=== PATIENT | female | born 1960 | race Caucasian/White ===

== ENCOUNTER → 2016-09-17 | Outpatient (CLI) | payer MEDICARE ==
[2016-09-17 20:29] LABS: ALT 46 U/L (9-52); AST 35 U/L (14-36); Alkaline Phosphatase 136 U/L (38-126); Anion Gap 8 mmol/L; Blood Urea Nitrogen 13 mg/dL (7-17); Calcium 9.6 mg/dL (8.4-10.2); Carbon Dioxide 34 mmol/L (22-30); Chloride 98 mmol/L (98-107); Glucose 123 mg/dL (74-99); Non-African American GFR(MDRD) >60 (>60 ml/min/1.73 sqM); Sodium 140 mmol/L (137-145); Total Bilirubin 0.4 mg/dL (0.2-1.3)
== END | disposition home or self-care (01) ==
LOC: MMGSC 15:12
PROVIDERS: ATTEND Family Medicine
DX: R79.89 Other specified abnormal findings of blood chemistry (principal)
CPT/HCPCS: 36415; 80053

== ENCOUNTER → 2018-01-14 | Outpatient (CLI) | payer MEDICARE ==
[2018-01-14 13:11] LABS: HCT 35.2 % (34.0-46.0); HGB 11.6 gm/dL (11.4-16.0); MCH 30.3 pg (25.0-35.0); MCV 91.6 fL (80.0-100.0); Mean Platelet Volume 6.8; Platelet Count 229 k/uL (150-450); RBC 3.84 m/uL (3.80-5.40); RDW 14.7 % (11.5-15.5); WBC 8.1 k/uL (3.8-10.6)
[2018-01-14 13:41] LABS: T4, Free (Free Thyroxine) 1.12 ng/dL (0.78-2.19)
[2018-01-14 22:04] LABS: ACTH 5.09 pg/mL (0.00-45.99)
== END | disposition home or self-care (01) ==
LOC: LABWHC1 12:36
PROVIDERS: ATTEND Internal Medicine Endocrinology, Diabetes & Metabolism
DX: R53.83 Other fatigue (principal)
CPT/HCPCS: 36415; 82024; 82533; 82607; 84146; 84439; 84443; 85027

== ENCOUNTER → 2021-04-06 | Outpatient (CLI) | payer MEDICARE ==
[2021-04-06 12:51] LABS: Appearance,Urine Clear (Clear); Bilirubin,Urine Negative (Negative); Blood,Urine Negative (Negative); Color,Urine Light Yellow; Glucose,Urine (UA) Negative (Negative); Ketones,Urine Negative (Negative); Leukocyte Esterase,Urine Negative (Negative); Nitrite,Urine Negative (Negative); PH, Urine 6.5 (5.0-8.0); Protein,Urine Negative (Negative); Urobilinogen,Urine <2.0 mg/dL (<2.0)
[2021-04-06 13:12] LABS: Anisocytosis Slight; HCT 41.5 % (34.0-46.0); HGB 12.5 gm/dL (11.4-16.0); Hypochromasia Marked; MCH 29.6 pg (25.0-35.0); MCHC 30.1 g/dL (31.0-37.0); MCV 98.5 fL (80.0-100.0); Macrocytosis Moderate; Mean Platelet Volume 8.5; Platelet Count 184 k/uL (150-450); RBC 4.22 m/uL (3.80-5.40); WBC 7.2 k/uL (3.8-10.6)
[2021-04-06 13:28] LABS: INR 1.2 (<1.2); Partial Thromboplastin Time 26.1 sec (22.0-30.0); Prothrombin Time 12.2 sec (9.0-12.0)
[2021-04-06 13:36] LABS: ALT 22 U/L (4-34); AST 32 U/L (14-36); African American GFR (CKD) >90 (>60 ml/min/1.73 sqM); Albumin 3.2 g/dL (3.5-5.0); Alkaline Phosphatase 126 U/L (38-126); Anion Gap 6 mmol/L; Blood Urea Nitrogen 16 mg/dL (7-17); Calcium 9.1 mg/dL (8.4-10.2); Carbon Dioxide 33 mmol/L (22-30); Chloride 100 mmol/L (98-107); Glucose 96 mg/dL (74-99); Magnesium 1.7 mg/dL (1.6-2.3); Non-African American GFR(CKD) >90 (>60 ml/min/1.73 sqM); Potassium 3.9 mmol/L (3.5-5.1); Sodium 139 mmol/L (137-145); Total Bilirubin 0.5 mg/dL (0.2-1.3)
[2021-04-06 20:55] LABS: Hepatitis A Antibody IgM Nonreactive (Nonreactive); Hepatitis B Core IgM Nonreactive (Nonreactive); Hepatitis B Surface Antigen Nonreactive (Nonreactive); Hepatitis C IgG Antibody Nonreactive (Nonreactive)
[2021-04-07 00:34] LABS: LDL Cholesterol,Calculated 63.5 mg/dL (0.0-131.0)
== END | disposition home or self-care (01) ==
LOC: LABPAT 08:00
PROVIDERS: ATTEND Thoracic Surgery (Cardiothoracic Vascular Surgery)
DX: Z20.822 Contact with and (suspected) exposure to COVID-19 (principal); I44.7 Left bundle-branch block, unspecified; I44.0 Atrioventricular block, first degree; I34.0 Nonrheumatic mitral (valve) insufficiency; R94.31 Abnormal electrocardiogram [ECG] [EKG]; J44.9 Chronic obstructive pulmonary disease, unspecified; Z79.899 Other long term (current) drug therapy; Z79.01 Long term (current) use of anticoagulants
CPT/HCPCS: 94150; 80061; 80053; 80074; 84443; 83735; 85027; 85610; 85730; 81003; 87070; 87086; 83036; 93005; 36415; U0003; C9803; U0005

== ENCOUNTER 2021-04-11 09:04 | Inpatient (IN) | payer MEDICARE ==
[2021-04-06 12:11] VITALS: BMI 33.9
[~2021-04-11 09:04] MED LIST: ALBUMIN HUMAN 25% 50 ML IV ONE; ALBUMIN HUMAN 5% 500 ML IVPB ONE; ASPIRIN 325 MG TAB PO ONE; ATORVASTATIN 10 MG TAB PO ONE; CALCIUM CHLORIDE 100 MG/ML 10 ML SYRINGE IV ONE; CHLORHEXIDINE GLUCONATE 15 ML CUP MUCOUS MEM ONE; CLEVIDIPINE BUTYRATE 25 MG in EMPTY BAG 1 BAG IV ONE; ELECTROLYTE-A SOLUTION 1,000 ML with POTASSIUM CHLORIDE 100 MEQ, MAGNESIUM SULFATE 16 M... IV ONE; ELECTROLYTE-A SOLUTION 1,000 ML with POTASSIUM CHLORIDE 40 MEQ, MAGNESIUM SULFATE 16 ME... IV ONE; HEPARIN SODIUM 1,000 UN/ML (10ML VL) IV ONE; HEPARIN SODIUM,PORCINE 5,000 UNIT in SODIUM CHLORIDE 0.9% 500 ML 500 ML IV ONE; INSULIN REGULAR 100 UNIT in SODIUM CHLORIDE 0.9% 100 ML IV ONE; LACTATED RINGERS 1,000 ML IV ONE; MAGNESIUM SULFATE 16.24 MEQ in EMPTY SYRINGE 1 SYR IV ONE; MANNITOL 25% 12.5 GM/50 ML VIAL IV ONE; METOPROLOL TARTRATE 12.5 MG TAB PO ONE; NITROGLYCERIN SL TABS 0.4 MG TAB SUBLINGUAL ONE; NITROGLYCERIN-D5W PMX 25 MG/250 ML BTL IV ONE; NITROGLYCERIN-D5W PMX 50 MG in DEXTROSE/WATER 1 250ML.BAG IV ONE; NOREPINEPHRINE 4 MG in SODIUM CHLORIDE 0.9% 250 ML IV ONE; PHENYLEPHRINE 10 MG/ML VIAL IV ONE; PHENYLEPHRINE 40 MG in SODIUM CHLORIDE 0.9% 250 ML IV ONE; PROTAMINE SULFATE 10 MG/ML 25 ML VIAL IV ONE; PROTAMINE SULFATE 250 MG in EMPTY BAG 1 BAG IV ONE; SODIUM BICARB 8.4% 50 ML SYR (1 MEQ/ML) IV ONE; SODIUM CHLORIDE 0.9% 1,000 ML IV ONE; TRANEXAMIC ACID 2,000 MG in SODIUM CHLORIDE 0.9% 80 ML IV ONE; propofoL 1,000 MG/100 ML VIAL IV ONE
[2021-04-11 10:13] LABS: Glucose,Whole Blood 122 mg/dL (75-99)
[2021-04-11] MEDS ORDERED: ceFAZolin 1,000 MG VIAL ONE (10:44)
[2021-04-11] MEDS ORDERED: ATROPINE SULFATE 0.1 MG/ML 10ML SYRINGE ONE (10:44)
[2021-04-11] MEDS ORDERED: MAGNESIUM SULFATE 4 MEQ/ML 10ML VIAL ONE (10:44)
[2021-04-11] MEDS ORDERED: CALCIUM CHLORIDE 100 MG/ML 10 ML SYRINGE ONE (10:44)
[2021-04-11] MEDS ORDERED: SODIUM CHLORIDE 0.9% IRRIG 1,000 ML BTL IRRIGATION ONE (10:44)
[2021-04-11] MEDS ORDERED: PROTAMINE SULFATE 10 MG/ML 25 ML VIAL IV ONE (10:44)
[2021-04-11] MEDS ORDERED: PROPOFOL 10 MG/ML 20 ML VIAL IV ONE (10:44)
[2021-04-11] MEDS ORDERED: MIDAZOLAM 2 MG/2 ML VIAL ONE (10:44)
[2021-04-11] MEDS ORDERED: INSULIN REGULAR 100 UNIT/ML VIAL (IV) ONE (10:44)
[2021-04-11] MEDS ORDERED: SODIUM CHLORIDE 0.9% 100 ML BAG ONE (10:44)
[2021-04-11] MEDS ORDERED: LIDOCAINE 2% SYG (PF) 100 MG/5 ML ONE (10:44)
[2021-04-11] MEDS ORDERED: VECURONIUM 10 MG VIAL IV ONE (10:44)
[2021-04-11] MEDS ORDERED: SODIUM CHLORIDE 0.9% 250 ML BAG ONE (10:44)
[2021-04-11] MEDS ORDERED: ELECTROLYTE-R (PH 7.4) 1,000 ML IV.SOLN IV ONE (10:44)
[2021-04-11] MEDS ORDERED: fentaNYL (PF) 50 MCG/ML 50 ML VIAL ONE (10:44)
[2021-04-11] MEDS ORDERED: TRANEXAMIC ACID 1,000 MG/10 ML VIAL ONE (10:44)
[2021-04-11] MEDS ORDERED: HEPARIN SODIUM,PORCINE 10,000 UNIT/ML 1 ML VIAL ONE (10:44)
[2021-04-11] MEDS ORDERED: ePHEDrine 50 MG/ML 1 ML AMP ONE (10:44)
--- NOTE | 2021-04-11 12:40 | P.ANPRN ---
Procedure Note - Anesthesia - Invasive Line Right Arterial Line Time Out Performed: Yes Date of Procedure: 04/11/21 Time of Procedure: 10:15 Location of Patient: PreOp Preparation: Sterile Prep, Sterile Dressing Arterial Line Location: Radial Ultrasound Used: No Needle Guage: 20 Narrative: R radial placed by CRATE BUILDER Right Central Line Time Out Performed: Yes Date of Procedure: 04/11/21 Time of Procedure: 10:20 Location of Patient: PreOp Preparation: Sterile Prep, Sterile Dressing Ultrasound Used: Yes Purpose - Visualization and Identification of Vasculature: Yes Needle Guage: 18 Image Stored and Saved: Yes Narrative: Central line placement per sterile protocol utilized. Right [place] Mariann Time Out Performed: Yes Date of Procedure: 04/11/21 Time of Procedure: 10:30 Location of Patient: PreOp Preparation: Sterile Prep, Sterile Dressing Narrative: RIJ swan floated to pulmonary waveform. Secured @ 47 cm.
[2021-04-11] MEDS ORDERED: ALBUMIN HUMAN 25% 50 ML IV ONE ×2 (13:15)
--- NOTE | 2021-04-11 14:23 | P.ANPRN ---
Procedure Note - Anesthesia - JANAE Intraop Pre Bypass JANAE Intraop - Anesthesia Indication: Mitral regurgitation Date of Procedure: 04/11/21 Pre-operative Diagnosis: Mitral regurgitation Post-operative Diagnosis: same Surgeon: Bharath Orellana Left Ventricle: EF 40% with hypokinesis inferoseptal wall Ejection Fraction: Other Regional Wall Motion Abnormalities: Other Left Ventricle Hypertrophy: Yes R. Ventricle Function: Hypokinesis Moderate Anatomy: Trileaflet Aortic Stenosis: None Aortic Regurgitation: Trace Mitral Valve: Restricted posterior leaflet Mitral Stenosis: None Mitral Regurgitation: Severe Tricuspid Stenosis: None Tricuspid Regurgitation: Mild Pulmonic Stenosis: None Pulmonic Regurgitation: None R. Atrial Dilation: Yes R. Atrial PFO: No L. Atrial Dilation: Yes Aortic Dissection: No Aortic Calcification: Moderate Plural Effusion: None - JANAE Intraop Post Bypass JANAE Intraop Post Bypass Procedure Performed: MV annuloplasty Left Ventricle: EF 40. Unchanged Ejection Fraction: Other Regional Wall Motion Abnormalities: Other R. Ventricle Function: Hypokinesis Mild Aortic Valve: Unchanged Mitral Valve: s/p MVr with annuloplasty. Trace MR. Gradient 10 mm peak, 6 mm mean Tricuspid: Unchanged Pulmonic: Unchanged Aortic Dissection: No
[2021-04-11] MEDS ORDERED: IPRATROPIUM-ALBUTEROL 3 ML NEB INHALATION PRN (15:08)
[2021-04-11] MEDS ORDERED: HYDROMORPHONE HCL 12 MG PO PRN (15:08)
[2021-04-11] MEDS ORDERED: Phosphorus Replacement Protoco 1 EACH MISC MISCELLANE PRN (15:08)
[2021-04-11] MEDS ORDERED: METOCLOPRAMIDE 5 MG/ML 2 ML VIAL IVP PRN (15:08)
[2021-04-11] MEDS ORDERED: Magnesium Replacement Protocol 1 EACH MISC MISCELLANE PRN (15:08)
[2021-04-11] MEDS ORDERED: AMIODARONE 450 MG in DEXTROSE 5% IN WATER 250 ML IV PRN ×2 (15:08)
[2021-04-11] MEDS ORDERED: CALCIUM GLUCONATE 2 GM in SODIUM CHLORIDE 0.9% 100 ML IVPB PRN (15:08)
[2021-04-11] MEDS ORDERED: AMIODARONE 360 MG in DEXTROSE 5% IN WATER 200 ML IV PRN ×2 (15:08)
[2021-04-11] MEDS ORDERED: CLEVIDIPINE BUTYRATE 25 MG in EMPTY BAG 1 BAG IV SCH (15:08)
[2021-04-11] MEDS ORDERED: BENZOCAINE/MENTHOL LOZENG 1 EACH LOZENGE MUCOUS MEM PRN (15:08)
[2021-04-11] MEDS ORDERED: INSULIN REGULAR 100 UNIT in SODIUM CHLORIDE 0.9% 100 ML IV SCH (15:08)
[2021-04-11] MEDS ORDERED: Potassium Replacement Protocol 1 EACH MISC MISCELLANE PRN (15:08)
[2021-04-11] MEDS ORDERED: SYMBICORT 160-4.5 MCG INHALER INHALATION PRN (15:08)
[2021-04-11] MEDS ORDERED: ALPRAZolam 0.25 MG TAB PO PRN (15:08)
[2021-04-11] MEDS ORDERED: hydrALAZINE HCL 20 MG/ML 1 ML VIAL IVP PRN (15:08)
[2021-04-11] MEDS ORDERED: NYSTATIN 100,000 UNIT/ML SUSP 500,000 UNIT/5 ML CUP PO PRN (15:08)
[2021-04-11 15:20] LABS: Glucose,Whole Blood 146 mg/dL (75-99)
[2021-04-11 15:28] LABS: INR 1.2 (<1.2); Partial Thromboplastin Time 36.3 sec (22.0-30.0); Prothrombin Time 12.7 sec (9.0-12.0)
[2021-04-11 15:33] LABS: ABG Base Excess 9.1 mmol/L; ABG HCO3 33 mmol/L (21-25); ABG PCO2 49 mmHg (35-45); ABG PH 7.44 (7.35-7.45); ABG PO2 209 mmHg (83-108); ABG TCO2 35 mmol/L (19-24); Allen Test Performed? Yes
[2021-04-11 15:33] LABS: Ionized Calcium 4.6 mg/dL (4.5-5.3)
[2021-04-11] MEDS: LACTATED RINGERS 1,000 ML IV SCH (15:37)
[2021-04-11 15:43] LABS: ALT 14 U/L (4-34); AST 62 U/L (14-36); African American GFR (CKD) >90 (>60 ml/min/1.73 sqM); Albumin 2.5 g/dL (3.5-5.0); Alkaline Phosphatase 66 U/L (38-126); Anion Gap 4 mmol/L; Blood Urea Nitrogen 14 mg/dL (7-17); Carbon Dioxide 31 mmol/L (22-30); Chloride 103 mmol/L (98-107); Glucose 140 mg/dL (74-99); Magnesium 2.1 mg/dL (1.6-2.3); Non-African American GFR(CKD) >90 (>60 ml/min/1.73 sqM); Potassium 2.9 mmol/L (3.5-5.1); Sodium 138 mmol/L (137-145); Total Bilirubin 0.5 mg/dL (0.2-1.3); Total Protein 4.6 g/dL (6.3-8.2)
--- NOTE | 2021-04-11 15:43 | XR ---
EXAMINATION TYPE: XR chest 1V portable DATE OF EXAM: 04/11/2021 COMPARISON: Chest x-ray 10/05/2014 HISTORY: Postop cardiac surgery TECHNIQUE: Single frontal view of the chest is obtained. FINDINGS: Patient is post median sternotomy, left atrial appendage clip placement. Endotracheal tube , NG tube, median sternotomy drain, left chest tube, right jugular central venous catheter overlying appropriate positions. There is a thoracic stimulator lead. There are overlying artifacts. No evident pneumothorax or pleural effusion. Bilateral patchy density within the lungs, prominent interstitium noted. Cardiac mediastinal silhouette is prominent, patient is rotated. IMPRESSION: There may be a component of volume overload, interstitial edema.
[2021-04-11 15:48] LABS: Anisocytosis Moderate; Basophils % (A) 0 %; Eosinophils # (A) 0.1 k/uL (0-0.7); Eosinophils % (A) 1 %; HCT 35.1 % (34.0-46.0); HGB 11.3 gm/dL (11.4-16.0); Lymphocytes # (A) 0.5 k/uL (1.0-4.8); Lymphocytes % (A) 5 %; MCH 30.5 pg (25.0-35.0); MCHC 32.2 g/dL (31.0-37.0); MCV 94.7 fL (80.0-100.0); Macrocytosis Slight; Mean Platelet Volume 8.9; Monocytes # (A) 0.4 k/uL (0-1.0); Monocytes % (A) 4 %; Neutrophils % (A) 90 %; Platelet Count 106 k/uL (150-450); WBC 10.1 k/uL (3.8-10.6)
--- NOTE | 2021-04-11 15:58 | P.CNPUL ---
History of Present Illness Consult date: 04/11/21 Requesting physician: Bharath Orellana Reason for consult: dyspnea Chief complaint: Mitral valve Repair History of present illness: 61-year-old female patient with past medical history of coronary artery disease with previous PCI and stenting, hypertension, hypertensive cardiovascular disease, hyperlipidemia, history of CVA, Chavarria's palsy, COPD, stage II with FEV1 of 1.7 L or 63% of predicted, former history of smoking chronic low back pain, degenerative disc disease, spinal stimulator with revision, former smoker, and history of mitral valve regurgitation, who had an elective mitral valve repair today on 04/11/[address] Orellana. Patient's preoperative workup was done at an outside hospital, possibly [facility]. Patient is seen in the postoperative period in the intensive care unit, sedated and intubated on mechanical ventilator. Currently on assist control mode of ventilation with a rate 16, tacrolimus 500, FiO2 100% and PEEP of 10. Postoperative blood gases are pending, she is currently on lactated Ringer's at 50 ML per hour, Diprivan is a 40 mics per kilo per minute, Levophed at 0.01 mics per kilo per minute, milrinone is a 0.3 mics per kilo per minute. Patient is AV paced on the monitor at a rate of 80. Mediastinal and right pleural chest tubes are connected together, with 80 mL of sanguinous output. Hemodynamically patient is stable, currently blood pressure is 122/60, PA pressures 49/29, CVP is 11, cardiac output is 5.9, and cardiac index is 2.9. Postoperative blood work shows INR of 1.2, sodium is 138, potassium is 2.9 and this is being replaced per protocol, chloride is 103, CO2 31, BUN is 14, creatinine 0.57, CBC is pending. Chest x- ray shows a component of volume overload, interstitial edema. Endotracheal tube NG tube and chest tubes are in appropriate positions. Review of Systems All systems: negative Constitutional: Denies chills, Denies fever Eyes: denies blurred vision, denies pain Ears, nose, mouth and throat: Denies headache, Denies sore throat Cardiovascular: Denies chest pain, Denies shortness of breath Respiratory: Reports dyspnea, Denies cough Gastrointestinal: Denies abdominal pain, Denies diarrhea, Denies nausea, Denies vomiting Genitourinary: Denies dysuria, Denies hematuria Musculoskeletal: Denies myalgias Integumentary: Denies pruritus, Denies rash Neurological: Denies numbness, Denies weakness Psychiatric: Denies anxiety, Denies depression Endocrine: Denies fatigue, Denies weight change Past Medical History Past Medical History: Coronary Artery Disease (CAD), COPD, GERD/Reflux, GI Bleed, Hyperlipidemia, Hypertension, Myocardial Infarction (ID), Osteoarthritis (OA), Skin Disorder Additional Past Medical History / Comment(s): ?CVA, right sided weakness, Chavarria's palsy, back in 2009, chronic low back pain, spinal stimulator, with revision, meningitis after one of spinal stim. surgeries, reinsertion of the spinal stimulator April 2012-not really working correctly @this time, constipation, peptic ulcer disease, frequent nausea, hx. H. pylori, rash under breast, in groin, fluid retention in legs Last Myocardial Infarction Date:: unknown History of Any Multi-Drug Resistant Organisms: MRSA Date of last positivie culture/infection: 09/25/17 MDRO Source:: ABDOMEN Past Surgical History: Back Surgery, Section, Cholecystectomy, Heart Catheterization, Heart Catheterization With Stent, Hysterectomy, Joint Replacement Additional Past Surgical History / Comment(s): C-sections 1978 and 1984, lumbar laminectomy August 2002, total abdominal hysterectomy with bilateral oophorectomy secondary to endometriosis in July 2005, cholecystectomy June 2006, epidural steroid injection as well as facet arthropathy with facet joint injections along with radiofrequency ablation between 2007 and 2009, trial of spinal cord stimulator in August 2010, placement of stable spinal cord stimulator in September 2010, revision in April 2011, bacterial meningitis status post multiple debridement, left heart catheterization with a stent insertion in August 2011, debridement of tissue in the back secondary to prior meningitis October 2011, implantation of new spinal cord stimulator in April 2012, kd knee replacements Past Anesthesia/Blood Transfusion Reactions: No Reported Reaction Additional Past Anesthesia/Blood Transfusion Reaction / Comment(s): States bad reaction to ketamine Date of Last Stent Placement:: September 08, 2011 Smoking Status: Current some day smoker - Past Family History Mother Family Medical History: Coronary Artery Disease (CAD), Deep Vein Thrombosis (DVT), Pulmonary Embolus Additional Family Medical History / Comment(s): Mother and two sisters and two n ieces have had DVTs, mother Father Family Medical History: COPD, Myocardial Infarction (ID) Sister(s) Family Medical History: No Reported History Brother(s) Family Medical History: Coronary Artery Disease (CAD) Daughter(s) Family Medical History: No Reported History Son(s) Family Medical History: No Reported History Medications and Allergies Home Medications Medication Instructions Recorded Confirmed Type ALPRAZolam [Xanax] 0.5 mg PO TID PRN 09/30/14 04/11/21 History Furosemide [Lasix] 40 mg PO BID 09/30/14 04/11/21 History Lisinopril-Hctz 20-25 mg 1 tab PO DAILY 09/30/14 04/11/21 History [Zestoretic 20-25] Omeprazole [PriLOSEC] 40 mg PO DAILY 09/30/14 04/11/21 History Ondansetron [Zofran] 8 mg PO Q6H PRN 09/30/14 04/11/21 History Potassium Chloride [K-Tab ER] 20 meq PO DAILY 09/30/14 04/11/21 History SUMAtriptan SUCCINATE [Imitrex] 100 mg PO BID PRN 09/30/14 04/11/21 History Albuterol Nebulized [Ventolin 3 ml INHALATION Q6H PRN 04/06/21 04/11/21 History Nebulized] Albuterol Sulfate [Ventolin HFA] 1 - 2 puff INHALATION Q6H PRN 04/06/21 04/11/21 History Aspirin 325 mg PO DAILY 04/06/21 04/11/21 History Budesonide-Formot 160-4.5 Mcg 2 puff INHALATION BID PRN 04/06/21 04/11/21 History [Symbicort 160-4.5 Mcg Inhaler] Dicyclomine [Bentyl] 20 mg PO QID 04/06/21 04/11/21 History Diphenoxylate HCl/Atropine 1 - 2 tab PO QID PRN 04/06/21 04/11/21 History [Lomotil 2.5-0.025 mg Tablet] Ferrous Sulfate [Feosol] 325 mg PO DAILY 04/06/21 04/11/21 History HYDROmorphone HCL [HYDROmorphone 12 mg PO Q12H PRN 04/06/21 04/11/21 History HCL ER] Ipratropium Nebulized [Atrovent 0.5 mg INHALATION Q8HR PRN 04/06/21 04/11/21 History Nebulized 0.2 MG/ML] Metoprolol Succinate (ER) [Toprol 25 mg PO DAILY 04/06/21 04/11/21 History Xl] Nystatin 100,000 Unit/ml Susp 4 ml PO QID PRN 04/06/21 04/11/21 History [Mycostatin Oral Susp] Pregabalin [Lyrica] 50 mg PO TID 04/06/21 04/11/21 History SUMAtriptan SUCCINATE [Imitrex] 6 mg SQ DIRECTED PRN 04/06/21 04/11/21 History Sucralfate [Carafate] 1 gm PO AC-TID 04/06/21 04/11/21 History oxyCODONE HCL [oxyCODONE HCL (IR)] 20 mg PO Q6H PRN 04/06/21 04/11/21 History Mupirocin [Mupirocin 2%] 1 applic NASAL BID #1 tub 04/08/21 04/11/21 Rx Allergies Allergy/AdvReac Type Severity Reaction Status Date / Time Iodinated Contrast Media Allergy Unknown Verified 04/11/21 09:40 [Iodinated Contrast Media - IV Dye] adhesive AdvReac SKIN TEARS Verified 04/11/21 09:40 ketamine AdvReac Hallucinati Verified 04/11/21 09:40 ons Physical Exam Vitals: Vital Signs Temp Pulse Resp BP BP Pulse Ox 04/11/21 10:08 97.9 F 62 16 85/52 128/59 95 Intake and Output 04/10/21 04/11/21 04/11/21 22:59 06:59 14:59 Intake Total 151 Balance 151 Intake: IV 151 Other: Weight 94.5 kg GENERAL EXAM: Sedated, intubated this 11-year-old female, on assist-control mode of ventilation, comfortable in no apparent distress. HEAD: Normocephalic/atraumatic. EYES: Normal reaction of pupils, equal size. Conjunctiva pink, sclera white. NOSE: Clear with pink turbinates. THROAT: No erythema or exudates. NECK: No masses, no JVD, no thyroid enlargement, no adenopathy. CHEST: No chest wall deformity. Symmetrical expansion. Midsternal incision is clean dry and intact, mediastinal and right pleural chest tubes connected together, with 80 mL of sanguinous output in the Pleur-evac, no evidence of air leak sites are clean dry and intact. Epicardial wires are connected to external temporary pacemaker and patient being DDD paced at a rate of 80 LUNGS: Equal air entry with no crackles, wheeze, rhonchi or dullness. CVS: Regular rate and rhythm, normal S1 and S2, no gallops, no murmurs, no rubs ABDOMEN: Soft, nontender. No hepatosplenomegaly, normal bowel sounds, no guarding or rigidity. EXTREMITIES: No clubbing, no edema, no cyanosis, 2+ pulses and upper and lower extremities. MUSCULOSKELETAL: Muscle strength and tone normal. SPINE: No scoliosis or deformity SKIN: No rashes CENTRAL NERVOUS SYSTEM: Sedated, intubated No focal deficits, tone is normal in all 4 extremities. Results - Laboratory Findings Abnormal lab findings: Abnormal Labs 04/06/21 04/11/21 11:30 10:11 POC Glucose (mg/dL) 122 H Crossmatch See Detail - Diagnostic Findings Chest x-ray: report reviewed, image reviewed Assessment and Plan Plan: Assessment: #1. Severe mitral valve regurgitation, status post mitral valve repair and exclusion of the left atrial appendage with 35 mm AtriClip on 04/11/2021 #2. Chronic congestive heart failure, most recent echocardiogram is not available to us at this time, patient previously had EF of 40-45% #3. Routine postoperative ventilator management #4. History of stage II COPD, with baseline FEV1 of 63% of predicted #5. History of smoking, patient carries [id number] smoking history, currently in remission #6. Hypertension #7. Hyperlipidemia #8. Coronary artery disease with previous PCI and stenting #9. History of CVA #10. History of Chavarria's palsy #11. History of chronic low back pain related to degenerative disc disease with history of spinal cord stimulator placement subsequent revision Plan: Postoperative blood gas have been reviewed, FiO2 is down to 50% Continue weaning FiO2 per protocol We'll proceed with spontaneous awakening trial of spontaneous breathing trials per protocol Postoperative chest x-ray reviewed Postoperative blood work has been reviewed, CBC still pending Hemodynamically patient is stable, on small amount of milrinone No significant bleeding out of the chest tubes Doing well Continue breathing treatments every 4 hours while on the vent, and QID after extubation Incentive spirometer to the bedside, instructed patient on use Follow-up blood work later on tonight, and in the morning per protocol Follow-up chest x-ray in the morning We'll continue to follow I performed a history & physical examination of the patient and discussed their management with my nurse practitioner, Geno Cardenas. I reviewed the nurse practitioner's note and agree with the documented findings and plan of care. Lung sounds are positive for dim breath sounds throughout the lung [place]. The findings and the impression was discussed with the patient. I attest to the documentation by the nurse practitioner. Time with Patient: Greater than 30
[2021-04-11] MEDS ORDERED: IPRATROPIUM-ALBUTEROL 3 ML NEB INHALATION SCH (16:00)
[2021-04-11 16:13] LABS: Glucose,Whole Blood 143 mg/dL (75-99)
[2021-04-11] MEDS ORDERED: MILRINONE-D5W PMX 20 MG in DEXTROSE/WATER 1 100ML.BAG IV SCH ×2 (16:15→22:00)
[2021-04-11] MEDS: POTASSIUM CHLORIDE 20 MEQ in WATER FOR INJECTION 1 100ML.BAG IVPB SCH ×3 (16:18→21:21)
[2021-04-11] MEDS: HEPARIN SODIUM,PORCINE/PF 5,000 UNIT/0.5 ML SYRINGE SQ SCH ×2 (16:18→23:19)
[2021-04-11] MEDS: PREGABALIN 50 MG CAP PO SCH ×2 (16:56→23:52)
[2021-04-11 17:09] LABS: Glucose,Whole Blood 150 mg/dL (75-99)
[2021-04-11 17:36] LABS: Anisocytosis Slight; Basophils % (A) 0 %; Eosinophils % (A) 0 %; HCT 36.8 % (34.0-46.0); HGB 11.7 gm/dL (11.4-16.0); Lymphocytes # (A) 0.4 k/uL (1.0-4.8); Lymphocytes % (A) 4 %; MCH 30.1 pg (25.0-35.0); MCHC 31.7 g/dL (31.0-37.0); MCV 94.8 fL (80.0-100.0); Macrocytosis Slight; Monocytes # (A) 0.4 k/uL (0-1.0); Monocytes % (A) 4 %; Neutrophils # (A) 8.6 k/uL (1.3-7.7); Neutrophils % (A) 91 %; Platelet Count 107 k/uL (150-450); RBC 3.88 m/uL (3.80-5.40); RDW 19.8 % (11.5-15.5); WBC 9.5 k/uL (3.8-10.6)
[2021-04-11 18:02] LABS: Glucose,Whole Blood 140 mg/dL (75-99)
[2021-04-11] MEDS: ACETAMINOPHEN IV (For NPO) 1,000 MG in EMPTY BAG 1 BAG IVPB SCH ×2 (18:23→23:48)
[2021-04-11] MEDS: KETOROLAC 30 MG/ML 1 ML VIAL IVP SCH ×2 (18:24→23:30)
--- NOTE | 2021-04-11 19:01 | OP ---
OPERATIVE REPORT DATE OF OPERATION: 04/11/2021 PREOPERATIVE DIAGNOSIS: Severe mitral regurgitation. POSTOPERATIVE DIAGNOSIS: Severe mitral regurgitation. PROCEDURE: Complex mitral valve repair with ring annuloplasty with a #28 mm [employer] AnnuloFlex band, clip ligation of the left atrial appendage with a 28 mm AnnuloFlex band, clip ligation of left atrial appendage with a 35 mm AtriClip and intraoperative transesophageal echocardiogram. ANESTHESIA: General. BLOOD LOSS: 500 mL. SUMMARY: Patient was brought to the operating room and placed in supine position. Following administration of general endotracheal anesthetic, placed in a [place]-Mariann catheter and arterial line, adequate IV access and a Gonzalez catheter. The patient was carefully prepped and draped in normal sterile fashion using chlorhexidine paint and sterile towels. Midline incision in the chest was made and sternum divided. Pericardium was opened. Heart size was enlarged. The aorta was relatively soft. There were some calcific plaques towards the distal ascending proximal arch. Patient was heparinized with an AST of greater than 40. The aorta and two single-stage venous cannulas were placed, antegrade and retrograde cardioplegic catheters positioned in the ascending aorta and the coronary sinus. Patient was placed on bypass, cross-clamp placed, heart arrested with 1 L of antegrade followed by 500 mL retrograde cardioplegia. Retrograde cardioplegia was delivered 300 to 500 mL at the end of each 20-minute interval. First the base of the left atrial appendage was measured. A 35 mm AtriClip was secured at the base, officially obliterating the left atrial appendage. Next, the left atrium was entered at the junction of the right superior pulmonary vein. A handheld retractor was placed. The mitral valve was identified. The subvalvular apparatus appeared to be within normal limits and there was a dilated anulus. It sized to a 28 mm [employer] AnnuloFlex band. Tycron 2-0 non-pledgeted sutures were placed from trigone to trigone along the posterior anulus. These were then passed through the sewing cuff of the ring. The ring was then seated. All sutures were secured, tied and cut using the Cor Knot ligature system device. It was then tested with a handheld tray. There was no evidence of any further regurgitation. At this point the atrium was closed. The left atrium was closed in a double-layered pledgeted 4-0 Prolene vertical mattress followed by an [id number] stitch from both sides. Complete de- airing maneuvers were then performed 3 times. One liter of warm blood retrograde cardioplegia was run. Cross-clamp was then removed, and once beating in normal sinus rhythm, the patient with sinus bradycardia was paced DDD at 80 and brought off bypass. She came off bypass uneventfully with excellent hemodynamics. Protamine was delivered. Patient was decannulated. Atrial ventricular pacing wires were placed. Mediastinal left pleural chest tubes were placed. At this point, the sternum was closed with four #6 sternal wires and two [id number] [place] sternal cable closure devices. Skin and subcutaneous tissue and fascia was closed in 3 layers. No complications. The patient tolerated the procedure well and was taken to the cardiovascular intensive care unit in critical but stable condition on low-dose Levophed and low-dose milrinone. Postoperative JANAE showed left ventricular function to be the same as preoperatively, about 40% to 45%, and no evidence of any mitral regurgitation. MMODL / IJN: [id number] /
[2021-04-11 19:02] LABS: Glucose,Whole Blood 133 mg/dL (75-99)
[2021-04-11] MEDS ORDERED: MUPIROCIN 2% OINT 22 GM TUBE NASAL ONE (19:30)
[2021-04-11] MEDS: IPRATROPIUM-ALBUTEROL 3 ML NEB INHALATION SCH (19:40)
[2021-04-11 20:13] LABS: Glucose,Whole Blood 142 mg/dL (75-99)
[2021-04-11 20:21] LABS: Anisocytosis Slight; Basophils % (A) 0 %; Eosinophils % (A) 0 %; HCT 36.6 % (34.0-46.0); HGB 11.6 gm/dL (11.4-16.0); Hypochromasia Slight; Lymphocytes # (A) 0.3 k/uL (1.0-4.8); Lymphocytes % (A) 3 %; MCH 30.1 pg (25.0-35.0); MCHC 31.6 g/dL (31.0-37.0); MCV 95.1 fL (80.0-100.0); Macrocytosis Slight; Mean Platelet Volume 10.4; Monocytes # (A) 0.4 k/uL (0-1.0); Monocytes % (A) 3 %; Neutrophils # (A) 10.3 k/uL (1.3-7.7); Neutrophils % (A) 93 %; Platelet Count 115 k/uL (150-450); RBC 3.85 m/uL (3.80-5.40); RDW 19.4 % (11.5-15.5); WBC 11.1 k/uL (3.8-10.6)
[2021-04-11] MEDS: DEXMEDETOMIDINE/0.9% NACL(PMX) 400 MCG in EMPTY BAG 1 BAG IV SCH (20:38)
[2021-04-11 21:06] LABS: Glucose,Whole Blood 143 mg/dL (75-99)
[2021-04-11] MEDS: HYDROmorphone 2 MG TAB PO PRN (21:48)
[2021-04-11] MEDS ORDERED: ALBUMIN HUMAN 5% 500 ML in EMPTY BAG 1 BAG IVPB ONE (22:00)
[2021-04-11] MEDS: MUPIROCIN 2% OINT 22 GM TUBE NASAL SCH (22:10)
[2021-04-11 22:20] LABS: Glucose,Whole Blood 137 mg/dL (75-99)
[2021-04-11] MEDS: ALBUMIN HUMAN 5% 250 ML in EMPTY BAG 1 BAG IVPB PRN ×2 (22:24→23:10)
[2021-04-11 22:54] LABS: Glucose,Whole Blood 134 mg/dL (75-99)
[2021-04-11 23:21] LABS: ABG Base Excess 8.9 mmol/L; ABG HCO3 33 mmol/L (21-25); ABG Oxygen Saturation 97.9 % (94-97); ABG PCO2 47 mmHg (35-45); ABG PH 7.45 (7.35-7.45); ABG PO2 87 mmHg (83-108); ABG TCO2 34 mmol/L (19-24); Allen Test Performed? Yes
[2021-04-12 00:07] LABS: Glucose,Whole Blood 123 mg/dL (75-99)
[2021-04-12 01:06] LABS: Glucose,Whole Blood 115 mg/dL (75-99)
[2021-04-12 02:02] LABS: Glucose,Whole Blood 105 mg/dL (75-99)
[2021-04-12 03:02] LABS: Glucose,Whole Blood 110 mg/dL (75-99)
[2021-04-12 04:02] LABS: Glucose,Whole Blood 116 mg/dL (75-99)
[2021-04-12] MEDS: DEXMEDETOMIDINE/0.9% NACL(PMX) 400 MCG in EMPTY BAG 1 BAG IV SCH (04:02)
[2021-04-12 04:12] LABS: Anisocytosis Slight; Basophils % (A) 0 %; Eosinophils % (A) 0 %; HCT 32.8 % (34.0-46.0); HGB 10.2 gm/dL (11.4-16.0); Hypochromasia Slight; Lymphocytes # (A) 0.6 k/uL (1.0-4.8); Lymphocytes % (A) 7 %; MCH 29.8 pg (25.0-35.0); Macrocytosis Slight; Mean Platelet Volume 10.1; Monocytes # (A) 0.4 k/uL (0-1.0); Monocytes % (A) 4 %; Neutrophils # (A) 7.3 k/uL (1.3-7.7); Neutrophils % (A) 87 %; Platelet Count 103 k/uL (150-450); RBC 3.41 m/uL (3.80-5.40); RDW 19.3 % (11.5-15.5); WBC 8.3 k/uL (3.8-10.6)
[2021-04-12] MEDS: HYDROmorphone 2 MG TAB PO PRN ×5 (04:14→23:01)
[2021-04-12 04:18] LABS: Ionized Calcium 4.7 mg/dL (4.5-5.3)
[2021-04-12 04:30] LABS: ALT 11 U/L (4-34); AST 63 U/L (14-36); African American GFR (CKD) >90 (>60 ml/min/1.73 sqM); Albumin 2.5 g/dL (3.5-5.0); Alkaline Phosphatase 63 U/L (38-126); Anion Gap 4 mmol/L; Blood Urea Nitrogen 15 mg/dL (7-17); Calcium 8.1 mg/dL (8.4-10.2); Carbon Dioxide 29 mmol/L (22-30); Chloride 104 mmol/L (98-107); Glucose 112 mg/dL (74-99); Non-African American GFR(CKD) >90 (>60 ml/min/1.73 sqM); Sodium 137 mmol/L (137-145); Total Bilirubin 0.4 mg/dL (0.2-1.3); Total Protein 4.5 g/dL (6.3-8.2)
[2021-04-12 05:05] LABS: Glucose,Whole Blood 113 mg/dL (75-99)
[2021-04-12] MEDS: KETOROLAC 30 MG/ML 1 ML VIAL IVP SCH ×3 (05:12→18:02)
[2021-04-12] MEDS: ALBUMIN HUMAN 5% 250 ML in EMPTY BAG 1 BAG IVPB PRN ×2 (06:06→06:48)
[2021-04-12 06:27] LABS: Glucose,Whole Blood 107 mg/dL (75-99)
[2021-04-12 06:54] LABS: Glucose,Whole Blood 105 mg/dL (75-99)
[2021-04-12] MEDS: NOREPINEPHRINE 4 MG in SODIUM CHLORIDE 0.9% 250 ML IV SCH (07:22)
[2021-04-12] MEDS ORDERED: POTASSIUM CHLORIDE ER 20 MEQ TAB.ER PO STA (07:51)
[2021-04-12] MEDS: CLOPIDOGREL 75 MG TAB PO SCH (08:30)
[2021-04-12] MEDS: ASPIRIN 325 MG TAB PO SCH (08:30)
[2021-04-12] MEDS: ATORVASTATIN 40 MG TAB PO SCH (08:30)
[2021-04-12] MEDS: PREGABALIN 50 MG CAP PO SCH ×3 (08:30→20:26)
[2021-04-12] MEDS: HEPARIN SODIUM,PORCINE/PF 5,000 UNIT/0.5 ML SYRINGE SQ SCH ×3 (08:31→20:27)
[2021-04-12] MEDS: MUPIROCIN 2% OINT 22 GM TUBE NASAL SCH ×2 (08:32→23:03)
[2021-04-12] MEDS ORDERED: KETOROLAC 30 MG/ML 1 ML VIAL IVP STA (08:35)
[2021-04-12] MEDS: IPRATROPIUM-ALBUTEROL 3 ML NEB INHALATION SCH ×4 (08:52→20:29)
--- NOTE | 2021-04-12 08:54 | XR ---
EXAMINATION TYPE: XR chest 1V portable DATE OF EXAM: 04/12/2021 COMPARISON: 04/11/2021 INDICATION: Postop cardiac surgery TECHNIQUE: Single frontal view of the chest is obtained. FINDINGS: The heart size is moderately prominent. The pulmonary vasculature is normal. Mild diffuse increased lung markings are present. This is greater at the lung bases. Minimal pleural effusions may be present Mediastinal tube is present. Stimulator leads are evident. Right [place]-Mariann catheter is present with t he tip in the left main pulmonary artery. A left-sided chest tube is present. No pneumothorax is evid ent. IMPRESSION: 1. Multiple lines and catheters discussed above. 2. Mild diffuse increased lung markings. Correlate for pulmonary edema
[2021-04-12] MEDS ORDERED: PANTOPRAZOLE 40 MG/10 ML VIAL IVP SCH (09:00)
[2021-04-12] MEDS ORDERED: METOPROLOL TARTRATE 12.5 MG TAB PO SCH (09:00)
[2021-04-12] MEDS ORDERED: bisacodyL 10 MG SUPP RECTAL PRN (09:00)
[2021-04-12] MEDS ORDERED: FUROSEMIDE 10 MG/ML 2 ML VIAL IV STA (09:30)
--- NOTE | 2021-04-12 09:40 | P.PN ---
Subjective Progress Note Date: 04/12/21 Principal diagnosis: Severe mitral regurgitation. Previous medical history of coronary artery disease with previous myocardial infarction and PCI in August 2011, hypertension, CVA in 2009 with left-sided carotid stenosis 56%, previous syncope, current occasional cigarette use, mild restrictive lung disease, remote history of pneumonia, chronic pain issues with previous pain stimulator placement and chronic opioid dependence, follows with Dr. Doherty at pain clinic. Preoperat gabriella nasal swab positive for MSSA. Intraoperative bradycardia and third-degree heart block POD #1 complex mitral valve repair with ring annuloplasty with a #28 mm [employer] AnnuloFlex band, clip ligation of the left atrial appendage with a 35 mm AtriClip, intraoperative transesophageal echocardiogram Postoperative acute blood loss anemia and thrombocytopenia, expected given hemodilution and cardiopulmonary bypass pump Postoperative hypotension requiring low-dose pressor use, expected and likely vasoplegia given preoperative LEROY inhibitor use Postoperative controlled atrial fibrillation, known common occurrence after open heart surgery The patient is currently sitting up in a recliner in the intensive care unit in no acute distress other than acute on chronic pain. She was successfully extubated last night at 23:56. She does complain of chronic back pain as well as postsurgical pain which she states is not controlled enough on current medication regimen and she is asking for more pain medication, denies shortness of breath. She was bradycardic and being paced yesterday, this morning she is in controlled atrial fibrillation. Was on IV Primacor this morning which has been discontinued, IV Levophed reinitiated for hypotension. Right internal jugular [place]/Cordis, left radial arterial line, mediastinal/left pleural chest tubes all remain. Objective - Vital Signs Vital signs: Vital Signs Temp 98.1 F 04/11/21 16:00 Pulse 93 04/12/21 09:06 Resp 17 04/12/21 07:00 BP 128/59 04/11/21 10:08 Pulse Ox 97 04/12/21 07:00 Intake & Output 04/11/21 04/12/21 04/12/21 18:59 06:59 18:59 Intake Total 787.277 7768.805 96.12 Output Total 2670 880 45 Balance -2303.730 1129.805 51.12 Weight 94.5 kg 95.4 kg Intake: IV 228 2230.58 96.12 Albumin 1000 IV Acetaminophen 100 Kefzol 50 Lactated Ringers 550 50 Primacor 92.58 7.12 cardiac output 50 330 30 pressure bag 27 108 9 Intake, IV Titration 459.993 333.225 Amount ACETAMINOPHEN IV (For NPO 100 ) 1,000 mg In Empty Bag 1 bag @ 400 mls/hr IVPB Q6HR [facility] Rx#:[id number] Dexmedetomidine/0.9% NaCl 66.467 (Pmx) 400 mcg In Empty Bag 1 bag @ Titrate IV . Q0M [facility] Rx#:[id number] Insulin Regular 100 unit 1.591 16.758 In Sodium Chloride 0.9% 100 ml @ Per Protocol IV .Q0M [facility] Rx#:[id number] Lactated Ringers 1,000 ml 150 50 @ 50 mls/hr IV .Q20H [facility] Rx#:[id number] Potassium Chloride 20 meq 100 200 In Water For Injection 1 100ml.bag @ 50 mls/hr IVPB Q2H [facility] Rx#: [id number] ceFAZolin 2 gm In Sodium 50 Chloride 0.9% 50 ml @ 100 mls/hr IVPB Q8HR [facility] Rx# :[id number] propofoL 1,000 mg In 58.402 Empty Bag 1 bag @ Titrate IV .Q0M [facility]AT Rx#: [id number] Oral 480 Output: Chest Tube Drainage 140 400 10 mediastinal and left 140 400 10 pleural Urine 730 480 35 Estimated Blood Loss 1800 Other: Voiding Method Indwelling Catheter Indwelling Catheter ABP, PAP, CO, CI - Last Documented Arterial Blood Pressure 89/43 Pulmonary Artery Pressure 33/20 Cardiac Output 5 Cardiac Index 2.5 - Exam CONSTITUTIONAL: Appears in mild distress due to pain but otherwise cooperative RESPIRATORY: Lungs sounds diminished bilaterally. Respirations even, nonl abored. Currently on 6 L nasal cannula with oxygen saturation 98%. Able to achieve 1000 mL on incentive spirometry. Strong cough. CARDIOVASCULAR: S1, S2 present. Irregular rate and rhythm, controlled atrial fibrillation on telemetry. Sternum stable. Palpable peripheral pulses bilaterally. Bilateral lower extremity edema present. No calf pain or tenderness noted. Heart hugger in place with patient demonstrating appropriate use. Antiembolism stockings, SCDs present. GASTROINTESTINAL: Abdomen soft, nontender, nondistended. Hypoactive bowel sounds present 4 quadrants. Tolerating clear liquids. Positive flatus GENITOURINARY: Gonzalez present draining clear, yellow urine. Output overnight 20-45 mL per hour INTEGUMENTARY: Skin is warm and dry with evidence of good perfusion. Anterior chest incision well approximated and covered with dry intact dressing. NEUROLOGIC: Cranial nerves II through XII intact MUSKULOSKELETAL: Able to move all extremities, mild chronic right sided weakness present, patient chronically leans to the right side PSYCHIATRIC: Alert and oriented to person place and time, appropriate affect INVASIVE LINES AND TUBES: Mediastinal/left pleural chest tubes present and connected to wall suction, no air leaks present 300 mL serosanguineous drainage overnight, 580 mL since surgery. A/V epicardial pacemaker wires present, connected to generator, backup rate 60 bpm. Right internal jugular [place]/Cordis, left radial arterial line present. Last CO/CI 5.0/2.5, PA 33/19, CVP 7. - Allied health notes Allied health notes reviewed: nursing - Labs CBC & Chem 7: 04/12/21 04:00 04/12/21 04:00 Labs: Abnormal Lab Results - Last 24 Hours (Table) 04/06/21 04/11/21 04/11/21 Range/Units 11:30 10:11 15:00 WBC (3.8-10.6) k/uL RBC 3.70 L (3.80-5.40) m/uL Hgb 11.3 L (11.4-16.0) gm/dL Hct (34.0-46.0) % RDW 20.0 H (11.5-15.5) % Plt Count 106 L (150-450) k/uL Neutrophils # 9.0 H (1.3-7.7) k/uL Lymphocytes # 0.5 L (1.0-4.8) k/uL PT (9.0-12.0) sec INR (<1.2) APTT (22.0-30.0) sec ABG pCO2 (35-45) mmHg ABG pO2 (83-108) mmHg ABG HCO3 (21-25) mmol/L ABG Total CO2 (19-24) mmol/L ABG O2 Saturation (94-97) % Potassium (3.5-5.1) mmol/L Carbon Dioxide (22-30) mmol/L Glucose (74-99) mg/dL POC Glucose (mg/dL) 122 H (75-99) mg/dL Calcium (8.4-10.2) mg/dL AST (14-36) U/L Total Protein (6.3-8.2) g/dL Albumin (3.5-5.0) g/dL Crossmatch See Detail 04/11/21 04/11/21 04/11/21 Range/Units 15:00 15:00 15:11 WBC (3.8-10.6) k/uL RBC (3.80-5.40) m/uL Hgb (11.4-16.0) gm/dL Hct (34.0-46.0) % RDW (11.5-15.5) % Plt Count (150-450) k/uL Neutrophils # (1.3-7.7) k/uL Lymphocytes # (1.0-4.8) k/uL PT 12.7 H (9.0-12.0) sec INR 1.2 H (<1.2) APTT 36.3 H (22.0-30.0) sec ABG pCO2 (35-45) mmHg ABG pO2 (83-108) mmHg ABG HCO3 (21-25) mmol/L ABG Total CO2 (19-24) mmol/L ABG O2 Saturation (94-97) % Potassium 2.9 L (3.5-5.1) mmol/L Carbon Dioxide 31 H (22-30) mmol/L Glucose 140 H (74-99) mg/dL POC Glucose (mg/dL) 146 H (75-99) mg/dL Calcium 8.0 L (8.4-10.2) mg/dL AST 62 H (14-36) U/L Total Protein 4.6 L (6.3-8.2) g/dL Albumin 2.5 L (3.5-5.0) g/dL Crossmatch 04/11/21 04/11/21 04/11/21 Range/Units 15:31 16:12 17:08 WBC (3.8-10.6) k/uL RBC (3.80-5.40) m/uL Hgb (11.4-16.0) gm/dL Hct (34.0-46.0) % RDW (11.5-15.5) % Plt Count (150-450) k/uL Neutrophils # (1.3-7.7) k/uL Lymphocytes # (1.0-4.8) k/uL PT (9.0-12.0) sec INR (<1.2) APTT (22.0-30.0) sec ABG pCO2 49 H (35-45) mmHg ABG pO2 209 H (83-108) mmHg ABG HCO3 33 H (21-25) mmol/L ABG Total CO2 35 H (19-24) mmol/L ABG O2 Saturation 100.0 H (94-97) % Potassium (3.5-5.1) mmol/L Carbon Dioxide (22-30) mmol/L Glucose (74-99) mg/dL POC Glucose (mg/dL) 143 H 150 H (75-99) mg/dL Calcium (8.4-10.2) mg/dL AST (14-36) U/L Total Protein (6.3-8.2) g/dL Albumin (3.5-5.0) g/dL Crossmatch 04/11/21 04/11/21 04/11/21 Range/Units 17:13 18:01 19:00 WBC (3.8-10.6) k/uL RBC (3.80-5.40) m/uL Hgb (11.4-16.0) gm/dL Hct (34.0-46.0) % RDW 19.8 H (11.5-15.5) % Plt Count 107 L (150-450) k/uL Neutrophils # 8.6 H (1.3-7.7) k/uL Lymphocytes # 0.4 L (1.0-4.8) k/uL PT (9.0-12.0) sec INR (<1.2) APTT (22.0-30.0) sec ABG pCO2 (35-45) mmHg ABG pO2 (83-108) mmHg ABG HCO3 (21-25) mmol/L ABG Total CO2 (19-24) mmol/L ABG O2 Saturation (94-97) % Potassium (3.5-5.1) mmol/L Carbon Dioxide (22-30) mmol/L Glucose (74-99) mg/dL POC Glucose (mg/dL) 140 H 133 H (75-99) mg/dL Calcium (8.4-10.2) mg/dL AST (14-36) U/L Total Protein (6.3-8.2) g/dL Albumin (3.5-5.0) g/dL Crossmatch 04/11/21 04/11/21 04/11/21 Range/Units 20:10 20:11 20:56 WBC 11.1 H (3.8-10.6) k/uL RBC (3.80-5.40) m/uL Hgb (11.4-16.0) gm/dL Hct (34.0-46.0) % RDW 19.4 H (11.5-15.5) % Plt Count 115 L (150-450) k/uL Neutrophils # 10.3 H (1.3-7.7) k/uL Lymphocytes # 0.3 L (1.0-4.8) k/uL PT (9.0-12.0) sec INR (<1.2) APTT (22.0-30.0) sec ABG pCO2 (35-45) mmHg ABG pO2 (83-108) mmHg ABG HCO3 (21-25) mmol/L ABG Total CO2 (19-24) mmol/L ABG O2 Saturation (94-97) % Potassium (3.5-5.1) mmol/L Carbon Dioxide (22-30) mmol/L Glucose (74-99) mg/dL POC Glucose (mg/dL) 142 H 143 H (75-99) mg/dL Calcium (8.4-10.2) mg/dL AST (14-36) U/L Total Protein (6.3-8.2) g/dL Albumin (3.5-5.0) g/dL Crossmatch 04/11/21 04/11/21 04/11/21 Range/Units 22:06 22:52 23:17 WBC (3.8-10.6) k/uL RBC (3.80-5.40) m/uL Hgb (11.4-16.0) gm/dL Hct (34.0-46.0) % RDW (11.5-15.5) % Plt Count (150-450) k/uL Neutrophils # (1.3-7.7) k/uL Lymphocytes # (1.0-4.8) k/uL PT (9.0-12.0) sec INR (<1.2) APTT (22.0-30.0) sec ABG pCO2 47 H (35-45) mmHg ABG pO2 (83-108) mmHg ABG HCO3 33 H (21-25) mmol/L ABG Total CO2 34 H (19-24) mmol/L ABG O2 Saturation 97.9 H (94-97) % Potassium (3.5-5.1) mmol/L Carbon Dioxide (22-30) mmol/L Glucose (74-99) mg/dL POC Glucose (mg/dL) 137 H 134 H (75-99) mg/dL Calcium (8.4-10.2) mg/dL AST (14-36) U/L Total Protein (6.3-8.2) g/dL Albumin (3.5-5.0) g/dL Crossmatch 04/12/21 04/12/21 04/12/21 Range/Units 00:06 01:04 02:01 WBC (3.8-10.6) k/uL RBC (3.80-5.40) m/uL Hgb (11.4-16.0) gm/dL Hct (34.0-46.0) % RDW (11.5-15.5) % Plt Count (150-450) k/uL Neutrophils # (1.3-7.7) k/uL Lymphocytes # (1.0-4.8) k/uL PT (9.0-12.0) sec INR (<1.2) APTT (22.0-30.0) sec ABG pCO2 (35-45) mmHg ABG pO2 (83-108) mmHg ABG HCO3 (21-25) mmol/L ABG Total CO2 (19-24) mmol/L ABG O2 Saturation (94-97) % Potassium (3.5-5.1) mmol/L Carbon Dioxide (22-30) mmol/L Glucose (74-99) mg/dL POC Glucose (mg/dL) 123 H 115 H 105 H (75-99) mg/dL Calcium (8.4-10.2) mg/dL AST (14-36) U/L Total Protein (6.3-8.2) g/dL Albumin (3.5-5.0) g/dL Crossmatch 04/12/21 04/12/21 04/12/21 Range/Units 03:01 03:57 04:00 WBC (3.8-10.6) k/uL RBC 3.41 L (3.80-5.40) m/uL Hgb 10.2 L (11.4-16.0) gm/dL Hct 32.8 L (34.0-46.0) % RDW 19.3 H (11.5-15.5) % Plt Count 103 L (150-450) k/uL Neutrophils # (1.3-7.7) k/uL Lymphocytes # 0.6 L (1.0-4.8) k/uL PT (9.0-12.0) sec INR (<1.2) APTT (22.0-30.0) sec ABG pCO2 (35-45) mmHg ABG pO2 (83-108) mmHg ABG HCO3 (21-25) mmol/L ABG Total CO2 (19-24) mmol/L ABG O2 Saturation (94-97) % Potassium (3.5-5.1) mmol/L Carbon Dioxide (22-30) mmol/L Glucose (74-99) mg/dL POC Glucose (mg/dL) 110 H 116 H (75-99) mg/dL Calcium (8.4-10.2) mg/dL AST (14-36) U/L Total Protein (6.3-8.2) g/dL Albumin (3.5-5.0) g/dL Crossmatch 04/12/21 04/12/21 04/12/21 Range/Units 04:00 05:04 06:25 WBC (3.8-10.6) k/uL RBC (3.80-5.40) m/uL Hgb (11.4-16.0) gm/dL Hct (34.0-46.0) % RDW (11.5-15.5) % Plt Count (150-450) k/uL Neutrophils # (1.3-7.7) k/uL Lymphocytes # (1.0-4.8) k/uL PT (9.0-12.0) sec INR (<1.2) APTT (22.0-30.0) sec ABG pCO2 (35-45) mmHg ABG pO2 (83-108) mmHg ABG HCO3 (21-25) mmol/L ABG Total CO2 (19-24) mmol/L ABG O2 Saturation (94-97) % Potassium (3.5-5.1) mmol/L Carbon Dioxide (22-30) mmol/L Glucose 112 H (74-99) mg/dL POC Glucose (mg/dL) 113 H 107 H (75-99) mg/dL Calcium 8.1 L (8.4-10.2) mg/dL AST 63 H (14-36) U/L Total Protein 4.5 L (6.3-8.2) g/dL Albumin 2.5 L (3.5-5.0) g/dL Crossmatch 04/12/21 Range/Units 06:53 WBC (3.8-10.6) k/uL RBC (3.80-5.40) m/uL Hgb (11.4-16.0) gm/dL Hct (34.0-46.0) % RDW (11.5-15.5) % Plt Count (150-450) k/uL Neutrophils # (1.3-7.7) k/uL Lymphocytes # (1.0-4.8) k/uL PT (9.0-12.0) sec INR (<1.2) APTT (22.0-30.0) sec ABG pCO2 (35-45) mmHg ABG pO2 (83-108) mmHg ABG HCO3 (21-25) mmol/L ABG Total CO2 (19-24) mmol/L ABG O2 Saturation (94-97) % Potassium (3.5-5.1) mmol/L Carbon Dioxide (22-30) mmol/L Glucose (74-99) mg/dL POC Glucose (mg/dL) 105 H (75-99) mg/dL Calcium (8.4-10.2) mg/dL AST (14-36) U/L Total Protein (6.3-8.2) g/dL Albumin (3.5-5.0) g/dL Crossmatch - Imaging and Cardiology Chest x-ray: report reviewed, image reviewed Assessment and Plan Assessment: 1. Severe mitral regurgitation, status post complex mitral valve repair 2. History of coronary artery disease with previous myocardial infarction and PCI in August 2011 3. Hypertension 4. CVA in 2009 with left-sided carotid stenosis 56% 5. Previous syncope 6. Current occasional cigarette use 7. Mild restrictive lung disease, preoperative FEV1 is 62% of predicted 8. Remote history of pneumonia 9. Chronic pain issues with previous pain stimulator placement and chronic opioid dependence, follows with Dr. Doherty at pain clinic 10. Preoperative nasal swab positive for MSSA, treated with mupirocin 11. Intraoperative bradycardia and third-degree heart block 12. Postoperative acute blood loss anemia and thrombocytopenia, expected 13. Postoperative hypotension requiring low-dose pressor use, expected 14. Postoperative controlled atrial fibrillation, known common occurrence after open heart surgery, status post left atrial appendage ligation Plan: 1. Continue aspirin, statin, Plavix. Will hold beta carli therapy for now and will initiate when able. Wean levo as tolerated, Primacor discontinued 2. Continue amiodarone per protocol. No anticoagulation at this point 3. Wean O2 as tolerated. Encourage incentive spirometry use 10 times every hour while awake. Bronchodilators per pulmonology 4. Will monitor daily labs and x-rays. Electrolyte replacement per protocol. Keep potassium greater than 4.2, mag greater than 2 5. GI/DVT prophylaxis 6. Insulin management per primary care service. Patient is not diabetic, preoperative hemoglobin A1c 6.4%. Needs tight blood sugar control to promote healing and prevent infection 7. Pain control per current medication regimen. Medications increased today for better pain control. Upon discharge patient will be discharged on home meds per her pain contract 8. Increase activity, ambulate as tolerated. PT/OT/cardiac rehab consulted. Patient will likely need rehab at discharge although she is adamant that she will not go to subacute rehab 9. Will continue [place]/Cordis, arterial line, mediastinal/left pleural chest tubes for another 24 hours 10. Continue Gonzalez catheter for another 24 hours for strict accurate intake and output. Daily weights 11. More recommendations to follow based on patient's progress Time with Patient: Greater than 30
[2021-04-12 10:07] LABS: Glucose,Whole Blood 103 mg/dL (75-99)
[2021-04-12] MEDS ORDERED: AMIODARONE IN DEXTROSE,ISO-OSM 150 MG/100 ML PLAST..BAG IV ONE (10:11)
[2021-04-12] MEDS: DEXTROSE 5% IN WATER 100 ML with AMIODARONE 150 MG IV PRN (10:11)
--- NOTE | 2021-04-12 10:53 | CONS ---
CONSULTATION This is a 61-year-old lady with a history apparently of severe mitral regurgitation and ejection fraction of 45% range, who was seen by another design director in the [facility] area. She was brought in for surgery by Dr. Orellana. She underwent a complex mitral valve repair and I am seeing her post surgery. According to available information, she has no evidence of any significant obstructive CAD and ejection fraction in the 45% range. She also has chronic issues with pain as well. She is a former smoker. She takes multiple pain medications and also seems to have hypertension and migraine type picture. At the time of my evaluation, she is on a very small dose of Primacor and Levophed. She is in a dual-chamber paced rhythm. Blood pressure is about 108. Urine output is somewhat limited. She is complaining of incisional pain. Physical exam revealed blood pressure 108/70, pulse rate of about 80 per minute, dual- chamber paced. JVD 1 cm. No carotid bruit. S1-S2 heard normally, short systolic murmur is audible. Lungs reveal diminished air entry. Abdomen is soft. Central nervous system grossly no focal deficits. IMPRESSION: 1. Status post mitral valve repair in a patient with apparently no obstructive coronary artery disease. 2. History of hypertension. 3. The etiology of mitral regurgitation is unclear. Probably it is a mitral valve prolapse. However, this information is unavailable. RECOMMENDATIONS: Patient clinically appears to be somewhat congested. I would recommend a small dose of Lasix and continue current medications. She will need aggressive incentive spirometry and pulmonary toilet. Underlying rhythm appears to be atrial fibrillation in the 70s. We will continue to watch her closely. MMODL / IJN: [id number] /
[2021-04-12 12:07] LABS: Glucose,Whole Blood 168 mg/dL (75-99)
--- NOTE | 2021-04-12 12:45 | P.PN ---
Subjective Progress Note Date: 04/12/21 Principal diagnosis: Severe mitral valve regurgitation, status post mitral valve repair. 61-year-old female patient with past medical history of coronary artery disease with previous PCI and stenting, hypertension, hypertensive cardiovascular disease, hyperlipidemia, history of CVA, Chavarria's palsy, COPD, stage II with FEV1 of 1.7 L or 63% of predicted, former history of smoking chronic low back pain, degenerative disc disease, spinal stimulator with revision, former smoker, and history of mitral valve regurgitation, who had an elective mitral valve repair today on 04/11/[address] Orellana. Patient's preoperative workup was done at an outside hospital, possibly [facility]. Patient is seen in the postoperative period in the intensive care unit, sedated and intubated on mechanical ventilator. Currently on assist control mode of ventilation with a rate 16, tacrolimus 500, FiO2 100% and PEEP of 10. Postoperative blood gases are pending, she is currently on lactated Ringer's at 50 ML per hour, Diprivan is a 40 mics per kilo per minute, Levophed at 0.01 mics per kilo per minute, milrinone is a 0.3 mics per kilo per minute. Patient is AV paced on the monitor at a rate of 80. Mediastinal and right pleural chest tubes are connected together, with 80 mL of sanguinous output. Hemodynamically patient is stable, currently blood pressure is 122/60, PA pressures 49/29, CVP is 11, cardiac output is 5.9, and cardiac index is 2.9. Postoperative blood work shows INR of 1.2, sodium is 138, potassium is 2.9 and this is being replaced per protocol, chloride is 103, CO2 31, BUN is 14, creatinine 0.57, CBC is pending. Chest x- ray shows a component of volume overload, interstitial edema. Endotracheal tube NG tube and chest tubes are in appropriate positions. Reevaluated today on 04/12/2021, patient remains in the ICU, she is postoperative day #1, patient was extubated yesterday and 23:56, elevated the extubation well, she is presently on 6 L nasal cannula, is also on Primacor, norepinephrine at 0.02 mcg/m, patient is going to be started on amiodarone since she has underlying rhythm of atrial fibrillation. Chest x-ray showed evidence of interstitial edema, and I recommended 20 mg of Lasix to be given today. And he clearly however the patient does not seem to be in any distress, she seems to be generally weak. CBC is relatively normal. Metabolic profile is normal. Blood sugar is 112. Her enzymes are normal. Objective - Vital Signs Vital signs: Vital Signs Temp 99.1 F 04/12/21 08:00 Pulse 88 04/12/21 11:00 Resp 17 04/12/21 11:00 BP 128/59 04/11/21 10:08 Pulse Ox 96 04/12/21 11:00 Intake & Output 04/11/21 04/12/21 04/12/21 18:59 06:59 18:59 Intake Total 099.737 4409.805 383.955 Output Total 2670 880 180 Balance -4124.517 7532.805 203.955 Weight 94.5 kg 95.4 kg Intake: IV 228 2230.58 133.12 Albumin 1000 IV Acetaminophen 100 Kefzol 50 Lactated Ringers 550 50 Primacor 92.58 7.12 cardiac output 50 330 40 pressure bag 27 108 36 Intake, IV Titration 459.993 333.225 250.835 Amount ACETAMINOPHEN IV (For NPO 100 ) 1,000 mg In Empty Bag 1 bag @ 400 mls/hr IVPB Q6HR [facility] Rx#:[id number] Dexmedetomidine/0.9% NaCl 66.467 (Pmx) 400 mcg In Empty Bag 1 bag @ Titrate IV . Q0M [facility] Rx#:[id number] Insulin Regular 100 unit 1.591 16.758 In Sodium Chloride 0.9% 100 ml @ Per Protocol IV .Q0M [facility] Rx#:[id number] Lactated Ringers 1,000 ml 150 50 @ 50 mls/hr IV .Q20H [facility] Rx#:[id number] Milrinone-D5w Pmx 20 mg 79.149 In Dextrose/Water 1 100ml .bag @ 0.1 MCG/KG/MIN 2. 835 mls/hr IV .Q24H [facility] Rx#:[id number] Milrinone-D5w Pmx 20 mg 100 In Dextrose/Water 1 100ml .bag @ 0.5 MCG/KG/MIN 14. 175 mls/hr IV .Q7H4M [facility] Rx#:[id number] Norepinephrine 4 mg In 21.686 Sodium Chloride 0.9% 250 ml @ 0.02 MCG/KG/MIN 7. 269 mls/hr IV .Q24H [facility] Rx#:[id number] Potassium Chloride 20 meq 100 200 In Water For Injection 1 100ml.bag @ 50 mls/hr IVPB Q2H [facility] Rx#: [id number] ceFAZolin 2 gm In Sodium 50 50 Chloride 0.9% 50 ml @ 100 mls/hr IVPB Q8HR [facility] Rx# :[id number] propofoL 1,000 mg In 58.402 Empty Bag 1 bag @ Titrate IV .Q0M [facility] Rx#: [id number] Oral 480 Output: Chest Tube Drainage 140 400 70 mediastinal and left 140 400 70 pleural Urine 730 480 110 Estimated Blood Loss 1800 Other: Voiding Method Indwelling Catheter Indwelling Catheter Indwelling Catheter ABP, PAP, CO, CI - Last Documented Arterial Blood Pressure 99/47 Pulmonary Artery Pressure 31/21 Cardiac Output 5.9 Cardiac Index 2.9 - Exam CONSTITUTIONAL: Revealed 61-year-old female on 6 L nasal cannula, generally weak, not in distress. RESPIRATORY: Symmetrical chest expansion, crackles and diminished breath sounds at the bases. CARDIOVASCULAR: Normal S1 and S2, no S3 gallop, 2/6 systolic murmur thought the precordium. GASTROINTESTINAL: Soft nontender no megaly no rebound. INTEGUMENTARY: No rashes. NEUROLOGIC: Alert and oriented 3 no gross focal deficits. MUSKULOSKELETAL: No deformities and no limitation in range of motion. PSYCHIATRIC: Normal mood affect and normal mental status examination. - Labs CBC & Chem 7: 04/12/21 04:00 04/12/21 04:00 Labs: Abnormal Lab Results - Last 24 Hours (Table) 04/06/21 04/11/21 04/11/21 Range/Units 11:30 15:00 15:00 WBC (3.8-10.6) k/uL RBC 3.70 L (3.80-5.40) m/uL Hgb 11.3 L (11.4-16.0) gm/dL Hct (34.0-46.0) % RDW 20.0 H (11.5-15.5) % Plt Count 106 L (150-450) k/uL Neutrophils # 9.0 H (1.3-7.7) k/uL Lymphocytes # 0.5 L (1.0-4.8) k/uL PT 12.7 H (9.0-12.0) sec INR 1.2 H (<1.2) APTT 36.3 H (22.0-30.0) sec ABG pCO2 (35-45) mmHg ABG pO2 (83-108) mmHg ABG HCO3 (21-25) mmol/L ABG Total CO2 (19-24) mmol/L ABG O2 Saturation (94-97) % Potassium (3.5-5.1) mmol/L Carbon Dioxide (22-30) mmol/L Glucose (74-99) mg/dL POC Glucose (mg/dL) (75-99) mg/dL Calcium (8.4-10.2) mg/dL AST (14-36) U/L Total Protein (6.3-8.2) g/dL Albumin (3.5-5.0) g/dL Crossmatch See Detail 04/11/21 04/11/21 04/11/21 Range/Units 15:00 15:11 15:31 WBC (3.8-10.6) k/uL RBC (3.80-5.40) m/uL Hgb (11.4-16.0) gm/dL Hct (34.0-46.0) % RDW (11.5-15.5) % Plt Count (150-450) k/uL Neutrophils # (1.3-7.7) k/uL Lymphocytes # (1.0-4.8) k/uL PT (9.0-12.0) sec INR (<1.2) APTT (22.0-30.0) sec ABG pCO2 49 H (35-45) mmHg ABG pO2 209 H (83-108) mmHg ABG HCO3 33 H (21-25) mmol/L ABG Total CO2 35 H (19-24) mmol/L ABG O2 Saturation 100.0 H (94-97) % Potassium 2.9 L (3.5-5.1) mmol/L Carbon Dioxide 31 H (22-30) mmol/L Glucose 140 H (74-99) mg/dL POC Glucose (mg/dL) 146 H (75-99) mg/dL Calcium 8.0 L (8.4-10.2) mg/dL AST 62 H (14-36) U/L Total Protein 4.6 L (6.3-8.2) g/dL Albumin 2.5 L (3.5-5.0) g/dL Crossmatch 04/11/21 04/11/21 04/11/21 Range/Units 16:12 17:08 17:13 WBC (3.8-10.6) k/uL RBC (3.80-5.40) m/uL Hgb (11.4-16.0) gm/dL Hct (34.0-46.0) % RDW 19.8 H (11.5-15.5) % Plt Count 107 L (150-450) k/uL Neutrophils # 8.6 H (1.3-7.7) k/uL Lymphocytes # 0.4 L (1.0-4.8) k/uL PT (9.0-12.0) sec INR (<1.2) APTT (22.0-30.0) sec ABG pCO2 (35-45) mmHg ABG pO2 (83-108) mmHg ABG HCO3 (21-25) mmol/L ABG Total CO2 (19-24) mmol/L ABG O2 Saturation (94-97) % Potassium (3.5-5.1) mmol/L Carbon Dioxide (22-30) mmol/L Glucose (74-99) mg/dL POC Glucose (mg/dL) 143 H 150 H (75-99) mg/dL Calcium (8.4-10.2) mg/dL AST (14-36) U/L Total Protein (6.3-8.2) g/dL Albumin (3.5-5.0) g/dL Crossmatch 04/11/21 04/11/21 04/11/21 Range/Units 18:01 19:00 20:10 WBC 11.1 H (3.8-10.6) k/uL RBC (3.80-5.40) m/uL Hgb (11.4-16.0) gm/dL Hct (34.0-46.0) % RDW 19.4 H (11.5-15.5) % Plt Count 115 L (150-450) k/uL Neutrophils # 10.3 H (1.3-7.7) k/uL Lymphocytes # 0.3 L (1.0-4.8) k/uL PT (9.0-12.0) sec INR (<1.2) APTT (22.0-30.0) sec ABG pCO2 (35-45) mmHg ABG pO2 (83-108) mmHg ABG HCO3 (21-25) mmol/L ABG Total CO2 (19-24) mmol/L ABG O2 Saturation (94-97) % Potassium (3.5-5.1) mmol/L Carbon Dioxide (22-30) mmol/L Glucose (74-99) mg/dL POC Glucose (mg/dL) 140 H 133 H (75-99) mg/dL Calcium (8.4-10.2) mg/dL AST (14-36) U/L Total Protein (6.3-8.2) g/dL Albumin (3.5-5.0) g/dL Crossmatch 04/11/21 04/11/21 04/11/21 Range/Units 20:11 20:56 22:06 WBC (3.8-10.6) k/uL RBC (3.80-5.40) m/uL Hgb (11.4-16.0) gm/dL Hct (34.0-46.0) % RDW (11.5-15.5) % Plt Count (150-450) k/uL Neutrophils # (1.3-7.7) k/uL Lymphocytes # (1.0-4.8) k/uL PT (9.0-12.0) sec INR (<1.2) APTT (22.0-30.0) sec ABG pCO2 (35-45) mmHg ABG pO2 (83-108) mmHg ABG HCO3 (21-25) mmol/L ABG Total CO2 (19-24) mmol/L ABG O2 Saturation (94-97) % Potassium (3.5-5.1) mmol/L Carbon Dioxide (22-30) mmol/L Glucose (74-99) mg/dL POC Glucose (mg/dL) 142 H 143 H 137 H (75-99) mg/dL Calcium (8.4-10.2) mg/dL AST (14-36) U/L Total Protein (6.3-8.2) g/dL Albumin (3.5-5.0) g/dL Crossmatch 04/11/21 04/11/21 04/12/21 Range/Units 22:52 23:17 00:06 WBC (3.8-10.6) k/uL RBC (3.80-5.40) m/uL Hgb (11.4-16.0) gm/dL Hct (34.0-46.0) % RDW (11.5-15.5) % Plt Count (150-450) k/uL Neutrophils # (1.3-7.7) k/uL Lymphocytes # (1.0-4.8) k/uL PT (9.0-12.0) sec INR (<1.2) APTT (22.0-30.0) sec ABG pCO2 47 H (35-45) mmHg ABG pO2 (83-108) mmHg ABG HCO3 33 H (21-25) mmol/L ABG Total CO2 34 H (19-24) mmol/L ABG O2 Saturation 97.9 H (94-97) % Potassium (3.5-5.1) mmol/L Carbon Dioxide (22-30) mmol/L Glucose (74-99) mg/dL POC Glucose (mg/dL) 134 H 123 H (75-99) mg/dL Calcium (8.4-10.2) mg/dL AST (14-36) U/L Total Protein (6.3-8.2) g/dL Albumin (3.5-5.0) g/dL Crossmatch 04/12/21 04/12/21 04/12/21 Range/Units 01:04 02:01 03:01 WBC (3.8-10.6) k/uL RBC (3.80-5.40) m/uL Hgb (11.4-16.0) gm/dL Hct (34.0-46.0) % RDW (11.5-15.5) % Plt Count (150-450) k/uL Neutrophils # (1.3-7.7) k/uL Lymphocytes # (1.0-4.8) k/uL PT (9.0-12.0) sec INR (<1.2) APTT (22.0-30.0) sec ABG pCO2 (35-45) mmHg ABG pO2 (83-108) mmHg ABG HCO3 (21-25) mmol/L ABG Total CO2 (19-24) mmol/L ABG O2 Saturation (94-97) % Potassium (3.5-5.1) mmol/L Carbon Dioxide (22-30) mmol/L Glucose (74-99) mg/dL POC Glucose (mg/dL) 115 H 105 H 110 H (75-99) mg/dL Calcium (8.4-10.2) mg/dL AST (14-36) U/L Total Protein (6.3-8.2) g/dL Albumin (3.5-5.0) g/dL Crossmatch 04/12/21 04/12/21 04/12/21 Range/Units 03:57 04:00 04:00 WBC (3.8-10.6) k/uL RBC 3.41 L (3.80-5.40) m/uL Hgb 10.2 L (11.4-16.0) gm/dL Hct 32.8 L (34.0-46.0) % RDW 19.3 H (11.5-15.5) % Plt Count 103 L (150-450) k/uL Neutrophils # (1.3-7.7) k/uL Lymphocytes # 0.6 L (1.0-4.8) k/uL PT (9.0-12.0) sec INR (<1.2) APTT (22.0-30.0) sec ABG pCO2 (35-45) mmHg ABG pO2 (83-108) mmHg ABG HCO3 (21-25) mmol/L ABG Total CO2 (19-24) mmol/L ABG O2 Saturation (94-97) % Potassium (3.5-5.1) mmol/L Carbon Dioxide (22-30) mmol/L Glucose 112 H (74-99) mg/dL POC Glucose (mg/dL) 116 H (75-99) mg/dL Calcium 8.1 L (8.4-10.2) mg/dL AST 63 H (14-36) U/L Total Protein 4.5 L (6.3-8.2) g/dL Albumin 2.5 L (3.5-5.0) g/dL Crossmatch 04/12/21 04/12/21 04/12/21 Range/Units 05:04 06:25 06:53 WBC (3.8-10.6) k/uL RBC (3.80-5.40) m/uL Hgb (11.4-16.0) gm/dL Hct (34.0-46.0) % RDW (11.5-15.5) % Plt Count (150-450) k/uL Neutrophils # (1.3-7.7) k/uL Lymphocytes # (1.0-4.8) k/uL PT (9.0-12.0) sec INR (<1.2) APTT (22.0-30.0) sec ABG pCO2 (35-45) mmHg ABG pO2 (83-108) mmHg ABG HCO3 (21-25) mmol/L ABG Total CO2 (19-24) mmol/L ABG O2 Saturation (94-97) % Potassium (3.5-5.1) mmol/L Carbon Dioxide (22-30) mmol/L Glucose (74-99) mg/dL POC Glucose (mg/dL) 113 H 107 H 105 H (75-99) mg/dL Calcium (8.4-10.2) mg/dL AST (14-36) U/L Total Protein (6.3-8.2) g/dL Albumin (3.5-5.0) g/dL Crossmatch 04/12/21 04/12/21 Range/Units 10:05 12:06 WBC (3.8-10.6) k/uL RBC (3.80-5.40) m/uL Hgb (11.4-16.0) gm/dL Hct (34.0-46.0) % RDW (11.5-15.5) % Plt Count (150-450) k/uL Neutrophils # (1.3-7.7) k/uL Lymphocytes # (1.0-4.8) k/uL PT (9.0-12.0) sec INR (<1.2) APTT (22.0-30.0) sec ABG pCO2 (35-45) mmHg ABG pO2 (83-108) mmHg ABG HCO3 (21-25) mmol/L ABG Total CO2 (19-24) mmol/L ABG O2 Saturation (94-97) % Potassium (3.5-5.1) mmol/L Carbon Dioxide (22-30) mmol/L Glucose (74-99) mg/dL POC Glucose (mg/dL) 103 H 168 H (75-99) mg/dL Calcium (8.4-10.2) mg/dL AST (14-36) U/L Total Protein (6.3-8.2) g/dL Albumin (3.5-5.0) g/dL Crossmatch Assessment and Plan Assessment: Impression: Mitral valve regurgitation requiring complex mitral valve repair. Postoperative day #1. Benign essential hypertension. History of coronary artery disease and previous PCI in August 25 012. Chronic pain syndrome. Postoperative blood loss anemia, expected. Postoperative atrial fibrillation, expected. Suspect mild acute component of diastolic congestive heart failure. Recommendation: Continue oxygen and titrate accordingly Continue aspirin statins and Plavix. Titrate and discontinue Primacor and norepinephrine. Encourage incentive spirometer. Agree with amiodarone. Gentle diuresis, Lasix was ordered 20 mg IV push 1. Continue to monitor in the ICU. Continue GI and DVT prophylaxis. Continue pain management. Early ambulation. Discontinue unnecessary catheters. We will continue to follow. Time with Patient: Less than 30
[2021-04-12] MEDS: INSULIN ASPART (NovoLOG) 100 UNIT/ML VIAL SQ SCH ×3 (13:05→19:06)
[2021-04-12] MEDS: LACTATED RINGERS 1,000 ML IV SCH (13:07)
--- NOTE | 2021-04-12 14:08 | P.CONS ---
History of Present Illness - Reason for Consult Consult date: 04/12/21 Medical management - History of Present Illness HISTORY OF PRESENT ILLNESS This is a 61-year-old female patient of Dr. Rosado past medical history of coronary artery disease status post PCI and stent placement in 2011 at [facility], hypertension and hypertensive cardiovascular disease, hyperlipidemia, Chavarria's palsy, chronic low back pain secondary to degenerative disc disease as well as facet arthropathy status post spinal cord stimulator placement that was complicated by meningitis and she underwent revision of her stimulator and treatment for meningitis with reinsertion of her stimulator which was done in April 2012, chronic neck pain due to degenerative disc disease, chronic pain syndrome with pain contract with physician in [place] that she sees every other month, remote history of tobacco use and quit in 2018, COPD, irritable bowel syndrome seen by Dr. Laws. Patient has history of mitral valve regurgitation and underwent elective mitral valve repair on 04/11/2021. Patient has been successfully extubated and found sitting up in a chair with her at the bedside. She has mediastinal and right pleural chest tubes. Patient has been in and out of atrial fibrillation this morning is started on amiodarone drip. She is currently on levo fed as well. She did receive Lasix 20 mg this morning and has been noted to have decreased urine output. Patient has been off insulin drip due to blood sugars less than 110. We will plan to transition her to sliding insulin scale. Patient is reaching 750 on incentive spirometry. REVIEW OF SYSTEMS Constitutional: No fever, no chills, no night sweats. No weight change. No weakness, fatigue or lethargy. No daytime sleepiness. EENT: No headache. No blurred vision or double vision, no loss of vision. No loss of Hearing, no ringing in the ears, no dizziness. No nasal drainage or congestion. No epistaxis. No sore throat. Lungs: Reports shortness of breath, cough, no sputum production. No wheezing. Shortness of breath with exertion. Cardiovascular: Reports generalized chest discomfort, reports bilateral hand edema. Denies lower extremity edema. No palpitations. No paroxysmal nocturnal dyspnea. No orthopnea. No lightheadedness or dizziness. No syncopal episodes. Abdominal: No abdominal pain. No nausea, vomiting. No diarrhea. No constipation. No bloody or tarry stools. No loss of appetite. Genitourinary: No dysuria, increased frequency, urgency. No urinary retention. Musculoskeletal: No myalgias. No muscle weakness, no gait dysfunction, no frequent falls. Chronic neck and back pain. Integumentary: No wounds, no lesions. No rash or pruritus. No unusual bru ising. No change in hair or nails. Neurologic: No aphasia. No facial droop. No change in mentation. No head injury. No headache. No paralysis. No paresthesia. Psychiatric: No depression. No anxiety. No mood swings. Endocrine: No abnormal blood sugars. No weight change. SOCIAL HISTORY Patient was a smoker of one pack per day for 40 years and quit in 2019. She denies any alcohol, marijuana or illicit drug use. She lives at home with her of 42 years. She does not have CPAP, oxygen therapy. 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 FAMILY HISTORY Mother at age 62 from blood clots with history of end-stage renal disease. Father at age 72 from myocardial infarction. Patient has 1 brother that in his 60s from myocardial infarction. She has 4 siblings living all have coronary artery disease. One brother living with CVA status post pacemaker. Patient has 2 children with no major medical problems. PHYSICAL EXAMINATION Gen: This is a 61-year-old female patient. She is sitting up and recliner and appears to be somewhat uncomfortable secondary to pain. She is currently on 6 L nasal cannula HEENT: Head is atraumatic, normocephalic. Pupils equal, round. Sclerae is anicteric. NECK: Supple. No JVD. No lymphadenopathy. No thyromegaly. LUNGS: Diminished breath sounds to the bilateral bases. No wheezing. No intercostal retractions. Chest tubes in place. HEART: Irregular rate and rhythm. 2/6 systolic murmur. ABDOMEN: Soft. Bowel sounds are present. No masses. No tenderness. Gonzalez catheter in place. EXTREMITIES: No pedal edema. No calf tenderness. NEUROLOGICAL: Patient is awake, alert and oriented x3. Cranial nerves 2 through 12 are grossly intact. Speech is slow and deliberate. Generalized weakness. ASSESSMENT AND PLAN 1. Mitral valve regurgitation status post repair, 03/11/2021. Continue current management per cardiothoracic team, incentive spirometry to reduce incidence of atelectasis and hospital-acquired pneumonia, pain has been addressed. 2. Hypertension hypertensive cardio vascular disease. 3. History of coronary artery disease status post PCI in 2012. Continue aspirin 325 mg daily, Lipitor 40 mg daily, Plavix 75 mg daily. 4. Hyperlipidemia. Continue Lipitor 5. Paroxysmal atrial fibrillation new onset, expected with surgery. Patient is on amiodarone drip. 6. Chronic back pain, chronic neck pain status post spinal cord stimulator. Continue pain management medications. 7. History of meningitis complicating stimulator with subsequent replacement. 8. Remote history of tobacco use and quit in 2019. 9. COPD without exacerbation. Continue DuoNeb treatments 4 times daily and as needed, Symbicort 2 puffs twice daily. 10. Irritable bowel syndrome. Continue Bentyl 20 mg 4 times daily if needed 10. DVT prophylaxis. Heparin 5000 units subcu every 8 hours. 11. Gastroesophageal reflux disease and GI prophylaxis. Protonix. 12. Generalized anxiety disorder. Continue Xanax 0.5 mg 3 times daily as needed. 13. Migraine headaches. Stable. DISCHARGE PLAN TBD. Impression and plan of care have been directed as dictated by the signing physician. Rebecca Melendez nurse practitioner acting as scribe for signing physician. Past Medical History Past Medical History: Coronary Artery Disease (CAD), COPD, GERD/Reflux, GI Bleed, Hyperlipidemia, Hypertension, Myocardial Infarction (MT), Osteoarthritis (OA), Skin Disorder Additional Past Medical History / Comment(s): ?CVA, right sided weakness, Chavarria's palsy, back in 2009, chronic low back pain, spinal stimulator, with revision, meningitis after one of spinal stim. surgeries, reinsertion of the spinal stimulator April 2012-not really working correctly @this time, constipation, peptic ulcer disease, frequent nausea, hx. H. pylori, rash under breast, in groin, fluid retention in legs Last Myocardial Infarction Date:: unknown History of Any Multi-Drug Resistant Organisms: MRSA Year Discovered:: 09/25/17 MDRO Source:: ABDOMEN Past Surgical History: Back Surgery, Section, Cholecystectomy, Heart Catheterization, Heart Catheterization With Stent, Hysterectomy, Joint Replacement Additional Past Surgical History / Comment(s): C-sections 1978 and 1984, lumbar laminectomy August 2002, total abdominal hysterectomy with bilateral oophorectomy secondary to endometriosis in July 2005, cholecystectomy June 2006, epidural steroid injection as well as facet arthropathy with facet joint injections along with radiofrequency ablation between 2007 and 2009, trial of spinal cord stimulator in August 2010, placement of stable spinal cord stimulator in September 2010, revision in April 2011, bacterial meningitis status post multiple debridement, left heart catheterization with a stent insertion in August 2011, debridement of tissue in the back secondary to prior meningitis October 2011, implantation of new spinal cord stimulator in April 2012, kd knee replac ements Past Anesthesia/Blood Transfusion Reactions: No Reported Reaction Additional Past Anesthesia/Blood Transfusion Reaction / Comm: States bad reac tion to ketamine Date of Last Stent Placement:: September 08, 2011 Smoking Status: Current some day smoker - Past Family History Mother Family Medical History: Coronary Artery Disease (CAD), Deep Vein Thrombosis (DVT), Pulmonary Embolus Additional Family Medical History / Comment(s): Mother and two sisters and two nieces have had DVTs, mother Father Family Medical History: COPD, Myocardial Infarction (MT) Sister(s) Family Medical History: No Reported History Brother(s) Family Medical History: Coronary Artery Disease (CAD) Daughter(s) Family Medical History: No Reported History Son(s) Family Medical History: No Reported History Medications and Allergies Home Medications Medication Instructions Recorded Confirmed Type ALPRAZolam [Xanax] 0.5 mg PO TID PRN 09/30/14 04/11/21 History Furosemide [Lasix] 40 mg PO BID 09/30/14 04/11/21 History Lisinopril-Hctz 20-25 mg 1 tab PO DAILY 09/30/14 04/11/21 History [Zestoretic 20-25] Omeprazole [PriLOSEC] 40 mg PO DAILY 09/30/14 04/11/21 History Ondansetron [Zofran] 8 mg PO Q6H PRN 09/30/14 04/11/21 History Potassium Chloride [K-Tab ER] 20 meq PO DAILY 09/30/14 04/11/21 History SUMAtriptan SUCCINATE [Imitrex] 100 mg PO BID PRN 09/30/14 04/11/21 History Albuterol Nebulized [Ventolin 3 ml INHALATION Q6H PRN 04/06/21 04/11/21 History Nebulized] Albuterol Sulfate [Ventolin HFA] 1 - 2 puff INHALATION Q6H PRN 04/06/21 04/11/21 History Aspirin 325 mg PO DAILY 04/06/21 04/11/21 History Budesonide-Formot 160-4.5 Mcg 2 puff INHALATION BID PRN 04/06/21 04/11/21 History [Symbicort 160-4.5 Mcg Inhaler] Dicyclomine [Bentyl] 20 mg PO QID 04/06/21 04/11/21 History Diphenoxylate HCl/Atropine 1 - 2 tab PO QID PRN 04/06/21 04/11/21 History [Lomotil 2.5-0.025 mg Tablet] Ferrous Sulfate [Feosol] 325 mg PO DAILY 04/06/21 04/11/21 History HYDROmorphone HCL [HYDROmorphone 12 mg PO Q12H PRN 04/06/21 04/11/21 History HCL ER] Ipratropium Nebulized [Atrovent 0.5 mg INHALATION Q8HR PRN 04/06/21 04/11/21 History Nebulized 0.2 MG/ML] Metoprolol Succinate (ER) [Toprol 25 mg PO DAILY 04/06/21 04/11/21 History Xl] Nystatin 100,000 Unit/ml Susp 4 ml PO QID PRN 04/06/21 04/11/21 History [Mycostatin Oral Susp] Pregabalin [Lyrica] 50 mg PO TID 04/06/21 04/11/21 History SUMAtriptan SUCCINATE [Imitrex] 6 mg SQ DIRECTED PRN 04/06/21 04/11/21 Histo ry Sucralfate [Carafate] 1 gm PO AC-TID 04/06/21 04/11/21 History oxyCODONE HCL [oxyCODONE HCL (IR)] 20 mg PO Q6H PRN 04/06/21 04/11/21 History Mupirocin [Mupirocin 2%] 1 applic NASAL BID #1 tub 04/08/21 04/11/21 Rx Allergies Allergy/AdvReac Type Severity Reaction Status Date / Time Iodinated Contrast Media Allergy Unknown Verified 04/11/21 09:40 [Iodinated Contrast Media - IV Dye] adhesive AdvReac SKIN TEARS Verified 04/11/21 09:40 ketamine AdvReac Hallucinati Verified 04/11/21 09:40 ons Physical Exam Vitals: Vital Signs Temp Pulse Resp Pulse Ox 04/12/21 10:00 104 H 25 H 98 04/12/21 09:06 93 04/12/21 09:00 87 11 L 100 04/12/21 08:53 92 04/12/21 08:00 99.1 F 91 25 H 100 04/12/21 07:00 80 17 97 04/12/21 06:00 80 25 H 94 L 04/12/21 05:00 80 19 95 04/12/21 04:00 80 20 93 L 04/12/21 03:00 80 23 92 L 04/12/21 02:00 80 22 94 L 04/12/21 01:00 80 21 94 L 04/12/21 00:28 80 16 94 L 04/12/21 00:00 80 17 92 L 04/11/21 23:00 80 25 H 96 04/11/21 22:00 80 16 93 L 04/11/21 21:00 80 16 96 04/11/21 20:00 80 16 98 04/11/21 19:56 80 04/11/21 19:40 80 04/11/21 19:00 80 16 96 04/11/21 18:45 80 12 98 04/11/21 18:30 80 16 98 04/11/21 18:15 80 16 98 04/11/21 18:00 80 16 100 04/11/21 17:45 80 16 99 04/11/21 17:30 80 16 99 04/11/21 17:15 81 16 100 04/11/21 17:00 80 16 100 04/11/21 16:45 80 16 04/11/21 16:30 80 16 04/11/21 16:15 80 16 04/11/21 16:00 98.1 F 80 16 100 04/11/21 15:45 80 16 04/11/21 15:30 80 16 04/11/21 15:15 80 16 04/11/21 15:02 80 8 L Intake and Output 04/11/21 04/12/21 04/12/21 22:59 06:59 14:59 Intake Total 1816.102 7667.438 383.955 Output Total 725 565 180 Balance 440.812 8684.438 203.955 Intake: IV 398.62 1908.96 133.12 Albumin 1000 IV Acetaminophen 100 Kefzol 50 Lactated Ringers 150 400 50 Primacor 35.62 56.96 7.12 cardiac output 150 230 40 pressure bag 63 72 36 Intake, IV Titration 719.740 73.478 250.835 Amount ACETAMINOPHEN IV (For NPO 100 ) 1,000 mg In Empty Bag 1 bag @ 400 mls/hr IVPB Q6HR [facility] Rx#:[id number] Dexmedetomidine/0.9% NaCl 66.467 (Pmx) 400 mcg In Empty Bag 1 bag @ Titrate IV . Q0M [facility] Rx#:[id number] Insulin Regular 100 unit 11.338 7.011 In Sodium Chloride 0.9% 100 ml @ Per Protocol IV .Q0M [facility] Rx#:[id number] Lactated Ringers 1,000 ml 200 @ 50 mls/hr IV .Q20H [facility] Rx#:[id number] Milrinone-D5w Pmx 20 mg 79.149 In Dextrose/Water 1 100ml .bag @ 0.1 MCG/KG/MIN 2. 835 mls/hr IV .Q24H [facility] Rx#:[id number] Milrinone-D5w Pmx 20 mg 100 In Dextrose/Water 1 100ml .bag @ 0.5 MCG/KG/MIN 14. 175 mls/hr IV .Q7H4M [facility] Rx#:[id number] Norepinephrine 4 mg In 21.686 Sodium Chloride 0.9% 250 ml @ 0.02 MCG/KG/MIN 7. 269 mls/hr IV .Q24H [facility] Rx#:[id number] Potassium Chloride 20 meq 300 In Water For Injection 1 100ml.bag @ 50 mls/hr IVPB Q2H [facility] Rx#: [id number] ceFAZolin 2 gm In Sodium 50 50 Chloride 0.9% 50 ml @ 100 mls/hr IVPB Q8HR [facility] Rx# :[id number] propofoL 1,000 mg In 58.402 Empty Bag 1 bag @ Titrate IV .Q0M [facility]AT Rx#: [id number] Oral 480 Output: Chest Tube Drainage 240 300 70 mediastinal and left 240 300 70 pleural Urine 485 265 110 Other: Voiding Method Indwelling Catheter Indwelling Catheter Indwelling Catheter Weight 95.4 kg ABP, PAP, CO, CI - Last 8 Hours Arterial Blood Pressure 115/53 Arterial Blood Pressure 112/57 Arterial Blood Pressure 107/51 Arterial Blood Pressure 89/43 Arterial Blood Pressure 84/47 Arterial Blood Pressure 107/56 Arterial Blood Pressure 102/50 Pulmonary Artery Pressure 38/17 Pulmonary Artery Pressure 34/25 Pulmonary Artery Pressure 36/15 Pulmonary Artery Pressure 33/20 Pulmonary Artery Pressure 28/13 Pulmonary Artery Pressure 55/28 Pulmonary Artery Pressure 51/27 Cardiac Output 5 Cardiac Output 5 Cardiac Output 5 Cardiac Output 5 Cardiac Output 4.6 Cardiac Output 6.1 Cardiac Output 6.7 Cardiac Index 2.5 Cardiac Index 2.5 Cardiac Index 2.5 Cardiac Index 2.5 Cardiac Index 2.3 Cardiac Index 3 Cardiac Index 3.3 Results CBC & Chem 7: 04/12/21 04:00 04/12/21 04:00 Labs: Abnormal Lab Results - Last 24 Hours (Table) 04/06/21 04/11/21 04/11/21 Range/Units 11:30 15:00 15:00 WBC (3.8-10.6) k/uL RBC 3.70 L (3.80-5.40) m/uL Hgb 11.3 L (11.4-16.0) gm/dL Hct (34.0-46.0) % RDW 20.0 H (11.5-15.5) % Plt Count 106 L (150-450) k/uL Neutrophils # 9.0 H (1.3-7.7) k/uL Lymphocytes # 0.5 L (1.0-4.8) k/uL PT 12.7 H (9.0-12.0) sec INR 1.2 H (<1.2) APTT 36.3 H (22.0-30.0) sec ABG pCO2 (35-45) mmHg ABG pO2 (83-108) mmHg ABG HCO3 (21-25) mmol/L ABG Total CO2 (19-24) mmol/L ABG O2 Saturation (94-97) % Potassium (3.5-5.1) mmol/L Carbon Dioxide (22-30) mmol/L Glucose (74-99) mg/dL POC Glucose (mg/dL) (75-99) mg/dL Calcium (8.4-10.2) mg/dL AST (14-36) U/L Total Protein (6.3-8.2) g/dL Albumin (3.5-5.0) g/dL Crossmatch See Detail 11/17/21 11/17/21 11/17/21 Range/Units 15:00 15:11 15:31 WBC (3.8-10.6) k/uL RBC (3.80-5.40) m/uL Hgb (11.4-16.0) gm/dL Hct (34.0-46.0) % RDW (11.5-15.5) % Plt Count (150-450) k/uL Neutrophils # (1.3-7.7) k/uL Lymphocytes # (1.0-4.8) k/uL PT (9.0-12.0) sec INR (<1.2) APTT (22.0-30.0) sec ABG pCO2 49 H (35-45) mmHg ABG pO2 209 H (83-108) mmHg ABG HCO3 33 H (21-25) mmol/L ABG Total CO2 35 H (19-24) mmol/L ABG O2 Saturation 100.0 H (94-97) % Potassium 2.9 L (3.5-5.1) mmol/L Carbon Dioxide 31 H (22-30) mmol/L Glucose 140 H (74-99) mg/dL POC Glucose (mg/dL) 146 H (75-99) mg/dL Calcium 8.0 L (8.4-10.2) mg/dL AST 62 H (14-36) U/L Total Protein 4.6 L (6.3-8.2) g/dL Albumin 2.5 L (3.5-5.0) g/dL Crossmatch 04/11/21 04/11/21 04/11/21 Range/Units 16:12 17:08 17:13 WBC (3.8-10.6) k/uL RBC (3.80-5.40) m/uL Hgb (11.4-16.0) gm/dL Hct (34.0-46.0) % RDW 19.8 H (11.5-15.5) % Plt Count 107 L (150-450) k/uL Neutrophils # 8.6 H (1.3-7.7) k/uL Lymphocytes # 0.4 L (1.0-4.8) k/uL PT (9.0-12.0) sec INR (<1.2) APTT (22.0-30.0) sec ABG pCO2 (35-45) mmHg ABG pO2 (83-108) mmHg ABG HCO3 (21-25) mmol/L ABG Total CO2 (19-24) mmol/L ABG O2 Saturation (94-97) % Potassium (3.5-5.1) mmol/L Carbon Dioxide (22-30) mmol/L Glucose (74-99) mg/dL POC Glucose (mg/dL) 143 H 150 H (75-99) mg/dL Calcium (8.4-10.2) mg/dL AST (14-36) U/L Total Protein (6.3-8.2) g/dL Albumin (3.5-5.0) g/dL Crossmatch 04/11/21 04/11/21 04/11/21 Range/Units 18:01 19:00 20:10 WBC 11.1 H (3.8-10.6) k/uL RBC (3.80-5.40) m/uL Hgb (11.4-16.0) gm/dL Hct (34.0-46.0) % RDW 19.4 H (11.5-15.5) % Plt Count 115 L (150-450) k/uL Neutrophils # 10.3 H (1.3-7.7) k/uL Lymphocytes # 0.3 L (1.0-4.8) k/uL PT (9.0-12.0) sec INR (<1.2) APTT (22.0-30.0) sec ABG pCO2 (35-45) mmHg ABG pO2 (83-108) mmHg ABG HCO3 (21-25) mmol/L ABG Total CO2 (19-24) mmol/L ABG O2 Saturation (94-97) % Potassium (3.5-5.1) mmol/L Carbon Dioxide (22-30) mmol/L Glucose (74-99) mg/dL POC Glucose (mg/dL) 140 H 133 H (75-99) mg/dL Calcium (8.4-10.2) mg/dL AST (14-36) U/L Total Protein (6.3-8.2) g/dL Albumin (3.5-5.0) g/dL Crossmatch 11/17/21 11/17/21 11/17/21 Range/Units 20:11 20:56 22:06 WBC (3.8-10.6) k/uL RBC (3.80-5.40) m/uL Hgb (11.4-16.0) gm/dL Hct (34.0-46.0) % RDW (11.5-15.5) % Plt Count (150-450) k/uL Neutrophils # (1.3-7.7) k/uL Lymphocytes # (1.0-4.8) k/uL PT (9.0-12.0) sec INR (<1.2) APTT (22.0-30.0) sec ABG pCO2 (35-45) mmHg ABG pO2 (83-108) mmHg ABG HCO3 (21-25) mmol/L ABG Total CO2 (19-24) mmol/L ABG O2 Saturation (94-97) % Potassium (3.5-5.1) mmol/L Carbon Dioxide (22-30) mmol/L Glucose (74-99) mg/dL POC Glucose (mg/dL) 142 H 143 H 137 H (75-99) mg/dL Calcium (8.4-10.2) mg/dL AST (14-36) U/L Total Protein (6.3-8.2) g/dL Albumin (3.5-5.0) g/dL Crossmatch 04/11/21 04/11/21 04/12/21 Range/Units 22:52 23:17 00:06 WBC (3.8-10.6) k/uL RBC (3.80-5.40) m/uL Hgb (11.4-16.0) gm/dL Hct (34.0-46.0) % RDW (11.5-15.5) % Plt Count (150-450) k/uL Neutrophils # (1.3-7.7) k/uL Lymphocytes # (1.0-4.8) k/uL PT (9.0-12.0) sec INR (<1.2) APTT (22.0-30.0) sec ABG pCO2 47 H (35-45) mmHg ABG pO2 (83-108) mmHg ABG HCO3 33 H (21-25) mmol/L ABG Total CO2 34 H (19-24) mmol/L ABG O2 Saturation 97.9 H (94-97) % Potassium (3.5-5.1) mmol/L Carbon Dioxide (22-30) mmol/L Glucose (74-99) mg/dL POC Glucose (mg/dL) 134 H 123 H (75-99) mg/dL Calcium (8.4-10.2) mg/dL AST (14-36) U/L Total Protein (6.3-8.2) g/dL Albumin (3.5-5.0) g/dL Crossmatch 04/12/21 04/12/21 04/12/21 Range/Units 01:04 02:01 03:01 WBC (3.8-10.6) k/uL RBC (3.80-5.40) m/uL Hgb (11.4-16.0) gm/dL Hct (34.0-46.0) % RDW (11.5-15.5) % Plt Count (150-450) k/uL Neutrophils # (1.3-7.7) k/uL Lymphocytes # (1.0-4.8) k/uL PT (9.0-12.0) sec INR (<1.2) APTT (22.0-30.0) sec ABG pCO2 (35-45) mmHg ABG pO2 (83-108) mmHg ABG HCO3 (21-25) mmol/L ABG Total CO2 (19-24) mmol/L ABG O2 Saturation (94-97) % Potassium (3.5-5.1) mmol/L Carbon Dioxide (22-30) mmol/L Glucose (74-99) mg/dL POC Glucose (mg/dL) 115 H 105 H 110 H (75-99) mg/dL Calcium (8.4-10.2) mg/dL AST (14-36) U/L Total Protein (6.3-8.2) g/dL Albumin (3.5-5.0) g/dL Crossmatch 04/12/21 04/12/21 04/12/21 Range/Units 03:57 04:00 04:00 WBC (3.8-10.6) k/uL RBC 3.41 L (3.80-5.40) m/uL Hgb 10.2 L (11.4-16.0) gm/dL Hct 32.8 L (34.0-46.0) % RDW 19.3 H (11.5-15.5) % Plt Count 103 L (150-450) k/uL Neutrophils # (1.3-7.7) k/uL Lymphocytes # 0.6 L (1.0-4.8) k/uL PT (9.0-12.0) sec INR (<1.2) APTT (22.0-30.0) sec ABG pCO2 (35-45) mmHg ABG pO2 (83-108) mmHg ABG HCO3 (21-25) mmol/L ABG Total CO2 (19-24) mmol/L ABG O2 Saturation (94-97) % Potassium (3.5-5.1) mmol/L Carbon Dioxide (22-30) mmol/L Glucose 112 H (74-99) mg/dL POC Glucose (mg/dL) 116 H (75-99) mg/dL Calcium 8.1 L (8.4-10.2) mg/dL AST 63 H (14-36) U/L Total Protein 4.5 L (6.3-8.2) g/dL Albumin 2.5 L (3.5-5.0) g/dL Crossmatch 04/12/21 04/12/21 04/12/21 Range/Units 05:04 06:25 06:53 WBC (3.8-10.6) k/uL RBC (3.80-5.40) m/uL Hgb (11.4-16.0) gm/dL Hct (34.0-46.0) % RDW (11.5-15.5) % Plt Count (150-450) k/uL Neutrophils # (1.3-7.7) k/uL Lymphocytes # (1.0-4.8) k/uL PT (9.0-12.0) sec INR (<1.2) APTT (22.0-30.0) sec ABG pCO2 (35-45) mmHg ABG pO2 (83-108) mmHg ABG HCO3 (21-25) mmol/L ABG Total CO2 (19-24) mmol/L ABG O2 Saturation (94-97) % Potassium (3.5-5.1) mmol/L Carbon Dioxide (22-30) mmol/L Glucose (74-99) mg/dL POC Glucose (mg/dL) 113 H 107 H 105 H (75-99) mg/dL Calcium (8.4-10.2) mg/dL AST (14-36) U/L Total Protein (6.3-8.2) g/dL Albumin (3.5-5.0) g/dL Crossmatch 04/12/21 Range/Units 10:05 WBC (3.8-10.6) k/uL RBC (3.80-5.40) m/uL Hgb (11.4-16.0) gm/dL Hct (34.0-46.0) % RDW (11.5-15.5) % Plt Count (150-450) k/uL Neutrophils # (1.3-7.7) k/uL Lymphocytes # (1.0-4.8) k/uL PT (9.0-12.0) sec INR (<1.2) APTT (22.0-30.0) sec ABG pCO2 (35-45) mmHg ABG pO2 (83-108) mmHg ABG HCO3 (21-25) mmol/L ABG Total CO2 (19-24) mmol/L ABG O2 Saturation (94-97) % Potassium (3.5-5.1) mmol/L Carbon Dioxide (22-30) mmol/L Glucose (74-99) mg/dL POC Glucose (mg/dL) 103 H (75-99) mg/dL Calcium (8.4-10.2) mg/dL AST (14-36) U/L Total Protein (6.3-8.2) g/dL Albumin (3.5-5.0) g/dL Crossmatch
[2021-04-12 16:24] LABS: Glucose,Whole Blood 222 mg/dL (75-99)
[2021-04-12] MEDS: ALPRAZolam 0.5 MG TAB PO PRN ×2 (16:27→20:45)
[2021-04-12 18:53] LABS: Glucose,Whole Blood 189 mg/dL (75-99)
[2021-04-12] MEDS: SENNOSIDES-DOCUSATE SODIUM 1 EACH TAB PO SCH (20:26)
[2021-04-13] MEDS: KETOROLAC 30 MG/ML 1 ML VIAL IVP SCH ×4 (00:08→18:05)
[2021-04-13] MEDS: INSULIN ASPART (NovoLOG) 100 UNIT/ML VIAL SQ SCH ×6 (00:40→20:55)
[2021-04-13 00:59] LABS: Glucose,Whole Blood 119 mg/dL (75-99)
[2021-04-13] MEDS: ALPRAZolam 0.5 MG TAB PO PRN ×2 (02:02→20:54)
[2021-04-13] MEDS: HYDROmorphone 2 MG TAB PO PRN ×4 (04:38→20:57)
[2021-04-13 04:39] LABS: Glucose,Whole Blood 128 mg/dL (75-99)
[2021-04-13 04:59] LABS: Anisocytosis Slight; Basophils % (A) 0 %; Eosinophils # (A) 0.2 k/uL (0-0.7); Eosinophils % (A) 2 %; HCT 35.1 % (34.0-46.0); HGB 10.8 gm/dL (11.4-16.0); Hypochromasia Moderate; Lymphocytes # (A) 0.7 k/uL (1.0-4.8); Lymphocytes % (A) 7 %; MCH 30.1 pg (25.0-35.0); MCHC 30.9 g/dL (31.0-37.0); MCV 97.3 fL (80.0-100.0); Macrocytosis Slight; Monocytes # (A) 0.6 k/uL (0-1.0); Monocytes % (A) 6 %; Neutrophils # (A) 8.3 k/uL (1.3-7.7); Neutrophils % (A) 83 %; Platelet Count 119 k/uL (150-450); RBC 3.61 m/uL (3.80-5.40)
[2021-04-13 05:06] LABS: Ionized Calcium 4.7 mg/dL (4.5-5.3)
[2021-04-13 05:14] LABS: ALT 10 U/L (4-34); AST 72 U/L (14-36); African American GFR (CKD) >90 (>60 ml/min/1.73 sqM); Alkaline Phosphatase 84 U/L (38-126); Anion Gap 5 mmol/L; Blood Urea Nitrogen 18 mg/dL (7-17); Calcium 8.7 mg/dL (8.4-10.2); Carbon Dioxide 27 mmol/L (22-30); Chloride 100 mmol/L (98-107); Glucose 126 mg/dL (74-99); Non-African American GFR(CKD) >90 (>60 ml/min/1.73 sqM); Potassium 4.8 mmol/L (3.5-5.1); Sodium 132 mmol/L (137-145); Total Bilirubin 0.5 mg/dL (0.2-1.3); Total Protein 5.2 g/dL (6.3-8.2)
[2021-04-13] MEDS: PANTOPRAZOLE 40 MG TABLET PO SCH (05:16)
[2021-04-13] MEDS: LACTATED RINGERS 1,000 ML IV SCH (05:16)
--- NOTE | 2021-04-13 06:50 | XR ---
EXAMINATION TYPE: XR chest 1V portable DATE OF EXAM: 04/13/2021 CLINICAL HISTORY: Difficulty breathing progress study. Postopen cardiac surgery. TECHNIQUE: Single AP portable upright view of the chest is obtained. COMPARISON: Chest x-ray from one day earlier and older studies. FINDINGS: Interval follow-up right internal jugular Eleroy-Mariann catheter, a Cordis sheath remains pres ent. Persistent left apical chest tube. Persistent mediastinal drainage catheter. Overlying sternal w ires and mediastinal clips. Left atrial appendage clip redemonstrated. Persistent cardiomegaly with improving central vascular congestion and interstitial edema. Patchy bib asilar opacities remain present. No pneumothorax identified. Underlying scoliotic curvature with spin al stimulator leads in the lower thoracic spinal canal redemonstrated. IMPRESSION: Cardiomegaly with small to tiny bilateral pleural effusions and associated bibasilar atel ectasis and/or infiltrate redemonstrated. Improving central vascular congestion and interstitial ciro a. No left-sided pneumothorax with chest tube in place.
[2021-04-13] MEDS: IPRATROPIUM-ALBUTEROL 3 ML NEB INHALATION SCH ×4 (08:17→19:43)
[2021-04-13] MEDS ORDERED: FUROSEMIDE 10 MG/ML 2 ML VIAL IV STA (08:36)
[2021-04-13] MEDS: CLOPIDOGREL 75 MG TAB PO SCH (08:37)
[2021-04-13] MEDS: ASPIRIN 325 MG TAB PO SCH (08:37)
[2021-04-13] MEDS: HEPARIN SODIUM,PORCINE/PF 5,000 UNIT/0.5 ML SYRINGE SQ SCH ×2 (08:37→16:21)
[2021-04-13] MEDS: PREGABALIN 50 MG CAP PO SCH ×3 (08:37→20:55)
[2021-04-13] MEDS: ATORVASTATIN 40 MG TAB PO SCH (08:37)
[2021-04-13] MEDS: NOREPINEPHRINE 4 MG in SODIUM CHLORIDE 0.9% 250 ML IV SCH (08:38)
[2021-04-13] MEDS ORDERED: FUROSEMIDE 10 MG/ML 4 ML VIAL IV STA (08:40)
[2021-04-13] MEDS: MUPIROCIN 2% OINT 22 GM TUBE NASAL SCH ×2 (09:24→20:54)
--- NOTE | 2021-04-13 10:40 | PN ---
PROGRESS NOTE This is a 61-year-old lady who underwent mitral valve repair yesterday by Dr. Orellana. She is doing better, but she is not motivated, not doing much physical activity. She is in a sinus rhythm underlying at a rate of about 56 beats per minute with a wide QRS. This is much better than pacing her VVI and therefore I am recommending that we put the pacemaker as a backup rate of 45 and leave her on her own rhythm. I have advised her regarding the importance of doing more physical activity and deep breathing. Hemodynamically stable. She is not on any pressors. JVD is 1 cm. S1-S2 heard normally. Short systolic murmur noted. Lungs reveal diminished air entry. Lower extremities reveal diminished pulses. Central nervous system: No focal deficits. Plan is to continue current medical regimen. I will discontinue the amiodarone drip mainly because we would like to see her sinus rates come up. Discontinue the pacemaker and keep her on her own rhythm, which is at 56 beats per minute with the same blood pressure in the 120 to 130 systolic range. MMODL / IJN: [id number] /
--- NOTE | 2021-04-13 10:45 | P.PN ---
Subjective Progress Note Date: 04/13/21 Principal diagnosis: Severe mitral valve regurgitation. Past medical history significant for coronary artery disease with previous myocardial infarction and PCI in August 2011, hypertension, CVA in 2009 with left-sided carotid stenosis 56%, history of syncope, current occasional cigarette use, mild restrictive lung disease, remote history of pneumonia, chronic pain issues with previous pain stimulator placement and chronic opioid dependence, follows with Dr. Doherty at [facility]. Preoperative nasal swab positive for MSSA. Intraoperative bradycardia and third-degree heart block POD #2 complex mitral valve repair with ring annuloplasty with a #28 mm [employer] AnnuloFlex band, clip ligation of the left atrial appendage with a 35 mm AtriClip, intraoperative transesophageal echocardiogram Postoperative acute blood loss anemia and thrombocytopenia, expected given he modilution and cardiopulmonary bypass pump. Postoperative hypotension requiring low-dose pressor use, expected and likely vasoplegia given preoperative LEROY inhibitor use. Postoperative controlled atrial fibrillation, known common occurrence after open heart surgery. The patient was seen in follow-up today 04/13/2021 at a bedside in the intensive care unit. Currently she is sitting up to the bedside chair, is awake, alert and oriented 3 and is in no acute apparent distress. She denies any complaints of shortness of breath at this time although is complaining of some surgical type pain rating her pain 7 out of 10 on the pain scale. She continues to report that her pain is not controlled on her current pain medication regimen. Bedside telemetry showing sinus bradycardia with a bundle branch block heart rate 54 BPM. Amiodarone drip was discontinued by cardiology this morning. Atrial and ventricular epicardial pacemaker wires remain in place with a backup VVI mode of 45 BPM. Right IJ cordis remains in place with continuous CVP monitoring, current CVP pressure is 15 mmHg. She remains hemodynamically stable and is currently on no inotropic or pressor support. Norepinephrine drip has been discontinued at midnight. Oxygen saturations are 94% on 4 L nasal cannula and she is achieving 1000 mL on her incentive spirometry. Mediastinal and left pleural chest tubes remain in place to low continuous wall suction -20 cm H2O. Draining thin serosanguineous drainage with 210 mL output in the last 8 hours and 650 mL output since surgery. Objective - Vital Signs Vital signs: Vital Signs Temp 98 F 04/13/21 08:00 Pulse 56 L 11/19/21 10:03 Resp 20 04/13/21 10:03 BP 80/38 04/13/21 09:00 Pulse Ox 94 L 04/13/21 10:03 Intake & Output 04/12/21 04/13/21 04/13/21 18:59 06:59 18:59 Intake Total 1161.415 498 505.220 Output Total 806 780 450 Balance 355.415 -282 55.220 Weight 95.4 kg 99.6 kg Intake: IV 612.12 478 35 Lactated Ringers 440 400 20 Primacor 7.12 cardiac output 60 pressure bag 105 78 15 Intake, IV Titration 299.295 370.220 Amount Amiodarone 450 mg In 250 Dextrose 5% in Water 250 ml @ 0.5 MG/MIN 16.667 mls/hr IV .Q15H PRN Rx#: [id number] Lactated Ringers 1,000 ml 60 @ 20 mls/hr IV .Q24H LIAT Rx#:[id number] Milrinone-D5w Pmx 20 mg 79.149 In Dextrose/Water 1 100ml .bag @ 0.1 MCG/KG/MIN 2. 835 mls/hr IV .Q24H LIAT Rx#:[id number] Milrinone-D5w Pmx 20 mg 100 In Dextrose/Water 1 100ml .bag @ 0.5 MCG/KG/MIN 14. 175 mls/hr IV .Q7H4M LIAT Rx#:[id number] Norepinephrine 4 mg In 70.146 60.220 Sodium Chloride 0.9% 250 ml @ 0.02 MCG/KG/MIN 7. 269 mls/hr IV .Q24H LIAT Rx#:[id number] ceFAZolin 2 gm In Sodium 50 Chloride 0.9% 50 ml @ 100 mls/hr IVPB Q8HR LIAT Rx# :[id number] Oral 250 20 100 Output: Chest Tube Drainage 186 310 120 mediastinal and left 186 310 120 pleural Urine 620 470 330 Other: Voiding Method Indwelling Catheter Indwelling Catheter Indwelling Catheter ABP, PAP, CO, CI - Last Documented Arterial Blood Pressure 138/62 Pulmonary Artery Pressure 29/22 Cardiac Output 3.8 Cardiac Index 1.9 - Exam CONSTITUTIONAL: Sitting up to the bedside chair in the intensive care unit, appears mildly uncomfortable due to her complaints of pain, cooperative, no apparent acute distress. HEENT: Neck is supple, no JVD, no lymphadenopathy. Right IJ Cordis in place and functioning. RESPIRATORY: Lungs sounds essentially clear throughout, diminished to his bilateral bases. Respirations are symmetrical and nonlabored. Currently on 4 L nasal cannula with oxygen saturations 94%. Able to achieve 1000 mL on her incentive spirometry. Strong cough. CARDIOVASCULAR: Regular rhythm and bradycardic rate. S1 and S2 present, negative for S3, gallop or murmur. Sternum is stable. Palpable peripheral pul ses bilaterally, +1 edema to her bilateral lower extremities. No calf pain or tenderness noted. Heart hugger in place with patient demonstrating appropriate use. Knee-high HARSHA hose and sequential compression devices in place to her bilateral lower extremities. GASTROINTESTINAL: Abdomen soft, nontender, nondistended. Active bowel sounds present 4 quadrants. Tolerating diet. Passing flatus. No guarding or rigidity. GENITOURINARY: Gonzalez present draining clear, yellow urine. Output 320 mL in the last 8 hours. INTEGUMENTARY: Skin is warm and dry with no evidence of clubbing or cyanosis. Midline sternal incision clean dry and well approximated, covered with dry intact dressing. NEUROLOGIC: Cranial nerves II through XII intact. No focal deficits. MUSKULOSKELETAL: Able to move all extremities, strength equal bilaterally, generalized weakness. PSYCHIATRIC: Alert and oriented to person place and time, appropriate affect, intact judgment and insight. INVASIVE LINES AND TUBES: Mediastinal/left pleural chest tubes present and connected to low continuous wall suction, no air leaks present. Mediastinal/left pleural tubes with 210 mL of thin serosanguineous drainage overnight, 650 mL output in the last 24 hours. Atrial and ventricular epicardial pacemaker wires present, connected to generator, VVI backup rate 45 bpm. Right internal jugular Cordis, right radial arterial line present. Last CVP 15 mmHg. - Allied health notes Allied health notes reviewed: nursing - Labs CBC & Chem 7: 04/13/21 04:40 04/13/21 04:40 Labs: Abnormal Lab Results - Last 24 Hours (Table) 04/12/21 04/12/21 04/12/21 Range/Units 12:06 16:23 18:51 RBC (3.80-5.40) m/uL Hgb (11.4-16.0) gm/dL MCHC (31.0-37.0) g/dL RDW (11.5-15.5) % Plt Count (150-450) k/uL Neutrophils # (1.3-7.7) k/uL Lymphocytes # (1.0-4.8) k/uL Sodium (137-145) mmol/L BUN (7-17) mg/dL Glucose (74-99) mg/dL POC Glucose (mg/dL) 168 H 222 H 189 H (75-99) mg/dL AST (14-36) U/L Total Protein (6.3-8.2) g/dL Albumin (3.5-5.0) g/dL 04/13/21 04/13/21 04/13/21 Range/Units 00:58 04:36 04:40 RBC 3.61 L (3.80-5.40) m/uL Hgb 10.8 L (11.4-16.0) gm/dL MCHC 30.9 L (31.0-37.0) g/dL RDW 19.0 H (11.5-15.5) % Plt Count 119 L (150-450) k/uL Neutrophils # 8.3 H (1.3-7.7) k/uL Lymphocytes # 0.7 L (1.0-4.8) k/uL Sodium (137-145) mmol/L BUN (7-17) mg/dL Glucose (74-99) mg/dL POC Glucose (mg/dL) 119 H 128 H (75-99) mg/dL AST (14-36) U/L Total Protein (6.3-8.2) g/dL Albumin (3.5-5.0) g/dL 04/13/21 Range/Units 04:40 RBC (3.80-5.40) m/uL Hgb (11.4-16.0) gm/dL MCHC (31.0-37.0) g/dL RDW (11.5-15.5) % Plt Count (150-450) k/uL Neutrophils # (1.3-7.7) k/uL Lymphocytes # (1.0-4.8) k/uL Sodium 132 L (137-145) mmol/L BUN 18 H (7-17) mg/dL Glucose 126 H (74-99) mg/dL POC Glucose (mg/dL) (75-99) mg/dL AST 72 H (14-36) U/L Total Protein 5.2 L (6.3-8.2) g/dL Albumin 3.0 L (3.5-5.0) g/dL - Imaging and Cardiology Chest x-ray: report reviewed, image reviewed Assessment and Plan Assessment: 1. Severe mitral valve regurgitation, status post complex mitral valve repair 2. History of coronary artery disease with previous myocardial infarction and PCI in August 2011 3. Hypertension 4. CVA in 2009 with left-sided carotid stenosis 56% 5. History of syncope 6. Current occasional cigarette use 7. Mild restrictive lung disease, preoperative FEV1 is 62% of predicted 8. Remote history of pneumonia 9. Chronic pain issues with previous pain stimulator placement and chronic opioid dependence, follows with Dr. Do[facility] 10. Preoperative nasal swab positive for MSSA, treated with mupirocin 11. Intraoperative bradycardia and third-degree heart block 12. Postoperative acute blood loss anemia and thrombocytopenia, expected 13. Postoperative hypotension requiring low-dose pressor use, expected 14. Postoperative controlled atrial fibrillation, a known common occurrence after open heart surgery, status post left atrial appendage ligation Plan: 1. Continue aspirin, statin, and Plavix. Will continue to hold beta carli for now due to her bradycardia and will initiate when able to tolerate. 2. Amiodarone has been discontinued per cardiology. No anticoagulation at this point 3. Encourage incentive spirometry use 10 times every hour while awake. Bronchodilators per pulmonology/critical care medicine management. 4. Will monitor daily labs and chest x-rays. Electrolyte replacement per pro tocol. Keep potassium greater than 4.2, mag greater than 2. 5. GI/DVT prophylaxis. 6. Insulin management per primary care service. The patient is not diabetic, preoperative hemoglobin A1c 6.4%. Needs tight blood sugar control to promote healing, sternal union and prevent infection. 7. Pain control per current medication regimen.Upon discharge patient will be discharged on home meds per her pain contract. 8. Increase activity, ambulate as tolerated. PT/OT/cardiac rehab following. Patient will likely need rehab at discharge although she is adamant that she will not go to subacute rehab. 9. Will discontinue right IJ Cordis, arterial line, Gonzalez catheter and mediastinal chest tube. We will keep left pleural chest tube in place to low continuous wall suction -20 cm H2O. Continue to record strict inaccurate I's and O's. Daily weights 11. Lasix 40 mg IV 1 now. 12. More recommendations to follow based on patient's clinical course. Time with Patient: Greater than 30
[2021-04-13 11:41] LABS: Glucose,Whole Blood 144 mg/dL (75-99)
--- NOTE | 2021-04-13 11:41 | P.PN ---
Subjective Progress Note Date: 04/13/21 Principal diagnosis: Severe mitral regurgitation, status post mitral valve repair 61-year-old female patient with past medical history of coronary artery disease with previous PCI and stenting, hypertension, hypertensive cardiovascular disease, hyperlipidemia, history of CVA, Chavarria's palsy, COPD, stage II with FEV1 of 1.7 L or 63% of predicted, former history of smoking chronic low back pain, degenerative disc disease, spinal stimulator with revision, former smoker, and history of mitral valve regurgitation, who had an elective mitral valve repair today on 04/11/[address] Orellana. Patient's preoperative workup was done at an outside hospital, possibly [facility]. Patient is seen in the postoperative period in the intensive care unit, sedated and intubated on [facility] anical ventilator. Currently on assist control mode of ventilation with a rate 16, tacrolimus 500, FiO2 100% and PEEP of 10. Postoperative blood gases are pending, she is currently on lactated Ringer's at 50 ML per hour, Diprivan is a 40 mics per kilo per minute, Levophed at 0.01 mics per kilo per minute, milrinone is a 0.3 mics per kilo per minute. Patient is AV paced on the monitor at a rate of 80. Mediastinal and right pleural chest tubes are connected together, with 80 mL of sanguinous output. Hemodynamically patient is stable, currently blood pressure is 122/60, PA pressures 49/29, CVP is 11, cardiac output is 5.9, and cardiac index is 2.9. Postoperative blood work shows INR of 1.2, sodium is 138, potassium is 2.9 and this is being replaced per protocol, chloride is 103, CO2 31, BUN is 14, creatinine 0.57, CBC is pending. Chest x- ray shows a component of volume overload, interstitial edema. Endotracheal tube NG tube and chest tubes are in appropriate positions. Reevaluated today on 04/12/2021, patient remains in the ICU, she is postoperative day #1, patient was extubated yesterday and 23:56, elevated the extubation well, she is presently on 6 L nasal cannula, is also on Primacor, norepinephrine at 0.02 mcg/m, patient is going to be started on amiodarone since she has underlying rhythm of atrial fibrillation. Chest x-ray showed evidence of interstitial edema, and I recommended 20 mg of Lasix to be given today. And he clearly however the patient does not seem to be in any distress, she seems to be generally weak. CBC is relatively normal. Metabolic profile is normal. Blood sugar is 112. Her enzymes are normal. The patient is seen today 04/13/2021 in follow-up in the intensive care unit. Postoperative day #2. She is currently sitting up in a chair at the bedside. Awake and alert in no acute distress. She is currently maintaining O2 saturations in the 90s on 4 L/m per nasal cannula. She is only pulling approximately 750 MLS on the incentive spirometer. She needs increased encouragement regarding cough and deep breathing exercises. She remains in sinus bradycardia in the 50s. Backup pacemaker wires in place. Cardiac output 3.8. Cardiac index 1.9. She has been transitioned off the amiodarone. Off norepinephrine. Lactated Ringer's at 20 ML's per hour. Chest x-ray continues to show cardiomegaly with small tiny bilateral pleural effusions and associated basilar atelectasis. Some improvement in the central vascular congestion and interstitial edema. No pneumothorax. Cordis remains in place. Left apical chest tube in place. Mediastinal chest tube in place. White count 10.0. Hemoglobin 10.8. Platelets 119,000. Sodium 132. Potassium 4.8. Creatinine 0.63. AST 72. ALT 10. She is continued on DuoNeb inhalations, Symbicort, heparin for DVT prophylaxis. Objective - Vital Signs Vital signs: Vital Signs Temp 98 F 04/13/21 08:00 Pulse 55 L 04/13/21 11:00 Resp 25 H 04/13/21 11:00 BP 144/51 04/13/21 11:00 Pulse Ox 98 04/13/21 11:00 Intake & Output 04/12/21 04/13/21 04/13/21 18:59 06:59 18:59 Intake Total 1161.415 498 505.220 Output Total 806 780 450 Balance 355.415 -282 55.220 Weight 95.4 kg 99.6 kg Intake: IV 612.12 478 35 Lactated Ringers 440 400 20 Primacor 7.12 cardiac output 60 pressure bag 105 78 15 Intake, IV Titration 299.295 370.220 Amount Amiodarone 450 mg In 250 Dextrose 5% in Water 250 ml @ 0.5 MG/MIN 16.667 mls/hr IV .Q15H PRN Rx#: [id number] Lactated Ringers 1,000 ml 60 @ 20 mls/hr IV .Q24H LIAT Rx#:[id number] Milrinone-D5w Pmx 20 mg 79.149 In Dextrose/Water 1 100ml .bag @ 0.1 MCG/KG/MIN 2. 835 mls/hr IV .Q24H LIAT Rx#:[id number] Milrinone-D5w Pmx 20 mg 100 In Dextrose/Water 1 100ml .bag @ 0.5 MCG/KG/MIN 14. 175 mls/hr IV .Q7H4M LIAT Rx#:[id number] Norepinephrine 4 mg In 70.146 60.220 Sodium Chloride 0.9% 250 ml @ 0.02 MCG/KG/MIN 7. 269 mls/hr IV .Q24H LIAT Rx#:[id number] ceFAZolin 2 gm In Sodium 50 Chloride 0.9% 50 ml @ 100 mls/hr IVPB Q8HR LIAT Rx# :[id number] Oral 250 20 100 Output: Chest Tube Drainage 186 310 120 mediastinal and left 186 310 120 pleural Urine 620 470 330 Other: Voiding Method Indwelling Catheter Indwelling Catheter Indwelling Catheter ABP, PAP, CO, CI - Last Documented Arterial Blood Pressure 133/50 Pulmonary Artery Pressure 29/22 Cardiac Output 3.8 Cardiac Index 1.9 - Exam GENERAL EXAM: Alert, pleasant 61-year-old female patient, up in a chair at the bedside, on 4 L nasal cannula, fairly comfortable in no apparent distress. HEAD: Normocephalic. EYES: Normal reaction of pupils, equal size. NOSE: Clear with pink turbinates. THROAT: No erythema or exudates. NECK: Right cordis in place. No masses, no JVD. CHEST: Sternal dressing dry and intact. Hugger in place. Mediastinal and left chest tubes in place. Pacer wires in place. LUNGS: Equal air entry with crackles in the bilateral bases. CVS: S1 and S2 normal with no audible murmur, regular rhythm. ABDOMEN: No hepatosplenomegaly, normal bowel sounds, no guarding or rigidity. SPINE: No scoliosis or deformity SKIN: No rashes CENTRAL NERVOUS SYSTEM: No focal deficits, tone is normal in all 4 extremities. EXTREMITIES: There is no peripheral edema. No clubbing, no cyanosis. Peripheral pulses are intact. - Labs CBC & Chem 7: 04/13/21 04:40 04/13/21 04:40 Labs: Abnormal Lab Results - Last 24 Hours (Table) 04/12/21 04/12/21 04/12/21 Range/Units 12:06 16:23 18:51 RBC (3.80-5.40) m/uL Hgb (11.4-16.0) gm/dL MCHC (31.0-37.0) g/dL RDW (11.5-15.5) % Plt Count (150-450) k/uL Neutrophils # (1.3-7.7) k/uL Lymphocytes # (1.0-4.8) k/uL Sodium (137-145) mmol/L BUN (7-17) mg/dL Glucose (74-99) mg/dL POC Glucose (mg/dL) 168 H 222 H 189 H (75-99) mg/dL AST (14-36) U/L Total Protein (6.3-8.2) g/dL Albumin (3.5-5.0) g/dL 04/13/21 04/13/21 04/13/21 Range/Units 00:58 04:36 04:40 RBC 3.61 L (3.80-5.40) m/uL Hgb 10.8 L (11.4-16.0) gm/dL MCHC 30.9 L (31.0-37.0) g/dL RDW 19.0 H (11.5-15.5) % Plt Count 119 L (150-450) k/uL Neutrophils # 8.3 H (1.3-7.7) k/uL Lymphocytes # 0.7 L (1.0-4.8) k/uL Sodium (137-145) mmol/L BUN (7-17) mg/dL Glucose (74-99) mg/dL POC Glucose (mg/dL) 119 H 128 H (75-99) mg/dL AST (14-36) U/L Total Protein (6.3-8.2) g/dL Albumin (3.5-5.0) g/dL 04/13/21 Range/Units 04:40 RBC (3.80-5.40) m/uL Hgb (11.4-16.0) gm/dL MCHC (31.0-37.0) g/dL RDW (11.5-15.5) % Plt Count (150-450) k/uL Neutrophils # (1.3-7.7) k/uL Lymphocytes # (1.0-4.8) k/uL Sodium 132 L (137-145) mmol/L BUN 18 H (7-17) mg/dL Glucose 126 H (74-99) mg/dL POC Glucose (mg/dL) (75-99) mg/dL AST 72 H (14-36) U/L Total Protein 5.2 L (6.3-8.2) g/dL Albumin 3.0 L (3.5-5.0) g/dL Assessment and Plan Assessment: 1 Mitral valve regurgitation requiring complex mitral valve repair. Postoperative day #2. 2 Benign essential hypertension. 3 History of coronary artery disease and previous PCI in August 25. 4 Chronic pain syndrome. 5 Postoperative blood loss anemia, expected. 6 Postoperative atrial fibrillation, expected. 7 Suspect mild acute component of diastolic congestive heart failure. Plan: The patient was seen and evaluated by Dr. See Chest x-ray and labs reviewed Give additional Lasix 20 mg IVP 1 Encouraged regarding the increased use of the incentive spirometer and cough and deep breathing exercises Increase her activity as tolerated Continue bronchodilators Heparin prophylaxis We will continue to follow I, the cosigning physician, performed a history & physical examination of the patient. Lungs sounds with crackles in bilateral bases. Maintaining good O2 saturations in the 90s on 4 L/m per nasal cannula. I discussed the assessment and plan of care with my nurse practitioner, Celine Jefferson. I attest to the above note as dictated by her.
[2021-04-13] MEDS: SIMETHICONE 80 MG CHEWABLE PO PRN ×2 (14:44→20:59)
--- NOTE | 2021-04-13 15:36 | P.PN ---
Subjective Progress Note Date: 04/13/21 HISTORY OF PRESENT ILLNESS This is a 61-year-old female patient of Dr. Rosado past medical history of coronary artery disease status post PCI and stent placement in 2011 at [facility], hypertension and hypertensive cardiovascular disease, hyperlipidemia, Chavarria's palsy, chronic low back pain secondary to degenerative disc disease as well as facet arthropathy status post spinal cord stimulator placement that was complicated by meningitis and she underwent revision of her stimulator and treatment for meningitis with reinsertion of her stimulator which was done in April 2012, chronic neck pain due to degenerative disc disease, chronic pain syndrome with pain contract with physician in [place] that she sees every other month, remote history of tobacco use and quit in 2018, COPD, irritable bowel syndrome seen by Dr. Laws. Patient has history of mitral valve regurg itation and underwent elective mitral valve repair on 04/11/2021. Patient has been successfully extubated and found sitting up in a chair with her at the bedside. She has mediastinal and right pleural chest tubes. Patient has been in and out of atrial fibrillation this morning is started on amiodarone drip. She is currently on levo fed as well. She did receive Lasix 20 mg this morning and has been noted to have decreased urine output. Patient has been off insulin drip due to blood sugars less than 110. We will plan to transition her to sliding insulin scale. Patient is reaching 750 on incentive spirometry. 04/13: Patient is seen today in the intensive care unit. She is sitting up and recliner and patient's and daughter are at bedside. Patient is not requiring vasopressors. Repeat chest x-ray reveals cardiomegaly with small tiny bilateral pleural effusions with associated bibasilar atelectasis and/or infiltrate redemonstrated. Improving central vascular congestion and interstitial edema. No left sided pneumothorax with chest tube in place. She is currently on O2 at 4 L nasal cannula with pulse ox 94-98%. Blood pressure 110/40, heart rate in the 50s. Afebrile. Blood work reveals WBC 10.0, Hemoccult and 10.8, platelet count 119. Sodium 132, potassium 4.8, creatinine 0.63. AST 72 and ALT 10. Capillary blood glucose running between 119 and 189. REVIEW OF SYSTEMS Constitutional: No fever, no chills, no night sweats. No weight change. No weakness, fatigue or lethargy. No daytime sleepiness. EENT: No headache. No blurred vision or double vision, no loss of vision. No loss of Hearing, no ringing in the ears, no dizziness. No nasal drainage or congestion. No epistaxis. No sore throat. Lungs: Reports shortness of breath, cough, no sputum production. No wheezing. Shortness of breath with exertion. Cardiovascular: Reports generalized chest discomfort, Denies lower extremity edema. No palpitations. No paroxysmal nocturnal dyspnea. No orthopnea. No lightheadedness or dizziness. No syncopal episodes. Abdominal: No abdominal pain. No nausea, vomiting. No diarrhea. No constipation. No bloody or tarry stools. No loss of appetite. Genitourinary: No dysuria, increased frequency, urgency. No urinary retention. Musculoskeletal: No myalgias. No muscle weakness, no gait dysfunction, no frequent falls. Chronic neck and back pain. Integumentary: No wounds, no lesions. No rash or pruritus. No unusual bruising. No change in hair or nails. Neurologic: No aphasia. No facial droop. No change in mentation. No head injury. No headache. No paralysis. No paresthesia. Psychiatric: No depression. No anxiety. No mood swings. Endocrine: No abnormal blood sugars. No weight change. PHYSICAL EXAMINATION Gen: This is a 61-year-old female patient. She is sitting up and recliner and appears to be somewhat uncomfortable secondary to pain. She is currently on 4 L nasal cannula HEENT: Head is atraumatic, normocephalic. Pupils equal, round. Sclerae is anicteric. NECK: Supple. No lymphadenopathy. No thyromegaly. Right Cordis in place. LUNGS: Diminished breath sounds to the bilateral bases. No wheezing. No intercostal retractions. Chest tubes in place. HEART: Irregular rate and rhythm. 2/6 systolic murmur. ABDOMEN: Soft. Bowel sounds are present. No masses. No tenderness. Gonzalez catheter in place. EXTREMITIES: No pedal edema. No calf tenderness. NEUROLOGICAL: Patient is awake, alert and oriented x3. Cranial nerves 2 through 12 are grossly intact. Speech is slow and deliberate. Generalized weakness. ASSESSMENT AND PLAN 1. Mitral valve regurgitation status post repair, 03/11/2021. Continue current management per cardiothoracic team, incentive spirometry to reduce incidence of atelectasis and hospital-acquired pneumonia, pain has been addressed. 2. Hypertension hypertensive cardio vascular disease. 3. History of coronary artery disease status post PCI in 2011. Continue aspirin 325 mg daily, Lipitor 40 mg daily, Plavix 75 mg daily. 4. Hyperlipidemia. Continue Lipitor 5. Paroxysmal atrial fibrillation new onset, expected with surgery. Patient is on amiodarone drip. 6. Chronic back pain, chronic neck pain status post spinal cord stimulator. Continue pain management medications. 7. History of meningitis complicating stimulator with subsequent replacement. 8. Remote history of tobacco use and quit in 2019. 9. COPD without exacerbation. Continue DuoNeb treatments 4 times daily and as needed, Symbicort 2 puffs twice daily. 10. Irritable bowel syndrome. Continue Bentyl 20 mg 4 times daily if needed 10. DVT prophylaxis. Heparin 5000 units subcu every 8 hours. 11. Gastroesophageal reflux disease and GI prophylaxis. Protonix. 12. Generalized anxiety disorder. Continue Xanax 0.5 mg 3 times daily as needed. 13. Migraine headaches. Stable. DISCHARGE PLAN TBD. Possible IP rehab. Impression and plan of care have been directed as dictated by the signing physician. Rebecca Melendez nurse practitioner acting as scribe for signing physician. Objective - Vital Signs Vital signs: Vital Signs Temp 98 F 04/13/21 08:00 Pulse 55 L 04/13/21 11:00 Resp 25 H 04/13/21 11:00 BP 144/51 04/13/21 11:00 Pulse Ox 98 04/13/21 11:00 Intake & Output 04/12/21 04/13/21 04/13/21 18:59 06:59 18:59 Intake Total 1161.415 498 528.220 Output Total 806 780 800 Balance 355.415 282 -271.780 Weight 95.4 kg 99.6 kg Intake: IV 612.12 478 38 Lactated Ringers 440 400 20 Primacor 7.12 cardiac output 60 pressure bag 105 78 18 Intake, IV Titration 299.295 390.220 Amount Amiodarone 450 mg In 250 Dextrose 5% in Water 250 ml @ 0.5 MG/MIN 16.667 mls/hr IV .Q15H PRN Rx#: [id number] Lactated Ringers 1,000 ml 80 @ 20 mls/hr IV .Q24H LIAT Rx#:[id number] Milrinone-D5w Pmx 20 mg 79.149 In Dextrose/Water 1 100ml .bag @ 0.1 MCG/KG/MIN 2. 835 mls/hr IV .Q24H LIAT Rx#:[id number] Milrinone-D5w Pmx 20 mg 100 In Dextrose/Water 1 100ml .bag @ 0.5 MCG/KG/MIN 14. 175 mls/hr IV .Q7H4M LIAT Rx#:[id number] Norepinephrine 4 mg In 70.146 60.220 Sodium Chloride 0.9% 250 ml @ 0.02 MCG/KG/MIN 7. 269 mls/hr IV .Q24H LIAT Rx#:[id number] ceFAZolin 2 gm In Sodium 50 Chloride 0.9% 50 ml @ 100 mls/hr IVPB Q8HR LIAT Rx# :[id number] Oral 250 20 100 Output: Chest Tube Drainage 186 310 120 mediastinal and left 186 310 120 pleural Urine 620 470 680 Other: Voiding Method Indwelling Catheter Indwelling Catheter Indwelling Catheter ABP, PAP, CO, CI - Last Documented Arterial Blood Pressure 133/50 Pulmonary Artery Pressure 29/22 Cardiac Output 3.8 Cardiac Index 1.9 - Labs CBC & Chem 7: 04/13/21 04:40 04/13/21 04:40 Labs: Abnormal Lab Results - Last 24 Hours (Table) 04/12/21 04/12/21 04/12/21 Range/Units 12:06 16:23 18:51 RBC (3.80-5.40) m/uL Hgb (11.4-16.0) gm/dL MCHC (31.0-37.0) g/dL RDW (11.5-15.5) % Plt Count (150-450) k/uL Neutrophils # (1.3-7.7) k/uL Lymphocytes # (1.0-4.8) k/uL Sodium (137-145) mmol/L BUN (7-17) mg/dL Glucose (74-99) mg/dL POC Glucose (mg/dL) 168 H 222 H 189 H (75-99) mg/dL AST (14-36) U/L Total Protein (6.3-8.2) g/dL Albumin (3.5-5.0) g/dL 04/13/21 04/13/21 04/13/21 Range/Units 00:58 04:36 04:40 RBC 3.61 L (3.80-5.40) m/uL Hgb 10.8 L (11.4-16.0) gm/dL MCHC 30.9 L (31.0-37.0) g/dL RDW 19.0 H (11.5-15.5) % Plt Count 119 L (150-450) k/uL Neutrophils # 8.3 H (1.3-7.7) k/uL Lymphocytes # 0.7 L (1.0-4.8) k/uL Sodium (137-145) mmol/L BUN (7-17) mg/dL Glucose (74-99) mg/dL POC Glucose (mg/dL) 119 H 128 H (75-99) mg/dL AST (14-36) U/L Total Protein (6.3-8.2) g/dL Albumin (3.5-5.0) g/dL 04/13/21 04/13/21 Range/Units 04:40 11:39 RBC (3.80-5.40) m/uL Hgb (11.4-16.0) gm/dL MCHC (31.0-37.0) g/dL RDW (11.5-15.5) % Plt Count (150-450) k/uL Neutrophils # (1.3-7.7) k/uL Lymphocytes # (1.0-4.8) k/uL Sodium 132 L (137-145) mmol/L BUN 18 H (7-17) mg/dL Glucose 126 H (74-99) mg/dL POC Glucose (mg/dL) 144 H (75-99) mg/dL AST 72 H (14-36) U/L Total Protein 5.2 L (6.3-8.2) g/dL Albumin 3.0 L (3.5-5.0) g/dL
[2021-04-13 16:29] LABS: Glucose,Whole Blood 130 mg/dL (75-99)
[2021-04-13] MEDS: ONDANSETRON 4 MG/2 ML VIAL IVP PRN (16:33)
[2021-04-13 20:26] LABS: Glucose,Whole Blood 133 mg/dL (75-99)
[2021-04-13] MEDS: SENNOSIDES-DOCUSATE SODIUM 1 EACH TAB PO SCH (20:55)
[2021-04-14] MEDS: HEPARIN SODIUM,PORCINE/PF 5,000 UNIT/0.5 ML SYRINGE SQ SCH ×3 (00:31→16:39)
[2021-04-14] MEDS: KETOROLAC 30 MG/ML 1 ML VIAL IVP SCH ×4 (00:32→17:23)
[2021-04-14] MEDS: HYDROmorphone 2 MG TAB PO PRN (00:58)
[2021-04-14] MEDS: ALBUMIN HUMAN 25% 50 ML in EMPTY BAG 1 BAG IVPB SCH ×2 (01:54→02:01)
[2021-04-14 04:54] LABS: Anisocytosis Slight; Basophils % (A) 0 %; Eosinophils # (A) 0.1 k/uL (0-0.7); Eosinophils % (A) 2 %; HCT 33.1 % (34.0-46.0); HGB 10.4 gm/dL (11.4-16.0); Hypochromasia Slight; Lymphocytes # (A) 0.7 k/uL (1.0-4.8); Lymphocytes % (A) 9 %; MCH 30.1 pg (25.0-35.0); MCHC 31.3 g/dL (31.0-37.0); MCV 96.3 fL (80.0-100.0); Macrocytosis Slight; Mean Platelet Volume 8.8; Monocytes # (A) 0.4 k/uL (0-1.0); Monocytes % (A) 6 %; Neutrophils # (A) 5.9 k/uL (1.3-7.7); Neutrophils % (A) 81 %; Platelet Count 103 k/uL (150-450); RBC 3.44 m/uL (3.80-5.40); RDW 18.7 % (11.5-15.5); WBC 7.3 k/uL (3.8-10.6)
[2021-04-14 05:07] LABS: ALT 9 U/L (4-34); AST 43 U/L (14-36); African American GFR (CKD) >90 (>60 ml/min/1.73 sqM); Albumin 3.1 g/dL (3.5-5.0); Alkaline Phosphatase 78 U/L (38-126); Anion Gap 6 mmol/L; Blood Urea Nitrogen 21 mg/dL (7-17); Calcium 8.9 mg/dL (8.4-10.2); Carbon Dioxide 27 mmol/L (22-30); Chloride 99 mmol/L (98-107); Glucose 123 mg/dL (74-99); Magnesium 1.9 mg/dL (1.6-2.3); Non-African American GFR(CKD) >90 (>60 ml/min/1.73 sqM); Potassium 4.4 mmol/L (3.5-5.1); Sodium 132 mmol/L (137-145); Total Bilirubin 0.5 mg/dL (0.2-1.3); Total Protein 5.3 g/dL (6.3-8.2)
[2021-04-14] MEDS: INSULIN ASPART (NovoLOG) 100 UNIT/ML VIAL SQ SCH ×4 (06:10→20:03)
[2021-04-14] MEDS: MAGNESIUM SULFATE-D5W PMX 1 GM in DEXTROSE/WATER 1 100ML.BAG IVPB SCH ×2 (06:11→08:13)
[2021-04-14] MEDS: PANTOPRAZOLE 40 MG TABLET PO SCH (06:11)
[2021-04-14] MEDS: DEXTROSE 5% IN WATER 100 ML with AMIODARONE 150 MG IV PRN (07:22)
[2021-04-14] MEDS ORDERED: AMIODARONE IN DEXTROSE,ISO-OSM 150 MG/100 ML PLAST..BAG IV ONE (07:22)
[2021-04-14] MEDS: IPRATROPIUM-ALBUTEROL 3 ML NEB INHALATION SCH ×4 (07:30→20:18)
--- NOTE | 2021-04-14 08:07 | XR ---
EXAMINATION TYPE: XR chest 1V portable DATE OF EXAM: 04/14/2021 Comparison: 04/13/2021 Clinical History: 61-year-old female Postoperative mitral valve repair Findings: Median sternotomy wires are present. Spinal stimulator array centered along the mid to lower thoracic spinal canal. Interval removal of mediastinal drains. Left-sided chest tube remains in place. No brain reciable pneumothorax. Heart remains mild to moderately enlarged. Interstitial densities persist. Sma ll bilateral pleural effusions with basilar opacities persist. Impression: Similar mild pulmonary vascular congestion. Continued small pleural effusions with adjacent atelectas is and/or consolidation.
[2021-04-14] MEDS ORDERED: FUROSEMIDE 10 MG/ML 4 ML VIAL IV STA (08:11)
[2021-04-14] MEDS: ATORVASTATIN 40 MG TAB PO SCH (08:13)
[2021-04-14] MEDS: ASPIRIN 325 MG TAB PO SCH (08:13)
[2021-04-14] MEDS: CLOPIDOGREL 75 MG TAB PO SCH (08:14)
[2021-04-14] MEDS: PREGABALIN 50 MG CAP PO SCH ×3 (08:14→20:03)
--- NOTE | 2021-04-14 09:06 | P.PN ---
Subjective Progress Note Date: 04/14/21 Principal diagnosis: Severe mitral valve regurgitation. Past medical history significant for coronary artery disease with previous myocardial infarction and PCI in August 2011, hypertension, CVA in 2009 with left-sided carotid stenosis 56%, history of syncope, current occasional cigarette use, mild restrictive lung disease, remote history of pneumonia, chronic pain issues with previous pain stimulator placement and chronic opioid dependence, follows with Dr. Doherty at [facility]. Preoperative nasal swab positive for MSSA. Intraoperative bradycardia and third-degree heart block POD #3 complex mitral valve repair with ring annuloplasty with a #28 mm [employer] AnnuloFlex band, clip ligation of the left atrial appendage with a 35 mm AtriClip, intraoperative transesophageal echocardiogram Postoperative acute blood loss anemia and thrombocytopenia, expected given he modilution and cardiopulmonary bypass pump. Postoperative hypotension requiring low-dose pressor use, expected and likely vasoplegia given preoperative LEROY inhibitor use. Postoperative controlled atrial fibrillation, known common occurrence after open heart surgery. The patient was seen in follow-up today 04/14/2021 at a bedside in the intensive care unit. Currently she is sitting up to the bedside chair, is awake, alert and oriented 3 and is in no acute apparent distress. She denies any complaints of shortness of breath, although is complaining of some chronic back pain which she rates 6-7 out of 10 on the pain scale at this time. Oxygen saturation are 97% on 2 L nasal cannula and she is achieving 1250 mL on her incentive spirometry with encouragement. Bedside telemetry showing atrial fibrillation heart rate 83 BPM. She reports she has been up and plating in the intensive care unit hallway with assistance from nursing and physical therapy staff. The patient does report that overall she feels much improved today from yesterday. Atrial and ventricular epicardial pacemaker wires remained in place with backup pacemaker generator in place with a VVI mode of 50 BPM. Left pleural chest tube remains in place to low continuous wall suction -20 cm H2O. No air leak is present. Draining thin serosanguineous drainage with 135 mL output in the last 8 hours and 250 mL output in the last 24 hours. Laboratory results this morning show a WBC count of 7.3, hemoglobin 10.4, hematocrit 33.1, platelets 103, sodium 132, potassium 4.4, BUN 21, creatinine 0.57, magnesium 1.9 and calcium 8.9. Chest x-ray this morning shows mild pulmonary vascular congestion. Objective - Vital Signs Vital signs: Vital Signs Temp 97.4 F L 04/14/21 04:15 Pulse 79 04/14/21 07:45 Resp 19 04/14/21 07:45 BP 96/60 04/14/21 07:30 Pulse Ox 95 04/14/21 07:45 Intake & Output 04/13/21 04/14/21 04/14/21 18:59 06:59 18:59 Intake Total 751.220 640 Output Total 1215 673 Balance -463.780 -33 Weight 99 kg Intake: IV 41 100 Lactated Ringers 20 Magnesium Sulfate-D5w Pmx 100 1 gm In Dextrose/Water 1 100ml.bag @ 100 mls/hr IVPB Q1H LIAT Rx#: [id number] pressure bag 21 Intake, IV Titration 390.220 Amount Amiodarone 450 mg In 250 Dextrose 5% in Water 250 ml @ 0.5 MG/MIN 16.667 mls/hr IV .Q15H PRN Rx#: [id number] Lactated Ringers 1,000 ml 80 @ 20 mls/hr IV .Q24H LIAT Rx#:[id number] Norepinephrine 4 mg In 60.220 Sodium Chloride 0.9% 250 ml @ 0.02 MCG/KG/MIN 7. 269 mls/hr IV .Q24H LIAT Rx#:[id number] Oral 320 540 Output: Chest Tube Drainage [address] 30 165 mediastinal and left 130 pleural Urine 1055 200 Post Void Residual 308 Other: Voiding Method Indwelling Catheter Indwelling Catheter # Voids 0 0 ABP, PAP, CO, CI - Last Documented Arterial Blood Pressure 133/50 Pulmonary Artery Pressure 29/22 Cardiac Output 3.8 Cardiac Index 1.9 - Exam CONSTITUTIONAL: Sitting up to the bedside chair in the intensive care unit, appears comfortable, cooperative, no apparent acute distress. HEENT: Neck is supple, no JVD, no lymphadenopathy. RESPIRATORY: Lungs sounds essentially clear throughout, diminished to his bilateral bases. Respirations are symmetrical and nonlabored. Currently on 2 L nasal cannula with oxygen saturations 97%. Able to achieve 1250 mL on her incentive spirometry. Strong cough. CARDIOVASCULAR: Regular rhythm and bradycardic rate. S1 and S2 present, negative for S3, gallop or murmur. Sternum is stable. Palpable peripheral pulses bilaterally, +1 edema to her bilateral lower extremities. No calf pain or tenderness noted. Heart hugger in place with patient demonstrating appropriate use. Knee-high HARSHA hose and sequential compression devices in place to her bilateral lower extremities. GASTROINTESTINAL: Abdomen soft, nontender, nondistended. Active bowel sounds present 4 quadrants. Tolerating diet. Passing flatus. No guarding or rigidity. GENITOURINARY: Continues to void. Output 200 mL in the last 8 hours. INTEGUMENTARY: Skin is warm and dry with no evidence of clubbing or cyanosis. Midline sternal incision clean dry and well approximated, covered with dry intact dressing. NEUROLOGIC: Cranial nerves II through XII intact. No focal deficits. MUSKULOSKELETAL: Able to move all extremities, strength equal bilaterally, generalized weakness. PSYCHIATRIC: Alert and oriented to person place and time, appropriate affect, intact judgment and insight. INVASIVE LINES AND TUBES: Left pleural chest tube present and connected to low continuous wall suction, no air leaks present. Left pleural tubes with 135 mL of thin serosanguineous drainage overnight, 250 mL output in the last 24 hours. Atrial and ventricular epicardial pacemaker wires present, connected to generator, VVI backup rate 50 bpm. - Allied health notes Allied health notes reviewed: nursing - Labs CBC & Chem 7: 04/14/21 04:45 04/14/21 04:45 Labs: Abnormal Lab Results - Last 24 Hours (Table) 04/13/21 04/13/21 04/13/21 Range/Units 11:39 16:26 20:25 RBC (3.80-5.40) m/uL Hgb (11.4-16.0) gm/dL Hct (34.0-46.0) % RDW (11.5-15.5) % Plt Count (150-450) k/uL Lymphocytes # (1.0-4.8) k/uL Sodium (137-145) mmol/L BUN (7-17) mg/dL Glucose (74-99) mg/dL POC Glucose (mg/dL) 144 H 130 H 133 H (75-99) mg/dL AST (14-36) U/L Total Protein (6.3-8.2) g/dL Albumin (3.5-5.0) g/dL 04/14/21 04/14/21 Range/Units 04:45 04:45 RBC 3.44 L (3.80-5.40) m/uL Hgb 10.4 L (11.4-16.0) gm/dL Hct 33.1 L (34.0-46.0) % RDW 18.7 H (11.5-15.5) % Plt Count 103 L (150-450) k/uL Lymphocytes # 0.7 L (1.0-4.8) k/uL Sodium 132 L (137-145) mmol/L BUN 21 H (7-17) mg/dL Glucose 123 H (74-99) mg/dL POC Glucose (mg/dL) (75-99) mg/dL AST 43 H (14-36) U/L Total Protein 5.3 L (6.3-8.2) g/dL Albumin 3.1 L (3.5-5.0) g/dL - Imaging and Cardiology Chest x-ray: report reviewed, image reviewed Assessment and Plan Assessment: 1. Severe mitral valve regurgitation, status post complex mitral valve repair 2. History of coronary artery disease with previous myocardial infarction and PCI in August 2011 3. Hypertension 4. CVA in 2009 with left-sided carotid stenosis 56% 5. History of syncope 6. Current occasional cigarette use 7. Mild restrictive lung disease, preoperative FEV1 is 62% of predicted 8. Remote history of pneumonia 9. Chronic pain issues with previous pain stimulator placement and chronic opioid dependence, follows with Dr. Doherty at pain clinic 10. Preoperative nasal swab positive for MSSA, treated with mupirocin 11. Intraoperative bradycardia and third-degree heart block 12. Postoperative acute blood loss anemia and thrombocytopenia, expected 13. Postoperative hypotension requiring low-dose pressor use, expected 14. Postoperative controlled atrial fibrillation, a known common occurrence after open heart surgery, status post left atrial appendage ligation Plan: 1. Continue aspirin, statin, and Plavix. Initiate low-dose beta carli when okay with cardiology. 2. Amiodarone 150 mg IV bolus 1 now for atrial fibrillation. No anti coagulation at this point. 3. Wean O2 as tolerated. Encourage incentive spirometry use 10 times every hour while awake. Bronchodilators per pulmonology/critical care medicine management. 4. Will monitor daily labs and chest x-rays. Electrolyte replacement per protocol. Keep potassium greater than 4.2, mag greater than 2. Magnesium is being replaced at this time. 5. GI/DVT prophylaxis. 6. Insulin management per primary care service. The patient is not diabetic, preoperative hemoglobin A1c 6.4%. Needs tight blood sugar control to promote healing, sternal union and prevent infection. 7. Pain control per current medication regimen. Upon discharge patient will be discharged on home meds per her pain contract. 8. Increase activity, ambulate as tolerated. PT/OT/cardiac rehab following. Patient will likely need rehab at discharge although she is adamant that she will not go to subacute rehab. 9. We will remove her left pleural chest tube today. 11. Lasix 40 mg IV 1 now per pulmonary critical care management recommendations. . 12. More recommendations to follow based on patient's clinical course. Time with Patient: Greater than 30
[2021-04-14] MEDS: NOREPINEPHRINE 4 MG in SODIUM CHLORIDE 0.9% 250 ML IV SCH (09:52)
--- NOTE | 2021-04-14 10:31 | P.PN ---
Subjective Progress Note Date: 04/14/21 Principal diagnosis: Severe mitral regurgitation, status post mitral valve repair 61-year-old female patient with past medical history of coronary artery disease with previous PCI and stenting, hypertension, hypertensive cardiovascular disease, hyperlipidemia, history of CVA, Chavarria's palsy, COPD, stage II with FEV1 of 1.7 L or 63% of predicted, former history of smoking chronic low back pain, degenerative disc disease, spinal stimulator with revision, former smoker, and history of mitral valve regurgitation, who had an elective mitral valve repair today on 04/11/[address] Orellana. Patient's preoperative workup was done at an outside hospital, possibly [facility]. Patient is seen in the postoperative period in the intensive care unit, sedated and intubated on [facility] anical ventilator. Currently on assist control mode of ventilation with a rate 16, tacrolimus 500, FiO2 100% and PEEP of 10. Postoperative blood gases are pending, she is currently on lactated Ringer's at 50 ML per hour, Diprivan is a 40 mics per kilo per minute, Levophed at 0.01 mics per kilo per minute, milrinone is a 0.3 mics per kilo per minute. Patient is AV paced on the monitor at a rate of 80. Mediastinal and right pleural chest tubes are connected together, with 80 mL of sanguinous output. Hemodynamically patient is stable, currently blood pressure is 122/60, PA pressures 49/29, CVP is 11, cardiac output is 5.9, and cardiac index is 2.9. Postoperative blood work shows INR of 1.2, sodium is 138, potassium is 2.9 and this is being replaced per protocol, chloride is 103, CO2 31, BUN is 14, creatinine 0.57, CBC is pending. Chest x- ray shows a component of volume overload, interstitial edema. Endotracheal tube NG tube and chest tubes are in appropriate positions. Reevaluated today on 04/12/2021, patient remains in the ICU, she is postoperative day #1, patient was extubated yesterday and 23:56, elevated the extubation well, she is presently on 6 L nasal cannula, is also on Primacor, norepinephrine at 0.02 mcg/m, patient is going to be started on amiodarone since she has underlying rhythm of atrial fibrillation. Chest x-ray showed evidence of interstitial edema, and I recommended 20 mg of Lasix to be given today. And he clearly however the patient does not seem to be in any distress, she seems to be generally weak. CBC is relatively normal. Metabolic profile is normal. Blood sugar is 112. Her enzymes are normal. The patient is seen today 04/13/2021 in follow-up in the intensive care unit. Postoperative day #2. She is currently sitting up in a chair at the bedside. Awake and alert in no acute distress. She is currently maintaining O2 saturations in the 90s on 4 L/m per nasal cannula. She is only pulling approximately 750 MLS on the incentive spirometer. She needs increased encouragement regarding cough and deep breathing exercises. She remains in sinus bradycardia in the 50s. Backup pacemaker wires in place. Cardiac output 3.8. Cardiac index 1.9. She has been transitioned off the amiodarone. Off norepinephrine. Lactated Ringer's at 20 ML's per hour. Chest x-ray continues to show cardiomegaly with small tiny bilateral pleural effusions and associated basilar atelectasis. Some improvement in the central vascular congestion and interstitial edema. No pneumothorax. Cordis remains in place. Left apical chest tube in place. Mediastinal chest tube in place. White count 10.0. Hemoglobin 10.8. Platelets 119,000. Sodium 132. Potassium 4.8. Creatinine 0.63. AST 72. ALT 10. She is continued on DuoNeb inhalations, Symbicort, heparin for DVT prophylaxis. The patient is seen today 04/14/2021 in follow-up in the intensive care unit. Postoperative day #3. She is currently sitting up in a chair at the bedside. Awake and alert in no acute distress. She has been in a controlled atrial fibrillation. She was given amiodarone bolus. She received albumin. X-ray continues to show mild pulmonary vascular congestion with small pleural effusions and adjacent atelectasis She remains on bronchodilators. Heparin for DVT prophylaxis. She needs increased encouragement regarding the use of the incentive spirometer. Currently pulling approximately 500 - 1000 ML's. White count 7.3. Hemoglobin 10.4. Platelets 103. Sodium 132. Potassium 4.4. Creatinine 0.57. AST 43. ALT 9. Albumin 3.1. Objective - Vital Signs Vital signs: Vital Signs Temp 97.7 F 04/14/21 08:00 Pulse 89 04/14/21 09:30 Resp 17 04/14/21 09:30 BP 113/65 04/14/21 09:30 Pulse Ox 96 04/14/21 09:30 Intake & Output 04/13/21 04/14/21 04/14/21 18:59 06:59 18:59 Intake Total 751.220 640 100 Output Total 1215 673 700 Balance -463.780 -33 -600 Weight 99 kg Intake: IV 41 100 100 Lactated Ringers 20 Magnesium Sulfate-D5w Pmx 100 100 1 gm In Dextrose/Water 1 100ml.bag @ 100 mls/hr IVPB Q1H LIAT Rx#: [id number] pressure bag 21 Intake, IV Titration 390.220 Amount Amiodarone 450 mg In 250 Dextrose 5% in Water 250 ml @ 0.5 MG/MIN 16.667 mls/hr IV .Q15H PRN Rx#: [id number] Lactated Ringers 1,000 ml 80 @ 20 mls/hr IV .Q24H LIAT Rx#:[id number] Norepinephrine 4 mg In 60.220 Sodium Chloride 0.9% 250 ml @ 0.02 MCG/KG/MIN 7. 269 mls/hr IV .Q24H LIAT Rx#:[id number] Oral 320 540 Output: Chest Tube Drainage [address] 30 165 0 mediastinal and left 130 pleural Urine 1055 200 700 Post Void Residual 308 Other: Voiding Method Indwelling Catheter Indwelling Catheter # Voids 0 0 ABP, PAP, CO, CI - Last Documented Arterial Blood Pressure 133/50 Pulmonary Artery Pressure 29/22 Cardiac Output 3.8 Cardiac Index 1.9 - Exam GENERAL EXAM: Alert, pleasant 61-year-old female patient, up in a chair at the bedside, on 2 L nasal cannula, fairly comfortable in no apparent distress. HEAD: Normocephalic. EYES: Normal reaction of pupils, equal size. NOSE: Clear with pink turbinates. THROAT: No erythema or exudates. NECK: Right cordis in place. No masses, no JVD. CHEST: Sternal dressing dry and intact. Hugger in place. Pacer wires in place. LUNGS: Equal air entry with crackles in the bilateral bases. CVS: S1 and S2 normal with no audible murmur, irregular rhythm. ABDOMEN: No hepatosplenomegaly, normal bowel sounds, no guarding or rigidity. SPINE: No scoliosis or deformity SKIN: No rashes CENTRAL NERVOUS SYSTEM: No focal deficits, tone is normal in all 4 extremities. EXTREMITIES: There is no peripheral edema. No clubbing, no cyanosis. Peripheral pulses are intact. - Labs CBC & Chem 7: 04/14/21 04:45 04/14/21 04:45 Labs: Abnormal Lab Results - Last 24 Hours (Table) 04/13/21 04/13/21 04/13/21 Range/Units 11:39 16:26 20:25 RBC (3.80-5.40) m/uL Hgb (11.4-16.0) gm/dL Hct (34.0-46.0) % RDW (11.5-15.5) % Plt Count (150-450) k/uL Lymphocytes # (1.0-4.8) k/uL Sodium (137-145) mmol/L BUN (7-17) mg/dL Glucose (74-99) mg/dL POC Glucose (mg/dL) 144 H 130 H 133 H (75-99) mg/dL AST (14-36) U/L Total Protein (6.3-8.2) g/dL Albumin (3.5-5.0) g/dL 04/14/21 04/14/21 Range/Units 04:45 04:45 RBC 3.44 L (3.80-5.40) m/uL Hgb 10.4 L (11.4-16.0) gm/dL Hct 33.1 L (34.0-46.0) % RDW 18.7 H (11.5-15.5) % Plt Count 103 L (150-450) k/uL Lymphocytes # 0.7 L (1.0-4.8) k/uL Sodium 132 L (137-145) mmol/L BUN 21 H (7-17) mg/dL Glucose 123 H (74-99) mg/dL POC Glucose (mg/dL) (75-99) mg/dL AST 43 H (14-36) U/L Total Protein 5.3 L (6.3-8.2) g/dL Albumin 3.1 L (3.5-5.0) g/dL Assessment and Plan Assessment: 1 Mitral valve regurgitation requiring complex mitral valve repair. Postoperative day #3. 2 Benign essential hypertension. 3 History of coronary artery disease and previous PCI in August 25. 4 Chronic pain syndrome. 5 Postoperative blood loss anemia, expected. 6 Postoperative atrial fibrillation, expected. 7 Suspect mild acute component of diastolic congestive heart failure. Plan: The patient was seen and evaluated by Dr. See Chest x-ray and labs reviewed Give additional Lasix 40 mg IVP 1 Encouraged regarding the increased use of the incentive spirometer Titrate down the FiO2 as tolerated Increase her activity as tolerated Continue bronchodilators Heparin for DVT prophylaxis We will continue to follow I, the cosigning physician, performed a history & physical examination of the patient. Lungs sounds with crackles in bilateral bases. Maintaining good O2 saturations in the 90s on 2 L/m per nasal cannula. I discussed the assessment and plan of care with my nurse practitioner, Celine Jefferson. I attest to the above note as dictated by her.
[2021-04-14] MEDS: MUPIROCIN 2% OINT 22 GM TUBE NASAL SCH ×2 (11:47→20:04)
[2021-04-14 12:03] LABS: Glucose,Whole Blood 128 mg/dL (75-99)
[2021-04-14] MEDS: METOPROLOL TARTRATE 12.5 MG TAB PO SCH ×2 (12:48→20:02)
--- NOTE | 2021-04-14 14:23 | PN ---
PROGRESS NOTE Mrs. Garcia is status post mitral valve repair. She has developed atrial fib. The rate is fairly well controlled. She is on IV amiodarone. She is not doing well with incentive spirometry. I have advised her to work harder at this and stay motivated. Hemodynamically stable. She was hypotensive, received some IV fluids and albumin. With this, she has improved. She is doing well this morning. No chest pain. Her incisional pain has also improved. I am recommending that we continue current medical regimen, switch her from IV to oral amiodarone. Rate is controlled. Vital signs are stable. JVD 1 cm. No carotid bruit. S1-S2 heard normally. Short systolic murmur noted. Lungs reveal diminished air entry. Abdomen is soft. Lower extremities reveal diminished pulses. Central system is grossly within normal limits. MMODL / IJN: [id number] /
[2021-04-14 16:32] LABS: Glucose,Whole Blood 135 mg/dL (75-99)
[2021-04-14] MEDS: SIMETHICONE 80 MG CHEWABLE PO PRN (16:56)
[2021-04-14] MEDS ORDERED: polyethylene glycoL 3350 17 GM POWD.PACK PO STA (17:04)
--- NOTE | 2021-04-14 19:01 | P.PN ---
Subjective Progress Note Date: 04/14/21 HISTORY OF PRESENT ILLNESS This is a 61-year-old female patient of Dr. Rosado past medical history of coronary artery disease status post PCI and stent placement in 2011 at [facility], hypertension and hypertensive cardiovascular disease, hyperlipidemia, Chavarria's palsy, chronic low back pain secondary to degenerative disc disease as well as facet arthropathy status post spinal cord stimulator placement that was complicated by meningitis and she underwent revision of her stimulator and treatment for meningitis with reinsertion of her stimulator which was done in April 2012, chronic neck pain due to degenerative disc disease, chronic pain syndrome with pain contract with physician in [place] that she sees every other month, remote history of tobacco use and quit in 2018, COPD, irritable bowel syndrome seen by Dr. Laws. Patient has history of mitral valve regur gitation and underwent elective mitral valve repair on 04/11/2021. Patient has been successfully extubated and found sitting up in a chair with her at the bedside. She has mediastinal and right pleural chest tubes. Patient has been in and out of atrial fibrillation this morning is started on amiodarone drip. She is currently on levo fed as well. She did receive Lasix 20 mg this morning and has been noted to have decreased urine output. Patient has been off insulin drip due to blood sugars less than 110. We will plan to transition her to sliding insulin scale. Patient is reaching 750 on incentive spirometry. 04/13: Patient is seen today in the intensive care unit. She is sitting up and recliner and patient's and daughter are at bedside. Patient is not requiring vasopressors. Repeat chest x-ray reveals cardiomegaly with small tiny bilateral pleural effusions with associated bibasilar atelectasis and/or infiltrate redemonstrated. Improving central vascular congestion and interstitial edema. No left sided pneumothorax with chest tube in place. She is currently on O2 at 4 L nasal cannula with pulse ox 94-98%. Blood pressure 110/40, heart rate in the 50s. Afebrile. Blood work reveals WBC 10.0, Hemoccult and 10.8, platelet count 119. Sodium 132, potassium 4.8, creatinine 0.63. AST 72 and ALT 10. Capillary blood glucose running between 119 and 189. 04/14 patient remains in ICU, status post valve repair, postoperative day #3, she is on O2 nasal cannula, has atrial fibrillation on IV amiodarone, complains of diminished appetite, shortness of breath, no chest pain, no lightheadedness no aspiration. There is some low blood pressures today, and is on IV fluids and IV albumin. We are starting her also on nutritional supplement with Bene protein or premium protein, is worried about her being prediabetic, and also has some insomnia at this time. Vitals blood pressure 108/68, heart rate 74, irregular, cardiac output, 3.8 L cardiac index, 1.9 L, O2 sats 91% patient to be started on incentive spirometry, and is on Symbicort,. Labs hemoglobin 10.4, wbc count 7.3, blood sugars 128-135, creatinine of 0.57 REVIEW OF SYSTEMS Constitutional: No fever, no chills, no night sweats. No weight change. No weakness, fatigue or lethargy. No daytime sleepiness. EENT: No headache. No blurred vision or double vision, no loss of vision. No loss of Hearing, no ringing in the ears, no dizziness. No nasal drainage or congestion. No epistaxis. No sore throat. Lungs: Reports shortness of breath, cough, no sputum production. No wheezing. Shortness of breath with exertion. Cardiovascular: Reports generalized chest discomfort, Denies lower extremity edema. No palpitations. No paroxysmal nocturnal dyspnea. No orthopnea. No lightheadedness or dizziness. No syncopal episodes. Abdominal: No abdominal pain. No nausea, vomiting. No diarrhea. No constipation. No bloody or tarry stools. No loss of appetite. Genitourinary: No dysuria, increased frequency, urgency. No urinary retention. Musculoskeletal: No myalgias. No muscle weakness, no gait dysfunction, no frequent falls. Chronic neck and back pain. Integumentary: No wounds, no lesions. No rash or pruritus. No unusual bruising. No change in hair or nails. Neurologic: No aphasia. No facial droop. No change in mentation. No head injury. No headache. No paralysis. No paresthesia. Psychiatric: No depression. No anxiety. No mood swings. Endocrine: No abnormal blood sugars. No weight change. PHYSICAL EXAMINATION Gen: This is a 61-year-old female patient. She is sitting up and recliner and appears to be somewhat uncomfortable secondary to pain. She is currently on 4 L nasal cannula HEENT: Head is atraumatic, normocephalic. Pupils equal, round. Sclerae is anicteric. NECK: Supple. No lymphadenopathy. No thyromegaly. Right Cordis in place. LUNGS: Diminished breath sounds to the bilateral bases. No wheezing. No intercostal retractions. Chest tubes in place. HEART: Irregular rate and rhythm. 2/6 systolic murmur. ABDOMEN: Soft. Bowel sounds are present. No masses. No tenderness. Gonzalez catheter in place. EXTREMITIES: No pedal edema. No calf tenderness. NEUROLOGICAL: Patient is awake, alert and oriented x3. Cranial nerves 2 through 12 are grossly intact. Speech is slow and deliberate. Generalized weakness. ASSESSMENT AND PLAN 1. Mitral valve regurgitation status post repair, 04/11/2021. Continue current management per cardiothoracic team, incentive spirometry to reduce incidence of atelectasis and hospital-acquired pneumonia, pain has been addressed. 2. Hypertension hypertensive cardio vascular disease. On metoprolol, 12.5 mg twice a day 3. History of coronary artery disease status post PCI in 2011. Continue aspirin 325 mg daily, Lipitor 40 mg daily, Plavix 75 mg daily. 4. Hyperlipidemia. Continue Lipitor 5. Secondary Paroxysmal atrial fibrillation new onset, expected with surgery. Patient is on amiodarone drip. Patient is on heparin subcu, not on any oral anticoagulation at this time 6. Chronic back pain, chronic neck pain status post spinal cord stimulator. Continue pain management medications. Continue Lyrica 7. History of meningitis complicating stimulator with subsequent replacement. 8. Remote history of tobacco use and quit in 2019. 9. COPD without exacerbation. Continue DuoNeb treatments 4 times daily and as needed, Symbicort 2 puffs twice daily. 10. Irritable bowel syndrome. Continue Bentyl 20 mg 4 times daily if needed 10. DVT prophylaxis. Heparin 5000 units subcu every 8 hours. 11. Gastroesophageal reflux disease and GI prophylaxis. Protonix. 12. Generalized anxiety disorder. Continue Xanax 0.5 mg 3 times daily as needed. 13. Migraine headaches. Stable. 14. Protein calorie malnutrition, start on premium protein, receive albumin infusion for low blood pressure DISCHARGE PLAN TBD. Possible IP rehab. Objective - Vital Signs Vital signs: Vital Signs Temp 97.6 F 04/14/21 12:00 Pulse 82 04/14/21 14:00 Resp 11 L 04/14/21 14:00 BP 95/62 04/14/21 14:00 Pulse Ox 93 L 04/14/21 14:00 Intake & Output 04/13/21 04/14/21 04/14/21 18:59 06:59 18:59 Intake Total 751.220 640 100 Output Total 6273 721 3411 Balance -463. Weight 99 kg Intake: IV 41 100 100 Lactated Ringers 20 Magnesium Sulfate-D5w Pmx 100 100 1 gm In Dextrose/Water 1 100ml.bag @ 100 mls/hr IVPB Q1H LIAT Rx#: [id number] pressure bag 21 Intake, IV Titration 390.220 Amount Amiodarone 450 mg In 250 Dextrose 5% in Water 250 ml @ 0.5 MG/MIN 16.667 mls/hr IV .Q15H PRN Rx#: [id number] Lactated Ringers 1,000 ml 80 @ 20 mls/hr IV .Q24H LIAT Rx#:[id number] Norepinephrine 4 mg In 60.220 Sodium Chloride 0.9% 250 ml @ 0.02 MCG/KG/MIN 7. 269 mls/hr IV .Q24H LIAT Rx#:[id number] Oral 320 540 Output: Chest Tube Drainage [address] 30 165 70 mediastinal and left 130 pleural Urine 2544 051 7298 Post Void Residual 308 Other: Voiding Method Indwelling Catheter Indwelling Catheter Indwelling Catheter # Voids 0 0 ABP, PAP, CO, CI - Last Documented Arterial Blood Pressure 133/50 Pulmonary Artery Pressure 29/22 Cardiac Output 3.8 Cardiac Index 1.9 - Labs CBC & Chem 7: 04/14/21 04:45 04/14/21 04:45 Labs: Abnormal Lab Results - Last 24 Hours (Table) 04/13/21 04/13/21 04/14/21 Range/Units 16:26 20:25 04:45 RBC 3.44 L (3.80-5.40) m/uL Hgb 10.4 L (11.4-16.0) gm/dL Hct 33.1 L (34.0-46.0) % RDW 18.7 H (11.5-15.5) % Plt Count 103 L (150-450) k/uL Lymphocytes # 0.7 L (1.0-4.8) k/uL Sodium (137-145) mmol/L BUN (7-17) mg/dL Glucose (74-99) mg/dL POC Glucose (mg/dL) 130 H 133 H (75-99) mg/dL AST (14-36) U/L Total Protein (6.3-8.2) g/dL Albumin (3.5-5.0) g/dL 04/14/21 04/14/21 Range/Units 04:45 12:02 RBC (3.80-5.40) m/uL Hgb (11.4-16.0) gm/dL Hct (34.0-46.0) % RDW (11.5-15.5) % Plt Count (150-450) k/uL Lymphocytes # (1.0-4.8) k/uL Sodium 132 L (137-145) mmol/L BUN 21 H (7-17) mg/dL Glucose 123 H (74-99) mg/dL POC Glucose (mg/dL) 128 H (75-99) mg/dL AST 43 H (14-36) U/L Total Protein 5.3 L (6.3-8.2) g/dL Albumin 3.1 L (3.5-5.0) g/dL
[2021-04-14 19:59] LABS: Glucose,Whole Blood 137 mg/dL (75-99)
[2021-04-14] MEDS: MELATONIN 3 MG TABLET PO SCH (20:02)
[2021-04-14] MEDS: SENNOSIDES-DOCUSATE SODIUM 1 EACH TAB PO SCH (20:03)
[2021-04-14] MEDS: ALPRAZolam 0.5 MG TAB PO PRN (21:23)
[2021-04-15] MEDS: KETOROLAC 30 MG/ML 1 ML VIAL IVP SCH ×2 (01:12→05:38)
[2021-04-15] MEDS: HEPARIN SODIUM,PORCINE/PF 5,000 UNIT/0.5 ML SYRINGE SQ SCH ×3 (01:12→15:57)
[2021-04-15 05:26] LABS: Anisocytosis Slight; Basophils % (A) 0 %; Eosinophils # (A) 0.3 k/uL (0-0.7); Eosinophils % (A) 4 %; HCT 32.5 % (34.0-46.0); HGB 9.9 gm/dL (11.4-16.0); Hypochromasia Slight; Lymphocytes # (A) 0.7 k/uL (1.0-4.8); Lymphocytes % (A) 11 %; MCH 29.3 pg (25.0-35.0); MCHC 30.5 g/dL (31.0-37.0); Macrocytosis Slight; Monocytes # (A) 0.5 k/uL (0-1.0); Monocytes % (A) 7 %; Neutrophils # (A) 4.9 k/uL (1.3-7.7); Neutrophils % (A) 74 %; Platelet Count 143 k/uL (150-450); RBC 3.39 m/uL (3.80-5.40); RDW 18.4 % (11.5-15.5); WBC 6.7 k/uL (3.8-10.6)
[2021-04-15 05:28] LABS: ALT 7 U/L (4-34); AST 27 U/L (14-36); African American GFR (CKD) >90 (>60 ml/min/1.73 sqM); Albumin 2.7 g/dL (3.5-5.0); Alkaline Phosphatase 89 U/L (38-126); Anion Gap 5 mmol/L; Blood Urea Nitrogen 23 mg/dL (7-17); Calcium 8.6 mg/dL (8.4-10.2); Carbon Dioxide 31 mmol/L (22-30); Chloride 98 mmol/L (98-107); Glucose 94 mg/dL (74-99); Magnesium 2.1 mg/dL (1.6-2.3); Non-African American GFR(CKD) >90 (>60 ml/min/1.73 sqM); Sodium 134 mmol/L (137-145); Total Bilirubin 0.4 mg/dL (0.2-1.3)
--- NOTE | 2021-04-15 07:26 | XR ---
EXAMINATION TYPE: XR chest 1V portable DATE OF EXAM: 04/15/2021 COMPARISON: 04/14/2021 HISTORY: 61 years Female. STUDY INDICATION GIVEN: Postoperative mitral valve repair . TECHNIQUE: AP chest radiograph IMPRESSION: Postsurgical changes with stable mild cardiomegaly relatively unchanged prevascular congestion and in terstitial edema. Small bilateral pleural effusion. Left apical chest tube, no large pneumothorax. Bibasilar left greater than right opacities likely improvement. Tubular structure projecting over the right hemithorax is noted.
[2021-04-15 07:31] LABS: Glucose,Whole Blood 88 mg/dL (75-99)
[2021-04-15] MEDS: INSULIN ASPART (NovoLOG) 100 UNIT/ML VIAL SQ SCH ×4 (07:37→21:20)
[2021-04-15] MEDS: IPRATROPIUM-ALBUTEROL 3 ML NEB INHALATION SCH ×4 (07:41→20:13)
[2021-04-15] MEDS: CLOPIDOGREL 75 MG TAB PO SCH (07:46)
[2021-04-15] MEDS: ATORVASTATIN 40 MG TAB PO SCH (07:46)
[2021-04-15] MEDS: PANTOPRAZOLE 40 MG TABLET PO SCH (07:47)
[2021-04-15] MEDS: ASPIRIN 325 MG TAB PO SCH (07:47)
[2021-04-15] MEDS: PREGABALIN 50 MG CAP PO SCH ×3 (07:48→21:20)
[2021-04-15] MEDS: MUPIROCIN 2% OINT 22 GM TUBE NASAL SCH ×2 (07:49→21:21)
[2021-04-15] MEDS: NOREPINEPHRINE 4 MG in SODIUM CHLORIDE 0.9% 250 ML IV SCH (07:50)
[2021-04-15] MEDS: METOPROLOL TARTRATE 12.5 MG TAB PO SCH (08:00)
[2021-04-15] MEDS ORDERED: POTASSIUM CHLORIDE ER 20 MEQ TAB.ER PO STA (08:56)
[2021-04-15] MEDS ORDERED: FUROSEMIDE 10 MG/ML 4 ML VIAL IV STA (08:58)
[2021-04-15] MEDS ORDERED: METOPROLOL TARTRATE 12.5 MG TAB PO ONE (09:15)
--- NOTE | 2021-04-15 09:42 | P.PN ---
Subjective Progress Note Date: 04/15/21 Principal diagnosis: Severe mitral valve regurgitation. Past medical history significant for coronary artery disease with previous myocardial infarction and PCI in August 2011, hypertension, CVA in 2009 with left-sided carotid stenosis 56%, history of syncope, current occasional cigarette use, mild restrictive lung disease, remote history of pneumonia, chronic pain issues with previous pain stimulator placement and chronic opioid dependence, follows with Dr. Doherty at [facility]. Preoperative nasal swab positive for MSSA. Intraoperative bradycardia and third-degree heart block POD #4 complex mitral valve repair with ring annuloplasty with a #28 mm [employer] AnnuloFlex band, clip ligation of the left atrial appendage with a 35 mm AtriClip, intraoperative transesophageal echocardiogram Postoperative acute blood loss anemia and thrombocytopenia, expected given he modilution and cardiopulmonary bypass pump. Postoperative hypotension requiring low-dose pressor use, expected and likely vasoplegia given preoperative LEROY inhibitor use. Postoperative controlled atrial fibrillation, known common occurrence after open heart surgery. The patient was seen in follow-up today 04/15/2021 at a bedside in the intensive care unit. Currently she is sitting up to the bedside chair, is awake, alert and oriented 3 and is in no acute apparent distress. She denies any complaints of shortness of breath at this time and reports her pain is much better controlled today on her current pain medication regimen. Oxygen saturations are 95% on 2 L nasal cannula and she is achieving 1250 mL on her incentive spirometry with encouragement. Bedside telemetry showing atrial f ibrillation/atrial flutter heart rate 74 bpm. Atrial and ventricular epicardial pacemaker wires remain in place and connected to backup bedside pacemaker generator on a VVI of 50 BPM. According to the patient's bedside nurse the patient has not needed the pacemaker backup throughout the night. The patient reports she has been up ambulating in the intensive care unit hallway with minimal assistance from nursing and physical therapy staff around 3-4 walks yesterday. She remains hemodynamically stable and is currently on no inotropic or pressor support. She continues to void without difficulty with 400 mL of urine output in the last 8 hours. Laboratory results this morning show a WBC count 6.7, hemoglobin 9.9, hematocrit 32.5, platelets 143, sodium 134, potassium 4.0, BUN 23, creatinine 0.62, and magnesium 2.1. She remains afebrile the last 24 hours. Left pleural chest tube remains in place to low continuous wall suction -20 cm H2O. No air leak is present. Draining thin serosanguineous drainage with 140 mL output overnight and 300 mL output in the last 24 hours. Objective - Vital Signs Vital signs: Vital Signs Temp 97.9 F 04/15/21 07:00 Pulse 68 04/15/21 07:50 Resp 21 04/15/21 07:00 BP 99/65 04/15/21 07:00 Pulse Ox 94 L 04/15/21 07:00 Intake & Output 04/14/21 04/15/21 04/15/21 18:59 06:59 18:59 Intake Total 100 Output Total 2089 540 0 Balance -1989 0 Weight 97.1 kg Intake: IV 100 Magnesium Sulfate-D5w Pmx 100 1 gm In Dextrose/Water 1 100ml.bag @ 100 mls/hr IVPB Q1H [facility] Rx#: [id number] Output: Chest Tube Drainage [address] 90 140 0 Urine 2000 400 Other: # Voids 0 2 ABP, PAP, CO, CI - Last Documented Arterial Blood Pressure 133/50 Pulmonary Artery Pressure 29/22 Cardiac Output 3.8 Cardiac Index 1.9 - Exam CONSTITUTIONAL: Sitting up to the bedside chair in the intensive care unit, brain ears comfortable, cooperative, no apparent acute distress. HEENT: Neck is supple, no JVD, no lymphadenopathy. RESPIRATORY: Lungs sounds essentially clear throughout, diminished to his bilateral bases. Respirations are symmetrical and nonlabored. Currently on 2 L nasal cannula with oxygen saturations 95%. Able to achieve 1250 mL on her incentive spirometry. Strong cough. CARDIOVASCULAR: Irregular rhythm and controlled rate. S1 and S2 present, negative for S3, gallop or murmur. Sternum is stable. Palpable peripheral pulses bilaterally, +1 edema to her bilateral lower extremities. No calf pain or tenderness noted. Heart hugger in place with patient demonstrating appropriate use. Knee-high HARSHA hose and sequential compression devices in place to her bilateral lower extremities. Bedside telemetry showing atrial fibrillation/atrial flutter heart rate 74 BPM. GASTROINTESTINAL: Abdomen soft, nontender, nondistended. Active bowel sounds present 4 quadrants. Tolerating diet. Passing flatus. No guarding or rigidity. GENITOURINARY: Continues to void. Output 400 mL in the last 8 hours. INTEGUMENTARY: Skin is warm and dry with no evidence of clubbing or cyanosis. Midline sternal incision clean dry and well approximated, covered with dry intact dressing. NEUROLOGIC: Cranial nerves II through XII intact. No focal deficits. MUSKULOSKELETAL: Able to move all extremities, strength equal bilaterally, generalized weakness. PSYCHIATRIC: Alert and oriented to person place and time, appropriate affect, intact judgment and insight. INVASIVE LINES AND TUBES: Left pleural chest tube present and connected to low continuous wall suction, no air leaks present. Left pleural tubes with 140 mL of thin serosanguineous drainage overnight, 300 mL output in the last 24 hours. Atrial and ventricular epicardial pacemaker wires present, connected to generator, VVI backup rate 50 bpm. - Allied health notes Allied health notes reviewed: nursing - Labs CBC & Chem 7: 04/15/21 04:40 04/15/21 04:40 Labs: Abnormal Lab Results - Last 24 Hours (Table) 04/14/21 04/14/21 04/14/21 Range/Units 12:02 16:30 19:58 RBC (3.80-5.40) m/uL Hgb (11.4-16.0) gm/dL Hct (34.0-46.0) % MCHC (31.0-37.0) g/dL RDW (11.5-15.5) % Plt Count (150-450) k/uL Lymphocytes # (1.0-4.8) k/uL Sodium (137-145) mmol/L Carbon Dioxide (22-30) mmol/L BUN (7-17) mg/dL POC Glucose (mg/dL) 128 H 135 H 137 H (75-99) mg/dL Total Protein (6.3-8.2) g/dL Albumin (3.5-5.0) g/dL 04/15/21 04/15/21 Range/Units 04:40 04:40 RBC 3.39 L (3.80-5.40) m/uL Hgb 9.9 L (11.4-16.0) gm/dL Hct 32.5 L (34.0-46.0) % MCHC 30.5 L (31.0-37.0) g/dL RDW 18.4 H (11.5-15.5) % Plt Count 143 L (150-450) k/uL Lymphocytes # 0.7 L (1.0-4.8) k/uL Sodium 134 L (137-145) mmol/L Carbon Dioxide 31 H (22-30) mmol/L BUN 23 H (7-17) mg/dL POC Glucose (mg/dL) (75-99) mg/dL Total Protein 5.0 L (6.3-8.2) g/dL Albumin 2.7 L (3.5-5.0) g/dL - Imaging and Cardiology Chest x-ray: report reviewed, image reviewed Assessment and Plan Assessment: 1. Severe mitral valve regurgitation, status post complex mitral valve repair 2. History of coronary artery disease with previous myocardial infarction and PCI in August 2011 3. Hypertension 4. CVA in 2009 with left-sided carotid stenosis 56% 5. History of syncope 6. Current occasional cigarette use 7. Mild restrictive lung disease, preoperative FEV1 is 62% of predicted 8. Remote history of pneumonia 9. Chronic pain issues with previous pain stimulator placement and chronic opioid dependence, [facility] 10. Preoperative nasal swab positive for MSSA, treated with mupirocin 11. Intraoperative bradycardia and third-degree heart block 12. Postoperative acute blood loss anemia and thrombocytopenia, expected 13. Postoperative hypotension requiring low-dose pressor use, expected 14. Postoperative controlled atrial fibrillation, a known common occurrence after open heart surgery, status post left atrial appendage ligation Plan: 1. Continue aspirin, statin, and Plavix. Metoprolol tartrate increased to 25 mg by mouth twice a day. 2. No anticoagulation at this point. The patient is post left atrial appendage exclusion. 3. Wean O2 as tolerated. Encourage incentive spirometry use 10 times every hour while awake. Bronchodilators per pulmonology/critical care medicine management. 4. Will monitor daily labs and chest x-rays. Electrolyte replacement per protocol. Keep potassium greater than 4.2, mag greater than 2. Magnesium is being replaced at this time. 5. GI/DVT prophylaxis. 6. Insulin management per primary care service. The patient is not diabetic, preoperative hemoglobin A1c 6.4%. Needs tight blood sugar control to promote healing, sternal union and prevent infection. 7. Pain control per current medication regimen. Starting tomorrow 04/16/2021 we will put the patient back on her pain medication regimen from home. 8. Icrease activity, ambulate as tolerated. PT/OT/cardiac rehab following. Dr. Xiao has been consulted for possible inpatient rehab. 9. We will remove her left pleural chest tube today. Left pleural chest tube removed without incident. Vaseline gauze to cover, 4 x 4 gauze to cover and secured with tape. 11. Lasix 40 mg IV 1 now. Potassium chloride ER 20 mEq by mouth 1 now and at 11 AM today. 12. Keep atrial and ventricular epicardial pacemaker wires in place and connected to backup bedside pacemaker generator on a VVI 50 BPM. 13. More recommendations to follow based on patient's clinical course. Time with Patient: Greater than 30
[2021-04-15] MEDS ORDERED: AMIODARONE 200 MG TAB PO SCH (10:45)
[2021-04-15] MEDS ORDERED: POTASSIUM CHLORIDE ER 20 MEQ TAB.ER PO ONE (11:00)
[2021-04-15 11:55] LABS: Glucose,Whole Blood 107 mg/dL (75-99)
[2021-04-15] MEDS ORDERED: ONDANSETRON 4 MG TAB PO PRN (12:03)
[2021-04-15] MEDS ORDERED: SUMAtriptan succinate 50 MG TAB PO PRN (12:03)
--- NOTE | 2021-04-15 12:12 | P.PN ---
Subjective Progress Note Date: 04/15/21 HISTORY OF PRESENT ILLNESS This is a 61-year-old female patient of Dr. Rosado past medical history of coronary artery disease status post PCI and stent placement in 2011 at [facility], hypertension and hypertensive cardiovascular disease, hyperlipidemia, Chavarria's palsy, chronic low back pain secondary to degenerative disc disease as well as facet arthropathy status post spinal cord stimulator placement that was complicated by meningitis and she underwent revision of her stimulator and treatment for meningitis with reinsertion of her stimulator which was done in April 2012, chronic neck pain due to degenerative disc disease, chronic pain syndrome with pain contract with physician in [place] that she sees every other month, remote history of tobacco use and quit in 2018, COPD, irritable bowel syndrome seen by Dr. Laws. Patient has history of mitral valve regur gitation and underwent elective mitral valve repair on 04/11/2021. Patient has been successfully extubated and found sitting up in a chair with her at the bedside. She has mediastinal and right pleural chest tubes. Patient has been in and out of atrial fibrillation this morning is started on amiodarone drip. She is currently on levo fed as well. She did receive Lasix 20 mg this morning and has been noted to have decreased urine output. Patient has been off insulin drip due to blood sugars less than 110. We will plan to transition her to sliding insulin scale. Patient is reaching 750 on incentive spirometry. 04/13: Patient is seen today in the intensive care unit. She is sitting up and recliner and patient's and daughter are at bedside. Patient is not requiring vasopressors. Repeat chest x-ray reveals cardiomegaly with small tiny bilateral pleural effusions with associated bibasilar atelectasis and/or infiltrate redemonstrated. Improving central vascular congestion and interstitial edema. No left sided pneumothorax with chest tube in place. She is currently on O2 at 4 L nasal cannula with pulse ox 94-98%. Blood pressure 110/40, heart rate in the 50s. Afebrile. Blood work reveals WBC 10.0, Hemoccult and 10.8, platelet count 119. Sodium 132, potassium 4.8, creatinine 0.63. AST 72 and ALT 10. Capillary blood glucose running between 119 and 189. 04/14 patient remains in ICU, status post valve repair, postoperative day #3, she is on O2 nasal cannula, has atrial fibrillation on IV amiodarone, complains of diminished appetite, shortness of breath, no chest pain, no lightheadedness no aspiration. There is some low blood pressures today, and is on IV fluids and IV albumin. We are starting her also on nutritional supplement with Bene protein or premium protein, is worried about her being prediabetic, and also has some insomnia at this time. Vitals blood pressure 108/68, heart rate 74, irregular, cardiac output, 3.8 L cardiac index, 1.9 L, O2 sats 91% patient to be started on incentive spirometry, and is on Symbicort,. Labs hemoglobin 10.4, wbc count 7.3, blood sugars 128-135, creatinine of 0.57 /21: Patient has better sleep, however still is fatigued, has edema noted today, however she slept in the recliner for the past 2 days, blood pressure is marginal the lower side, lisinopril HCTZ from home has not been started yet. She has some nausea, Zofran R is available for her to use, we'll going to restart her Carafate, 1 g 4 times a day, history of H. pylori in the past, no recent workup for this. Patient can undergo future workup for EGD outpatient, secondary to chronic gastritis, with persistent dyspepsia , patient will need Lasix prn, for edema. REVIEW OF SYSTEMS Constitutional: No fever, no chills, no night sweats. No weight change. No weakness, fatigue or lethargy. No daytime sleepiness. EENT: No headache. No blurred vision or double vision, no loss of vision. No loss of Hearing, no ringing in the ears, no dizziness. No nasal drainage or congestion. No epistaxis. No sore throat. Lungs: Reports shortness of breath, cough, no sputum production. No wheezing. Shortness of breath with exertion. Cardiovascular: Reports generalized chest discomfort, Denies lower extremity edema. No palpitations. No paroxysmal nocturnal dyspnea. No orthopnea. No lightheadedness or dizziness. No syncopal episodes. Abdominal: No abdominal pain. No nausea, vomiting. No diarrhea. No c onstipation. No bloody or tarry stools. No loss of appetite. Genitourinary: No dysuria, increased frequency, urgency. No urinary retention. Musculoskeletal: No myalgias. No muscle weakness, no gait dysfunction, no frequent falls. Chronic neck and back pain. Integumentary: No wounds, no lesions. No rash or pruritus. No unusual bruising. No change in hair or nails. Neurologic: No aphasia. No facial droop. No change in mentation. No head injury. No headache. No paralysis. No paresthesia. Psychiatric: No depression. No anxiety. No mood swings. Endocrine: No abnormal blood sugars. No weight change. PHYSICAL EXAMINATION Gen: This is a 61-year-old female patient. She is sitting up and recliner and appears to be somewhat uncomfortable secondary to pain. She is currently on 4 L nasal cannula HEENT: Head is atraumatic, normocephalic. Pupils equal, round. Sclerae is anicteric. NECK: Supple. No lymphadenopathy. No thyromegaly. Right Cordis in place. LUNGS: Diminished breath sounds to the bilateral bases. No wheezing. No intercostal retractions. Chest tubes in place. HEART: Irregular rate and rhythm. 2/6 systolic murmur. ABDOMEN: Soft. Bowel sounds are present. No masses. No tenderness. Gonzalez catheter in place. EXTREMITIES: No pedal edema. No calf tenderness. NEUROLOGICAL: Patient is awake, alert and oriented x3. Cranial nerves 2 through 12 are grossly intact. Speech is slow and deliberate. Generalized weakness. ASSESSMENT AND PLAN 1. Mitral valve regurgitation status post repair, 04/11/2021. Continue current management per cardiothoracic team, incentive spirometry to reduce incidence of atelectasis and hospital-acquired pneumonia, pain has been addressed. 2. Hypertension hypertensive cardio vascular disease. On metoprolol, 12.5 mg twice a day 3. History of coronary artery disease status post PCI in 2011. Continue aspirin 325 mg daily, Lipitor 40 mg daily, Plavix 75 mg daily. 4. Hyperlipidemia. Continue Lipitor 5. Secondary Paroxysmal atrial fibrillation new onset, expected with surgery. Patient is on amiodarone drip. Patient is on heparin subcu, not on any oral anticoagulation at this time 6. Chronic back pain, chronic neck pain status post spinal cord stimulator. Continue pain management medications. Continue Lyrica 7. History of meningitis complicating stimulator with subsequent replacement. 8. Remote history of tobacco use and quit in 2019. 9. COPD without exacerbation. Continue DuoNeb treatments 4 times daily and as needed, Symbicort 2 puffs twice daily. 10. Irritable bowel syndrome. Continue Bentyl 20 mg 4 times daily if needed 10. DVT prophylaxis. Heparin 5000 units subcu every 8 hours. 11. Gastroesophageal reflux disease and GI prophylaxis. Protonix. 12. Generalized anxiety disorder. Continue Xanax 0.5 mg 3 times daily as needed. 13. Migraine headaches. Stable. 14. Protein calorie malnutrition, start on premium protein, receive albumin infusion for low blood pressure DISCHARGE PLAN TBD. Possible IP rehab. Vital Signs Temp 97.9 F 04/15/21 08:00 Pulse 79 04/15/21 11:00 Resp 17 04/15/21 11:00 BP 100/88 04/15/21 11:00 Pulse Ox 94 L 04/15/21 11:00 Intake & Output 04/14/21 04/15/21 04/15/21 18:59 06:59 18:59 Intake Total 100 Output Total 2089 540 0 Balance -1989 0 Weight 97.1 kg Intake: IV 100 Magnesium Sulfate-D5w Pmx 100 1 gm In Dextrose/Water 1 100ml.bag @ 100 mls/hr IVPB Q1H [facility] Rx#: [id number] Output: Chest Tube Drainage [address] 90 140 0 Urine 2000 400 0 Other: Voiding Method Bedside Commode # Voids 0 2 ABP, PAP, CO, CI - Last Documented Arterial Blood Pressure 133/50 Pulmonary Artery Pressure Cardiac Output 3.8 Cardiac Index 1.9 Laboratory Results WBC 6.7 k/uL (3.8-10.6) 04/15/21 04:40 RBC 3.39 m/uL (3.80-5.40) L 04/15/21 04:40 Hgb 9.9 gm/dL (11.4-16.0) L 04/15/21 04:40 Hct 32.5 % (34.0-46.0) L 04/15/21 04:40 MCV 96.0 fL (80.0-100.0) 04/15/21 04:40 MCH 29.3 pg (25.0-35.0) 04/15/21 04:40 MCHC 30.5 g/dL (31.0-37.0) L 04/15/21 04:40 RDW 18.4 % (11.5-15.5) H 04/15/21 04:40 Plt Count 143 k/uL (150-450) L 04/15/21 04:40 MPV 9.0 04/15/21 04:40 Neutrophils % 74 % 04/15/21 04:40 Lymphocytes % 11 % 04/15/21 04:40 Monocytes % 7 % 04/15/21 04:40 Eosinophils % 4 % 04/15/21 04:40 Basophils % 0 % 04/15/21 04:40 Neutrophils # 4.9 k/uL (1.3-7.7) 04/15/21 04:40 Lymphocytes # 0.7 k/uL (1.0-4.8) L 04/15/21 04:40 Monocytes # 0.5 k/uL (0-1.0) 04/15/21 04:40 Eosinophils # 0.3 k/uL (0-0.7) 04/15/21 04:40 Basophils # 0.0 k/uL (0-0.2) 04/15/21 04:40 Hypochromasia Slight 04/15/21 04:40 Anisocytosis Slight 04/15/21 04:40 Macrocytosis Slight 04/15/21 04:40 PT 12.7 sec (9.0-12.0) H 04/11/21 15:00 INR 1.2 (<1.2) H 04/11/21 15:00 APTT 36.3 sec (22.0-30.0) H 04/11/21 15:00 Sample Site BODEGA 04/11/21 23:17 ABG pH 7.45 (7.35-7.45) 04/11/21 23:17 ABG pCO2 47 mmHg (35-45) H 04/11/21 23:17 ABG pO2 87 mmHg (83-108) 04/11/21 23:17 ABG HCO3 33 mmol/L (21-25) H 04/11/21 23:17 ABG Total CO2 34 mmol/L (19-24) H 04/11/21 23:17 ABG O2 Saturation 97.9 % (94-97) H 04/11/21 23:17 ABG Base Excess 8.9 mmol/L 04/11/21 23:17 Julio Test Yes 04/11/21 23:17 FiO2 50 % 04/11/21 23:17 Sodium 134 mmol/L (137-145) L 04/15/21 04:40 Potassium 4.0 mmol/L (3.5-5.1) 04/15/21 04:40 Chloride 98 mmol/L (98-107) 04/15/21 04:40 Carbon Dioxide 31 mmol/L (22-30) H 04/15/21 04:40 Anion Gap 5 mmol/L 04/15/21 04:40 BUN 23 mg/dL (7-17) H 04/15/21 04:40 Creatinine 0.62 mg/dL (0.52-1.04) 04/15/21 04:40 Est GFR (CKD-EPI)AfAm >90 (>60 ml/min/1.73 sqM) 04/15/21 04:40 Est GFR (CKD-EPI)NonAf >90 (>60 ml/min/1.73 sqM) 04/15/21 04:40 Glucose 94 mg/dL (74-99) 04/15/21 04:40 POC Glucose (mg/dL) 107 mg/dL (75-99) H 04/15/21 11:53 POC Glu Farm Management Agent ID , Korin 04/15/21 11:53 Calcium 8.6 mg/dL (8.4-10.2) 04/15/21 04:40 Ionized Calcium Nikki 4.7 mg/dL (4.5-5.3) 04/13/21 04:40 Magnesium 2.1 mg/dL (1.6-2.3) 04/15/21 04:40 Total Bilirubin 0.4 mg/dL (0.2-1.3) 04/15/21 04:40 AST 27 U/L (14-36) 04/15/21 04:40 ALT 7 U/L (4-34) 04/15/21 04:40 Alkaline Phosphatase 89 U/L (38-126) 04/15/21 04:40 Total Protein 5.0 g/dL (6.3-8.2) L 04/15/21 04:40 Albumin 2.7 g/dL (3.5-5.0) L 04/15/21 04:40 Blood Type O Positive 04/06/21 11:30 Blood Type Confirm O Positive 04/11/21 10:02 Blood Type Recheck No Previous Record 04/06/21 11:30 Bld Type Recheck Status CABO Indicated 04/06/21 11:30 Antibody Screen NEGATIVE 04/06/21 11:30 Crossmatch See Detail 04/06/21 11:30 Spec Expiration Date 04/13/2021 - 232904/06/21 11:30 Objective - Vital Signs Vital signs: Vital Signs Temp 97.9 F 04/15/21 08:00 Pulse 79 04/15/21 11:00 Resp 17 04/15/21 11:00 BP 100/88 04/15/21 11:00 Pulse Ox 94 L 04/15/21 11:00 Intake & Output 04/14/21 04/15/21 04/15/21 18:59 06:59 18:59 Intake Total 100 Output Total 2089 540 0 Balance -1989 0 Weight 97.1 kg Intake: IV 100 Magnesium Sulfate-D5w Pmx 100 1 gm In Dextrose/Water 1 100ml.bag @ 100 mls/hr IVPB Q1H [facility] Rx#: [id number] Output: Chest Tube Drainage [address] 90 140 0 Urine 2000 400 0 Other: Voiding Method Bedside Commode # Voids 0 2 ABP, PAP, CO, CI - Last Documented Arterial Blood Pressure 133/50 Pulmonary Artery Pressure Cardiac Output 3.8 Cardiac Index 1.9 - Labs CBC & Chem 7: 04/15/21 04:40 04/15/21 04:40 Labs: Abnormal Lab Results - Last 24 Hours (Table) 04/14/21 04/14/21 04/14/21 Range/Units 12:02 16:30 19:58 RBC (3.80-5.40) m/uL Hgb (11.4-16.0) gm/dL Hct (34.0-46.0) % MCHC (31.0-37.0) g/dL RDW (11.5-15.5) % Plt Count (150-450) k/uL Lymphocytes # (1.0-4.8) k/uL Sodium (137-145) mmol/L Carbon Dioxide (22-30) mmol/L BUN (7-17) mg/dL POC Glucose (mg/dL) 128 H 135 H 137 H (75-99) mg/dL Total Protein (6.3-8.2) g/dL Albumin (3.5-5.0) g/dL 04/15/21 04/15/21 04/15/21 Range/Units 04:40 04:40 11:53 RBC 3.39 L (3.80-5.40) m/uL Hgb 9.9 L (11.4-16.0) gm/dL Hct 32.5 L (34.0-46.0) % MCHC 30.5 L (31.0-37.0) g/dL RDW 18.4 H (11.5-15.5) % Plt Count 143 L (150-450) k/uL Lymphocytes # 0.7 L (1.0-4.8) k/uL Sodium 134 L (137-145) mmol/L Carbon Dioxide 31 H (22-30) mmol/L BUN 23 H (7-17) mg/dL POC Glucose (mg/dL) 107 H (75-99) mg/dL Total Protein 5.0 L (6.3-8.2) g/dL Albumin 2.7 L (3.5-5.0) g/dL
--- NOTE | 2021-04-15 12:42 | PN ---
PROGRESS NOTE This is a 61-year-old lady who underwent a mitral valve repair by Dr. Orellana. She is recovering slowly. She is in atrial fib. Rate is controlled. Hemodynamically stable. Decent urine output. Working on incentive spirometry, but not doing so well. JVD 1 cm. No carotid bruit. S1-S2 heard normally with a pericardial rub. Lungs reveal improved air entry. Abdomen is soft. Lower extremities reveal diminished pulses. Plan is to continue incentive spirometry, pulmonary toilet and current medical regimen. MMODL / IJN: [id number] /
[2021-04-15] MEDS: SUCRALFATE 1 GM TAB PO SCH ×2 (12:57→17:23)
--- NOTE | 2021-04-15 14:30 | P.PN ---
Subjective Progress Note Date: 04/15/21 Principal diagnosis: Severe mitral regurgitation, status post mitral valve repair 61-year-old female patient with past medical history of coronary artery disease with previous PCI and stenting, hypertension, hypertensive cardiovascular disease, hyperlipidemia, history of CVA, Chavarria's palsy, COPD, stage II with FEV1 of 1.7 L or 63% of predicted, former history of smoking chronic low back pain, degenerative disc disease, spinal stimulator with revision, former smoker, and history of mitral valve regurgitation, who had an elective mitral valve repair today on 04/11/[address] Orellana. Patient's preoperative workup was done at an outside hospital, possibly [facility]. Patient is seen in the postoperative period in the intensive care unit, sedated and intubated on [facility] anical ventilator. Currently on assist control mode of ventilation with a rate 16, tacrolimus 500, FiO2 100% and PEEP of 10. Postoperative blood gases are pending, she is currently on lactated Ringer's at 50 ML per hour, Diprivan is a 40 mics per kilo per minute, Levophed at 0.01 mics per kilo per minute, milrinone is a 0.3 mics per kilo per minute. Patient is AV paced on the monitor at a rate of 80. Mediastinal and right pleural chest tubes are connected together, with 80 mL of sanguinous output. Hemodynamically patient is stable, currently blood pressure is 122/60, PA pressures 49/29, CVP is 11, cardiac output is 5.9, and cardiac index is 2.9. Postoperative blood work shows INR of 1.2, sodium is 138, potassium is 2.9 and this is being replaced per protocol, chloride is 103, CO2 31, BUN is 14, creatinine 0.57, CBC is pending. Chest x- ray shows a component of volume overload, interstitial edema. Endotracheal tube NG tube and chest tubes are in appropriate positions. Reevaluated today on 04/12/2021, patient remains in the ICU, she is postoperative day #1, patient was extubated yesterday and 23:56, elevated the extubation well, she is presently on 6 L nasal cannula, is also on Primacor, norepinephrine at 0.02 mcg/m, patient is going to be started on amiodarone since she has underlying rhythm of atrial fibrillation. Chest x-ray showed evidence of interstitial edema, and I recommended 20 mg of Lasix to be given today. And he clearly however the patient does not seem to be in any distress, she seems to be generally weak. CBC is relatively normal. Metabolic profile is normal. Blood sugar is 112. Her enzymes are normal. The patient is seen today 04/13/2021 in follow-up in the intensive care unit. Postoperative day #2. She is currently sitting up in a chair at the bedside. Awake and alert in no acute distress. She is currently maintaining O2 saturations in the 90s on 4 L/m per nasal cannula. She is only pulling approximately 750 MLS on the incentive spirometer. She needs increased encouragement regarding cough and deep breathing exercises. She remains in sinus bradycardia in the 50s. Backup pacemaker wires in place. Cardiac output 3.8. Cardiac index 1.9. She has been transitioned off the amiodarone. Off norepinephrine. Lactated Ringer's at 20 ML's per hour. Chest x-ray continues to show cardiomegaly with small tiny bilateral pleural effusions and associated basilar atelectasis. Some improvement in the central vascular congestion and interstitial edema. No pneumothorax. Cordis remains in place. Left apical chest tube in place. Mediastinal chest tube in place. White count 10.0. Hemoglobin 10.8. Platelets 119,000. Sodium 132. Potassium 4.8. Creatinine 0.63. AST 72. ALT 10. She is continued on DuoNeb inhalations, Symbicort, heparin for DVT prophylaxis. The patient is seen today 04/14/2021 in follow-up in the intensive care unit. Postoperative day #3. She is currently sitting up in a chair at the bedside. Awake and alert in no acute distress. She has been in a controlled atrial fibrillation. She was given amiodarone bolus. She received albumin. X-ray continues to show mild pulmonary vascular congestion with small pleural effusions and adjacent atelectasis She remains on bronchodilators. Heparin for DVT prophylaxis. She needs increased encouragement regarding the use of the incentive spirometer. Currently pulling approximately 500 - 1000 ML's. White count 7.3. Hemoglobin 10.4. Platelets 103. Sodium 132. Potassium 4.4. Creatinine 0.57. AST 43. ALT 9. Albumin 3.1. The patient is seen today 04/15/2021 in follow-up in the intensive care unit. Postoperative day #4. She is awake and alert in no acute distress. Sitting up in a chair at the bedside. She was ambulating earlier this morning. She is improved. She is pulling 1250 ML's on her incentive spirometer. She is under 2 L nasal cannula. Chest x-ray showing improvement. Chest tubes have been removed. She does have backup pacing at 70 bpm. She was initially in atrial fibrillation earlier today. White count 6.7. Hemoglobin 9.9. Platelets 143. Lymphocytes 0.7. Sodium 134. Potassium 4.0. Creatinine 0.62. AST 27. ALT 7. She remains on bronchodilators. Heparin for DVT prophylaxis. Objective - Vital Signs Vital signs: Vital Signs Temp 98.0 F 04/15/21 12:00 Pulse 68 04/15/21 14:00 Resp 19 04/15/21 14:00 BP 104/65 04/15/21 14:00 Pulse Ox 94 L 04/15/21 14:00 Intake & Output 04/14/21 04/15/21 04/15/21 18:59 06:59 18:59 Intake Total 100 Output Total 2089 1250 Balance -1989 Weight 97.1 kg Intake: IV 100 Magnesium Sulfate-D5w Pmx 100 1 gm In Dextrose/Water 1 100ml.bag @ 100 mls/hr IVPB Q1H [facility] Rx#: [id number] Output: Chest Tube Drainage [address] 90 140 0 Urine 2000 400 1250 Other: Voiding Method Bedside Commode # Voids 0 2 ABP, PAP, CO, CI - Last Documented Arterial Blood Pressure 133/50 Pulmonary Artery Pressure 29/22 Cardiac Output 3.8 Cardiac Index 1.9 - Exam GENERAL EXAM: Alert, pleasant 61-year-old female patient, up in a chair at the bedside, on 2 L nasal cannula, fairly comfortable in no apparent distress. HEAD: Normocephalic. EYES: Normal reaction of pupils, equal size. NOSE: Clear with pink turbinates. THROAT: No erythema or exudates. NECK: Right cordis in place. No masses, no JVD. CHEST: Sternal dressing dry and intact. Hugger in place. Pacer wires in place. LUNGS: Equal air entry with crackles in the bilateral bases. CVS: S1 and S2 normal with no audible murmur, irregular rhythm. ABDOMEN: No hepatosplenomegaly, normal bowel sounds, no guarding or rigidity. SPINE: No scoliosis or deformity SKIN: No rashes CENTRAL NERVOUS SYSTEM: No focal deficits, tone is normal in all 4 extremities. EXTREMITIES: There is no peripheral edema. No clubbing, no cyanosis. Peripheral pulses are intact. - Labs CBC & Chem 7: 04/15/21 04:40 04/15/21 04:40 Labs: Abnormal Lab Results - Last 24 Hours (Table) 04/14/21 04/14/21 04/15/21 Range/Units 16:30 19:58 04:40 RBC (3.80-5.40) m/uL Hgb (11.4-16.0) gm/dL Hct (34.0-46.0) % MCHC (31.0-37.0) g/dL RDW (11.5-15.5) % Plt Count (150-450) k/uL Lymphocytes # (1.0-4.8) k/uL Sodium 134 L (137-145) mmol/L Carbon Dioxide 31 H (22-30) mmol/L BUN 23 H (7-17) mg/dL POC Glucose (mg/dL) 135 H 137 H (75-99) mg/dL Total Protein 5.0 L (6.3-8.2) g/dL Albumin 2.7 L (3.5-5.0) g/dL 04/15/21 04/15/21 Range/Units 04:40 11:53 RBC 3.39 L (3.80-5.40) m/uL Hgb 9.9 L (11.4-16.0) gm/dL Hct 32.5 L (34.0-46.0) % MCHC 30.5 L (31.0-37.0) g/dL RDW 18.4 H (11.5-15.5) % Plt Count 143 L (150-450) k/uL Lymphocytes # 0.7 L (1.0-4.8) k/uL Sodium (137-145) mmol/L Carbon Dioxide (22-30) mmol/L BUN (7-17) mg/dL POC Glucose (mg/dL) 107 H (75-99) mg/dL Total Protein (6.3-8.2) g/dL Albumin (3.5-5.0) g/dL Assessment and Plan Assessment: 1 Mitral valve regurgitation requiring complex mitral valve repair. Postoperative day #4. 2 Benign essential hypertension. 3 History of coronary artery disease and previous PCI in August 25. 4 Chronic pain syndrome. 5 Postoperative blood loss anemia, expected. 6 Postoperative atrial fibrillation, expected. 7 Suspect mild acute component of diastolic congestive heart failure. Plan: The patient was seen and evaluated by Dr. See Chest x-ray and labs reviewed Increase her activity as tolerated Continue bronchodilators Heparin for DVT prophylaxis We will continue to follow I, the cosigning physician, performed a history & physical examination of the patient. Lungs sounds with crackles in bilateral bases. Maintaining good O2 saturations in the 90s on 2 L/m per nasal cannula. I discussed the assessment and plan of care with my nurse practitioner, Celine Jefferson. I attest to the above note as dictated by her.
[2021-04-15] MEDS: ALPRAZolam 0.5 MG TAB PO PRN (16:13)
[2021-04-15] MEDS: HYDROmorphone 2 MG TAB PO PRN ×2 (16:15→21:19)
[2021-04-15 16:31] LABS: Glucose,Whole Blood 148 mg/dL (75-99)
[2021-04-15] MEDS: SIMETHICONE 80 MG CHEWABLE PO PRN (16:31)
[2021-04-15 21:11] LABS: Glucose,Whole Blood 114 mg/dL (75-99)
[2021-04-15] MEDS: SENNOSIDES-DOCUSATE SODIUM 1 EACH TAB PO SCH (21:19)
[2021-04-15] MEDS: METOPROLOL TARTRATE 25 MG TAB PO SCH (21:20)
[2021-04-15] MEDS: MELATONIN 3 MG TABLET PO SCH (21:20)
[2021-04-16] MEDS: HYDROmorphone 2 MG TAB PO PRN ×3 (01:25→21:23)
[2021-04-16] MEDS: ALPRAZolam 0.5 MG TAB PO PRN ×3 (01:25→21:21)
[2021-04-16] MEDS: HEPARIN SODIUM,PORCINE/PF 5,000 UNIT/0.5 ML SYRINGE SQ SCH ×3 (01:25→15:27)
[2021-04-16 04:02] LABS: ALT 10 U/L (4-34); AST 27 U/L (14-36); African American GFR (CKD) >90 (>60 ml/min/1.73 sqM); Albumin 3.1 g/dL (3.5-5.0); Anion Gap 5 mmol/L; Blood Urea Nitrogen 25 mg/dL (7-17); Calcium 9.1 mg/dL (8.4-10.2); Carbon Dioxide 30 mmol/L (22-30); Chloride 96 mmol/L (98-107); Glucose 128 mg/dL (74-99); Magnesium 1.9 mg/dL (1.6-2.3); Non-African American GFR(CKD) >90 (>60 ml/min/1.73 sqM); Potassium 5.2 mmol/L (3.5-5.1); Sodium 131 mmol/L (137-145); Total Bilirubin 0.5 mg/dL (0.2-1.3); Total Protein 5.5 g/dL (6.3-8.2)
[2021-04-16 04:03] LABS: Alkaline Phosphatase 121 U/L (38-126)
[2021-04-16] MEDS: INSULIN ASPART (NovoLOG) 100 UNIT/ML VIAL SQ SCH ×4 (04:04→22:07)
[2021-04-16 04:07] LABS: Anisocytosis Slight; HCT 34.6 % (34.0-46.0); HGB 10.8 gm/dL (11.4-16.0); Hypochromasia Slight; MCHC 31.2 g/dL (31.0-37.0); MCV 96.1 fL (80.0-100.0); Macrocytosis Slight; Mean Platelet Volume 8.8; Platelet Count 209 k/uL (150-450); RDW 18.2 % (11.5-15.5); WBC 8.8 k/uL (3.8-10.6)
[2021-04-16] MEDS: PANTOPRAZOLE 40 MG TABLET PO SCH (05:51)
[2021-04-16] MEDS: MAGNESIUM SULFATE-D5W PMX 1 GM in DEXTROSE/WATER 1 100ML.BAG IVPB SCH ×2 (05:51→08:04)
[2021-04-16] MEDS: SUCRALFATE 1 GM TAB PO SCH ×3 (05:53→16:31)
[2021-04-16] MEDS: MAGNESIUM HYDROXIDE 2,400 MG/10 ML CUP PO PRN (06:37)
[2021-04-16] MEDS: IPRATROPIUM-ALBUTEROL 3 ML NEB INHALATION SCH ×5 (07:28→18:35)
[2021-04-16] MEDS: FERROUS SULFATE 325 MG TAB PO SCH (08:08)
[2021-04-16] MEDS: ASPIRIN 325 MG TAB PO SCH (08:08)
[2021-04-16] MEDS: ATORVASTATIN 40 MG TAB PO SCH (08:08)
[2021-04-16] MEDS: CLOPIDOGREL 75 MG TAB PO SCH (08:09)
[2021-04-16] MEDS: PREGABALIN 50 MG CAP PO SCH ×3 (08:09→21:23)
[2021-04-16] MEDS: MUPIROCIN 2% OINT 22 GM TUBE NASAL SCH ×2 (08:13→21:26)
[2021-04-16] MEDS: NOREPINEPHRINE 4 MG in SODIUM CHLORIDE 0.9% 250 ML IV SCH (08:13)
--- NOTE | 2021-04-16 08:16 | XR ---
EXAMINATION TYPE: XR chest 1V portable DATE OF EXAM: 04/16/2021 CLINICAL HISTORY: Difficulty breathing progress study. Postoperative valve repair. TECHNIQUE: Single AP portable upright view of the chest is obtained. COMPARISON: Chest x-ray from one day earlier and older studies. FINDINGS: Overlying sternal wires redemonstrated. Left atrial appendage clip again seen. Thoracic sp inal stimulator redemonstrated. Underlying Scoliotic curvature. Suspected Epicardial pacer leads rede monstrated. Interval left sided chest tube. Persistent cardiomegaly with small left greater than right pleural ef fusions and associated bibasilar opacity along with mild interstitial edema. IMPRESSION: Interval removal of left-sided chest tube without pneumothorax. Other findings stable. Ca rdiomegaly with mild interstitial edema and small left greater than right bilateral pleural effusions redemonstrated.
[2021-04-16] MEDS ORDERED: SODIUM CHLORIDE 0.9% 1,000 ML IV SCH (09:30)
--- NOTE | 2021-04-16 09:43 | P.PN ---
Subjective Progress Note Date: 04/16/21 Principal diagnosis: Severe mitral valve regurgitation. Past medical history significant for coronary artery disease with previous myocardial infarction and PCI in August 2011, hypertension, CVA in 2009 with left-sided carotid stenosis 56%, history of syncope, current occasional cigarette use, mild restrictive lung disease, remote history of pneumonia, chronic pain issues with previous pain stimulator placement and chronic opioid dependence, follows with Dr. Doherty at [facility]. Preoperative nasal swab positive for MSSA. Intraoperative bradycardia and third-degree heart block POD #5 complex mitral valve repair with ring annuloplasty with a #28 mm [employer] AnnuloFlex band, clip ligation of the left atrial appendage with a 35 mm AtriClip, intraoperative transesophageal echocardiogram Postoperative acute blood loss anemia and thrombocytopenia, expected given he modilution and cardiopulmonary bypass pump. Postoperative hypotension requiring low-dose pressor use, expected and likely vasoplegia given preoperative LEROY inhibitor use. Postoperative controlled atrial fibrillation, known common occurrence after open heart surgery. The patient was seen in follow-up today 04/16/2021 at a bedside in the intensive care unit. Currently she is sitting up to the bedside chair, is awake, alert and oriented 3 and is in no acute apparent distress. She denies any complaints of shortness of breath at this time and is complaining of some chronic type pain to her left shoulder and back. She remained hemodynamically stable and is currently on no inotropic or pressor support. Oxygen saturations are 94% on 2 L nasal cannula. She is achieving 1500 mL on her incentive spirometry with encouragement. The patient reports that she ambulated in the intensive care un it hallway with standby assistance from nursing and physical therapy staff yesterday. Her left pleural chest tube was removed yesterday without incident. Bedside telemetry showing atrial fibrillation with a heart rate of 107 BPM. She remained afebrile the last 24 hours. Laboratory results this morning show a WBC count 8.8, hemoglobin 10.8, hematocrit 34.6, platelets 209, sodium 131, potassium 5.2, BUN 25, creatinine 0.60, glucose 128, and magnesium 1.9. Objective - Vital Signs Vital signs: Vital Signs Temp 97.9 F 04/16/21 08:00 Pulse 98 04/16/21 09:00 Resp 15 04/16/21 09:00 BP 124/66 04/16/21 09:00 Pulse Ox 92 L 04/16/21 09:00 Intake & Output 04/15/21 04/16/21 04/16/21 18:59 06:59 18:59 Intake Total 1080 100 Output Total 1250 650 600 Balance -1250 430 -500 Weight 99.8 kg Intake: Intake, IV Titration 100 Amount Magnesium Sulfate-D5w Pmx 100 1 gm In Dextrose/Water 1 100ml.bag @ 100 mls/hr IVPB Q1H [facility] Rx#: [id number] Oral 1080 Output: Chest Tube Drainage [address] 0 Urine 1250 650 600 Other: Voiding Method Bedside Commode # Voids 1 ABP, PAP, CO, CI - Last Documented Arterial Blood Pressure 133/50 Pulmonary Artery Pressure Cardiac Output 3.8 Cardiac Index 1.9 - Exam CONSTITUTIONAL: Sitting up to the bedside chair in the intensive care unit, appears comfortable, cooperative, no apparent acute distress. HEENT: Neck is supple, no JVD, no lymphadenopathy. RESPIRATORY: Lungs sounds essentially clear throughout, diminished to his bilateral bases. Respirations are symmetrical and nonlabored. Currently on 2 L nasal cannula with oxygen saturations 94%. Able to achieve 1500 mL on her incentive spirometry. Strong cough. CARDIOVASCULAR: Irregular rhythm and tachycardic rate. S1 and S2 present, negative for S3, gallop or murmur. Sternum is stable. Palpable peripheral pulses bilaterally, +1 edema to her bilateral lower extremities. No calf pain or tenderness noted. Heart hugger in place with patient demonstrating appropriate use. Knee-high HARSHA hose and sequential compression devices in place to her bilateral lower extremities. Bedside telemetry showing atrial fibri llation heart rate 107 BPM. GASTROINTESTINAL: Abdomen soft, nontender, nondistended. Active bowel sounds present 4 quadrants. Tolerating diet. Passing flatus. No guarding or rigidity. GENITOURINARY: Continues to void. Output 600 mL in the last 8 hours. INTEGUMENTARY: Skin is warm and dry with no evidence of clubbing or cyanosis. Midline sternal incision clean dry and well approximated, covered with dry intact dressing. NEUROLOGIC: Cranial nerves II through XII intact. No focal deficits. MUSKULOSKELETAL: Able to move all extremities, strength equal bilaterally, generalized weakness. PSYCHIATRIC: Alert and oriented to person place and time, appropriate affect, intact judgment and insight. INVASIVE LINES AND TUBES: Atrial and ventricular epicardial pacemaker wires present, connected to generator, VVI backup rate 50 bpm. - Allied health notes Allied health notes reviewed: nursing - Labs CBC & Chem 7: 04/16/21 03:19 04/16/21 03:19 Labs: Abnormal Lab Results - Last 24 Hours (Table) 04/15/21 04/15/21 04/15/21 Range/Units 11:53 16:30 21:10 RBC (3.80-5.40) m/uL Hgb (11.4-16.0) gm/dL RDW (11.5-15.5) % Sodium (137-145) mmol/L Potassium (3.5-5.1) mmol/L Chloride (98-107) mmol/L BUN (7-17) mg/dL Glucose (74-99) mg/dL POC Glucose (mg/dL) 107 H 148 H 114 H (75-99) mg/dL Total Protein (6.3-8.2) g/dL Albumin (3.5-5.0) g/dL 04/16/21 04/16/21 Range/Units 03:19 03:19 RBC 3.60 L (3.80-5.40) m/uL Hgb 10.8 L (11.4-16.0) gm/dL RDW 18.2 H (11.5-15.5) % Sodium 131 L (137-145) mmol/L Potassium 5.2 H (3.5-5.1) mmol/L Chloride 96 L (98-107) mmol/L BUN 25 H (7-17) mg/dL Glucose 128 H (74-99) mg/dL POC Glucose (mg/dL) (75-99) mg/dL Total Protein 5.5 L (6.3-8.2) g/dL Albumin 3.1 L (3.5-5.0) g/dL - Imaging and Cardiology Chest x-ray: report reviewed, image reviewed Assessment and Plan Assessment: 1. Severe mitral valve regurgitation, status post complex mitral valve repair 2. History of coronary artery disease with previous myocardial infarction and PCI in August 2011 3. Hypertension 4. CVA in 2009 with left-sided carotid stenosis 56% 5. History of syncope 6. Current occasional cigarette use 7. Mild restrictive lung disease, preoperative FEV1 is 62% of predicted 8. Remote history of pneumonia 9. Chronic pain issues with previous pain stimulator placement and chronic opioid dependence, [facility] Dr. [facility] 10. Preoperative nasal swab positive for MSSA, treated with mupirocin 11. Intraoperative bradycardia and third-degree heart block 12. Postoperative acute blood loss anemia and thrombocytopenia, expected 13. Postoperative hypotension requiring low-dose pressor use, expected 14. Postoperative controlled atrial fibrillation, a known common occurrence after open heart surgery, status post left atrial appendage ligation Plan: 1. Continue aspirin, statin, and Plavix. Metoprolol tartrate is currently on hold as the patient had a bradycardic episode yesterday requiring pacemaker backup. 2. No anticoagulation at this point. The patient is post left atrial appendage exclusion. 3. Wean O2 as tolerated. Encourage incentive spirometry use 10 times every hour while awake. Bronchodilators per pulmonology/critical care medicine management. 4. Will monitor daily labs and chest x-rays. Electrolyte replacement per protocol. Keep potassium greater than 4.2, mag greater than 2. Magnesium is being replaced at this time. 5. GI/DVT prophylaxis. 6. Insulin management per primary care service. The patient is not diabetic, preoperative hemoglobin A1c 6.4%. Needs tight blood sugar control to promote healing, sternal union and prevent infection. 7. Pain control per current medication regimen. 8. Icrease activity, ambulate as tolerated. PT/OT/cardiac rehab following. Dr. Xiao has been consulted for possible inpatient rehab, consult pending. 9. She will be scheduled for a permanent pacemaker placement today to be performed by Dr. Damian Raya. She has been placed nothing by mouth. 11. Keep atrial and ventricular epicardial pacemaker wires in place and connected to backup bedside pacemaker generator on a VVI 50 BPM. 12. More recommendations to follow based on patient's clinical course. Time with Patient: Greater than 30
--- NOTE | 2021-04-16 10:25 | P.PN ---
Subjective Progress Note Date: 04/16/21 Principal diagnosis: Mitral valve regurgitation, severe status post mitral valve repair 61-year-old female patient with past medical history of coronary artery disease with previous PCI and stenting, hypertension, hypertensive cardiovascular disease, hyperlipidemia, history of CVA, Chavarria's palsy, COPD, stage II with FEV1 of 1.7 L or 63% of predicted, former history of smoking chronic low back pain, degenerative disc disease, spinal stimulator with revision, former smoker, and history of mitral valve regurgitation, who had an elective mitral valve repair today on 04/11/[address] Orellana. Patient's preoperative workup was done at an outside hospital, possibly [facility]. Patient is seen in the postoperative period in the intensive care unit, sedated and intubated on mechanical ventilator. Currently on assist control mode of ventilation with a rate 16, tacrolimus 500, FiO2 100% and PEEP of 10. Postoperative blood gases are pending, she is currently on lactated Ringer's at 50 ML per hour, Diprivan is a 40 mics per kilo per minute, Levophed at 0.01 mics per kilo per minute, milrinone is a 0.3 mics per kilo per minute. Patient is AV paced on the monitor at a rate of 80. Mediastinal and right pleural chest tubes are connected together, with 80 mL of sanguinous output. Hemodynamically patient is stable, currently blood pressure is 122/60, PA pressures 49/29, CVP is 11, cardiac output is 5.9, and cardiac index is 2.9. Postoperative blood work shows INR of 1.2, sodium is 138, potassium is 2.9 and this is being replaced per protocol, chloride is 103, CO2 31, BUN is 14, creatinine 0.57, CBC is pending. Chest x- ray shows a component of volume overload, interstitial edema. Endotracheal tube NG tube and chest tubes are in appropriate positions. Reevaluated today on 04/12/2021, patient remains in the ICU, she is postoperative day #1, patient was extubated yesterday and 23:56, elevated the extubation well, she is presently on 6 L nasal cannula, is also on Primacor, norepinephrine at 0.02 mcg/m, patient is going to be started on amiodarone since she has underlying rhythm of atrial fibrillation. Chest x-ray showed evidence of interstitial edema, and I recommended 20 mg of Lasix to be given today. And he clearly however the patient does not seem to be in any distress, she seems to be generally weak. CBC is relatively normal. Metabolic profile is normal. Blood sugar is 112. Her enzymes are normal. The patient is seen today 04/13/2021 in follow-up in the intensive care unit. Postoperative day #2. She is currently sitting up in a chair at the bedside. Awake and alert in no acute distress. She is currently maintaining O2 saturat ions in the 90s on 4 L/m per nasal cannula. She is only pulling approximately 750 MLS on the incentive spirometer. She needs increased encouragement regarding cough and deep breathing exercises. She remains in sinus bradycardia in the 50s. Backup pacemaker wires in place. Cardiac output 3.8. Cardiac index 1.9. She has been transitioned off the amiodarone. Off norepinephrine. Lactated Ringer's at 20 ML's per hour. Chest x-ray continues to show cardiomegaly with small tiny bilateral pleural effusions and associated basilar atelectasis. Some improvement in the central vascular congestion and interstitial edema. No pneumothorax. Cordis remains in place. Left apical chest tube in place. Mediastinal chest tube in place. White count 10.0. Hemoglobin 10.8. Platelets 119,000. Sodium 132. Potassium 4.8. Creatinine 0.63. AST 72. ALT 10. She is continued on DuoNeb inhalations, Symbicort, heparin for DVT prophylaxis. The patient is seen today 04/14/2021 in follow-up in the intensive care unit. Postoperative day #3. She is currently sitting up in a chair at the bedside. Awake and alert in no acute distress. She has been in a controlled atrial fibrillation. She was given amiodarone bolus. She received albumin. X-ray continues to show mild pulmonary vascular congestion with small pleural effusions and adjacent atelectasis She remains on bronchodilators. Heparin for DVT prophylaxis. She needs increased encouragement regarding the use of the incentive spirometer. Currently pulling approximately 500 - 1000 ML's. White count 7.3. Hemoglobin 10.4. Platelets 103. Sodium 132. Potassium 4.4. Creatinine 0.57. AST 43. ALT 9. Albumin 3.1. The patient is seen today 04/15/2021 in follow-up in the intensive care unit. Postoperative day #4. She is awake and alert in no acute distress. Sitting up in a chair at the bedside. She was ambulating earlier this morning. She is improved. She is pulling 1250 ML's on her incentive spirometer. She is under 2 L nasal cannula. Chest x-ray showing improvement. Chest tubes have been removed. She does have backup pacing at 70 bpm. She was initially in atrial fibrillation earlier today. White count 6.7. Hemoglobin 9.9. Platelets 143. Lymphocytes 0.7. Sodium 134. Potassium 4.0. Creatinine 0.62. AST 27. ALT 7. She remains on bronchodilators. Heparin for DVT prophylaxis. On 04/16/2001 patient seen in follow-up in intensive care unit, today's postoperative day #5, status post mitral valve repair and exclusion of the left atrial appendage on 04/11/2021. Patient is sitting up in the recliner, appears to be in no acute distress, she is currently on 2 L of oxygen pulse ox is 92- 93%, afebrile, hemodynamically she stable, she had A. fib yesterday, and overnight she did convert to sinus bradycardia and required pacing in view of symptomatic bradycardia via epicardial wires, and this morning she is back in atrial fibrillation with a controlled rate. Is not on any IV fluids, blood pressure stable 124/66, no evidence of respiratory difficulty, she does have some left shoulder pain, but no chest pain. Chest x-ray today showed interval removal of left-sided chest tube, no evidence of pneumothorax, cardiomegaly and mild interstitial edema and small left greater than right bilateral pleural effusions. Today's labs have been reviewed, white blood cell count is 8.8, hemoglobin is 10.8, serum sodium is 131, potassium is 5.2, chloride is 96, CO2 is 30, B1 is 25, creatinine 0.70. Patient received a dose of IV Lasix per CT surgery yesterday. She is in -820 ML net fluid balance over the last 24 hours, Gonzalez catheter has been discontinued, patient has been voiding. Her chest tubes have been discontinued, epicardial wires remain in place to external pacemaker which is on standby. Objective - Vital Signs Vital signs: Vital Signs Temp 97.9 F 04/16/21 08:00 Pulse 98 04/16/21 09:00 Resp 15 04/16/21 09:00 BP 124/66 04/16/21 09:00 Pulse Ox 92 L 04/16/21 09:00 Intake & Output 04/15/21 04/16/21 04/16/21 18:59 06:59 18:59 Intake Total 1080 100 Output Total 1250 650 600 Balance -1250 430 -500 Weight 99.8 kg Intake: Intake, IV Titration 100 Amount Magnesium Sulfate-D5w Pmx 100 1 gm In Dextrose/Water 1 100ml.bag @ 100 mls/hr IVPB Q1H [facility] Rx#: [id number] Oral 1080 Output: Chest Tube Drainage [address] 0 Urine 1250 650 600 Other: Voiding Method Bedside Commode # Voids 1 ABP, PAP, CO, CI - Last Documented Arterial Blood Pressure 133/50 Pulmonary Artery Pressure 29/22 Cardiac Output 3.8 Cardiac Index 1.9 - Exam GENERAL EXAM: Alert, very pleasant, 61-year-old white female, on 2 L of oxygen, resting in the recliner, in no acute distress comfortable in no apparent distress. HEAD: Normocephalic/atraumatic. EYES: Normal reaction of pupils, equal size. Conjunctiva pink, sclera white. NOSE: Clear with pink turbinates. THROAT: No erythema or exudates. NECK: No masses, no JVD, no thyroid enlargement, no adenopathy. CHEST: No chest wall deformity. Symmetrical expansion. Midsternal incision and chest tube sites are clean dry and intact, chest tubes have been removed LUNGS: Equal air entry with no crackles, wheeze, rhonchi or dullness. CVS: Irregular rate and rhythm, normal S1 and S2, no gallops, no murmurs, no rubs ABDOMEN: Soft, nontender. No hepatosplenomegaly, normal bowel sounds, no guar ding or rigidity. EXTREMITIES: No clubbing, no edema, no cyanosis, 2+ pulses and upper and lower extremities. MUSCULOSKELETAL: Muscle strength and tone normal. SPINE: No scoliosis or deformity SKIN: No rashes CENTRAL NERVOUS SYSTEM: Alert and oriented -3. No focal deficits, tone is normal in all 4 extremities. PSYCHIATRIC: Alert and oriented -3. Appropriate affect. Intact judgment and insight. - Labs CBC & Chem 7: 04/16/21 03:19 04/16/21 03:19 Labs: Abnormal Lab Results - Last 24 Hours (Table) 04/15/21 04/15/2104/15/21 Range/Units 11:53 16:30 21:10 RBC (3.80-5.40) m/uL Hgb (11.4-16.0) gm/dL RDW (11.5-15.5) % Sodium (137-145) mmol/L Potassium (3.5-5.1) mmol/L Chloride (98-107) mmol/L BUN (7-17) mg/dL Glucose (74-99) mg/dL POC Glucose (mg/dL) 107 H 148 H 114 H (75-99) mg/dL Total Protein (6.3-8.2) g/dL Albumin (3.5-5.0) g/dL 04/16/21 04/16/21 Range/Units 03:19 03:19 RBC 3.60 L (3.80-5.40) m/uL Hgb 10.8 L (11.4-16.0) gm/dL RDW 18.2 H (11.5-15.5) % Sodium 131 L (137-145) mmol/L Potassium 5.2 H (3.5-5.1) mmol/L Chloride 96 L (98-107) mmol/L BUN 25 H (7-17) mg/dL Glucose 128 H (74-99) mg/dL POC Glucose (mg/dL) (75-99) mg/dL Total Protein 5.5 L (6.3-8.2) g/dL Albumin 3.1 L (3.5-5.0) g/dL Assessment and Plan Plan: Assessment: #1. Severe mitral valve regurgitation, status post mitral valve repair and exclusion of the left atrial appendage with 35 mm AtriClip on 04/11/2021 #2. Chronic congestive heart failure, most recent echocardiogram is not available to us at this time, patient previously had EF of 40-45% #3. Routine postoperative ventilator management #4. History of stage II COPD, with baseline FEV1 of 63% of predicted #5. History of smoking, patient carries [id number] smoking history, currently in remission #6. Hypertension #7. Hyperlipidemia #8. Coronary artery disease with previous PCI and stenting #9. History of CVA #10. History of Chavarria's palsy #11. History of chronic low back pain related to degenerative disc disease with history of spinal cord stimulator placement subsequent revision #12. Postoperative blood loss anemia, expected outcome of sternotomy and mitral valve repair surgery #13. Postoperative atrial fibrillation, expected outcome of mitral valve repair surgery Plan: Encouraged to deep breathing and coughing Maintain pain control Anticoagulation rate control medications per CT surgery Antibiotics per CT surgery Patient is doing well, breathing comfortably Encourage ambulation Today's lab work and chest x-ray reviewed Follow-up blood work later on tonight, and in the morning per protocol Follow-up chest x-ray in the morning We'll continue to follow I performed a history & physical examination of the patient and discussed their management with my nurse practitioner, Geno Cardenas. I reviewed the nurse practitioner's note and agree with the documented findings and plan of care. Lung sounds are positive for dim breath sounds throughout the lung [place]. The findings and the impression was discussed with the patient. I attest to the documentation by the nurse practitioner. Time with Patient: Less than 30
--- NOTE | 2021-04-16 11:16 | P.CONS ---
History of Present Illness - Chief Complaint Cardiac debility - History of Present Illness I had the opportunity to see patient for inpatient rehab consultation regard to cardiac debility. Patient reports a six-month decline workup eventually positive for severe mitral regurgitation. Patient admitted to [facility] April 11 for mitral valve repair. Seen postoperatively by pulmonary as well as Dr. Mccloud. Chest x-rays followed for cardiomegaly, edema, effusions. I physical therapy reports minimal assistance functional ability and gait total 125 feet, IV pull. Fatigues. OT prescribed. Previous functional history as elicited from patient: 60-year-old right-handed white female who is lives in 3 floor home with . works full-time. Prior 6 months ago patient was indeed independent with basic and advanced self-care tasks. Since that time, she's been doing his sitdown shower and gait with standard cane in the house and 4 wheeled walker outside. Since that time is generally been doing the laundry and driving. Neither really cook. Review of Systems Review of systems: ENT: Denies sneezes or discharge. Eyes: Denies discharge or photophobia. Cardiac: Denies chest pain or palpitation. Pulmonary: Mild shortness of breath. Breast: Denies discharge or lumps. Gastrointestinal: Denies nausea, emesis, constipation, diarrhea. Genitourinary: Denies discharge or frequency. Musculoskeletal: Denies muscle or bone aches. Neurologic: Generalized weakness. Endocrine: Denies shakes or sweats. Oncology: Denies cancers. Dermatologic: Denies rash, itching, pruritus. ALLERGY/immunology: Denies sneezes, rashes. Past Medical History Past Medical History: Coronary Artery Disease (CAD), COPD, GERD/Reflux, GI Bleed, Hyperlipidemia, Hypertension, Myocardial Infarction ([place]), Osteoarthritis (OA), Skin Disorder Additional Past Medical History / Comment(s): ?CVA, right sided weakness, Chavarria's palsy, back in 2009, chronic low back pain, spinal stimulator, with revision, meningitis after one of spinal stim. surgeries, reinsertion of the spinal stimulator April 2012-not really working correctly @this time, constipation, peptic ulcer disease, frequent nausea, hx. H. pylori, rash under breast, in groin, fluid retention in legs Last Myocardial Infarction Date:: unknown History of Any Multi-Drug Resistant Organisms: MRSA Year Discovered:: 09/25/17 MDRO Source:: ABDOMEN Past Surgical History: Back Surgery, Section, Cholecystectomy, Heart Catheterization, Heart Catheterization With Stent, Hysterectomy, Joint Replacement Additional Past Surgical History / Comment(s): C-sections 1978 and 1984, lumbar laminectomy August 2002, total abdominal hysterectomy with bilateral oophorectomy secondary to endometriosis in July 2005, cholecystectomy June 2006, epidural steroid injection as well as facet arthropathy with facet joint injections along with radiofrequency ablation between 2007 and 2009, trial of spinal cord stimulator in August 2010, placement of stable spinal cord stimulator in September 2010, revision in April 2011, bacterial meningitis status post multiple debridement, left heart catheterization with a stent insertion in August 2011, debridement of tissue in the back secondary to prior meningitis October 2011, implantation of new spinal cord stimulator in April 2012, kd knee replacements Past Anesthesia/Blood Transfusion Reactions: No Reported Reaction Additional Past Anesthesia/Blood Transfusion Reaction / Comm: States bad reaction to ketamine Date of Last Stent Placement:: September 08, 2011 Smoking Status: Current some day smoker - Past Family History Mother Family Medical History: Coronary Artery Disease (CAD), Deep Vein Thrombosis (DVT), Pulmonary Embolus Additional Family Medical History / Comment(s): Mother and two sisters and two nieces have had DVTs, mother Father Family Medical History: COPD, Myocardial Infarction ([place]) Sister(s) Family Medical History: No Reported History Brother(s) Family Medical History: Coronary Artery Disease (CAD) Daughter(s) Family Medical History: No Reported History Son(s) Family Medical History: No Reported History Medications and Allergies Home Medications Medication Instructions Recorded Confirmed Type ALPRAZolam [Xanax] 0.5 mg PO TID PRN 09/30/14 04/11/21 History Furosemide [Lasix] 40 mg PO BID 09/30/14 04/11/21 History Lisinopril-Hctz 20-25 mg 1 tab PO DAILY 09/30/14 04/11/21 History [Zestoretic 20-25] Omeprazole [PriLOSEC] 40 mg PO DAILY 09/30/14 04/11/21 History Ondansetron [Zofran] 8 mg PO Q6H PRN 09/30/14 04/11/21 History Potassium Chloride [K-Tab ER] 20 meq PO DAILY 09/30/14 04/11/21 History SUMAtriptan SUCCINATE [Imitrex] 100 mg PO BID PRN 09/30/14 04/11/21 History Albuterol Nebulized [Ventolin 3 ml INHALATION Q6H PRN 04/06/21 04/11/21 History Nebulized] Albuterol Sulfate [Ventolin HFA] 1 - 2 puff INHALATION Q6H PRN 04/06/21 04/11/21 History Aspirin 325 mg PO DAILY 04/06/21 04/11/21 History Budesonide-Formot 160-4.5 Mcg 2 puff INHALATION BID PRN 04/06/21 04/11/21 History [Symbicort 160-4.5 Mcg Inhaler] Dicyclomine [Bentyl] 20 mg PO QID 04/06/21 04/11/21 History Diphenoxylate HCl/Atropine 1 - 2 tab PO QID PRN 04/06/21 04/11/21 History [Lomotil 2.5-0.025 mg Tablet] Ferrous Sulfate [Feosol] 325 mg PO DAILY 04/06/21 04/11/21 History HYDROmorphone HCL [HYDROmorphone 12 mg PO Q12H PRN 04/06/21 04/11/21 History HCL ER] Ipratropium Nebulized [Atrovent 0.5 mg INHALATION Q8HR PRN 04/06/21 04/11/21 History Nebulized 0.2 MG/ML] Metoprolol Succinate (ER) [Toprol 25 mg PO DAILY 04/06/21 04/11/21 History Xl] Nystatin 100,000 Unit/ml Susp 4 ml PO QID PRN 04/06/21 04/11/21 History [Mycostatin Oral Susp] Pregabalin [Lyrica] 50 mg PO TID 04/06/21 04/11/21 History SUMAtriptan SUCCINATE [Imitrex] 6 mg SQ DIRECTED PRN 04/06/21 04/11/21 History Sucralfate [Carafate] 1 gm PO AC-TID 04/06/21 04/11/21 History oxyCODONE HCL [oxyCODONE HCL (IR)] 20 mg PO Q6H PRN 04/06/21 04/11/21 History Mupirocin [Mupirocin 2%] 1 applic NASAL BID #1 tub 04/08/21 04/11/21 Rx Allergies Allergy/AdvReac Type Severity Reaction Status Date / Time Iodinated Contrast Media Allergy Unknown Verified 04/11/21 09:40 [Iodinated Contrast Media - IV Dye] adhesive AdvReac SKIN TEARS Verified 04/11/21 09:40 ketamine AdvReac Hallucinati Verified 04/11/21 09:40 ons Physical Exam Vitals: Vital Signs Temp Pulse Pulse Resp BP Pulse Ox 04/16/21 09:00 98 15 124/66 92 L 04/16/21 08:00 97.9 F 86 17 110/87 92 L 04/16/21 07:00 68 20 131/59 93 L 04/16/21 06:00 67 18 113/50 93 L 04/16/21 05:00 68 26 H 118/55 94 L 04/16/21 04:00 98.4 F 68 70 25 H 117/61 93 L 04/16/21 03:00 69 23 105/63 95 04/16/21 02:00 68 30 H 133/102 92 L 04/16/21 01:00 69 26 H 126/76 94 L 04/16/21 00:00 98.4 F 68 22 121/51 92 L 04/15/21 23:47 72 27 H 04/15/21 23:00 68 27 H 110/57 93 L 04/15/21 22:00 67 26 H 119/54 95 04/15/21 21:00 68 23 101/85 94 L 04/15/21 20:00 98.8 F 68 70 20 125/56 95 04/15/21 19:00 69 19 107/43 94 L 04/15/21 18:00 70 16 112/53 94 L 04/15/21 17:00 69 15 113/72 97 04/15/21 16:40 72 04/15/21 16:34 68 04/15/21 16:00 97.7 F 68 19 111/61 95 04/15/21 15:00 68 16 100/58 96 04/15/21 14:00 68 19 104/65 94 L 04/15/21 13:00 69 19 104/65 96 04/15/21 12:00 98.0 F 67 19 95/58 98 04/15/21 11:45 53 L 13 104/52 94 L 04/15/21 11:30 54 L 20 114/59 95 04/15/21 11:15 52 L 17 114/59 88 L Intake and Output 04/15/21 04/16/21 04/16/21 22:59 06:59 14:59 Intake Total 1080 100 Output Total 350 300 600 Balance -350 780 -500 Intake: Intake, IV Titration 100 Amount Magnesium Sulfate-D5w Pmx 100 1 gm In Dextrose/Water 1 100ml.bag @ 100 mls/hr IVPB Q1H [facility] Rx#: [id number] Oral 1080 Output: Urine 350 300 600 Other: Voiding Method Bedside Commode # Voids 0 1 Weight 99.8 kg ABP, PAP, CO, CI - Last 8 Hours Cardiac Output 3.8 Cardiac Output 3.8 Cardiac Output 3.8 Cardiac Index 1.9 Cardiac Index 1.9 Cardiac Index 1.9 Skin: Good color, texture, turgor. General: Obese build and comfortable appearance. Head: Normocephalic, atraumatic. Eyes: Symmetric. Pupils equal round. Ears: Symmetric. Hearing within normal limits. Mouth: Clear. Neck: Supple. Carotid without bruit. Cardiac: Regular rate and rhythm. Lungs: Clear anteriorly and posteriorly. Abdomen: Soft active nontender. Overweight. Extremities: Normal tone. Overweight. Neurological: Mental status: Alert, cooperative, pleasant. Cranial nerves: Symmetric facial tone and trapezius. Motor: Active movement all 4 limbs. Sensation: Intact throughout. DTRs: Symmetric and equal throughout. Mobility: Requires physical assist for mobility in the room and transfers Results CBC & Chem 7: 04/16/21 03:19 04/16/21 03:19 Labs: Abnormal Lab Results - Last 24 Hours (Table) 04/15/21 04/15/21 04/15/21 Range/Units 11:53 16:30 21:10 RBC (3.80-5.40) m/uL Hgb (11.4-16.0) gm/dL RDW (11.5-15.5) % Sodium (137-145) mmol/L Potassium (3.5-5.1) mmol/L Chloride (98-107) mmol/L BUN (7-17) mg/dL Glucose (74-99) mg/dL POC Glucose (mg/dL) 107 H 148 H 114 H (75-99) mg/dL Total Protein (6.3-8.2) g/dL Albumin (3.5-5.0) g/dL 04/16/21 04/16/21 Range/Units 03:19 03:19 RBC 3.60 L (3.80-5.40) m/uL Hgb 10.8 L (11.4-16.0) gm/dL RDW 18.2 H (11.5-15.5) % Sodium 131 L (137-145) mmol/L Potassium 5.2 H (3.5-5.1) mmol/L Chloride 96 L (98-107) mmol/L BUN 25 H (7-17) mg/dL Glucose 128 H (74-99) mg/dL POC Glucose (mg/dL) (75-99) mg/dL Total Protein 5.5 L (6.3-8.2) g/dL Albumin 3.1 L (3.5-5.0) g/dL Assessment and Plan (1) Acute kidney failure Current Visit: No Status: Acute Code(s): N17.9 - ACUTE KIDNEY FAILURE, UNSPECIFIED SNOMED Code(s): 59167327 (2) Non-ST elevation [place] (NSTEMI) Current Visit: No Status: Acute Code(s): I21.4 - NON-ST ELEVATION (NSTEMI) MYOCARDIAL INFARCTION SNOMED Code(s): 10698322 Plan: Impression: 1. Cardiac debility due to severe mitral valve regurgitation status post repair. 2. Arrhythmia requiring pacemaker. I 3. Coronary artery disease with history of [place]. 4. COPD. 5. Hypertension. 8. Reflux. Comments and plan: At this time PT is ongoing and OT prescribed. Will require new her therapy notes. In fact, I was unable to find an actual OT note. Note patient to undergo pacemaker insertion today to do not anticipate inpatient rehab for at least couple days. We'll follow closely with yourself.
[2021-04-16 11:20] LABS: Glucose,Whole Blood 127 mg/dL (75-99)
[2021-04-16] MEDS ORDERED: LIDOCAINE 1% INJ 10MG/ML (20 ML MDV) ONE ×2 (12:29)
[2021-04-16] MEDS ORDERED: MORPHINE SULFATE 4 MG/ML SYRINGE ONE (12:52)
[2021-04-16] MEDS: MIDAZOLAM 2 MG/2 ML VIAL IV ONE ×4 (12:55→13:16)
[2021-04-16] MEDS ORDERED: LIDOCAINE 1% INJ 10MG/ML (20 ML MDV) SQ ONE ×2 (12:55)
[2021-04-16] MEDS: MORPHINE SULFATE 4 MG/ML SYRINGE IV ONE ×3 (12:57→13:16)
[2021-04-16] MEDS ORDERED: IV FLUID CONTINUATION 900 ML IV ONE (13:31)
[2021-04-16] MEDS ORDERED: ACETAMINOPHEN TAB 325 MG TAB PO PRN (13:31)
[2021-04-16] MEDS: METOPROLOL TARTRATE 25 MG TAB PO SCH ×2 (14:56→21:22)
--- NOTE | 2021-04-16 15:04 | P.OP ---
Date of Procedure: 04/16/21 Preoperative Diagnosis: A. fib, sick sinus syndrome Postoperative Diagnosis: Same Procedure(s) Performed: Dual-chamber permanent pacemaker implantation Implants: A [employer] tend[employer] STS reference #2088 TC5 to serial number [id number], ventricular lead is a [employer] tend[employer] STS reference #2088 TC58 serial number [id number] and pulse generator is [employer] surety [place] reference number PM 2272 serial number [id number] Anesthesia: MAC Surgeon: Damian Raya Estimated Blood Loss (ml): 10 IV fluids (ml): 300 Urine output (ml): 0 Pathology: none sent Condition: stable Disposition: ICU Indications for Procedure: 61-year-old female with poor ejection fraction and severe MR and TR. She is status post mitral and tricuspid repair. Postoperatively she was in sinus rhythm with a very slow bradycardic rate. She was paced temporarily. She developed atrial fibrillation and required medication. Pacemaker was requested by Dr. Orellana. Description of Procedure: Patient was brought to the cath lab radiological technologist. After lidocaine anesthesia an incision was made in the left subclavian region. Dissection was carried down to the deltopectoral groove but no adequate cephalic vein could be identified. The left subclavian vein was punctured with an 18-gauge needle. Guidewire was threaded proximally. 7-Luxembourgish sheath was placed over the guidewire. Through this second guidewire was placed. A 7-Luxembourgish sheath was removed and replaced over one guidewire maintaining a second guidewire. Through this introducer sheath the ventricular lead was passed into the right atrium and subsequently into the right ventricle. It was positioned on the high septum. R waves were measured at 9.1 mV. Pacing threshold was 0.5 mA. Impedance was 613 ohms. Introducer sheath was removed and the lead was secured to the pectoralis muscle with 2 silk suture ligatures being certain to Levaquin by mouth at the right atrium. 6-Luxembourgish sheath was then passed over the second guidewire. Through this a atrial lead was passed and it was curved up into the left atrial appendage with a curved stylette. Good P waves were noted. The lead was screwed in and P waves were 1.5 mg volts. Of course patient was in atrial fibrillation. Feedings was 370 ohms. Introducer sheath was removed and this lead was also secured to the pectoralis fashion with 2-0 silk suture ligatures. Both devices were then connected to the pacemaker and the pacemaker was placed in the subcutaneous pocket medially. It was secured to the pectoralis fashion with 2-0 silk suture ligature. Care was taken to assure good hemostasis. The pocket was irrigated with antibiotic solution. The pocket was closed with 2 layers of 3-0 Vicryl. Skin glue and dry sterile dressing were applied.
[2021-04-16] MEDS: ONDANSETRON 4 MG/2 ML VIAL IVP PRN (15:45)
--- NOTE | 2021-04-16 15:48 | P.PN ---
Subjective Progress Note Date: 04/16/21 HISTORY OF PRESENT ILLNESS This is a 61-year-old female patient of Dr. Rosado past medical history of coronary artery disease status post PCI and stent placement in 2011 at [facility], hypertension and hypertensive cardiovascular disease, hyperlipidemia, Chavarria's palsy, chronic low back pain secondary to degenerative disc disease as well as facet arthropathy status post spinal cord stimulator placement that was complicated by meningitis and she underwent revision of her stimulator and treatment for meningitis with reinsertion of her stimulator which was done in April 2012, chronic neck pain due to degenerative disc disease, chronic pain syndrome with pain contract with physician in [place] that she sees every other month, remote history of tobacco use and quit in 2018, COPD, irritable bowel syndrome seen by Dr. Laws. Patient has history of mitral valve regur gitation and underwent elective mitral valve repair on 04/11/2021. Patient has been successfully extubated and found sitting up in a chair with her at the bedside. She has mediastinal and right pleural chest tubes. Patient has been in and out of atrial fibrillation this morning is started on amiodarone drip. She is currently on levo fed as well. She did receive Lasix 20 mg this morning and has been noted to have decreased urine output. Patient has been off insulin drip due to blood sugars less than 110. We will plan to transition her to sliding insulin scale. Patient is reaching 750 on incentive spirometry. 04/13: Patient is seen today in the intensive care unit. She is sitting up and recliner and patient's and daughter are at bedside. Patient is not requiring vasopressors. Repeat chest x-ray reveals cardiomegaly with small tiny bilateral pleural effusions with associated bibasilar atelectasis and/or infiltrate redemonstrated. Improving central vascular congestion and interstitial edema. No left sided pneumothorax with chest tube in place. She is currently on O2 at 4 L nasal cannula with pulse ox 94-98%. Blood pressure 110/40, heart rate in the 50s. Afebrile. Blood work reveals WBC 10.0, Hemoccult and 10.8, platelet count 119. Sodium 132, potassium 4.8, creatinine 0.63. AST 72 and ALT 10. Capillary blood glucose running between 119 and 189. 04/14 patient remains in ICU, status post valve repair, postoperative day #3, she is on O2 nasal cannula, has atrial fibrillation on IV amiodarone, complains of diminished appetite, shortness of breath, no chest pain, no lightheadedness no aspiration. There is some low blood pressures today, and is on IV fluids and IV albumin. We are starting her also on nutritional supplement with Bene protein or premium protein, is worried about her being prediabetic, and also has some insomnia at this time. Vitals blood pressure 108/68, heart rate 74, irregular, cardiac output, 3.8 L cardiac index, 1.9 L, O2 sats 91% patient to be started on incentive spirometry, and is on Symbicort,. Labs hemoglobin 10.4, wbc count 7.3, blood sugars 128-135, creatinine of 0.57 04/15: Patient has better sleep, however still is fatigued, has edema noted today, however she slept in the recliner for the past 2 days, blood pressure is marginal the lower side, lisinopril HCTZ from home has not been started yet. Becca rhoades has some nausea, Zofran R is available for her to use, we'll going to restart her Carafate, 1 g 4 times a day, history of H. pylori in the past, no recent workup for this. Patient can undergo future workup for EGD outpatient, secondary to chronic gastritis, with persistent dyspepsia , patient will need Lasix prn, for edema. 04/16: The patient remains in intensive care unit. She is scheduled for pacemaker implantation today for third-degree block. Patient was in atrial fibrillation then subsequently went into a sinus bradycardia. Patient has been ambulatory and doing well. Incentive spirometry is reaching 1250 ML's. She is voiding well. She is currently on oxygen at 2 L nasal cannula with pulse ox of 94%. REVIEW OF SYSTEMS Constitutional: No fever, no chills, no night sweats. No weight change. No weakness, fatigue or lethargy. No daytime sleepiness. EENT: No headache. No blurred vision or double vision, no loss of vision. No loss of Hearing, no ringing in the ears, no dizziness. No nasal drainage or congestion. No epistaxis. No sore throat. Lungs: Reports shortness of breath, cough, no sputum production. No wheezing. Shortness of breath with exertion. Cardiovascular: Reports generalized chest discomfort, Denies lower extremity edema. No palpitations. No paroxysmal nocturnal dyspnea. No orthopnea. No lightheadedness or dizziness. No syncopal episodes. Abdominal: No abdominal pain. No nausea, vomiting. No diarrhea. No const ipation. No bloody or tarry stools. No loss of appetite. Genitourinary: No dysuria, increased frequency, urgency. No urinary retention. Musculoskeletal: No myalgias. No muscle weakness, no gait dysfunction, no frequent falls. Chronic neck and back pain. Integumentary: No wounds, no lesions. No rash or pruritus. No unusual bruising. No change in hair or nails. Neurologic: No aphasia. No facial droop. No change in mentation. No head injury. No headache. No paralysis. No paresthesia. Psychiatric: No depression. No anxiety. No mood swings. Endocrine: No abnormal blood sugars. PHYSICAL EXAMINATION Gen: This is a 61-year-old female patient. She is sitting up and recliner and appears to be somewhat uncomfortable secondary to pain. She is currently on 4 L nasal cannula HEENT: Head is atraumatic, normocephalic. Pupils equal, round. Sclerae is anicteric. NECK: Supple. No lymphadenopathy. No thyromegaly. Right Cordis in place. LUNGS: Diminished breath sounds to the bilateral bases. No wheezing. No intercostal retractions. Chest tubes in place. HEART: Irregular rate and rhythm. 2/6 systolic murmur. ABDOMEN: Soft. Bowel sounds are present. No masses. No tenderness. Gonzalez catheter in place. EXTREMITIES: No pedal edema. No calf tenderness. NEUROLOGICAL: Patient is awake, alert and oriented x3. Cranial nerves 2 through 12 are grossly intact. Generalized weakness. ASSESSMENT AND PLAN 1. Mitral valve regurgitation status post repair, 04/11/2021. Continue current management per cardiothoracic team, incentive spirometry to reduce incidence of atelectasis and hospital-acquired pneumonia, pain has been addressed. 2. Hypertension hypertensive cardio vascular disease. On metoprolol, increase to 25 mg twice a day 3. History of coronary artery disease status post PCI in 2011. Continue aspirin 325 mg daily, Lipitor 40 mg daily, Plavix 75 mg daily. 4. Hyperlipidemia. Continue Lipitor 5. Secondary Paroxysmal atrial fibrillation new onset, expected with surgery. Patient is on amiodarone drip. Patient is on heparin subcu, not on any oral anticoagulation at this time 6. Chronic back pain, chronic neck pain status post spinal cord stimulator. Continue pain management medications. Continue Lyrica 7. History of meningitis complicating stimulator with subsequent replacement. 8. Remote history of tobacco use and quit in 2019. 9. COPD without exacerbation. Continue DuoNeb treatments 4 times daily and as needed, Symbicort 2 puffs twice daily. 10. Irritable bowel syndrome. Continue Bentyl 20 mg 4 times daily if needed 10. DVT prophylaxis. Heparin 5000 units subcu every 8 hours. 11. Gastroesophageal reflux disease and GI prophylaxis. Protonix. 12. Generalized anxiety disorder. Continue Xanax 0.5 mg 3 times daily as needed. 13. Migraine headaches. Stable. 14. Protein calorie malnutrition, start on premium protein, receive albumin infusion for low blood pressure 15. Third degree heart block w plan for pacemaker today. DISCHARGE PLAN TBD. Possible IP rehab. Impression and plan of care have been directed as dictated by the signing physi cian. Rebecca Melendez nurse practitioner acting as scribe for signing physician. Objective - Vital Signs Vital signs: Vital Signs Temp 97.9 F 04/16/21 08:00 Pulse 98 04/16/21 09:00 Resp 15 04/16/21 09:00 BP 124/66 04/16/21 09:00 Pulse Ox 92 L 04/16/21 09:00 Intake & Output 04/15/21 04/16/21 04/16/21 18:59 06:59 18:59 Intake Total 1080 100 Output Total 1250 650 600 Balance -1250 430 -500 Weight 99.8 kg Intake: Intake, IV Titration 100 Amount Magnesium Sulfate-D5w Pmx 100 1 gm In Dextrose/Water 1 100ml.bag @ 100 mls/hr IVPB Q1H LIAT Rx#: [id number] Oral 1080 Output: Chest Tube Drainage [address] 0 Urine 1250 650 600 Other: Voiding Method Bedside Commode # Voids 1 ABP, PAP, CO, CI - Last Documented Arterial Blood Pressure 133/50 Pulmonary Artery Pressure Cardiac Output 3.8 Cardiac Index 1.9 - Labs CBC & Chem 7: 04/16/21 03:19 04/16/21 03:19 Labs: Abnormal Lab Results - Last 24 Hours (Table) 04/15/21 04/15/21 04/15/21 Range/Units 11:53 16:30 21:10 RBC (3.80-5.40) m/uL Hgb (11.4-16.0) gm/dL RDW (11.5-15.5) % Sodium (137-145) mmol/L Potassium (3.5-5.1) mmol/L Chloride (98-107) mmol/L BUN (7-17) mg/dL Glucose (74-99) mg/dL POC Glucose (mg/dL) 107 H 148 H 114 H (75-99) mg/dL Total Protein (6.3-8.2) g/dL Albumin (3.5-5.0) g/dL 04/16/21 04/16/21 Range/Units 03:19 03:19 RBC 3.60 L (3.80-5.40) m/uL Hgb 10.8 L (11.4-16.0) gm/dL RDW 18.2 H (11.5-15.5) % Sodium 131 L (137-145) mmol/L Potassium 5.2 H (3.5-5.1) mmol/L Chloride 96 L (98-107) mmol/L BUN 25 H (7-17) mg/dL Glucose 128 H (74-99) mg/dL POC Glucose (mg/dL) (75-99) mg/dL Total Protein 5.5 L (6.3-8.2) g/dL Albumin 3.1 L (3.5-5.0) g/dL
--- NOTE | 2021-04-16 16:01 | XR ---
EXAMINATION TYPE: XR chest 1V portable DATE OF EXAM: 04/16/2021 COMPARISON: Chest x-ray 04/16/2021 at earlier time HISTORY: Lead placement check TECHNIQUE: frontal view of the chest is obtained in 2 images. FINDINGS: There is been interval placement of a generator in the left pectoral region, laterally to the right atrium and ventricle. There are overlying artifacts. Thoracic spinal cord stimulator is aga in seen. There is no evident pneumothorax. Heart remains enlarged. Interstitium is increased, such as Alyssa's prominent. Difficult to exclude small effusion. Patient is post median sternotomy and left intraventricular placement. IMPRESSION: No evident complication status post line placement, correlate for pulmonary venous hyper tension and interstitial edema.
[2021-04-16 16:22] LABS: Glucose,Whole Blood 170 mg/dL (75-99)
--- NOTE | 2021-04-16 16:55 | P.PN ---
Subjective Patient is resting in the chair No chest discomfort no dizziness lightheadedness She is in atrial fibrillation On examination breath sounds reduced bilaterally Heart sounds irregular Impression Severe mitral regurgitation Left ventricular ejection fraction 45% Tachycardia bradycardia syndrome Awaiting: Pacemaker implantation [place] Continue current medications and plan of action Follow-up as needed Continue oral amiodarone Maximize beta blockers Objective - Vital Signs Vital signs: Vital Signs Temp 98.4 F 04/16/21 15:00 Pulse 73 04/16/21 16:00 Resp 17 04/16/21 16:00 BP 102/68 04/16/21 16:00 Pulse Ox 97 04/16/21 16:00 Intake & Output 04/15/21 04/16/21 04/16/21 18:59 06:59 18:59 Intake Total 1080 385 Output Total 1250 650 900 Balance -1250 430 -515 Weight 99.8 kg Intake: IV 150 Intake, IV Titration 235 Amount Magnesium Sulfate-D5w Pmx 100 1 gm In Dextrose/Water 1 100ml.bag @ 100 mls/hr IVPB Q1H LIAT Rx#: [id number] Sodium Chloride 0.9% 1, 135 000 ml @ 45 mls/hr IV . [id number] [facility] Rx#:[id number] Oral 1080 Output: Chest Tube Drainage [address] 0 Urine 1250 650 900 Other: Voiding Method Bedside Commode Bedside Commode # Voids 1 ABP, PAP, CO, CI - Last Documented Arterial Blood Pressure 133/50 Pulmonary Artery Pressure Cardiac Output 3.8 Cardiac Index 1.9 - Labs CBC & Chem 7: 04/16/21 03:19 04/16/21 03:19 Labs: Abnormal Lab Results - Last 24 Hours (Table) 04/15/21 04/16/21 04/16/21 Range/Units 21:10 03:19 03:19 RBC 3.60 L (3.80-5.40) m/uL Hgb 10.8 L (11.4-16.0) gm/dL RDW 18.2 H (11.5-15.5) % Sodium 131 L (137-145) mmol/L Potassium 5.2 H (3.5-5.1) mmol/L Chloride 96 L (98-107) mmol/L BUN 25 H (7-17) mg/dL Glucose 128 H (74-99) mg/dL POC Glucose (mg/dL) 114 H (75-99) mg/dL Total Protein 5.5 L (6.3-8.2) g/dL Albumin 3.1 L (3.5-5.0) g/dL 04/16/21 04/16/21 Range/Units 11:19 16:20 RBC (3.80-5.40) m/uL Hgb (11.4-16.0) gm/dL RDW (11.5-15.5) % Sodium (137-145) mmol/L Potassium (3.5-5.1) mmol/L Chloride (98-107) mmol/L BUN (7-17) mg/dL Glucose (74-99) mg/dL POC Glucose (mg/dL) 127 H 170 H (75-99) mg/dL Total Protein (6.3-8.2) g/dL Albumin (3.5-5.0) g/dL
[2021-04-16] MEDS ORDERED: DEXTROSE 5% IN WATER 100 ML with AMIODARONE 150 MG IV ONE (17:04)
[2021-04-16] MEDS ORDERED: FUROSEMIDE 10 MG/ML 4 ML VIAL IV STA (17:06)
[2021-04-16] MEDS ORDERED: AMIODARONE IN DEXTROSE,ISO-OSM 150 MG/100 ML PLAST..BAG IV ONE (18:01)
[2021-04-16 21:07] LABS: Glucose,Whole Blood 160 mg/dL (75-99)
[2021-04-16] MEDS: AMIODARONE 200 MG TAB PO SCH (21:22)
[2021-04-16] MEDS: MELATONIN 3 MG TABLET PO SCH (21:24)
[2021-04-16] MEDS: SENNOSIDES-DOCUSATE SODIUM 1 EACH TAB PO SCH (21:25)
[2021-04-17] MEDS: HEPARIN SODIUM,PORCINE/PF 5,000 UNIT/0.5 ML SYRINGE SQ SCH ×4 (00:20→23:33)
[2021-04-17 04:10] LABS: Anisocytosis Slight; Basophils % (A) 0 %; Eosinophils # (A) 0.3 k/uL (0-0.7); Eosinophils % (A) 3 %; HCT 36.8 % (34.0-46.0); HGB 11.3 gm/dL (11.4-16.0); Hypochromasia Slight; Lymphocytes # (A) 1.1 k/uL (1.0-4.8); Lymphocytes % (A) 11 %; MCH 29.6 pg (25.0-35.0); MCHC 30.7 g/dL (31.0-37.0); MCV 96.5 fL (80.0-100.0); Macrocytosis Slight; Mean Platelet Volume 8.6; Monocytes # (A) 0.9 k/uL (0-1.0); Monocytes % (A) 9 %; Neutrophils # (A) 6.8 k/uL (1.3-7.7); Neutrophils % (A) 72 %; Platelet Count 257 k/uL (150-450); RBC 3.82 m/uL (3.80-5.40); RDW 17.8 % (11.5-15.5); WBC 9.5 k/uL (3.8-10.6)
[2021-04-17 04:31] LABS: ALT 11 U/L (4-34); AST 28 U/L (14-36); African American GFR (CKD) >90 (>60 ml/min/1.73 sqM); Albumin 3.3 g/dL (3.5-5.0); Alkaline Phosphatase 123 U/L (38-126); Anion Gap 7 mmol/L; Blood Urea Nitrogen 21 mg/dL (7-17); Calcium 8.8 mg/dL (8.4-10.2); Carbon Dioxide 33 mmol/L (22-30); Chloride 92 mmol/L (98-107); Glucose 147 mg/dL (74-99); Non-African American GFR(CKD) >90 (>60 ml/min/1.73 sqM); Potassium 5.6 mmol/L (3.5-5.1); Sodium 132 mmol/L (137-145); Total Bilirubin 0.4 mg/dL (0.2-1.3)
[2021-04-17 06:05] LABS: Glucose,Whole Blood 140 mg/dL (75-99)
[2021-04-17] MEDS: PANTOPRAZOLE 40 MG TABLET PO SCH (06:43)
[2021-04-17] MEDS: INSULIN ASPART (NovoLOG) 100 UNIT/ML VIAL SQ SCH ×4 (06:43→21:17)
[2021-04-17] MEDS: SUCRALFATE 1 GM TAB PO SCH ×3 (06:43→16:56)
[2021-04-17] MEDS: HYDROmorphone 2 MG TAB PO PRN (06:48)
[2021-04-17] MEDS: ALPRAZolam 0.5 MG TAB PO PRN (06:49)
[2021-04-17] MEDS ORDERED: ceFAZolin 1 GM in SODIUM CHLORIDE 0.9% 250 ML IRRIGATION PRN (07:00)
--- NOTE | 2021-04-17 07:54 | XR ---
EXAMINATION TYPE: XR chest 1V portable DATE OF EXAM: 04/17/2021 CLINICAL HISTORY: Difficulty breathing progress study. Postoperative mitral valve repair. TECHNIQUE: Single AP portable semiupright view of the chest is obtained. COMPARISON: Chest x-ray from one day earlier and older studies FINDINGS: Overlying sternal wires redemonstrated. Left atrial appendage clip again seen. Thoracic sp inal stimulator redemonstrated. Persistent cardiomegaly with dual lead pacemaker and small left pleural effusion and associated bibas ilar opacities along with mild central vascular congestion redemonstrated. IMPRESSION: Cardiomegaly with mild to moderate central vascular congestion and small left pleural ef fusion with associated bibasilar atelectasis and/or infiltrate all redemonstrated. No significant corwin nge from one day earlier.
[2021-04-17] MEDS: PREGABALIN 50 MG CAP PO SCH ×3 (08:55→20:20)
[2021-04-17] MEDS: ASPIRIN 325 MG TAB PO SCH (08:55)
[2021-04-17] MEDS: CLOPIDOGREL 75 MG TAB PO SCH (08:55)
[2021-04-17] MEDS: AMIODARONE 200 MG TAB PO SCH ×2 (08:55→20:19)
[2021-04-17] MEDS: ATORVASTATIN 40 MG TAB PO SCH (08:55)
[2021-04-17] MEDS: METOPROLOL TARTRATE 25 MG TAB PO SCH ×3 (08:55→20:20)
[2021-04-17] MEDS: FERROUS SULFATE 325 MG TAB PO SCH (08:55)
[2021-04-17] MEDS: IPRATROPIUM-ALBUTEROL 3 ML NEB INHALATION SCH ×4 (09:09→21:50)
[2021-04-17] MEDS ORDERED: HYDROmorphone 2 MG TAB PO PRN ×2 (09:51→09:55)
[2021-04-17] MEDS ORDERED: FUROSEMIDE 10 MG/ML 4 ML VIAL IV STA (09:53)
[2021-04-17] MEDS ORDERED: bisacodyL 10 MG SUPP RECTAL STA (10:02)
[2021-04-17] MEDS: KETOROLAC 30 MG/ML 1 ML VIAL IVP SCH ×3 (11:01→23:33)
--- NOTE | 2021-04-17 11:41 | P.PN ---
Subjective Progress Note Date: 04/17/21 Principal diagnosis: Mitral valve regurgitation, severe status post mitral valve repair 61-year-old female patient with past medical history of coronary artery disease with previous PCI and stenting, hypertension, hypertensive cardiovascular disease, hyperlipidemia, history of CVA, Chavarria's palsy, COPD, stage II with FEV1 of 1.7 L or 63% of predicted, former history of smoking chronic low back pain, degenerative disc disease, spinal stimulator with revision, former smoker, and history of mitral valve regurgitation, who had an elective mitral valve repair today on 04/11/[address] Orellana. Patient's preoperative workup was done at an outside hospital, possibly [facility]. Patient is seen in the postoperative period in the intensive care unit, sedated and intubated on mechanical ventilator. Currently on assist control mode of ventilation with a rate 16, tacrolimus 500, FiO2 100% and PEEP of 10. Postoperative blood gases are pending, she is currently on lactated Ringer's at 50 ML per hour, Diprivan is a 40 mics per kilo per minute, Levophed at 0.01 mics per kilo per minute, milrinone is a 0.3 mics per kilo per minute. Patient is AV paced on the monitor at a rate of 80. Mediastinal and right pleural chest tubes are connected together, with 80 mL of sanguinous output. Hemodynamically patient is stable, currently blood pressure is 122/60, PA pressures 49/29, CVP is 11, cardiac output is 5.9, and cardiac index is 2.9. Postoperative blood work shows INR of 1.2, sodium is 138, potassium is 2.9 and this is being replaced per protocol, chloride is 103, CO2 31, BUN is 14, creatinine 0.57, CBC is pending. Chest x- ray shows a component of volume overload, interstitial edema. Endotracheal tube NG tube and chest tubes are in appropriate positions. Reevaluated today on 04/12/2021, patient remains in the ICU, she is postoperative day #1, patient was extubated yesterday and 23:56, elevated the extubation well, she is presently on 6 L nasal cannula, is also on Primacor, norepinephrine at 0.02 mcg/m, patient is going to be started on amiodarone since she has underlying rhythm of atrial fibrillation. Chest x-ray showed evidence of interstitial edema, and I recommended 20 mg of Lasix to be given today. And he clearly however the patient does not seem to be in any distress, she seems to be generally weak. CBC is relatively normal. Metabolic profile is normal. Blood sugar is 112. Her enzymes are normal. The patient is seen today 04/13/2021 in follow-up in the intensive care unit. Postoperative day #2. She is currently sitting up in a chair at the bedside. Awake and alert in no acute distress. She is currently maintaining O2 saturat ions in the 90s on 4 L/m per nasal cannula. She is only pulling approximately 750 MLS on the incentive spirometer. She needs increased encouragement regarding cough and deep breathing exercises. She remains in sinus bradycardia in the 50s. Backup pacemaker wires in place. Cardiac output 3.8. Cardiac index 1.9. She has been transitioned off the amiodarone. Off norepinephrine. Lactated Ringer's at 20 ML's per hour. Chest x-ray continues to show cardiomegaly with small tiny bilateral pleural effusions and associated basilar atelectasis. Some improvement in the central vascular congestion and interstitial edema. No pneumothorax. Cordis remains in place. Left apical chest tube in place. Mediastinal chest tube in place. White count 10.0. Hemoglobin 10.8. Platelets 119,000. Sodium 132. Potassium 4.8. Creatinine 0.63. AST 72. ALT 10. She is continued on DuoNeb inhalations, Symbicort, heparin for DVT prophylaxis. The patient is seen today 04/14/2021 in follow-up in the intensive care unit. Postoperative day #3. She is currently sitting up in a chair at the bedside. Awake and alert in no acute distress. She has been in a controlled atrial fibrillation. She was given amiodarone bolus. She received albumin. X-ray continues to show mild pulmonary vascular congestion with small pleural effusions and adjacent atelectasis She remains on bronchodilators. Heparin for DVT prophylaxis. She needs increased encouragement regarding the use of the incentive spirometer. Currently pulling approximately 500 - 1000 ML's. White count 7.3. Hemoglobin 10.4. Platelets 103. Sodium 132. Potassium 4.4. Creatinine 0.57. AST 43. ALT 9. Albumin 3.1. The patient is seen today 04/15/2021 in follow-up in the intensive care unit. Postoperative day #4. She is awake and alert in no acute distress. Sitting up in a chair at the bedside. She was ambulating earlier this morning. She is improved. She is pulling 1250 ML's on her incentive spirometer. She is under 2 L nasal cannula. Chest x-ray showing improvement. Chest tubes have been removed. She does have backup pacing at 70 bpm. She was initially in atrial fibrillation earlier today. White count 6.7. Hemoglobin 9.9. Platelets 143. Lymphocytes 0.7. Sodium 134. Potassium 4.0. Creatinine 0.62. AST 27. ALT 7. She remains on bronchodilators. Heparin for DVT prophylaxis. On 04/16/2001 patient seen in follow-up in intensive care unit, today's postoperative day #5, status post mitral valve repair and exclusion of the left atrial appendage on 04/11/2021. Patient is sitting up in the recliner, appears to be in no acute distress, she is currently on 2 L of oxygen pulse ox is 92- 93%, afebrile, hemodynamically she stable, she had A. fib yesterday, and overnight she did convert to sinus bradycardia and required pacing in view of symptomatic bradycardia via epicardial wires, and this morning she is back in atrial fibrillation with a controlled rate. Is not on any IV fluids, blood pressure stable 124/66, no evidence of respiratory difficulty, she does have some left shoulder pain, but no chest pain. Chest x-ray today showed interval removal of left-sided chest tube, no evidence of pneumothorax, cardiomegaly and mild interstitial edema and small left greater than right bilateral pleural effusions. Today's labs have been reviewed, white blood cell count is 8.8, hemoglobin is 10.8, serum sodium is 131, potassium is 5.2, chloride is 96, CO2 is 30, B1 is 25, creatinine 0.70. Patient received a dose of IV Lasix per CT surgery yesterday. She is in -820 ML net fluid balance over the last 24 hours, Gonzalez catheter has been discontinued, patient has been voiding. Her chest tubes have been discontinued, epicardial wires remain in place to external pacemaker which is on standby. On 04/17/2021 patient seen in follow-up in intensive care unit, today's postoperative day #6, status post mitral valve repair and exclusion of the left atrial appendage on 04/11/2021. Patient is doing well, although overall she is generally weak, breathing comfortably, she is on 2 L of oxygen pulse ox is 90- 92%. Today's chest x-ray showing cardiomegaly with mild to moderate central vascular congestion and small left pleural effusion with associated bibasilar atelectasis and/or infiltrates. She still in atrial fibrillation with a controlled rate, and anticoagulation to be decided on by CT surgery, chest tubes have been discontinued. Gonzalez catheter has been discontinued, patient has been get not to the bedside commode to void. Today's labs have been reviewed, with blood cell count is 9.5, hemoglobin is 11.3, sodium is 132, potassium is 5.6, chloride is 92, CO2 is 23, B1 is 21 creatinine 0.7 LFTs are within normal limits. Patient received another dose of IV Lasix today. Overall net fluid balance is -2.7 L over the last 24 hours. Objective - Vital Signs Vital signs: Vital Signs Temp 98.7 F 04/17/21 08:00 Pulse 66 04/17/21 10:00 Resp 9 L 04/17/21 10:00 BP 92/59 04/17/21 11:00 Pulse Ox 90 L 04/17/21 11:00 Intake & Output 04/16/21 04/17/21 04/17/21 18:59 06:59 18:59 Intake Total 435 450 Output Total 1500 2150 0 Balance -1065 -1700 0 Intake: IV 150 Intake, IV Titration 285 Amount Magnesium Sulfate-D5w Pmx 100 1 gm In Dextrose/Water 1 100ml.bag @ 100 mls/hr IVPB Q1H LIAT Rx#: [id number] Sodium Chloride 0.9% 1, 135 000 ml @ 45 mls/hr IV . [id number] LIAT Rx#:[id number] ceFAZolin 2 gm In Sodium 50 Chloride 0.9% 50 ml @ 100 mls/hr IVPB Q6H LIAT Rx#: [id number] Oral 450 Tube Feeding 0 Output: Urine 1500 2150 0 Other: Voiding Method Bedside Commode Bedside Commode Bedside Commode ABP, PAP, CO, CI - Last Documented Arterial Blood Pressure 133/50 Pulmonary Artery Pressure 29/22 Cardiac Output 3.8 Cardiac Index 1.9 - Exam GENERAL EXAM: Alert, very pleasant, 61-year-old white female, on 2 L of oxygen, resting in the recliner, in no acute distress comfortable in no apparent distress. HEAD: Normocephalic/atraumatic. EYES: Normal reaction of pupils, equal size. Conjunctiva pink, sclera white. NOSE: Clear with pink turbinates. THROAT: No erythema or exudates. NECK: No masses, no JVD, no thyroid enlargement, no adenopathy. CHEST: No chest wall deformity. Symmetrical expansion. Midsternal incision and chest tube sites are clean dry and intact, chest tubes have been removed LUNGS: Equal air entry with no crackles, wheeze, rhonchi or dullness. CVS: Irregular rate and rhythm, normal S1 and S2, no gallops, no murmurs, no rubs ABDOMEN: Soft, nontender. No hepatosplenomegaly, normal bowel sounds, no guarding or rigidity. EXTREMITIES: No clubbing, no edema, no cyanosis, 2+ pulses and upper and lower extremities. MUSCULOSKELETAL: Muscle strength and tone normal. SPINE: No scoliosis or deformity SKIN: No rashes CENTRAL NERVOUS SYSTEM: Alert and oriented -3. No focal deficits, tone is normal in all 4 extremities. PSYCHIATRIC: Alert and oriented -3. Appropriate affect. Intact judgment and insight. - Labs CBC & Chem 7: 04/17/21 03:24 04/17/21 03:24 Labs: Abnormal Lab Results - Last 24 Hours (Table) 04/16/21 04/16/21 04/17/21 Range/Units 16:20 21:05 03:24 Hgb 11.3 L (11.4-16.0) gm/dL MCHC 30.7 L (31.0-37.0) g/dL RDW 17.8 H (11.5-15.5) % Sodium (137-145) mmol/L Potassium (3.5-5.1) mmol/L Chloride (98-107) mmol/L Carbon Dioxide (22-30) mmol/L BUN (7-17) mg/dL Glucose (74-99) mg/dL POC Glucose (mg/dL) 170 H 160 H (75-99) mg/dL Total Protein (6.3-8.2) g/dL Albumin (3.5-5.0) g/dL 04/17/21 04/17/21 Range/Units 03:24 06:03 Hgb (11.4-16.0) gm/dL MCHC (31.0-37.0) g/dL RDW (11.5-15.5) % Sodium 132 L (137-145) mmol/L Potassium 5.6 H (3.5-5.1) mmol/L Chloride 92 L (98-107) mmol/L Carbon Dioxide 33 H (22-30) mmol/L BUN 21 H (7-17) mg/dL Glucose 147 H (74-99) mg/dL POC Glucose (mg/dL) 140 H (75-99) mg/dL Total Protein 6.0 L (6.3-8.2) g/dL Albumin 3.3 L (3.5-5.0) g/dL Assessment and Plan Plan: Assessment: #1. Severe mitral valve regurgitation, status post mitral valve repair and exclusion of the left atrial appendage with 35 mm AtriClip on 04/11/2021 #2. Chronic congestive heart failure, most recent echocardiogram is not available to us at this time, patient previously had EF of 40-45% #3. Routine postoperative ventilator management #4. History of stage II COPD, with baseline FEV1 of 63% of predicted #5. History of smoking, patient carries [id number] smoking history, currently in remission #6. Hypertension #7. Hyperlipidemia #8. Coronary artery disease with previous PCI and stenting #9. History of CVA #10. History of Chavarria's palsy #11. History of chronic low back pain related to degenerative disc disease with history of spinal cord stimulator placement subsequent revision #12. Postoperative blood loss anemia, expected outcome of sternotomy and mitral valve repair surgery #13. Postoperative atrial fibrillation, expected outcome of mitral valve repair surgery Plan: Continue weaning FiO2 to maintain O2 saturations at or above 90% Patient received a dose of IV Lasix she is maintaining negative fluid balance No complaints of shortness of breath Remains in atrial fibrillation, rate control medications and anticoagulation per CT surgery Encourage deep breathing and coughing, Encourage ambulation Continue to follow overal the patient is weak, there is a possibility she may benefit from rehab to discharge I performed a history & physical examination of the patient and discussed their management with my nurse practitioner, Geno Cardenas. I reviewed the nurse practitioner's note and agree with the documented findings and plan of care. Lung sounds are positive for dim breath sounds throughout the lung [place]. The findings and the impression was discussed with the patient. I attest to the documentation by the nurse practitioner. Time with Patient: Less than 30
[2021-04-17 11:47] LABS: Glucose,Whole Blood 138 mg/dL (75-99)
--- NOTE | 2021-04-17 13:04 | P.PN ---
Subjective Progress Note Date: 04/17/21 HISTORY OF PRESENT ILLNESS This is a 61-year-old female patient of Dr. Rosado past medical history of coronary artery disease status post PCI and stent placement in 2011 at [facility], hypertension and hypertensive cardiovascular disease, hyperlipidemia, Chavarria's palsy, chronic low back pain secondary to degenerative disc disease as well as facet arthropathy status post spinal cord stimulator placement that was complicated by meningitis and she underwent revision of her stimulator and treatment for meningitis with reinsertion of her stimulator which was done in April 2012, chronic neck pain due to degenerative disc disease, chronic pain syndrome with pain contract with physician in [place] that she sees every other month, remote history of tobacco use and quit in 2018, COPD, irritable bowel syndrome seen by Dr. Laws. Patient has history of mitral valve regur gitation and underwent elective mitral valve repair on 04/11/2021. Patient has been successfully extubated and found sitting up in a chair with her at the bedside. She has mediastinal and right pleural chest tubes. Patient has been in and out of atrial fibrillation this morning is started on amiodarone drip. She is currently on levo fed as well. She did receive Lasix 20 mg this morning and has been noted to have decreased urine output. Patient has been off insulin drip due to blood sugars less than 110. We will plan to transition her to sliding insulin scale. Patient is reaching 750 on incentive spirometry. 04/13: Patient is seen today in the intensive care unit. She is sitting up and recliner and patient's and daughter are at bedside. Patient is not requiring vasopressors. Repeat chest x-ray reveals cardiomegaly with small tiny bilateral pleural effusions with associated bibasilar atelectasis and/or infiltrate redemonstrated. Improving central vascular congestion and interstitial edema. No left sided pneumothorax with chest tube in place. She is currently on O2 at 4 L nasal cannula with pulse ox 94-98%. Blood pressure 110/40, heart rate in the 50s. Afebrile. Blood work reveals WBC 10.0, Hemoccult and 10.8, platelet count 119. Sodium 132, potassium 4.8, creatinine 0.63. AST 72 and ALT 10. Capillary blood glucose running between 119 and 189. 04/14 patient remains in ICU, status post valve repair, postoperative day #3, she is on O2 nasal cannula, has atrial fibrillation on IV amiodarone, complains of diminished appetite, shortness of breath, no chest pain, no lightheadedness no aspiration. There is some low blood pressures today, and is on IV fluids and IV albumin. We are starting her also on nutritional supplement with Bene protein or premium protein, is worried about her being prediabetic, and also has some insomnia at this time. Vitals blood pressure 108/68, heart rate 74, irregular, cardiac output, 3.8 L cardiac index, 1.9 L, O2 sats 91% patient to be started on incentive spirometry, and is on Symbicort,. Labs hemoglobin 10.4, wbc count 7.3, blood sugars 128-135, creatinine of 0.57 04/15: Patient has better sleep, however still is fatigued, has edema noted today, however she slept in the recliner for the past 2 days, blood pressure is marginal the lower side, lisinopril HCTZ from home has not been started yet. Becca rhoades has some nausea, Zofran R is available for her to use, we'll going to restart her Carafate, 1 g 4 times a day, history of H. pylori in the past, no recent workup for this. Patient can undergo future workup for EGD outpatient, secondary to chronic gastritis, with persistent dyspepsia , patient will need Lasix prn, for edema. 04/16: The patient remains in intensive care unit. She is scheduled for pacemaker implantation today for third-degree block. Patient was in atrial fibrillation then subsequently went into a sinus bradycardia. Patient has been ambulatory and doing well. Incentive spirometry is reaching 1250 ML's. She is voiding well. She is currently on oxygen at 2 L nasal cannula with pulse ox of 94%. 04/17: Patient is seen walking in the hallway with PT and OT. She is quite short of breath with ambulation and fatigue following this. She states she has not had a bowel movement since surgery. She is already on Senokot scheduled and will add in MiraLAX. Patient is scheduled to be transferred to the cardiac stepdown unit today. She has been afebrile, heart rate 66, blood pressure 120/47, pulse ox 92% on 2 L nasal cannula. Repeat blood work reveals hemoglobin 11.3. Sodium 132, potassium 5.6, chloride 92, CO2 33, BUN 21 creatinine 0.7. Capillary blood glucose running between 138 and 170. Liver function tests are normal. Repeat chest x-ray reveals cardiomegaly with mild to moderate central vascular congestion and small left pleural effusion with associated bibasilar atelectasis and/or infiltrate redemonstrated. Patient underwent dual-chamber permanent pacemaker implantation with Dr. Orellana 04/16. Patient received 1 dose of IV Lasix 40 mg this morning. REVIEW OF SYSTEMS Constitutional: No fever, no chills, no night sweats. No weight change. No weakness, fatigue or lethargy. No daytime sleepiness. EENT: No headache. No blurred vision or double vision, no loss of vision. No loss of Hearing, no ringing in the ears, no dizziness. No nasal drainage or congestion. No epistaxis. No sore throat. Lungs: Reports shortness of breath, cough, no sputum production. No wheezing. Shortness of breath with exertion. Cardiovascular: Reports generalized chest discomfort, Denies lower extremity edema. No palpitations. No paroxysmal nocturnal dyspnea. No orthopnea. No lightheadedness or dizziness. No syncopal episodes. Abdominal: No abdominal pain. No nausea, vomiting. No diarrhea. No constipation. No bloody or tarry stools. No loss of appetite. Genitourinary: No dysuria, increased frequency, urgency. No urinary retention. Musculoskeletal: No myalgias. No muscle weakness, no gait dysfunction, no frequent falls. Chronic neck and back pain. Integumentary: No wounds, no lesions. No rash or pruritus. No unusual bruising. No change in hair or nails. Neurologic: No aphasia. No facial droop. No change in mentation. No head injury. No headache. No paralysis. No paresthesia. Psychiatric: No depression. No anxiety. No mood swings. Endocrine: No abnormal blood sugars. PHYSICAL EXAMINATION Gen: This is a 61-year-old female patient. She is ambulating with PT and OT, mild dyspnea with exertion currently on 2 L nasal cannula HEENT: Head is atraumatic, normocephalic. Pupils equal, round. Sclerae is anicteric. NECK: Supple. No lymphadenopathy. No thyromegaly. LUNGS: Diminished breath sounds to the bilateral bases. No wheezing. No intercostal retractions. HEART: Irregular rate and rhythm. 2/6 systolic murmur. ABDOMEN: Soft. Bowel sounds are present. No masses. No tenderness. EXTREMITIES: No pedal edema. No calf tenderness. NEUROLOGICAL: Patient is awake, alert and oriented x3. Cranial nerves 2 through 12 are grossly intact. Generalized weakness. ASSESSMENT AND PLAN 1. Mitral valve regurgitation status post repair, 04/11/2021. Continue current management per cardiothoracic team, incentive spirometry to reduce incidence of atelectasis and hospital-acquired pneumonia, pain has been addressed. 2. Hypertension hypertensive cardio vascular disease. On metoprolol 25 mg increased to 3 times a day 3. History of coronary artery disease status post PCI in 2011. Continue aspirin 325 mg daily, Lipitor 40 mg daily, Plavix 75 mg daily. 4. Hyperlipidemia. Continue Lipitor 5. Secondary Paroxysmal atrial fibrillation new onset, expected with surgery. Continue amiodarone 400 mg twice daily, metoprolol 25 mg increased to 3 times daily. Patient is on heparin subcu, not on any oral anticoagulation at this time 6. Chronic back pain, chronic neck pain status post spinal cord stimulator. Continue pain management medications. Continue Lyrica 7. History of meningitis complicating stimulator with subsequent replacement. 8. Remote history of tobacco use and quit in 2019. 9. COPD without exacerbation. Continue DuoNeb treatments 4 times daily and as needed, Symbicort 2 puffs twice daily. 10. Irritable bowel syndrome. Continue Bentyl 20 mg 4 times daily if needed 10. DVT prophylaxis. Heparin 5000 units subcu every 8 hours. 11. Gastroesophageal reflux disease and GI prophylaxis. Protonix. 12. Generalized anxiety disorder. Continue Xanax 0.5 mg 3 times daily as needed. 13. Migraine headaches. Stable. 14. Protein calorie malnutrition, start on premium protein, receive albumin infusion for low blood pressure 15. Sick sinus syndrome status post dual-chamber permanent pacemaker implant ation 04/16. DISCHARGE PLAN TBD. Possible IP rehab. Impression and plan of care have been directed as dictated by the signing physician. Rebecca Melendez nurse practitioner acting as scribe for signing physician. Objective - Vital Signs Vital signs: Vital Signs Temp 98.7 F 04/17/21 08:00 Pulse 82 04/17/21 09:21 Resp 18 04/17/21 09:21 BP 111/49 04/17/21 09:00 Pulse Ox 96 04/17/21 09:00 Intake & Output 04/16/21 04/17/21 04/17/21 18:59 06:59 18:59 Intake Total 435 450 Output Total 1500 2150 0 Balance -1065 -1700 0 Intake: IV 150 Intake, IV Titration 285 Amount Magnesium Sulfate-D5w Pmx 100 1 gm In Dextrose/Water 1 100ml.bag @ 100 mls/hr IVPB Q1H LIAT Rx#: [id number] Sodium Chloride 0.9% 1, 135 000 ml @ 45 mls/hr IV . [id number] LIAT Rx#:[id number] ceFAZolin 2 gm In Sodium 50 Chloride 0.9% 50 ml @ 100 mls/hr IVPB Q6H LIAT Rx#: [id number] Oral 450 Tube Feeding 0 Output: Urine 1500 2150 0 Other: Voiding Method Bedside Commode Bedside Commode Bedside Commode ABP, PAP, CO, CI - Last Documented Arterial Blood Pressure 133/50 Pulmonary Artery Pressure / Cardiac Output 3.8 Cardiac Index 1.9 - Labs CBC & Chem 7: 04/17/21 03:24 04/17/21 03:24 Labs: Abnormal Lab Results - Last 24 Hours (Table) 04/16/21 04/16/21 04/16/21 Range/Units 11:19 16:20 21:05 Hgb (11.4-16.0) gm/dL MCHC (31.0-37.0) g/dL RDW (11.5-15.5) % Sodium (137-145) mmol/L Potassium (3.5-5.1) mmol/L Chloride (98-107) mmol/L Carbon Dioxide (22-30) mmol/L BUN (7-17) mg/dL Glucose (74-99) mg/dL POC Glucose (mg/dL) 127 H 170 H 160 H (75-99) mg/dL Total Protein (6.3-8.2) g/dL Albumin (3.5-5.0) g/dL 04/17/21 04/17/21 04/17/21 Range/Units 03:24 03:24 06:03 Hgb 11.3 L (11.4-16.0) gm/dL MCHC 30.7 L (31.0-37.0) g/dL RDW 17.8 H (11.5-15.5) % Sodium 132 L (137-145) mmol/L Potassium 5.6 H (3.5-5.1) mmol/L Chloride 92 L (98-107) mmol/L Carbon Dioxide 33 H (22-30) mmol/L BUN 21 H (7-17) mg/dL Glucose 147 H (74-99) mg/dL POC Glucose (mg/dL) 140 H (75-99) mg/dL Total Protein 6.0 L (6.3-8.2) g/dL Albumin 3.3 L (3.5-5.0) g/dL
--- NOTE | 2021-04-17 13:48 | P.PN ---
Subjective Progress Note Date: 04/17/21 Principal diagnosis: Severe mitral valve regurgitation. Past medical history significant for coronary artery disease with previous myocardial infarction and PCI in August 2011, hypertension, CVA in 2009 with left-sided carotid stenosis 56%, history of syncope, current occasional cigarette use, mild restrictive lung disease, remote history of pneumonia, chronic pain issues with previous pain stimulator placement and chronic opioid dependence, follows with Dr. Doherty at [facility]. Preoperative nasal swab positive for MSSA. Intraoperative bradycardia and third-degree heart block POD #6 complex mitral valve repair with ring annuloplasty with a #28 mm [employer] AnnuloFlex band, clip ligation of the left atrial appendage with a 35 mm AtriClip, intraoperative transesophageal echocardiogram. POD #1 dual-chamber permanent pacemaker implantation Postoperative acute blood loss anemia and thrombocytopenia, expected given hemodilution and cardiopulmonary bypass pump. Postoperative hypotension requiring low-dose pressor use, expected and likely vasoplegia given preoperative LEROY inhibitor use. Postoperative controlled atrial fibrillation, known common occurrence after open heart surgery. Sick sinus syndrome, requiring permanent placement or implantation. The patient was seen in follow-up today 04/17/2021 at a bedside in the intensive care unit. Currently she is sitting up to the bedside chair, is awake, alert and oriented 3 and is in no acute apparent distress. The patient reports today she is feeling somewhat improved from yesterday. She denies any complaints of shortness of breath at this time, although is complaining of some chronic type pain to her back and left shoulder. She underwent a dual chamber permanent pacemaker implantation yesterday performed by Dr. Damian Raya. Pacemaker insertion site with dressing clean dry and intact. Bedside telemetry is showing atrial fibrillation heart rate 80 BPM. She was initiated on metoprolol tartrate 25 mg by mouth twice a day and amiodarone 400 mg by mouth twice a day yesterday after her pacemaker was implanted. Oxygen saturations are 95% on room air, and she is achieving 1500 mL on her incentive spirometry with encouragement. She continues to void and has had 800 mL of urine output in the last 8 hours. She remains hemodynamically stable and is currently on no inotropic pressure suppo rt. Atrial and ventricular epicardial pacemaker wires in place and connected to bedside backup pacemaker generator on a VVI 50. Laboratory results this morning show a WBC count 9.5, hemoglobin 11.3, hematocrit 36.8, platelets 257, sodium 132, potassium 5.6, BUN 21, and creatinine 0.70. She has been afebrile the last 24 hours. Objective - Vital Signs Vital signs: Vital Signs Temp 98.7 F 04/17/21 08:00 Pulse 82 04/17/21 09:21 Resp 18 04/17/21 09:21 BP 111/49 04/17/21 09:00 Pulse Ox 96 04/17/21 09:00 Intake & Output 04/16/21 04/17/21 04/17/21 18:59 06:59 18:59 Intake Total 435 450 Output Total 1500 2150 0 Balance -1065 -1700 0 Intake: IV 150 Intake, IV Titration 285 Amount Magnesium Sulfate-D5w Pmx 100 1 gm In Dextrose/Water 1 100ml.bag @ 100 mls/hr IVPB Q1H LIAT Rx#: [id number] Sodium Chloride 0.9% 1, 135 000 ml @ 45 mls/hr IV . [id number] LIAT Rx#:[id number] ceFAZolin 2 gm In Sodium 50 Chloride 0.9% 50 ml @ 100 mls/hr IVPB Q6H LIAT Rx#: [id number] Oral 450 Tube Feeding 0 Output: Urine 1500 2150 0 Other: Voiding Method Bedside Commode Bedside Commode Bedside Commode ABP, PAP, CO, CI - Last Documented Arterial Blood Pressure 133/50 Pulmonary Artery Pressure 29/22 Cardiac Output 3.8 Cardiac Index 1.9 - Exam CONSTITUTIONAL: Sitting up to the bedside chair in the intensive care unit, appears comfortable, cooperative, no apparent acute distress. HEENT: Neck is supple, no JVD, no lymphadenopathy. RESPIRATORY: Lungs sounds essentially clear throughout, diminished to his bilateral bases. Respirations are symmetrical and nonlabored. Currently on room air with oxygen saturations 95%. Able to achieve 1500 mL on her incentive spirometry. Strong cough. CARDIOVASCULAR: Irregular rhythm and rate. S1 and S2 present, negative for S3, gallop or murmur. Sternum is stable. Palpable peripheral pulses bilaterally, +1 edema to her bilateral lower extremities. No calf pain or tenderness noted. Heart hugger in place with patient demonstrating appropriate use. Knee-high HARSHA hose and sequential compression devices in place to her bilateral lower extremities. Bedside telemetry showing atrial fibrillation heart rate 87 BPM. GASTROINTESTINAL: Abdomen soft, nontender, nondistended. Active bowel sounds present 4 quadrants. Tolerating diet. Passing flatus. No guarding or rigidity. GENITOURINARY: Continues to void. Output 800 mL in the last 8 hours. INTEGUMENTARY: Skin is warm and dry with no evidence of clubbing or cyanosis. Midline sternal incision clean dry and well approximated, covered with dry intact dressing. Dressing is clean, dry and intact to her left upper chest pacemaker insertion site. NEUROLOGIC: Cranial nerves II through XII intact. No focal deficits. MUSKULOSKELETAL: Able to move all extremities, strength equal bilaterally, generalized weakness. PSYCHIATRIC: Alert and oriented to person place and time, appropriate affect, intact judgment and insight. INVASIVE LINES AND TUBES: Atrial and ventricular epicardial pacemaker wires present, connected to generator, VVI backup rate 50 bpm. - Allied health notes Allied health notes reviewed: nursing - Labs CBC & Chem 7: 04/17/21 03:24 04/17/21 03:24 Labs: Abnormal Lab Results - Last 24 Hours (Table) 04/16/21 04/16/21 04/16/21 Range/Units 11:19 16:20 21:05 Hgb (11.4-16.0) gm/dL MCHC (31.0-37.0) g/dL RDW (11.5-15.5) % Sodium (137-145) mmol/L Potassium (3.5-5.1) mmol/L Chloride (98-107) mmol/L Carbon Dioxide (22-30) mmol/L BUN (7-17) mg/dL Glucose (74-99) mg/dL POC Glucose (mg/dL) 127 H 170 H 160 H (75-99) mg/dL Total Protein (6.3-8.2) g/dL Albumin (3.5-5.0) g/dL 04/17/21 04/17/21 04/17/21 Range/Units 03:24 03:24 06:03 Hgb 11.3 L (11.4-16.0) gm/dL MCHC 30.7 L (31.0-37.0) g/dL RDW 17.8 H (11.5-15.5) % Sodium 132 L (137-145) mmol/L Potassium 5.6 H (3.5-5.1) mmol/L Chloride 92 L (98-107) mmol/L Carbon Dioxide 33 H (22-30) mmol/L BUN 21 H (7-17) mg/dL Glucose 147 H (74-99) mg/dL POC Glucose (mg/dL) 140 H (75-99) mg/dL Total Protein 6.0 L (6.3-8.2) g/dL Albumin 3.3 L (3.5-5.0) g/dL - Imaging and Cardiology Chest x-ray: report reviewed, image reviewed Assessment and Plan Assessment: 1. Severe mitral valve regurgitation, status post complex mitral valve repair 2. History of coronary artery disease with previous myocardial infarction and PCI in August 2011 3. Hypertension 4. CVA in 2009 with left-sided carotid stenosis 56% 5. History of syncope 6. Current occasional cigarette use 7. Mild restrictive lung disease, preoperative FEV1 is 62% of predicted 8. Remote history of pneumonia 9. Chronic pain issues with previous pain stimulator placement and chronic opioid dependence, [facility] 10. Preoperative nasal swab positive for MSSA, treated with mupirocin 11. Intraoperative bradycardia and third-degree heart block 12. Postoperative acute blood loss anemia and thrombocytopenia, expected 13. Postoperative hypotension requiring low-dose pressor use, expected 14. Postoperative controlled atrial fibrillation, a known common occurrence after open heart surgery, status post left atrial appendage ligation 15. Sick sinus syndrome, requiring permanent dual-chamber pacemaker insertion Plan: 1. Continue aspirin, statin, beta carli and Plavix. Metoprolol tartrate increased to 25 mg by mouth 3 times a day. 2. She will be started on Eliquis 5 mg by mouth twice a day starting tomorrow 06/18/2020. The patient is post left atrial appendage exclusion. 3. Wean O2 as tolerated. Encourage incentive spirometry use 10 times every hour while awake. Bronchodilators per pulmonology/critical care medicine management. 4. Will monitor daily labs and chest x-rays. Electrolyte replacement per protocol. Keep potassium greater than 4.2, mag greater than 2. 5. GI/DVT prophylaxis. 6. Insulin management per primary care service. The patient is not diabetic, preoperative hemoglobin A1c 6.4%. Needs tight blood sugar control to promote healing, sternal union and prevent infection. 7. Pain control per current medication regimen. 8. Icrease activity, ambulate as tolerated. PT/OT/cardiac rehab following. 9. We will remove her atrial and ventricular epicardial pacemaker wires today and she will be on bed rest for 1 hour post pacemaker wire removal. 10. Amiodarone 400 mg by mouth twice a day was started yesterday for atrial fibrillation prophylaxis after her permanent pacemaker was placed. 11. We will transfer the patient to third floor cardiac stepdown unit when bed available. 12. Discharge planning is in place. 13. More recommendations to follow based on patient's clinical course. Time with Patient: Greater than 30
[2021-04-17 16:37] LABS: Glucose,Whole Blood 198 mg/dL (75-99)
[2021-04-17] MEDS: polyethylene glycoL 3350 17 GM POWD.PACK PO SCH (16:56)
[2021-04-17] MEDS: SENNOSIDES-DOCUSATE SODIUM 1 EACH TAB PO SCH (20:19)
[2021-04-17] MEDS: MAGNESIUM HYDROXIDE 2,400 MG/10 ML CUP PO PRN (20:19)
[2021-04-17] MEDS: MELATONIN 3 MG TABLET PO SCH (20:20)
[2021-04-17 20:59] LABS: Glucose,Whole Blood 177 mg/dL (75-99)
[2021-04-18] MEDS: ALPRAZolam 0.5 MG TAB PO PRN (01:05)
[2021-04-18 03:30] LABS: Anisocytosis Slight; HCT 31.8 % (34.0-46.0); Hypochromasia Slight; MCH 30.6 pg (25.0-35.0); MCHC 31.5 g/dL (31.0-37.0); MCV 97.2 fL (80.0-100.0); Macrocytosis Slight; Mean Platelet Volume 8.4; Platelet Count 223 k/uL (150-450); RBC 3.28 m/uL (3.80-5.40); WBC 7.1 k/uL (3.8-10.6)
[2021-04-18 03:47] LABS: Calcium 8.6 mg/dL (8.4-10.2); Magnesium 2.1 mg/dL (1.6-2.3); Potassium 4.8 mmol/L (3.5-5.1)
[2021-04-18 04:03] VITALS: TEMP 98.2
[2021-04-18 06:27] LABS: Glucose,Whole Blood 153 mg/dL (75-99)
[2021-04-18] MEDS: SUCRALFATE 1 GM TAB PO SCH ×2 (06:32→12:23)
[2021-04-18] MEDS: PANTOPRAZOLE 40 MG TABLET PO SCH (06:32)
[2021-04-18] MEDS: KETOROLAC 30 MG/ML 1 ML VIAL IVP SCH ×2 (06:32→12:24)
[2021-04-18] MEDS: INSULIN ASPART (NovoLOG) 100 UNIT/ML VIAL SQ SCH ×2 (06:33→12:24)
--- NOTE | 2021-04-18 08:19 | XR ---
EXAMINATION TYPE: XR chest 1V portable DATE OF EXAM: 04/18/2021 HISTORY: Shortness of breath. COMPARISON: 04/17/2021 TECHNIQUE: Single view of the chest is submitted. FINDINGS: Demonstrated are scattered senescent parenchymal change. There is no evidence for focal infiltrate. Continued cardiomegaly with mild pulmonary venous engorgement although there is interval improvement relative to prior study. Suspect small effusions. Hilar and mediastinal structures are within normal limits. Degenerative changes are seen of the dorsal spine. IMPRESSION: 1. Continued cardiomegaly with mild pulmonary venous engorgement although there is interval improvem ent relative to prior study. Suspect small effusions.
[2021-04-18] MEDS: FERROUS SULFATE 325 MG TAB PO SCH (08:57)
[2021-04-18] MEDS: HEPARIN SODIUM,PORCINE/PF 5,000 UNIT/0.5 ML SYRINGE SQ SCH (08:57)
[2021-04-18] MEDS: PREGABALIN 50 MG CAP PO SCH ×2 (08:57→16:37)
[2021-04-18] MEDS: ATORVASTATIN 40 MG TAB PO SCH (08:57)
[2021-04-18] MEDS: AMIODARONE 200 MG TAB PO SCH (08:57)
[2021-04-18] MEDS: METOPROLOL TARTRATE 25 MG TAB PO SCH ×2 (08:58→16:37)
[2021-04-18] MEDS ORDERED: ASPIRIN 81 MG PO SCH (09:00)
[2021-04-18] MEDS ORDERED: APIXABAN 5 MG TAB PO SCH (09:00)
[2021-04-18] MEDS: IPRATROPIUM-ALBUTEROL 3 ML NEB INHALATION SCH ×3 (09:17→16:34)
[2021-04-18] MEDS: polyethylene glycoL 3350 17 GM POWD.PACK PO SCH (09:31)
--- NOTE | 2021-04-18 11:53 | P.PN ---
Subjective Progress Note Date: 04/18/21 Principal diagnosis: Severe mitral regurgitation, status post mitral valve repair 61-year-old female patient with past medical history of coronary artery disease with previous PCI and stenting, hypertension, hypertensive cardiovascular disease, hyperlipidemia, history of CVA, Chavarria's palsy, COPD, stage II with FEV1 of 1.7 L or 63% of predicted, former history of smoking chronic low back pain, degenerative disc disease, spinal stimulator with revision, former smoker, and history of mitral valve regurgitation, who had an elective mitral valve repair today on 04/11/[address] Orellana. Patient's preoperative workup was done at an outside hospital, [facility]. Patient is seen in the postoperative period in the intensive care unit, sedated and intubated on [facility] anical ventilator. Currently on assist control mode of ventilation with a rate 16, tacrolimus 500, FiO2 100% and PEEP of 10. Postoperative blood gases are pending, she is currently on lactated Ringer's at 50 ML per hour, Diprivan is a 40 mics per kilo per minute, Levophed at 0.01 mics per kilo per minute, milrinone is a 0.3 mics per kilo per minute. Patient is AV paced on the monitor at a rate of 80. Mediastinal and right pleural chest tubes are connected together, with 80 mL of sanguinous output. Hemodynamically patient is stable, currently blood pressure is 122/60, PA pressures 49/29, CVP is 11, cardiac output is 5.9, and cardiac index is 2.9. Postoperative blood work shows INR of 1.2, sodium is 138, potassium is 2.9 and this is being replaced per protocol, chloride is 103, CO2 31, BUN is 14, creatinine 0.57, CBC is pending. Chest x- ray shows a component of volume overload, interstitial edema. Endotracheal tube NG tube and chest tubes are in appropriate positions. Reevaluated today on 04/12/2021, patient remains in the ICU, she is postoperative day #1, patient was extubated yesterday and 23:56, elevated the extubation well, she is presently on 6 L nasal cannula, is also on Primacor, norepinephrine at 0.02 mcg/m, patient is going to be started on amiodarone since she has underlying rhythm of atrial fibrillation. Chest x-ray showed evidence of interstitial edema, and I recommended 20 mg of Lasix to be given today. And he clearly however the patient does not seem to be in any distress, she seems to be generally weak. CBC is relatively normal. Metabolic profile is normal. Blood sugar is 112. Her enzymes are normal. The patient is seen today 04/13/2021 in follow-up in the intensive care unit. Postoperative day #2. She is currently sitting up in a chair at the bedside. Awake and alert in no acute distress. She is currently maintaining O2 saturations in the 90s on 4 L/m per nasal cannula. She is only pulling approximately 750 MLS on the incentive spirometer. She needs increased encouragement regarding cough and deep breathing exercises. She remains in sinus bradycardia in the 50s. Backup pacemaker wires in place. Cardiac output 3.8. Cardiac index 1.9. She has been transitioned off the amiodarone. Off norepinephrine. Lactated Ringer's at 20 ML's per hour. Chest x-ray continues to show cardiomegaly with small tiny bilateral pleural effusions and associated basilar atelectasis. Some improvement in the central vascular congestion and interstitial edema. No pneumothorax. Cordis remains in place. Left apical chest tube in place. Mediastinal chest tube in place. White count 10.0. Hemoglobin 10.8. Platelets 119,000. Sodium 132. Potassium 4.8. Creatinine 0.63. AST 72. ALT 10. She is continued on DuoNeb inhalations, Symbicort, heparin for DVT prophylaxis. The patient is seen today 04/14/2021 in follow-up in the intensive care unit. Postoperative day #3. She is currently sitting up in a chair at the bedside. Awake and alert in no acute distress. She has been in a controlled atrial fibrillation. She was given amiodarone bolus. She received albumin. X-ray continues to show mild pulmonary vascular congestion with small pleural effusions and adjacent atelectasis She remains on bronchodilators. Heparin for DVT prophylaxis. She needs increased encouragement regarding the use of the incentive spirometer. Currently pulling approximately 500 - 1000 ML's. White count 7.3. Hemoglobin 10.4. Platelets 103. Sodium 132. Potassium 4.4. Creatinine 0.57. AST 43. ALT 9. Albumin 3.1. The patient is seen today 04/15/2021 in follow-up in the intensive care unit. Postoperative day #4. She is awake and alert in no acute distress. Sitting up in a chair at the bedside. She was ambulating earlier this morning. She is improved. She is pulling 1250 ML's on her incentive spirometer. She is under 2 L nasal cannula. Chest x-ray showing improvement. Chest tubes have been removed. She does have backup pacing at 70 bpm. She was initially in atrial fibrillation earlier today. White count 6.7. Hemoglobin 9.9. Platelets 143. Lymphocytes 0.7. Sodium 134. Potassium 4.0. Creatinine 0.62. AST 27. ALT 7. She remains on bronchodilators. Heparin for DVT prophylaxis. On 04/16/2001 patient seen in follow-up in intensive care unit, today's postoperative day #5, status post mitral valve repair and exclusion of the left atrial appendage on 04/11/2021. Patient is sitting up in the recliner, appears to be in no acute distress, she is currently on 2 L of oxygen pulse ox is 92- 93%, afebrile, hemodynamically she stable, she had A. fib yesterday, and overnight she did convert to sinus bradycardia and required pacing in view of symptomatic bradycardia via epicardial wires, and this morning she is back in atrial fibrillation with a controlled rate. Is not on any IV fluids, blood pressure stable 124/66, no evidence of respiratory difficulty, she does have some left shoulder pain, but no chest pain. Chest x-ray today showed interval removal of left-sided chest tube, no evidence of pneumothorax, cardiomegaly and mild interstitial edema and small left greater than right bilateral pleural e ffusions. Today's labs have been reviewed, white blood cell count is 8.8, hemoglobin is 10.8, serum sodium is 131, potassium is 5.2, chloride is 96, CO2 is 30, B1 is 25, creatinine 0.70. Patient received a dose of IV Lasix per CT surgery yesterday. She is in -820 ML net fluid balance over the last 24 hours, Gonzalez catheter has been discontinued, patient has been voiding. Her chest tubes have been discontinued, epicardial wires remain in place to external pacemaker which is on standby. On 04/17/2021 patient seen in follow-up in intensive care unit, today's postoperative day #6, status post mitral valve repair and exclusion of the left atrial appendage on 04/11/2021. Patient is doing well, although overall she is generally weak, breathing comfortably, she is on 2 L of oxygen pulse ox is 90- 92%. Today's chest x-ray showing cardiomegaly with mild to moderate central vascular congestion and small left pleural effusion with associated bibasilar atelectasis and/or infiltrates. She still in atrial fibrillation with a controlled rate, and anticoagulation to be decided on by CT surgery, chest tubes have been discontinued. Gonzalez catheter has been discontinued, patient has been get not to the bedside commode to void. Today's labs have been reviewed, with blood cell count is 9.5, hemoglobin is 11.3, sodium is 132, potassium is 5.6, chloride is 92, CO2 is 23, B1 is 21 creatinine 0.7 LFTs are within normal limits. Patient received another dose of IV Lasix today. Overall net fluid balance is -2.7 L over the last 24 hours. The patient is seen today 04/18/2001 in follow-up in the intensive care unit. She is care unit overflow. This is postoperative day #7. She is status post mitral valve repair and exclusion of the left atrial appendage on 04/11/2021. She is currently up ambulating in her room with assistance. Awake and alert in no acute distress. No worsening shortness of breath, cough or congestion. While walking she does desaturate into the mid 80s on room air. She inks proves to the 90s on 2 L/m per nasal cannula. Chest x-ray continues to show cardiomegaly with mild pulmonary venous engorgement with interval improvement. White count 7.1. Hemoglobin 10.0. Sodium 133. Potassium 4.8. Creatinine 0.87. ProBNP 7670. Glucose 151. She is continued on neb inhalations, Symbicort, anticoagulated with Eliquis Objective - Vital Signs Vital signs: Vital Signs Temp 98.2 F 04/18/21 04:00 Pulse 87 04/18/21 10:13 Resp 16 04/18/21 09:28 BP 107/51 04/18/21 04:00 Pulse Ox 86 L 04/18/21 10:13 Intake & Output 04/17/21 04/18/21 04/18/21 18:59 06:59 18:59 Intake Total 750 Output Total 1200 400 Balance -1200 350 Weight 99.3 kg Intake: Oral 750 Output: Urine 1200 400 Other: Voiding Method Bedside Commode Bedside Commode ABP, PAP, CO, CI - Last Documented Arterial Blood Pressure 133/50 Pulmonary Artery Pressure 29/22 Cardiac Output 3.8 Cardiac Index 1.9 - Exam GENERAL EXAM: Alert, pleasant 61-year-old female patient, up ambulating, on 2 L nasal cannula, fairly comfortable in no apparent distress. HEAD: Normocephalic. EYES: Normal reaction of pupils, equal size. NOSE: Clear with pink turbinates. THROAT: No erythema or exudates. NECK: No masses, no JVD. CHEST: Sternal dressing dry and intact. Hugger in place. LUNGS: Equal air entry with crackles in the bilateral bases. CVS: S1 and S2 normal with no audible murmur, irregular rhythm. ABDOMEN: No hepatosplenomegaly, normal bowel sounds, no guarding or rigidity. SPINE: No scoliosis or deformity SKIN: No rashes CENTRAL NERVOUS SYSTEM: No focal deficits, tone is normal in all 4 extremities. EXTREMITIES: There is no peripheral edema. No clubbing, no cyanosis. Peripheral pulses are intact. - Labs CBC & Chem 7: 04/18/21 03:08 04/18/21 03:08 Labs: Abnormal Lab Results - Last 24 Hours (Table) 04/17/21 04/17/21 04/18/21 Range/Units 16:36 20:57 03:08 RBC 3.28 L (3.80-5.40) m/uL Hgb 10.0 L (11.4-16.0) gm/dL Hct 31.8 L (34.0-46.0) % RDW 18.0 H (11.5-15.5) % Sodium (137-145) mmol/L Chloride (98-107) mmol/L Carbon Dioxide (22-30) mmol/L BUN (7-17) mg/dL Glucose (74-99) mg/dL POC Glucose (mg/dL) 198 H 177 H (75-99) mg/dL 04/18/21 04/18/21 Range/Units 03:08 06:25 RBC (3.80-5.40) m/uL Hgb (11.4-16.0) gm/dL Hct (34.0-46.0) % RDW (11.5-15.5) % Sodium 133 L (137-145) mmol/L Chloride 94 L (98-107) mmol/L Carbon Dioxide 35 H (22-30) mmol/L BUN 20 H (7-17) mg/dL Glucose 151 H (74-99) mg/dL POC Glucose (mg/dL) 153 H (75-99) mg/dL Assessment and Plan Assessment: 1 Mitral valve regurgitation requiring complex mitral valve repair. Postope rative day #7. 2 Acute hypoxemic respiratory failure secondary to above, requiring home oxygen 3 History of coronary artery disease and previous PCI in August 25 012. 4 Chronic pain syndrome. 5 Postoperative blood loss anemia, expected. 6 Postoperative atrial fibrillation, expected. 7 Suspect mild acute component of diastolic congestive heart failure. 8 Benign essential hypertension Plan: The patient was seen and evaluated by Dr. Diaz Chest x-ray and labs reviewed She desaturated to 86% on room air Improves to 95% on 2 L nasal cannula The patient did qualify for home oxygen Cleared for discharge from the pulmonary standpoint Continue Symbicort, DuoNeb inhalations Anticoagulated with Eliquis Follow-up in the office in 1-2 weeks' I, the cosigning physician, performed a history & physical examination of the patient. Lungs sounds with crackles in bilateral bases. Maintaining good O2 saturations in the 90s on 2 L/m per nasal cannula. I discussed the assessment a nd plan of care with my nurse practitioner, Celine Jefferson. I attest to the above note as dictated by her.
[2021-04-18 12:11] LABS: Glucose,Whole Blood 160 mg/dL (75-99)
--- NOTE | 2021-04-18 13:09 | P.DS ---
Providers Date of admission: 04/11/21 09:04 Expected date of discharge: 04/18/21 Attending physician: Bharath Orellana Consults: 04/11/21 15:08 Consult Physician Routine Consulting Provider: Gay See Consult Reason/Comments: Day Care Supervisor Consult: post cardiac surgery Do you want consulting provider notified?: Yes Consult Physician Routine Consulting Provider: [place] Consult Reason/Comments: brennan alvarado; Ashlee patient Do you want consulting provider notified?: Yes Consult Physician Routine Consulting Provider: Malia Stratton Consult Reason/Comments: Family Practice Medical Doctor Consult: post cardiac surgery Do you want consulting provider notified?: Yes 04/16/21 08:31 Consult Physician Routine Consulting Provider: Vikram Xiao Consult Reason/Comments: Evaluation for inpatient rehab Do you want consulting provider notified?: Yes Consult Physician Routine Consulting Provider: Vikram Xiao Consult Reason/Comments: possible IPR Do you want consulting provider notified?: Yes Primary care physician: Delonte Rosado MD Hospital Course: FINAL DIAGNOSIS: 1. Severe mitral valve regurgitation, status post complex mitral valve repair 2. History of coronary artery disease with previous myocardial infarction and PCI in August 2011 3. Hypertension 4. CVA in 2009 with left-sided carotid stenosis 56% 5. History of syncope 6. Current occasional cigarette use 7. COPD, with mild restrictive lung disease, preoperative FEV1 is 62% of predicted 8. Remote history of pneumonia 9. History of Chavarria's palsy 10. Chronic pain issues with previous pain stimulator placement and chronic opioid dependence, follows with Dr. Doherty at pain clinic 11. Preoperative nasal swab positive for MSSA, treated with mupirocin 12. Intraoperative bradycardia and third-degree heart block 13. Postoperative acute blood loss anemia and thrombocytopenia, expected 14. Postoperative hypotension requiring low-dose pressor use, expected 15. Postoperative controlled atrial fibrillation, a known common occurrence after open heart surgery, status post left atrial appendage ligation 16. Sick sinus syndrome, requiring permanent dual-chamber pacemaker implantation PRINCIPAL PROCEDURE: 1. Complex mitral valve repair with ring annuloplasty with a #28 mm [employer] AnnuloFlex band. 2. Clip ligation of the left atrial appendage with a 35 mm Atriclip. 3. Intraoperative transesophageal echocardiogram. 4. Dual chamber permanent pacemaker implantation. HISTORY OF PRESENT ILLNESS: This is a 61-year-old female patient who follows with Dr. Delonte Rosado for her primary care service and Dr. Eva Maritnez for her cardiology care. Briefly, the patient has had complaints of progressive shortness of breath and increased swelling to her bilateral lower extremities. In May 2020 she underwent a transthoracic echocardiogram which demonstrated a systolic function mildly reduced with an ejection fraction of 40-45%, a mildly calcified mitral valve annulus with moderate to severe mitral valve regurgitation with a jet hugging the posterior wall of the left atrium, mild aortic valve stenosis with mild aortic valve regurgitation, moderate tricuspid valve regurgitation and mild pulmonic valve regurgitation. Due to the patient's above-mentioned symptoms and findings on her transthoracic echocardiogram she underwent a transesophageal echocardiogram and cardiac catheterization on 11/10/2020. The transesophageal echocardiogram demonstrated her left ventricle systolic function to be mildly reduced with an ejection fraction of 45-50%, a trileaflet aortic valve with mild aortic valve regurgitation, a mildly calcified mitral valve annulus with severe mitral valve regurgitation with the jet directed eccentrically and posteriorly, mild to moderate tricuspid valve regurgitation and mild pulmonic valve regurgitation. Her heart catheterization showed a prior intervention to her mid right coronary artery with a 30% in-stent recurrent stenosis. Subsequently, due to the patient's symptoms of shortness of breath and increased edema, findings on her transthoracic and transesophageal echocardiogram consult was placed to Dr. Bharath Orellana for cardiothoracic surgery for further evaluation and treatment recommendations. The patient met with Dr. Orellana with her daughter present, Dr. Orellana discussed the findings on her above- mentioned studies, and discussed treatment options including mitral valve repair possible replacement with the patient. Risks and benefits of surgery were discussed with the patient including the STS risk score and knowing and understanding these risks the patient wished to proceed with the surgical option. HOSPITAL COURSE: On 04/11/2021 after obtaining consent the patient was taken to the preoperative area, prepared in the usual fashion and subsequently taken to the operating room where Dr. Bharath Orellana performed a complex mitral valve repair with a ring annuloplasty with a #28 mm [employer] AnnuloFlex band, clip ligation of the left atrial appendage with a 35 mm Atriclip and an intraoperative transesophageal echocardiogram. Upon completion of the surgery the patient was transferred to the cardiovascular intensive care unit where she was recovered and monitored hemodynamically. She was extubated, all lines, tubes and supportive drips were discontinued when appropriate and transfer orders were placed for cardiac stepdown unit, although due to lack of bed availability she remained in the intensive care unit. Due to her COPD she required 2 L of nasal cannula oxygen and will need to be discharged home on 2 L nasal cannula as her room air oxygen saturations are 85%. The patient continued to work with physical and occupational therapy, she was tolerating an oral diet, her pain was well controlled on her current pain medication regimen, and she was ready to be discharged home with a clear home health care on postoperative day #6. She has received written and verbal instructions regarding her medications, activity restrictions, signs and symptoms requiring physician notification and her follow-up appointments. The patient did have some postoperative atrial fibrillation and some episodes of bradycardia, sick sinus syndrome requiring implantation of a dual chamber permanent pacemaker. Plan - Discharge Summary Discharge Rx Participant: Yes New Discharge Prescriptions: New Sennosides-Docusate Sodium [Senokot-S] 2 each PO HS #14 tab Aspirin 81 mg PO DAILY #30 tab Amiodarone [Cordarone] 400 mg PO BID #43 tab Apixaban [Eliquis] 5 mg PO BID #60 tab Furosemide [Lasix] 40 mg PO DAILY 10 Days #10 tablet Atorvastatin [Lipitor] 40 mg PO DAILY #30 tab Metoprolol Tartrate [Lopressor] 25 mg PO TID #90 tab Acetaminophen Tab [Tylenol] 650 mg PO Q6HR PRN tab PRN Reason: Mild Pain Continue Ondansetron [Zofran] 8 mg PO Q6H PRN PRN Reason: Nausea ALPRAZolam [Xanax] 0.5 mg PO TID PRN PRN Reason: Anxiety Omeprazole [PriLOSEC] 40 mg PO DAILY SUMAtriptan SUCCINATE [Imitrex] 100 mg PO BID PRN PRN Reason: Migraine Headache Nystatin 100,000 Unit/ml Susp [Mycostatin Oral Susp] 4 ml PO QID PRN PRN Reason: thrush Ferrous Sulfate [Iron (65 MG Elemental)] 325 mg PO DAILY Budesonide-Formot 160-4.5 Mcg [Symbicort 160-4.5 Mcg Inhaler] 2 puff INHALATION BID PRN PRN Reason: Shortness Of Breath Albuterol Sulfate [Ventolin HFA] 1 - 2 puff INHALATION Q6H PRN PRN Reason: Dyspnea Ipratropium Nebulized [Atrovent Nebulized 0.2 MG/ML] 0.5 mg INHALATION Q8HR PRN PRN Reason: Dyspnea Dicyclomine [Bentyl] 20 mg PO QID Diphenoxylate HCl/Atropine [Lomotil 2.5-0.025 mg Tablet] 1 - 2 tab PO QID PRN PRN Reason: Diarrhea Albuterol Nebulized [Ventolin Nebulized] 3 ml INHALATION Q6H PRN PRN Reason: Dyspnea Sucralfate [Carafate] 1 gm PO AC-TID Pregabalin [Lyrica] 50 mg PO TID SUMAtriptan SUCCINATE [Imitrex] 6 mg SQ DIRECTED PRN PRN Reason: Migraine Headache oxyCODONE HCL [oxyCODONE HCL (IR)] 20 mg PO Q6H PRN PRN Reason: Pain HYDROmorphone HCL [HYDROmorphone HCL ER] 12 mg PO Q12H PRN PRN Reason: Pain Discontinued Lisinopril-Hctz 20-25 mg [Zestoretic 20-25] 1 tab PO DAILY Furosemide [Lasix] 40 mg PO BID Potassium Chloride [K-Tab ER] 20 meq PO DAILY Mupirocin [Mupirocin 2%] 1 applic NASAL BID #1 tub Metoprolol Succinate (ER) [Toprol Xl] 25 mg PO DAILY Aspirin 325 mg PO DAILY Discharge Medication List ALPRAZolam [Xanax] 0.5 mg PO TID PRN 09/30/14 [History] Omeprazole [PriLOSEC] 40 mg PO DAILY 09/30/14 [History] Ondansetron [Zofran] 8 mg PO Q6H PRN 09/30/14 [History] SUMAtriptan SUCCINATE [Imitrex] 100 mg PO BID PRN 09/30/14 [History] Albuterol Nebulized [Ventolin Nebulized] 3 ml INHALATION Q6H PRN 04/06/21 [History] Albuterol Sulfate [Ventolin HFA] 1 - 2 puff INHALATION Q6H PRN 04/06/21 [History] Budesonide-Formot 160-4.5 Mcg [Symbicort 160-4.5 Mcg Inhaler] 2 puff INHALATION BID PRN 04/06/21 [History] Dicyclomine [Bentyl] 20 mg PO QID 04/06/21 [History] Diphenoxylate HCl/Atropine [Lomotil 2.5-0.025 mg Tablet] 1 - 2 tab PO QID PRN 04/06/21 [History] Ferrous Sulfate [Iron (65 MG Elemental)] 325 mg PO DAILY 04/06/21 [History] HYDROmorphone HCL [HYDROmorphone HCL ER] 12 mg PO Q12H PRN 04/06/21 [History] Ipratropium Nebulized [Atrovent Nebulized 0.2 MG/ML] 0.5 mg INHALATION Q8HR PRN 04/06/21 [History] Nystatin 100,000 Unit/ml Susp [Mycostatin Oral Susp] 4 ml PO QID PRN 04/06/21 [History] Pregabalin [Lyrica] 50 mg PO TID 04/06/21 [History] SUMAtriptan SUCCINATE [Imitrex] 6 mg SQ DIRECTED PRN 04/06/21 [History] Sucralfate [Carafate] 1 gm PO AC-TID 04/06/21 [History] oxyCODONE HCL [oxyCODONE HCL (IR)] 20 mg PO Q6H PRN 04/06/21 [History] Acetaminophen Tab [Tylenol] 650 mg PO Q6HR PRN tab 04/18/21 [Rx] Amiodarone [Cordarone] 400 mg PO BID #43 tab 04/18/21 [Rx] Apixaban [Eliquis] 5 mg PO BID #60 tab 04/18/21 [Rx] Aspirin 81 mg PO DAILY #30 tab 04/18/21 [Rx] Atorvastatin [Lipitor] 40 mg PO DAILY #30 tab 04/18/21 [Rx] Furosemide [Lasix] 40 mg PO DAILY 10 Days #10 tablet 04/18/21 [Rx] Metoprolol Tartrate [Lopressor] 25 mg PO TID #90 tab 04/18/21 [Rx] Sennosides-Docusate Sodium [Senokot-S] 2 each PO HS #14 tab 04/18/21 [Rx] Follow up Appointment(s)/Referral(s): [facility] [NON-STAFF] - 4 Weeks (You will be called in approximately 4-6 weeks for evaluation for cardiac rehab) Delonte Rosado MD [Primary Care Provider] - 04/23/21 11:30 am Marco Young NPC [Nurse Practitioner] - 04/24/21 11:30 am Jose De Jesus Diaz DO [Family Provider] - 05/03/21 2:15 pm [facility], [NON-STAFF] - 1-2 Days Eva Doty MD [REFERRING] - 04/26/21 2:00 pm (Your also to follow-up with Dr. Doty's office for a pacemaker device check on May 07 at 1:45 PM. ) Bharath Orellana MD [STAFF PHYSICIAN] - 05/09/21 2:15 pm Ambulatory/Diagnostic Orders: Complete Blood Count w/diff [LAB.AMB] Time Frame: 04/21/21, Facility: [facility], Location: Laboratory [facility] Comprehensive Metabolic Panel [LAB.AMB] Time Frame: 04/21/21, Facility: [facility], Location: [facility] Activity/Diet/Wound Care/Special Instructions: DISCHARGE INSTRUCTIONS: 1. No driving for 4 weeks, or until physician gives their ok. 2. The patient should sleep in their own bed, no medical bed needed. 3. Stairs are not an issue. If the bedroom is upstairs, it is advised that the patient go up at night and down in the morning for the first week. Go slowly, using handrail and take 1 step at a time. 4. HARSHA hose are to be worn for 30 days or until physician discontinues. 5. Heart hugger is to be worn 100% of the time until physician discontinues.(except when showering) 6. No lifting, pushing, or pulling more than 10 pounds for 12 weeks. The physician will advise of any restriction changes. 7. The patient is expected to continue the prescribed walking program. 8. Continue pain control per as needed orders. 9. Continue with incentive spirometry and splinting/heart hugger until otherwise directed by the physician. 10. Must shower daily using liquid antibacterial soap and a separate white washcloth for each individual incision. 11. Routine sternal incision care. No powders, lotions, ointments on incisions. No dressings are necessary on incisions unless they are draining. Dermabond tape is to remain on sternal incision until surgeon follow-up. 12. Please call surgeon/[employer] for temp greater than 101 F or purulent drainage from incisions. 13. All prescriptions given by surgeon for 30 days. Refills need to be filled through pool installer/primary care physician. 14. A Red armband has been placed on the patient. It should be worn for 30 days post surgery and will be removed by the cardiac surgeons. If an ER visit is necessary, please make sure the number on the Red armband is called. 15. You have been referred to and are expected to begin Cardiac Rehab in approximately 4-6 weeks. 16. You have been scheduled to follow-up in the [facility] at Dr. Doty's office on May 07 at 1:45 PM. HOME HEALTH SERVICES TO PROVIDE: RN SKILLED HOME CARE SERVICES FOR POST-OP SURGICAL PATIENTS WITH THE FOLLOWING: Coronary Artery Bypass Surgery (CABG), Mitral Valve Replacement/Repair ( MVR), Aortic Valve Replacement/Repair (AVR) RN TO CONTINUE EDUCATION FROM ``ROAD TO A HEALTH HEART PATIENT EDUCATION MANUAL (GIVEN TO PATIENT IN THE HOSPITAL) MEDICATION RECONCILIATION WITH EDUCATION NEEDED ON FIRST HOME VISIT EMPHASIZE IMPORTANCE OF WEARING BREAST SUPPORT/HEART HUGGER ENCOURAGE USE OF INCENTIVE SPIROMETER 10 X EVERY HOUR WHILE AWAKE ENCOURAGE UTILIZATION OF LOWER EXTREMITY COMPRESSION STOCKINGS/HARSHA HOSE and ELEVATE LEGS ABOVE LEVEL OF HEART WHILE AT REST. ENCOURAGE AMBULATION 3-5x/day INCREASING TOLERATES, WHILE AVOIDING EXTREMES IN TEMPERATURE FREQUENCY: RN TO OPEN THE PATIENT WITHIN 24 HOURS OF DISCHARGE FROM THE HOSPITAL WITH TELEHEALTH INSTALLED AT [facility] RN TO VISIT 2-3 X A WEEK FOR 4 WEEKS ESTABLISHED BY PATIENT NEEDS. LABORATORY: CBC, CMP TO BE DRAWN ON THE THIRD DAY HOME, (RAN STAT) FAX RESULTS TO [phone]. TELEHEALTH PARAMETERS: WEIGHT: NOTIFY MD OF WEIGHT GAIN OF 2 LBS IN 24 HOURS OR 5 LBS IN ONE WEEK HR: NOTIFY MD OF HR <55 BPM OR HR>100 BPM BP: NOTIFY MD IF BP <90/55 OR BP>140/100 O2 SAT: NOTIFY MD IF PO2<93% ON ROOM AIR SEND TELEHEALTH REPORT TO REGULATORY INTERN AND CARDIOVASCULAR SURGEON THE FIRST WEEK OF CARE AND THEN BI-WEEKLY. PLEASE ADDITIONALLY COMMUNICATE ANY ABNORMALS AND NEW FINDINGS TO THE SURGEONS OFFICE. Activity Restrictions or Additional Instructions: Instructions following a heart rhythm device implant. 1. Keep dressing dry for 5 days. He may cover the area with surrounding her clean wrap, prior to wrist shower 2. The dressing can be removed in about 5 days in the Device Clinic at [facility]. Absorbable sutures were used to close the wound. 3. Avoid raising the left arm above the shoulder level. 4 week resection. 4. Avoid arm movements such as back scratching, rubbing the head or pulling on a cord. 4 week for striction. 5. Gentle range of motion movements of the shoulder, closest institution should be performed to avoid a frozen shoulder. (Pendulum exercises of the shoulder) 6. The opposite arm may be used freely. 7. Avoid driving for 7 days. 8. Avoid activities such as golfing, swimming, weed whacking, lifting more than 10 pounds of weight, bowling, and weight training/lifting (6 week restriction) 9. Being close to home induction cooktops and activities such as wood chopping with axe, pull ups, power lifting will always be a problem 10. Arm sling is only remind her not to raise arm above the head. You do not need to keep the arm completely immobilized. You're free to move the arm and use it in normal activities. In case of any problems, please call [facility] at [phone] Attention: Device Clinic Device clinic follow up in 5 days Follw up with primary pool installer in 2-3 months Discharge Disposition: HOME WITH HOME HEALTH SERVICES
--- NOTE | 2021-04-18 14:46 | P.PN ---
Subjective Progress Note Date: 04/18/21 HISTORY OF PRESENT ILLNESS This is a 61-year-old female patient of Dr. Rosado past medical history of coronary artery disease status post PCI and stent placement in 2011 at [facility], hypertension and hypertensive cardiovascular disease, hyperlipidemia, Chavarria's palsy, chronic low back pain secondary to degenerative disc disease as well as facet arthropathy status post spinal cord stimulator placement that was complicated by meningitis and she underwent revision of her stimulator and treatment for meningitis with reinsertion of her stimulator which was done in April 2012, chronic neck pain due to degenerative disc disease, chronic pain syndrome with pain contract with physician in [place] that she sees every other month, remote history of tobacco use and quit in 2019, COPD, irritable bowel syndrome seen by Dr. Laws. Patient has history of mitral valve regurg itation and underwent elective mitral valve repair on 04/11/2021. Patient has been successfully extubated and found sitting up in a chair with her at the bedside. She has mediastinal and right pleural chest tubes. Patient has been in and out of atrial fibrillation this morning is started on amiodarone drip. She is currently on levo fed as well. She did receive Lasix 20 mg this morning and has been noted to have decreased urine output. Patient has been off insulin drip due to blood sugars less than 110. We will plan to transition her to sliding insulin scale. Patient is reaching 750 on incentive spirometry. 04/13: Patient is seen today in the intensive care unit. She is sitting up and recliner and patient's and daughter are at bedside. Patient is not requiring vasopressors. Repeat chest x-ray reveals cardiomegaly with small tiny bilateral pleural effusions with associated bibasilar atelectasis and/or infiltrate redemonstrated. Improving central vascular congestion and interstitial edema. No left sided pneumothorax with chest tube in place. She is currently on O2 at 4 L nasal cannula with pulse ox 94-98%. Blood pressure 110/40, heart rate in the 50s. Afebrile. Blood work reveals WBC 10.0, Hemoccult and 10.8, platelet count 119. Sodium 132, potassium 4.8, creatinine 0.63. AST 72 and ALT 10. Capillary blood glucose running between 119 and 189. 04/14 patient remains in ICU, status post valve repair, postoperative day #3, she is on O2 nasal cannula, has atrial fibrillation on IV amiodarone, complains of diminished appetite, shortness of breath, no chest pain, no lightheadedness no aspiration. There is some low blood pressures today, and is on IV fluids and IV albumin. We are starting her also on nutritional supplement with Bene protein or premium protein, is worried about her being prediabetic, and also has some insomnia at this time. Vitals blood pressure 108/68, heart rate 74, irregular, cardiac output, 3.8 L cardiac index, 1.9 L, O2 sats 91% patient to be started on incentive spirometry, and is on Symbicort,. Labs hemoglobin 10.4, wbc count 7.3, blood sugars 128-135, creatinine of 0.57 04/15: Patient has better sleep, however still is fatigued, has edema noted today, however she slept in the recliner for the past 2 days, blood pressure is marginal the lower side, lisinopril HCTZ from home has not been started yet. She has some nausea, Zofran R is available for her to use, we'll going to restart her Carafate, 1 g 4 times a day, history of H. pylori in the past, no recent workup for this. Patient can undergo future workup for EGD outpatient, secondary to chronic gastritis, with persistent dyspepsia , patient will need Lasix prn, for edema. 04/16: The patient remains in intensive care unit. She is scheduled for pacemaker implantation today for third-degree block. Patient was in atrial fibrillation then subsequently went into a sinus bradycardia. Patient has been ambulatory and doing well. Incentive spirometry is reaching 1250 ML's. She is voiding well. She is currently on oxygen at 2 L nasal cannula with pulse ox of 94%. 04/17: Patient is seen walking in the hallway with PT and OT. She is quite short of breath with ambulation and fatigue following this. She states she has not had a bowel movement since surgery. She is already on Senokot scheduled and will add in MiraLAX. Patient is scheduled to be transferred to the cardiac stepdown unit today. She has been afebrile, heart rate 66, blood pressure 120/47, pulse ox 92% on 2 L nasal cannula. Repeat blood work reveals hemoglobin 11.3. Sodium 132, potassium 5.6, chloride 92, CO2 33, BUN 21 creatinine 0.7. Capillary blood glucose running between 138 and 170. Liver function tests are normal. Repeat chest x-ray reveals cardiomegaly with mild to moderate central vascular congestion and small left pleural effusion with associated bibasilar atelectasis and/or infiltrate redemonstrated. Patient underwent dual-chamber permanent pacemaker implantation with Dr. Orellana 04/16. Patient received 1 dose of IV Lasix 40 mg this morning. 04/18 patient examined at bedside in the ICU. Patient was able to ambulate short distances with minimal shortness of breath. She was noted to drop down to 86% with minimal exertion on room air. Patient would benefit from home oxygen at 2 L with exertion. It is otherwise stable and afebrile pulse 77 respiratory rate 18 pressure 107/51. Patient has good family support and would continue with physical therapy at home. Patient was seen and evaluated in emergency room. This patient for home health care and home PT. Sodium 133 chloride 94 bicarbonate 35 BUN 20 creatinine 0.87 proBNP is elevated at 7670. Patient would benefit from low-dose of Lasix on discharge. patient is a possible discharge today REVIEW OF SYSTEMS Constitutional: No fever, no chills, no night sweats. No weight change. No weakness, fatigue or lethargy. No daytime sleepiness. EENT: No headache. No blurred vision or double vision, no loss of vision. No loss of Hearing, no ringing in the ears, no dizziness. No nasal drainage or congestion. No epistaxis. No sore throat. Lungs: Reports shortness of breath on exertion, cough, no sputum production. No wheezing. Shortness of breath with exertion. Cardiovascular: Reports generalized chest discomfort, positive for lower extremity edema. No palpitations. No paroxysmal nocturnal dyspnea. No orthopnea. No lightheadedness or dizziness. No syncopal episodes. Abdominal: No abdominal pain. No nausea, vomiting. No diarrhea. No constipation. No bloody or tarry stools. No loss of appetite. Genitourinary: No dysuria, increased frequency, urgency. No urinary retention. Musculoskeletal: No myalgias. No muscle weakness, no gait dysfunction, no frequent falls. Chronic neck and back pain. Integumentary: No wounds, no lesions. No rash or pruritus. No unusual bruising. No change in hair or nails. Neurologic: No aphasia. No facial droop. No change in mentation. No head injury. No headache. No paralysis. No paresthesia. Psychiatric: No depression. No anxiety. No mood swings. Endocrine: No abnormal blood sugars. PHYSICAL EXAMINATION Gen: This is a 61-year-old female patient. She is ambulating with PT and OT, mild dyspnea with exertion currently on 2 L nasal cannula HEENT: Head is atraumatic, normocephalic. Pupils equal, round. Sclerae is anicteric. NECK: Supple. No lymphadenopathy. No thyromegaly. LUNGS: Diminished breath sounds to the bilateral bases. No wheezing. No interc ostal retractions. HEART: Irregular rate and rhythm. 2/6 systolic murmur. ABDOMEN: Soft. Bowel sounds are present. No masses. No tenderness. EXTREMITIES: Minimal pedal edema. No calf tenderness. NEUROLOGICAL: Patient is awake, alert and oriented x3. Cranial nerves 2 through 12 are grossly intact. Generalized weakness. ASSESSMENT AND PLAN 1. Mitral valve regurgitation status post repair, 04/11/2021. Continue current management per cardiothoracic team, incentive spirometry to reduce incidence of atelectasis and hospital-acquired pneumonia, pain has been addressed. 2. Hypertension hypertensive cardio vascular disease. On metoprolol 25 mg increased to 3 times a day 3. History of coronary artery disease status post PCI in 2011. Continue aspirin 325 mg daily, Lipitor 40 mg daily, Plavix 75 mg daily. 4. Sick sinus syndrome status post dual-chamber permanent pacemaker implantation 04/16. 5. Secondary Paroxysmal atrial fibrillation new onset, expected with surgery. Continue amiodarone 400 mg twice daily, metoprolol 25 mg increased to 3 times daily. Patient is on heparin subcu, not on any oral anticoagulation at this time 6. Protein calorie malnutrition, start on premium protein, receive albumin infusion for low blood pressure 7. History of meningitis complicating stimulator with subsequent replacement. 8. Remote history of tobacco use and quit in 2019. 9. COPD without exacerbation. Continue DuoNeb treatments 4 times daily and as needed, Symbicort 2 puffs twice daily. 10. Irritable bowel syndrome. Continue Bentyl 20 mg 4 times daily if needed 10. DVT prophylaxis. Heparin 5000 units subcu every 8 hours. 11. Gastroesophageal reflux disease and GI prophylaxis. Protonix. 12. Generalized anxiety disorder. Continue Xanax 0.5 mg 3 times daily as needed. 13. Migraine headaches. Stable. 14. Chronic back pain, chronic neck pain status post spinal cord stimulator. Continue pain management medications. Continue Lyrica 15.Hyperlipidemia. Continue Lipitor Objective - Vital Signs Vital signs: Vital Signs Temp 98.2 F 04/18/21 04:00 Pulse 62 04/18/21 04:00 Resp 21 04/18/21 04:00 BP 107/51 04/18/21 04:00 Pulse Ox 96 04/18/21 04:00 Intake & Output 04/17/21 04/17/21 04/18/21 06:59 18:59 06:59 Intake Total 450 750 Output Total 2150 1200 400 Balance -1700 -1200 350 Weight 99.3 kg Intake: Oral 450 750 Tube Feeding 0 Output: Urine 2150 1200 400 Other: Voiding Method Bedside Commode Bedside Commode Bedside Commode ABP, PAP, CO, CI - Last Documented Arterial Blood Pressure 133/50 Pulmonary Artery Pressure Cardiac Output 3.8 Cardiac Index 1.9 - Labs CBC & Chem 7: 04/18/21 03:08 04/18/21 03:08 Labs: Abnormal Lab Results - Last 24 Hours (Table) 04/17/21 04/17/21 04/17/21 Range/Units 11:45 16:36 20:57 RBC (3.80-5.40) m/uL Hgb (11.4-16.0) gm/dL Hct (34.0-46.0) % RDW (11.5-15.5) % Sodium (137-145) mmol/L Chloride (98-107) mmol/L Carbon Dioxide (22-30) mmol/L BUN (7-17) mg/dL Glucose (74-99) mg/dL POC Glucose (mg/dL) 138 H 198 H 177 H (75-99) mg/dL 04/18/21 04/18/21 Range/Units 03:08 03:08 RBC 3.28 L (3.80-5.40) m/uL Hgb 10.0 L (11.4-16.0) gm/dL Hct 31.8 L (34.0-46.0) % RDW 18.0 H (11.5-15.5) % Sodium 133 L (137-145) mmol/L Chloride 94 L (98-107) mmol/L Carbon Dioxide 35 H (22-30) mmol/L BUN 20 H (7-17) mg/dL Glucose 151 H (74-99) mg/dL POC Glucose (mg/dL) (75-99) mg/dL
[2021-04-18 16:30] VITALS: BP 104/51; PULSE 95; RESP 20
== END 2021-04-18 17:00 | disposition home or self-care (01) | DRG 219 ==
LOC: 2ORMAIN 09:04 → 2SICU 14:39
PROVIDERS: ADMIT Thoracic Surgery (Cardiothoracic Vascular Surgery); ATTEND Thoracic Surgery (Cardiothoracic Vascular Surgery)
PROC: 02L70CK Occlusion of Left Atrial Appendage with Extraluminal Device, Open Approach (ICD-10-PCS; 2021-04-11)
PROC: B246ZZ4 Ultrasonography of Right and Left Heart, Transesophageal (ICD-10-PCS; 2021-04-11)
PROC: 5A1221Z Performance of Cardiac Output, Continuous (ICD-10-PCS; 2021-04-11)
PROC: 02UG0JZ Supplement Mitral Valve with Synthetic Substitute, Open Approach (ICD-10-PCS; principal; 2021-04-11 11:30)
PROC: 5A0935A Assistance with Respiratory Ventilation, Less than 24 Consecutive Hours, High Flow/Velocity Cannula (ICD-10-PCS; 2021-04-12)
PROC: 0JH606Z Insertion of Pacemaker, Dual Chamber into Chest Subcutaneous Tissue and Fascia, Open Approach (ICD-10-PCS; 2021-04-16)
PROC: 02H63JZ Insertion of Pacemaker Lead into Right Atrium, Percutaneous Approach (ICD-10-PCS; 2021-04-16)
PROC: 02HK3JZ Insertion of Pacemaker Lead into Right Ventricle, Percutaneous Approach (ICD-10-PCS; 2021-04-16)
DX: I34.0 Nonrheumatic mitral (valve) insufficiency (principal); J96.01 Acute respiratory failure with hypoxia; D62 Acute posthemorrhagic anemia; E46 Unspecified protein-calorie malnutrition; I44.2 Atrioventricular block, complete; I48.92 Unspecified atrial flutter; J98.11 Atelectasis; N17.9 Acute kidney failure, unspecified; I50.30 Unspecified diastolic (congestive) heart failure; I49.5 Sick sinus syndrome; D69.6 Thrombocytopenia, unspecified; Z68.35 Body mass index [BMI] 35.0-35.9, adult; E78.5 Hyperlipidemia, unspecified; E87.70 Fluid overload, unspecified; F17.210 Nicotine dependence, cigarettes, uncomplicated; F41.1 Generalized anxiety disorder; G43.909 Migraine, unspecified, not intractable, without status migrainosus; G89.4 Chronic pain syndrome; I25.10 Atherosclerotic heart disease of native coronary artery without angina pectoris; I11.9 Hypertensive heart disease without heart failure; I25.2 Old myocardial infarction; I34.1 Nonrheumatic mitral (valve) prolapse; I48.0 Paroxysmal atrial fibrillation; I95.81 Postprocedural hypotension; J44.9 Chronic obstructive pulmonary disease, unspecified; J98.4 Other disorders of lung; K21.9 Gastro-esophageal reflux disease without esophagitis; K58.9 Irritable bowel syndrome, unspecified; Z79.01 Long term (current) use of anticoagulants; Z79.02 Long term (current) use of antithrombotics/antiplatelets; Z79.51 Long term (current) use of inhaled steroids; Z79.82 Long term (current) use of aspirin; Z79.899 Other long term (current) drug therapy; Z82.3 Family history of stroke; Z82.49 Family history of ischemic heart disease and other diseases of the circulatory system; Z82.5 Family history of asthma and other chronic lower respiratory diseases; Z86.19 Personal history of other infectious and parasitic diseases; Z86.61 Personal history of infections of the central nervous system; Z86.73 Personal history of transient ischemic attack (TIA), and cerebral infarction without residual deficits; Z87.01 Personal history of pneumonia (recurrent); Z90.710 Acquired absence of both cervix and uterus; Z95.5 Presence of coronary angioplasty implant and graft; Z96.653 Presence of artificial knee joint, bilateral; K29.50 Unspecified chronic gastritis without bleeding; I65.22 Occlusion and stenosis of left carotid artery
CPT/HCPCS: 33208; 71045; 80048; 80053; 82330; 82805; 83735; 83880; 85025; 85027; 85520; 85610; 85730; 86850; 86891; 86900; 86901; 86920; 94002; 94640

== ENCOUNTER 2021-04-24 12:01 | Observation (INO) | payer MEDICARE ==
[2021-04-24 13:21] LABS: INR 1.2 (<1.2); Prothrombin Time 12.5 sec (9.0-12.0)
[2021-04-24 13:26] LABS: Anisocytosis Slight; Basophils # (A) 0.1 k/uL (0-0.2); Basophils % (A) 1 %; Eosinophils # (A) 0.5 k/uL (0-0.7); Eosinophils % (A) 4 %; Hypochromasia Slight; Lymphocytes # (A) 0.7 k/uL (1.0-4.8); Lymphocytes % (A) 7 %; MCH 29.7 pg (25.0-35.0); MCHC 31.7 g/dL (31.0-37.0); MCV 93.7 fL (80.0-100.0); Mean Platelet Volume 7.7; Monocytes # (A) 0.7 k/uL (0-1.0); Monocytes % (A) 6 %; Neutrophils # (A) 8.7 k/uL (1.3-7.7); Neutrophils % (A) 81 %; Platelet Count 394 k/uL (150-450); RBC 4.37 m/uL (3.80-5.40); RDW 18.1 % (11.5-15.5); WBC 10.7 k/uL (3.8-10.6)
[2021-04-24 13:40] LABS: Albumin 2.7 g/dL (3.5-5.0); Calcium 8.5 mg/dL (8.4-10.2); Potassium 3.6 mmol/L (3.5-5.1); Total Bilirubin 0.4 mg/dL (0.2-1.3); Total Protein 5.4 g/dL (6.3-8.2)
--- NOTE | 2021-04-24 15:03 | ED ---
General Adult HPI - General Chief complaint: Fall Stated complaint: fall, open heart surg 1wk ago Time Seen by Provider: 04/24/21 12:15 Source: patient, family, RN notes reviewed, old records reviewed Mode of arrival: wheelchair Limitations: no limitations - History of Present Illness Initial comments: This is a 61-year-old female who presents emergency department status post open heart surgery for a valve replacement and patient also had a place make a paced. Patient was discharged on 1123. Patient states she went downstairs to look at some [employer] ornaments and fell over. It sounds like the patient may have passed out. Patient denies any injury but she is now on blood thinners. Patient's family states she was very lethargic after the event it was difficult to get her to respond but she was able to respond if he really agitated here to talk. Family states she has slowly improved and currently is doing better now than she was earlier. Patient family states yesterday she was fine. Patient herself has no new complaints at this time. Family insists that she was altered for hours after the fall. - Related Data Home Medications Medication Instructions Recorded Confirmed ALPRAZolam [Xanax] 0.5 mg PO TID PRN 09/30/14 04/11/21 Omeprazole [PriLOSEC] 40 mg PO DAILY 09/30/14 04/11/21 Ondansetron [Zofran] 8 mg PO Q6H PRN 09/30/14 04/11/21 SUMAtriptan SUCCINATE [Imitrex] 100 mg PO BID PRN 09/30/14 04/11/21 Albuterol Nebulized [Ventolin 3 ml INHALATION Q6H PRN 04/06/21 04/11/21 Nebulized] Albuterol Sulfate [Ventolin HFA] 1 - 2 puff INHALATION Q6H PRN 04/06/21 04/11/21 Budesonide-Formot 160-4.5 Mcg 2 puff INHALATION BID PRN 04/06/21 04/11/21 [Symbicort 160-4.5 Mcg Inhaler] Dicyclomine [Bentyl] 20 mg PO QID 04/06/21 04/11/21 Diphenoxylate HCl/Atropine 1 - 2 tab PO QID PRN 04/06/21 04/11/21 [Lomotil 2.5-0.025 mg Tablet] Ferrous Sulfate [Iron (65 MG 325 mg PO DAILY 04/06/21 04/11/21 Elemental)] HYDROmorphone HCL [HYDROmorphone 12 mg PO Q12H PRN 04/06/21 04/11/21 HCL ER] Ipratropium Nebulized [Atrovent 0.5 mg INHALATION Q8HR PRN 04/06/21 04/11/21 Nebulized 0.2 MG/ML] Nystatin 100,000 Unit/ml Susp 4 ml PO QID PRN 04/06/21 04/11/21 [Mycostatin Oral Susp] Pregabalin [Lyrica] 50 mg PO TID 04/06/21 04/11/21 SUMAtriptan SUCCINATE [Imitrex] 6 mg SQ DIRECTED PRN 04/06/21 04/11/21 Sucralfate [Carafate] 1 gm PO AC-TID 04/06/21 04/11/21 oxyCODONE HCL [oxyCODONE HCL (IR)] 20 mg PO Q6H PRN 04/06/21 04/11/21 Previous Rx's Medication Instructions Recorded Acetaminophen Tab [Tylenol] 650 mg PO Q6HR PRN tab 04/18/21 Amiodarone [Cordarone] 400 mg PO BID #43 tab 04/18/21 Apixaban [Eliquis] 5 mg PO BID #60 tab 04/18/21 Aspirin 81 mg PO DAILY #30 tab 04/18/21 Atorvastatin [Lipitor] 40 mg PO DAILY #30 tab 04/18/21 Furosemide [Lasix] 40 mg PO DAILY 10 Days #10 tablet 04/18/21 Metoprolol Tartrate [Lopressor] 25 mg PO TID #90 tab 04/18/21 Sennosides-Docusate Sodium 2 each PO HS #14 tab 04/18/21 [Senokot-S] Allergies Allergy/AdvReac Type Severity Reaction Status Date / Time Iodinated Contrast Media Allergy Unknown Verified 04/24/21 15:56 [Iodinated Contrast Media - IV Dye] adhesive AdvReac SKIN TEARS Verified 04/24/21 15:56 ketamine AdvReac Hallucinati Verified 04/24/21 15:56 ons Review of Systems ROS Statement: Those systems with pertinent positive or pertinent negative responses have been documented in the HPI. ROS Other: All systems not noted in ROS Statement are negative. Past Medical History Past Medical History: Coronary Artery Disease (CAD), COPD, GERD/Reflux, GI Bleed, Hyperlipidemia, Hypertension, Myocardial Infarction ([place]), Osteoarthritis (OA), Skin Disorder Additional Past Medical History / Comment(s): ?CVA, right sided weakness, Chavarria's palsy, back in 2009, chronic low back pain, spinal stimulator, with revision, meningitis after one of spinal stim. surgeries, reinsertion of the spinal stimulator April 2012-not really working correctly @this time, constipation, peptic ulcer disease, frequent nausea, hx. H. pylori, rash under breast, in groin, fluid retention in legs Last Myocardial Infarction Date:: unknown History of Any Multi-Drug Resistant Organisms: MRSA Date of last positivie culture/infection: 09/25/17 MDRO Source:: ABDOMEN Past Surgical History: Back Surgery, Section, Cholecystectomy, Coronary Bypass/CABG, Heart Catheterization, Heart Catheterization With Stent, Hysterectomy, Joint Replacement, Pacemaker Additional Past Surgical History / Comment(s): C-sections 1978 and 1984, lumbar laminectomy August 2002, total abdominal hysterectomy with bilateral oophorectomy secondary to endometriosis in July 2005, cholecystectomy June 2006, epidural steroid injection as well as facet arthropathy with facet joint injections along with radiofrequency ablation between 2007 and 2009, trial of spinal cord stimulator in August 2010, placement of stable spinal cord stimulator in September 2010, revision in April 2011, bacterial meningitis status post multiple debridement, left heart catheterization with a stent insertion in August 2011, debridement of tissue in the back secondary to prior meningitis October 2011, implantation of new spinal cord stimulator in April 2012, kd knee repl acements Past Anesthesia/Blood Transfusion Reactions: No Reported Reaction Additional Past Anesthesia/Blood Transfusion Reaction / Comment(s): States bad reaction to ketamine Date of Last Stent Placement:: September 08, 2011 Past Psychological History: Anxiety Smoking Status: Current some day smoker Past Alcohol Use History: None Reported Past Drug Use History: None Reported - Past Family History Mother Family Medical History: Coronary Artery Disease (CAD), Deep Vein Thrombosis (DVT), Pulmonary Embolus Additional Family Medical History / Comment(s): Mother and two sisters and two nieces have had DVTs, mother Father Family Medical History: COPD, Myocardial Infarction ([place]) Sister(s) Family Medical History: No Reported History Brother(s) Family Medical History: Coronary Artery Disease (CAD) Daughter(s) Family Medical History: No Reported History Son(s) Family Medical History: No Reported History General Exam - General Exam Comments Initial Comments: GENERAL: Patient is well-developed and well-nourished. Patient is nontoxic and well- hydrated and is in no acute distress. She does seem a little tired but is able to answer all questions accurately ENT: Neck is soft and supple. No significant lymphadenopathy is noted. Oropharynx is clear. Moist mucous membranes. Neck has full range of motion without eliciting any pain. EYES: The sclera were anicteric and conjunctiva were pink and moist. Extraocular movements were intact and pupils were equal round and reactive to light. Eyelids were unremarkable. PULMONARY: Unlabored respirations. Good breath sounds bilaterally. No audible rales rhonchi or wheezing was noted. CARDIOVASCULAR: There is a regular rate and rhythm without any murmurs gallops or rubs. ABDOMEN: Soft and nontender with normal bowel sounds. SKIN: Skin is clear with no lesions or rashes and otherwise unremarkable. NEUROLOGIC: Patient is alert and oriented x3. Cranial nerves II through XII are grossly intact. Motor and sensory are also intact. Normal speech, volume and content. Symmetrical smile. MUSCULOSKELETAL: Normal extremities with adequate strength and full range of motion. 2+ edema bilaterally LYMPHATICS: No significant lymphadenopathy is noted PSYCHIATRIC: Normal psychiatric evaluation. Limitations: no limitations Course Vital Signs 04/24/21 12:16 Temperature 97.8 F Pulse Rate 58 L Respiratory 20 Rate Blood Pressure 121/65 O2 Sat by Pulse 93 L Oximetry Medical Decision Making - Medical Decision Making Patient EKG shows a paced rhythm at 60 bpm QRS is 164 QT interval is 560 QTC is 560. Patient also has occasional PVCs. I spoke with cardiothoracic surgery wanted the patient admitted to their service and they will write orders for the admission. Chest x-ray shows a little bit of pulmonary edema so started the patient Lasix. - Lab Data Result diagrams: 04/24/21 12:48 04/24/21 12:48 Lab Results 04/24/21 04/24/21 04/24/21 Range/Units 12:48 12:48 12:48 WBC 10.7 H (3.8-10.6) k/uL RBC 4.37 (3.80-5.40) m/uL Hgb 13.0 D (11.4-16.0) gm/dL Hct 41.0 (34.0-46.0) % MCV 93.7 (80.0-100.0) fL MCH 29.7 (25.0-35.0) pg MCHC 31.7 (31.0-37.0) g/dL RDW 18.1 H (11.5-15.5) % Plt Count 394 (150-450) k/uL MPV 7.7 Neutrophils % 81 % Lymphocytes % 7 % Monocytes % 6 % Eosinophils % 4 % Basophils % 1 % Neutrophils # 8.7 H (1.3-7.7) k/uL Lymphocytes # 0.7 L (1.0-4.8) k/uL Monocytes # 0.7 (0-1.0) k/uL Eosinophils # 0.5 (0-0.7) k/uL Basophils # 0.1 (0-0.2) k/uL Hypochromasia Slight Anisocytosis Slight PT 12.5 H (9.0-12.0) sec INR 1.2 H (<1.2) APTT 28.0 (22.0-30.0) sec Sodium 137 (137-145) mmol/L Potassium 3.6 (3.5-5.1) mmol/L Chloride 98 (98-107) mmol/L Carbon Dioxide 33 H (22-30) mmol/L Anion Gap 6 mmol/L BUN 21 H (7-17) mg/dL Creatinine 0.90 (0.52-1.04) mg/dL Est GFR (CKD-EPI)AfAm 81 (>60 ml/min/1.73 sqM) Est GFR (CKD-EPI)NonAf 71 (>60 ml/min/1.73 sqM) Glucose 133 H (74-99) mg/dL Calcium 8.5 (8.4-10.2) mg/dL Total Bilirubin 0.4 (0.2-1.3) mg/dL AST 28 (14-36) U/L ALT 12 (4-34) U/L Alkaline Phosphatase 131 H (38-126) U/L Troponin I (0.000-0.034) ng/mL Total Protein 5.4 L (6.3-8.2) g/dL Albumin 2.7 L (3.5-5.0) g/dL 04/24/21 Range/Units 12:48 WBC (3.8-10.6) k/uL RBC (3.80-5.40) m/uL Hgb (11.4-16.0) gm/dL Hct (34.0-46.0) % MCV (80.0-100.0) fL MCH (25.0-35.0) pg MCHC (31.0-37.0) g/dL RDW (11.5-15.5) % Plt Count (150-450) k/uL MPV Neutrophils % % Lymphocytes % % Monocytes % % Eosinophils % % Basophils % % Neutrophils # (1.3-7.7) k/uL Lymphocytes # (1.0-4.8) k/uL Monocytes # (0-1.0) k/uL Eosinophils # (0-0.7) k/uL Basophils # (0-0.2) k/uL Hypochromasia Anisocytosis PT (9.0-12.0) sec INR (<1.2) APTT (22.0-30.0) sec Sodium (137-145) mmol/L Potassium (3.5-5.1) mmol/L Chloride (98-107) mmol/L Carbon Dioxide (22-30) mmol/L Anion Gap mmol/L BUN (7-17) mg/dL Creatinine (0.52-1.04) mg/dL Est GFR (CKD-EPI)AfAm (>60 ml/min/1.73 sqM) Est GFR (CKD-EPI)NonAf (>60 ml/min/1.73 sqM) Glucose (74-99) mg/dL Calcium (8.4-10.2) mg/dL Total Bilirubin (0.2-1.3) mg/dL AST (14-36) U/L ALT (4-34) U/L Alkaline Phosphatase (38-126) U/L Troponin I 0.391 H* (0.000-0.034) ng/mL Total Protein (6.3-8.2) g/dL Albumin (3.5-5.0) g/dL Disposition Clinical Impression: Syncope, Fatigue Disposition: ADMITTED IP TO THIS HOSP Referrals: Delonte Rosado MD [Primary Care Provider] - 1-2 days Time of Disposition: 16:14
--- NOTE | 2021-04-24 15:36 | XR ---
EXAMINATION TYPE: XR chest 2V DATE OF EXAM: 04/24/2021 COMPARISON: Chest x-ray April 18, 2021 HISTORY: Difficulty in breathing. TECHNIQUE: Frontal and lateral views of the chest are obtained. FINDINGS: Overlying sternal wires along with slight atrial appendage clip redemonstrated. Persistent cardiomegaly with dual lead pacemaker. More prominent alveolar and interstitial edema on current stud y with small to tiny bilateral pleural effusions redemonstrated. Osseous structures are demineralized with lower thoracic spinal stimulator redemonstrated. IMPRESSION: Correlate for CHF exacerbation as there is cardiomegaly with small bilateral pleural eff usions and moderate alveolar and interstitial edema redemonstrated. The lateral more prominent from p rior.
--- NOTE | 2021-04-24 15:41 | CT ---
EXAMINATION TYPE: CT brain tatyana burden con DATE OF EXAM: 04/24/2021 COMPARISON: NONE HISTORY: Fall with weakness and pain. CT DLP: 1598 mGycm. Automated Exposure Control for Dose Reduction was Utilized. TECHNIQUE: CT scan of the head and cervical spine are performed without contrast. FINDINGS: There is no acute intracranial hemorrhage or midline shift identified. Mild sulcal promin ence greatest over the bilateral frontal lobes. No hydrocephalus. Benson-white matter differentiation fairly well-maintained. The calvarium is intact. Symmetric mild bilateral proptosis. Patchy opacity i n the posterior left ethmoid sinus. Cervical spine is visualized in its entirety from C1 through upper thoracic levels and demonstrates satisfactory alignment without evidence of acute fracture or dislocation. Prevertebral soft tissue a ppears within normal limits. The C1-C2 articulation is within normal limits on the coronal images. Vertebral body heights and disc space heights are maintained. Spinal canal is preserved. Review of ax ial images show some multilevel uncovertebral facet degenerative changes. Thyroid gland appears withi n normal limits. Lung apices show no pneumothorax. There is motion artifact degradation. There is par tial visualization of sternal wires and pacemaker wires. Moderate calcified plaque bilateral carotid bulb level is present. IMPRESSION: 1. There is no acute fracture or dislocation evident in the cervical spine. 2. No acute intracranial hemorrhage or midline shift is seen.
[2021-04-24] MEDS ORDERED: FUROSEMIDE 10 MG/ML 4 ML VIAL IV STA (16:02)
--- NOTE | 2021-04-24 16:02 | P.GSHP ---
History of Present Illness H&P Date: 04/24/21 Chief Complaint: Fall at home, currently on anticoagulation, post mitral valve repair This is a 61-year-old female patient who follows in an outpatient basis with Dr. Delonte Rosado for primary care as well as Dr. Eva Doty for cardiology. She has a previous medical history of severe mitral valve regurgitation status post complex mitral valve repair with post surgical bradycardia/third-degree heart block status post permanent pacemaker insertion as well as paroxysmal atrial fibrillation on Eliquis for anticoagulation, coronary artery disease with previous myocardial infarction and PCI in August 2011, hypertension, CVA in 2009 with left internal carotid stenosis, syncope, occasional tobacco use, COPD with mild restrictive lung disease, and chronic pain with chronic opioid dependence. She was recently hospitalized here at [facility] for elective mitral v alve repair with Dr. Orellana. She did have paroxysmal atrial fibrillation along with bradycardia and third-degree heart block requiring permanent pacemaker insertion prior to discharge. She was discharged to home April 18 and was recovering without incident. She was supposed to follow up in the cardiothoracic surgery office this morning, however her daughter called to report that the patient had fallen around 2:00 in the morning with positive loss of consciousness. The patient had decreased mentation and some confusion for several hours afterwards. Family was encouraged to call 911 to bring the patient to the emergency room for evaluation especially given the fact that the patient is on anticoagulation. Chest x-ray completed in the emergency room demonstrated cardiomegaly with small bilateral pleural effusions and interstitial edema, all of which were present on chest x-ray at discharge on April 18. CT of the head demonstrates no acute fracture, no acute intracranial hemorrhage. EKG demonstrated paced rhythm at 60 bpm. WBC 10.7, hemoglobin 13, INR 1.2, creatinine 0.9. The case was discussed with Dr. Gonsales and we recommend admittance to cardiothoracic surgery for 24-hour observation with consultation to cardiology, echocardiogram, and pacemaker check. - Review of Systems Comment: Review of systems was completed and was negative except as noted - Constitutional Constitutional: Reports chronic pain - Cardiovascular Comment: Facial edema Cardiovascular: Reports leg edema - Respiratory Comment: Per family patient's oxygen saturation drops with activity if she is not wearing her oxygen Respiratory: Reports cough, Reports home oxygen - Musculoskeletal Musculoskeletal: Reports low back pain - Neurological Neurological: Reports balance difficulties Past Medical History Past Medical History: Atrial Fibrillation, Coronary Artery Disease (CAD), COPD, GERD/Reflux, GI Bleed, Hyperlipidemia, Hypertension, Myocardial Infarction (ND), Osteoarthritis (OA), Skin Disorder Additional Past Medical History / Comment(s): ?CVA, right sided weakness, Chavarria's palsy, back in 2009, chronic low back pain, spinal stimulator, with revision, meningitis after one of spinal stim. surgeries, reinsertion of the spinal stimulator April 2012-not really working correctly @this time, constipation, peptic ulcer disease, frequent nausea, hx. H. pylori, rash under breast, in groin, fluid retention in legs Last Myocardial Infarction Date:: unknown History of Any Multi-Drug Resistant Organisms: MRSA Date of last positivie culture/infection: 09/25/17 MDRO Source:: ABDOMEN Past Surgical History: Back Surgery, Section, Cholecystectomy, Heart Catheterization, Heart Catheterization With Stent, Hysterectomy, Joint Replacement, Pacemaker Additional Past Surgical History / Comment(s): C-sections 1978 and 1984, lumbar laminectomy August 2002, total abdominal hysterectomy with bilateral oophorectomy secondary to endometriosis in July 2005, cholecystectomy June 2006, epidural steroid injection as well as facet arthropathy with facet joint injections along with radiofrequency ablation between 2007 and 2009, trial of spinal cord stimulator in August 2010, placement of stable spinal cord stimulator in September 2010, revision in April 2011, bacterial meningitis status post multiple debridement, left heart catheterization with a stent insertion in August 2011, debridement of tissue in the back secondary to prior meningitis October 2011, implantation of new spinal cord stimulator in April 2012, kd knee replacements; mitral valve repair 04/11/2021; [facility] permanent pacemaker placement 04/16/2021 Past Anesthesia/Blood Transfusion Reactions: No Reported Reaction Additional Past Anesthesia/Blood Transfusion Reaction / Comment(s): States bad reaction to ketamine Date of Last Stent Placement:: September 08, 2011 Past Psychological History: Anxiety Smoking Status: Current some day smoker Past Alcohol Use History: None Reported Past Drug Use History: None Reported - Past Family History Mother Family Medical History: Coronary Artery Disease (CAD), Deep Vein Thrombosis (DVT), Pulmonary Embolus Additional Family Medical History / Comment(s): Mother and two sisters and two nieces have had DVTs, mother Father Family Medical History: COPD, Myocardial Infarction (ND) Sister(s) Family Medical History: No Reported History Brother(s) Family Medical History: Coronary Artery Disease (CAD) Daughter(s) Family Medical History: No Reported History Son(s) Family Medical History: No Reported History Medications and Allergies Home Medications Medication Instructions Recorded Confirmed Type ALPRAZolam [Xanax] 0.5 mg PO TID PRN 09/30/14 04/11/21 History Omeprazole [PriLOSEC] 40 mg PO DAILY 09/30/14 04/11/21 History Ondansetron [Zofran] 8 mg PO Q6H PRN 09/30/14 04/11/21 History SUMAtriptan SUCCINATE [Imitrex] 100 mg PO BID PRN 09/30/14 04/11/21 History Albuterol Nebulized [Ventolin 3 ml INHALATION Q6H PRN 04/06/21 04/11/21 History Nebulized] Albuterol Sulfate [Ventolin HFA] 1 - 2 puff INHALATION Q6H PRN 04/06/21 04/11/21 History Budesonide-Formot 160-4.5 Mcg 2 puff INHALATION BID PRN 04/06/21 04/11/21 History [Symbicort 160-4.5 Mcg Inhaler] Dicyclomine [Bentyl] 20 mg PO QID 04/06/21 04/11/21 History Diphenoxylate HCl/Atropine 1 - 2 tab PO QID PRN 04/06/21 04/11/21 History [Lomotil 2.5-0.025 mg Tablet] Ferrous Sulfate [Iron (65 MG 325 mg PO DAILY 04/06/21 04/11/21 History Elemental)] HYDROmorphone HCL [HYDROmorphone 12 mg PO Q12H PRN 04/06/21 04/11/21 History HCL ER] Ipratropium Nebulized [Atrovent 0.5 mg INHALATION Q8HR PRN 04/06/21 04/11/21 History Nebulized 0.2 MG/ML] Nystatin 100,000 Unit/ml Susp 4 ml PO QID PRN 04/06/21 04/11/21 History [Mycostatin Oral Susp] Pregabalin [Lyrica] 50 mg PO TID 04/06/21 04/11/21 History SUMAtriptan SUCCINATE [Imitrex] 6 mg SQ DIRECTED PRN 04/06/21 04/11/21 History Sucralfate [Carafate] 1 gm PO AC-TID 04/06/21 04/11/21 History oxyCODONE HCL [oxyCODONE HCL (IR)] 20 mg PO Q6H PRN 04/06/21 04/11/21 History Acetaminophen Tab [Tylenol] 650 mg PO Q6HR PRN tab 04/18/21 Rx Amiodarone [Cordarone] 400 mg PO BID #43 tab 04/18/21 Rx Apixaban [Eliquis] 5 mg PO BID #60 tab 04/18/21 Rx Aspirin 81 mg PO DAILY #30 tab 04/18/21 Rx Atorvastatin [Lipitor] 40 mg PO DAILY #30 tab 04/18/21 Rx Furosemide [Lasix] 40 mg PO DAILY 10 Days #10 tablet 04/18/21 Rx Metoprolol Tartrate [Lopressor] 25 mg PO TID #90 tab 04/18/21 Rx Sennosides-Docusate Sodium 2 each PO HS #14 tab 04/18/21 Rx [Senokot-S] Allergies Allergy/AdvReac Type Severity Reaction Status Date / Time Iodinated Contrast Media Allergy Unknown Verified 04/24/21 12:16 [Iodinated Contrast Media - IV Dye] adhesive AdvReac SKIN TEARS Verified 04/24/21 12:16 ketamine AdvReac Hallucinati Verified 04/24/21 12:16 ons Surgical - Exam Vital Signs Temp Pulse Resp BP Pulse Ox 97.8 F 58 L 20 121/65 93 L 04/24/21 12:16 04/24/21 12:16 04/24/21 12:16 04/24/21 12:16 04/24/21 12:16 CONSTITUTIONAL: Awake and alert, appears comfortable, cooperative, well- developed, well-nourished, no pain, no acute distress EYES: Pupils equal, round, reactive to light, normal ocular movement, periorbital swelling present ENT: Moist mucous membranes without oral lesions present, edentulous NECK: No masses, no bruits, trachea midline RESPIRATORY: Lungs sounds diminished bilaterally with expiratory wheeze present on the right. Respirations even, nonlabored. Currently on 3 L nasal cannula with oxygen saturation 100%. Strong cough. No chest wall deformities. No clubbing or cyanosis present CARDIOVASCULAR: S1, S2 present. Regular rate and rhythm, 100% paced on telemetry. Palpable peripheral pulses bilaterally. Bilateral lower extremity edema present. GASTROINTESTINAL: Abdomen soft, nontender, nondistended, obese. There is no rebound or guarding present. Active bowel sounds present 4 quadrants. GENITOURINARY: Deferred INTEGUMENTARY: Skin is warm and dry NEUROLOGIC: Cranial nerves II through XII intact, no obvious motor or sensory deficits, speech is normal MUSKULOSKELETAL: Able to move all extremities, strength equal bilaterally, normal posture per patient's normal, she does tend to lean to the right side which is baseline for her PSYCHIATRIC: Alert and oriented to person place and time, appropriate affect, intact judgment and insight Results - Labs 04/24/21 12:48 04/24/21 12:48 Abnormal Lab Results - Last 24 Hours (Table) 04/24/21 04/24/21 04/24/21 Range/Units 12:48 12:48 12:48 WBC 10.7 H (3.8-10.6) k/uL RDW 18.1 H (11.5-15.5) % Neutrophils # 8.7 H (1.3-7.7) k/uL Lymphocytes # 0.7 L (1.0-4.8) k/uL PT 12.5 H (9.0-12.0) sec INR 1.2 H (<1.2) Carbon Dioxide 33 H (22-30) mmol/L BUN 21 H (7-17) mg/dL Glucose 133 H (74-99) mg/dL Alkaline Phosphatase 131 H (38-126) U/L Troponin I (0.000-0.034) ng/mL Total Protein 5.4 L (6.3-8.2) g/dL Albumin 2.7 L (3.5-5.0) g/dL 04/24/21 Range/Units 12:48 WBC (3.8-10.6) k/uL RDW (11.5-15.5) % Neutrophils # (1.3-7.7) k/uL Lymphocytes # (1.0-4.8) k/uL PT (9.0-12.0) sec INR (<1.2) Carbon Dioxide (22-30) mmol/L BUN (7-17) mg/dL Glucose (74-99) mg/dL Alkaline Phosphatase (38-126) U/L Troponin I 0.391 H* (0.000-0.034) ng/mL Total Protein (6.3-8.2) g/dL Albumin (3.5-5.0) g/dL Diabetes panel 04/24/21 Range/Units 12:48 Sodium 137 (137-145) mmol/L Potassium 3.6 (3.5-5.1) mmol/L Chloride 98 (98-107) mmol/L Carbon Dioxide 33 H (22-30) mmol/L BUN 21 H (7-17) mg/dL Creatinine 0.90 (0.52-1.04) mg/dL Glucose 133 H (74-99) mg/dL Calcium 8.5 (8.4-10.2) mg/dL AST 28 (14-36) U/L ALT 12 (4-34) U/L Alkaline Phosphatase 131 H (38-126) U/L Total Protein 5.4 L (6.3-8.2) g/dL Albumin 2.7 L (3.5-5.0) g/dL Calcium panel 04/24/21 Range/Units 12:48 Calcium 8.5 (8.4-10.2) mg/dL Albumin 2.7 L (3.5-5.0) g/dL Pituitary panel 04/24/21 Range/Units 12:48 Sodium 137 (137-145) mmol/L Potassium 3.6 (3.5-5.1) mmol/L Chloride 98 (98-107) mmol/L Carbon Dioxide 33 H (22-30) mmol/L BUN 21 H (7-17) mg/dL Creatinine 0.90 (0.52-1.04) mg/dL Glucose 133 H (74-99) mg/dL Calcium 8.5 (8.4-10.2) mg/dL Adrenal panel 04/24/21 Range/Units 12:48 Sodium 137 (137-145) mmol/L Potassium 3.6 (3.5-5.1) mmol/L Chloride 98 (98-107) mmol/L Carbon Dioxide 33 H (22-30) mmol/L BUN 21 H (7-17) mg/dL Creatinine 0.90 (0.52-1.04) mg/dL Glucose 133 H (74-99) mg/dL Calcium 8.5 (8.4-10.2) mg/dL Total Bilirubin 0.4 (0.2-1.3) mg/dL AST 28 (14-36) U/L ALT 12 (4-34) U/L Alkaline Phosphatase 131 H (38-126) U/L Total Protein 5.4 L (6.3-8.2) g/dL Albumin 2.7 L (3.5-5.0) g/dL - Imaging Chest x-ray: report reviewed, image reviewed EKG: image reviewed Additional studies: Head CT reviewed Assessment and Plan Assessment: 1. Fall at home with positive loss of consciousness 2. Severe mitral valve regurgitation status post complex mitral valve repair 04/11/2021 3. Intra and post surgical bradycardia/third-degree heart block status post [facility] permanent pacemaker insertion 04/16/2021 4. Post surgical paroxysmal atrial fibrillation status post left atrial appendage ligation on Eliquis for anticoagulation 5. History of coronary artery disease with previous myocardial infarction and PCI in August 2011 6. Hypertension 7. CVA in 2009 with left internal carotid stenosis 56% 8. History of syncope 9. Occasional tobacco use 10. COPD with mild restrictive lung disease 11. Chronic pain with chronic opioid dependence Plan: The patient was seen and examined in the emergency room. Her chart/diagnostics were reviewed. The case was discussed with Dr. Gonsales from cardiothoracic surgery. We will admit patient for 24-hour observation under cardiothoracic surgery with cardiology to be consulted, transthoracic echocardiogram to be ordered, and [facility] to interrogate pacemaker. Home medications to be ordered. Neuro checks to be completed every 4 hours. Sternal precautions to be observed including no lifting/pushing/pulling anything heavier than 10 pounds. Will order PT/OT to work with patient while she is here. Patient to shower daily. Will order daily weights. We will order incentive spirometry. More recommendations to follow. Time with Patient: Greater than 30
[2021-04-24] MEDS ORDERED: NALOXONE 0.4 MG/ML 1 ML VIAL IV PRN (16:04)
[2021-04-24] MEDS ORDERED: BENZOCAINE/MENTHOL LOZENG 1 EACH LOZENGE MUCOUS MEM PRN (16:07)
[2021-04-24] MEDS ORDERED: ACETAMINOPHEN TAB 325 MG TAB PO PRN (16:07)
[2021-04-24] MEDS ORDERED: ONDANSETRON 4 MG/2 ML VIAL IVP PRN (16:07)
[2021-04-24] MEDS ORDERED: ALBUTEROL NEBULIZED 1.25 MG/3 ML INHALATION PRN (16:13)
[2021-04-24] MEDS ORDERED: HYDROmorphone 4 MG TABLET PO PRN (16:14)
[2021-04-24] MEDS ORDERED: DICYCLOMINE 20 MG TAB PO PRN (16:14)
[2021-04-24] MEDS ORDERED: SENNOSIDES-DOCUSATE SODIUM 1 EACH TAB PO PRN (16:14)
[2021-04-24] MEDS: INSULIN ASPART (NovoLOG) 100 UNIT/ML VIAL SQ SCH ×2 (18:49→21:32)
[2021-04-24] MEDS ORDERED: APIXABAN 5 MG TAB PO SCH (21:00)
[2021-04-24 21:22] LABS: Glucose,Whole Blood 208 mg/dL (75-99)
[2021-04-24 21:30] VITALS: RESP 16
[2021-04-24] MEDS: AMIODARONE 200 MG TAB PO SCH (21:32)
[2021-04-24] MEDS ORDERED: METOPROLOL TARTRATE 25 MG TAB PO SCH (22:00)
[2021-04-25] MEDS: HYDROmorphone 2 MG TAB PO PRN ×2 (03:33→11:09)
[2021-04-25] MEDS: ALPRAZolam 0.5 MG TAB PO PRN ×2 (03:42→12:49)
[2021-04-25] MEDS ORDERED: PANTOPRAZOLE 40 MG TABLET PO SCH (07:30)
[2021-04-25] MEDS: SYMBICORT 160-4.5 MCG INHALER INHALATION SCH ×2 (07:42→09:45)
[2021-04-25] MEDS: PREGABALIN 50 MG CAP PO SCH ×2 (07:43→11:09)
--- NOTE | 2021-04-25 07:53 | P.PN ---
<Carlita Trinidad - Last Filed: 04/25/21 07:43> Subjective Progress Note Date: 04/25/21 Principal diagnosis: Fall at home with positive loss of consciousness. Previous medical history of severe mitral valve regurgitation status post complex mitral valve repair 04/11/2021, intra and post surgical bradycardia/third-degree heart block status post [facility] permanent pacemaker insertion 04/16/2021, post surgical paroxysmal atrial fibrillation status post left atrial appendage ligation on Eliquis for anticoagulation, coronary artery disease with previous myocardial infarction and PCI in August 2011, hypertension, CVA in 2009 with left internal carotid stenosis 56%, syncope, occasional tobacco use, COPD with mild restrictive lung disease, chronic pain with chronic opioid dependence The patient was seen and examined this morning still in the emergency room as there are no beds available. She does complain of her chronic pain as well as a minimal amount of post surgical chest pain, denies significant shortness of breath. Wants to go home and does not was spent another night in the hospital. We are waiting for completion of echocardiogram and pacemaker interrogation. Objective - Vital Signs Vital signs: Vital Signs Temp 97.8 F 04/24/21 12:16 Pulse 66 04/25/21 04:26 Resp 16 04/25/21 04:26 BP 104/67 04/25/21 04:26 Pulse Ox 96 04/25/21 04:26 Intake & Output 04/24/21 04/25/21 04/25/21 18:59 06:59 18:59 Weight 99.79 kg - Exam CONSTITUTIONAL: Appears comfortable, cooperative, no acute distress RESPIRATORY: Lungs sounds diminished bilaterally with expiratory wheezes present. Respirations even, nonlabored. Currently on 3 L nasal cannula with oxygen saturation 100%. Strong cough. CARDIOVASCULAR: S1, S2 present. Regular rate and rhythm. Sternum stable. Palpable peripheral pulses bilaterally. Bilateral lower extremity and p eriorbital edema present. No calf pain or tenderness noted. Heart hugger in place with patient demonstrating appropriate use. Antiembolism stockings present. GASTROINTESTINAL: Abdomen soft, nontender, nondistended. Active bowel sounds present 4 quadrants. Tolerating diet. GENITOURINARY: Continues to void INTEGUMENTARY: Skin is warm and dry with evidence of good perfusion. Anterior chest incision well approximated. NEUROLOGIC: Cranial nerves II through XII intact MUSKULOSKELETAL: Able to move all extremities, strength equal bilaterally PSYCHIATRIC: Alert and oriented to person place and time, appropriate affect - Allied health notes Allied health notes reviewed: nursing - Labs CBC & Chem 7: 04/24/21 12:48 04/24/21 12:48 Labs: Abnormal Lab Results - Last 24 Hours (Table) 04/24/21 04/24/21 04/24/21 Range/Units 12:48 12:48 12:48 WBC 10.7 H (3.8-10.6) k/uL RDW 18.1 H (11.5-15.5) % Neutrophils # 8.7 H (1.3-7.7) k/uL Lymphocytes # 0.7 L (1.0-4.8) k/uL PT 12.5 H (9.0-12.0) sec INR 1.2 H (<1.2) Carbon Dioxide 33 H (22-30) mmol/L BUN 21 H (7-17) mg/dL Glucose 133 H (74-99) mg/dL POC Glucose (mg/dL) (75-99) mg/dL Alkaline Phosphatase 131 H (38-126) U/L Troponin I (0.000-0.034) ng/mL Total Protein 5.4 L (6.3-8.2) g/dL Albumin 2.7 L (3.5-5.0) g/dL 04/24/21 04/24/21 Range/Units 12:48 21:14 WBC (3.8-10.6) k/uL RDW (11.5-15.5) % Neutrophils # (1.3-7.7) k/uL Lymphocytes # (1.0-4.8) k/uL PT (9.0-12.0) sec INR (<1.2) Carbon Dioxide (22-30) mmol/L BUN (7-17) mg/dL Glucose (74-99) mg/dL POC Glucose (mg/dL) 208 H (75-99) mg/dL Alkaline Phosphatase (38-126) U/L Troponin I 0.391 H* (0.000-0.034) ng/mL Total Protein (6.3-8.2) g/dL Albumin (3.5-5.0) g/dL - Imaging and Cardiology Chest x-ray: image reviewed Assessment and Plan Assessment: 1. Fall at home with positive loss of consciousness, CT of brain negative for acute hemorrhage 2. Severe mitral valve regurgitation status post complex mitral valve repair 04/11/2021 3. Intra and post surgical bradycardia/third-degree heart block status post [facility] permanent pacemaker insertion 04/16/2021 4. Post surgical paroxysmal atrial fibrillation status post left atrial appendage ligation on Eliquis for anticoagulation 5. History of coronary artery disease with previous myocardial infarction and PCI in August 2011 6. Hypertension 7. CVA in 2009 with left internal carotid stenosis 56% 8. History of syncope 9. Occasional tobacco use 10. COPD with mild restrictive lung disease 11. Chronic pain with chronic opioid dependence Plan: 1. Continue low-dose aspirin, statin, beta carli therapy. Lopressor decreased to 25 mg twice daily 2. Continue amiodarone. Eliquis placed on hold, appreciate cardiology recommendations for continuation 3. Continue Lasix 4. Wean O2 as tolerated. Encourage incentive spirometry use 5. Increase activity as tolerated. Physical and occupational therapy consulted. Patient does have PT and OT ordered at home as well 6. Await echocardiogram and pacemaker interrogation 7. Cardiology consulted, appreciate recommendations 8. Continue sternal precautions 9. Depending on outcome of echocardiogram and pacemaker interrogation, would like to discharge patient home this afternoon depending on cardiology recommendations. Follow-up appointments have been made Time with Patient: Greater than 30 <Damian Raya R - Last Filed: 04/25/21 10:01> Objective - Vital Signs Vital signs: Vital Signs Temp 97.8 F 04/24/21 12:16 Pulse 66 04/25/21 04:26 Resp 16 04/25/21 04:26 BP 104/67 04/25/21 04:26 Pulse Ox 96 04/25/21 04:26 Intake & Output 04/24/21 04/25/21 04/25/21 18:59 06:59 18:59 Weight 99.79 kg - Labs CBC & Chem 7: 04/24/21 12:48 04/24/21 12:48 Labs: Abnormal Lab Results - Last 24 Hours (Table) 04/24/21 04/24/21 04/24/21 Range/Units 12:48 12:48 12:48 WBC 10.7 H (3.8-10.6) k/uL RDW 18.1 H (11.5-15.5) % Neutrophils # 8.7 H (1.3-7.7) k/uL Lymphocytes # 0.7 L (1.0-4.8) k/uL PT 12.5 H (9.0-12.0) sec INR 1.2 H (<1.2) Carbon Dioxide 33 H (22-30) mmol/L BUN 21 H (7-17) mg/dL Glucose 133 H (74-99) mg/dL POC Glucose (mg/dL) (75-99) mg/dL Alkaline Phosphatase 131 H (38-126) U/L Troponin I (0.000-0.034) ng/mL Total Protein 5.4 L (6.3-8.2) g/dL Albumin 2.7 L (3.5-5.0) g/dL 04/24/21 04/24/21 Range/Units 12:48 21:14 WBC (3.8-10.6) k/uL RDW (11.5-15.5) % Neutrophils # (1.3-7.7) k/uL Lymphocytes # (1.0-4.8) k/uL PT (9.0-12.0) sec INR (<1.2) Carbon Dioxide (22-30) mmol/L BUN (7-17) mg/dL Glucose (74-99) mg/dL POC Glucose (mg/dL) 208 H (75-99) mg/dL Alkaline Phosphatase (38-126) U/L Troponin I 0.391 H* (0.000-0.034) ng/mL Total Protein (6.3-8.2) g/dL Albumin (3.5-5.0) g/dL Assessment and Plan Plan: Case discussed with Dr. Chavez and Dr. Natacha Stratton. Patient is in paced sinus rhythm and has been so since discharge. Given recent fall and history of falls in past contiuation of eliquis puts patient at high risk for life threatening hemorrhage. As she appears to have now sttabilized out of atrial fibrillation, and as there is a clip on her TAM, the only remaining indication for full dose anticoagulation is her recent mitral valve repair surgery and low LVEF. Taking everything into consideration, the overall opinion is to discontinue her Eliquis and continue her on aspirin alone.
--- NOTE | 2021-04-25 07:59 | XR ---
EXAMINATION TYPE: XR chest 2V DATE OF EXAM: 04/25/2021 COMPARISON: 04/24/2021 HISTORY: Shortness of breath TECHNIQUE: Frontal and lateral views of the chest are obtained. FINDINGS: Scattered senescent parenchymal changes noted. Hyperinflation compatible with COPD. No evidence for infiltrate. No evidence for atelectasis. Heart size is enlarged. Pacer device is in place. Pulmonary venous congestion without overt failure. Small right effusion. Mediastinal structures are stable and grossly unremarkable. No evidence for hilar prominence. Degenerative changes dorsal spine. IMPRESSION: 1. Heart size is enlarged. Pacer device is in place. Pulmonary venous congestion without overt failur e. Small right effusion.
[2021-04-25] MEDS ORDERED: ATORVASTATIN 40 MG TAB PO SCH (09:00)
[2021-04-25] MEDS ORDERED: FERROUS SULFATE 325 MG TAB PO SCH (09:00)
[2021-04-25] MEDS ORDERED: FUROSEMIDE 40 MG TAB PO SCH (09:00)
[2021-04-25] MEDS ORDERED: METOPROLOL TARTRATE 25 MG TAB PO SCH (09:00)
[2021-04-25] MEDS ORDERED: ASPIRIN 81 MG PO SCH (09:00)
[2021-04-25] MEDS: INSULIN ASPART (NovoLOG) 100 UNIT/ML VIAL SQ SCH (10:13)
[2021-04-25 10:17] LABS: Glucose,Whole Blood 97 mg/dL (75-99)
[2021-04-25] MEDS: AMIODARONE 200 MG TAB PO SCH (10:23)
--- NOTE | 2021-04-25 10:58 | ECHOF ---
Referral Reason:assess LV, mitral valve MEASUREMENTS -------- HEIGHT: 170.2 cm WEIGHT: 99.8 kg BP: IVSd: 0.9 cm (0.6 - 1.1) LVIDd: 4.2 cm (3.9 - 5.3) LVPWd: 1.1 cm (0.6 - 1.1) IVSs: 1.2 cm LVIDs: 3.2 cm LVPWs: 1.4 cm LAESV Index (A-L): 66.05 ml/m Ao Diam: 2.6 cm (2.0 - 3.7) AV Cusp: 1.2 cm (1.5 - 2.6) LA Diam: 3.1 cm (2.7 - 3.8) MV E Chester: 1.76 m/s MV DecT: 247 ms MV A [place]: 0.80 m/s MV E/A Ratio: 2.21 AV maxP.13 mmHg AV meanP.38 mmHg RAP: 5.00 mmHg RVSP: 22.05 mmHg FINDINGS -------- This was a technically difficult study with suboptimal views. The left ventricular size is normal. Left ventricular wall thickness is normal. Overall left vent ricular systolic function is moderately impaired with, an EF between 35 - 40 %. There is paradoxica l/dysynergic septal motion consistent with post-operative status. The right ventricle is normal in size. LA is severely dilated >40 ml/m2 The right atrial size is normal. Unable to visualize the septum. Aortic valve is trileaflet and is mildly thickened. There is mild aortic valve sclerosis. There i s mild aortic stenosis present. Peak/mean gradient across the Aortic Valve is 19.13mmHg / 10.38mmHg . Mild mitral regurgitation is present. The peak and mean MV gradients are 12.75mmHg 6.25mmHg as syeda sured by doppler. Mitral ring annulloplasty is in place. The tricuspid valve appears structurally normal. Mild tricuspid regurgitation present. Right vent ricular systolic pressure is normal at < 35 mmHg. There is no pulmonic regurgitation present. The aortic root size is normal. Normal inferior vena cava with normal inspiratory collapse consistent with estimated right atrial pre ssure of 5 mmHg. There is a trivial pericardial effusion present. CONCLUSIONS -------- 1. The left ventricular size is normal. 2. Left ventricular wall thickness is normal. 3. Overall left ventricular systolic function is moderately impaired with, an EF between 35 - 40 %. 4. There is paradoxical/dysynergic septal motion consistent with post-operative status. 5. LA is severely dilated >40 ml/m2 6. Unable to visualize the septum. 7. Aortic valve is trileaflet and is mildly thickened. 8. There is mild aortic valve sclerosis. 9. There is mild aortic stenosis present. 10. Peak/mean gradient across the Aortic Valve is 19.13mmHg / 10.38mmHg. 11. Mild mitral regurgitation is present. 12. The peak and mean MV gradients are 12.75mmHg 6.25mmHg as measured by doppler. 13. Mitral ring annulloplasty is in place. 14. Mild tricuspid regurgitation present. 15. There is a trivial pericardial effusion present. ROTARY DRIER: Carlita Nuñez RDCS
[2021-04-25 11:19] LABS: ALT 11 U/L (4-34); AST 22 U/L (14-36); African American GFR (CKD) >90 (>60 ml/min/1.73 sqM); Albumin 2.6 g/dL (3.5-5.0); Alkaline Phosphatase 115 U/L (38-126); Anion Gap 4 mmol/L; Blood Urea Nitrogen 16 mg/dL (7-17); Calcium 8.3 mg/dL (8.4-10.2); Carbon Dioxide 34 mmol/L (22-30); Chloride 96 mmol/L (98-107); Glucose 105 mg/dL (74-99); Non-African American GFR(CKD) >90 (>60 ml/min/1.73 sqM); Potassium 3.6 mmol/L (3.5-5.1); Sodium 134 mmol/L (137-145); Total Bilirubin 0.4 mg/dL (0.2-1.3); Total Protein 5.1 g/dL (6.3-8.2)
[2021-04-25 11:41] LABS: Anisocytosis Slight; Basophils # (A) 0.1 k/uL (0-0.2); Basophils % (A) 0 %; Eosinophils # (A) 0.3 k/uL (0-0.7); Eosinophils % (A) 3 %; HGB 11.6 gm/dL (11.4-16.0); Lymphocytes # (A) 1.2 k/uL (1.0-4.8); Lymphocytes % (A) 10 %; MCH 29.7 pg (25.0-35.0); MCHC 32.1 g/dL (31.0-37.0); MCV 92.5 fL (80.0-100.0); Mean Platelet Volume 7.4; Monocytes # (A) 0.8 k/uL (0-1.0); Monocytes % (A) 7 %; Neutrophils # (A) 9.5 k/uL (1.3-7.7); Neutrophils % (A) 79 %; Platelet Count 375 k/uL (150-450); RDW 18.2 % (11.5-15.5)
--- NOTE | 2021-04-25 11:44 | P.DS ---
Providers Date of admission: 04/24/21 16:57 Expected date of discharge: 04/25/21 Attending physician: Jaya Gonsales Consults: 04/24/21 16:09 Consult Physician Routine Consulting Provider: Dwain Laws Consult Reason/Comments: post MV repair/PPM; Mesiha patient Do you want consulting provider notified?: Yes Primary care physician: Delonte Rosado MD Hospital Course: FINAL DIAGNOSIS: 1. Fall at home with positive loss of consciousness 2. Severe mitral valve regurgitation status post complex mitral valve repair 04/11/2021 3. Intra-and post surgical bradycardia/third-degree heart block status post [facility] permanent pacemaker insertion 04/16/2021 4. Post surgical paroxysmal atrial fibrillation status post left atrial appendage ligation, was on Eliquis for anticoagulation 5. History of coronary artery disease with previous myocardial infarction and PCI in August 2011 6. Hypertension 7. CVA in 2009 with left internal carotid stenosis 56% 8. History of syncope 9. Occasional tobacco use 10. COPD with mild restrictive lung disease 11. Chronic pain with chronic opioid dependence HISTORY OF PRESENT ILLNESS: This is a 61-year-old female patient who follows on an outpatient basis with Dr. Delonte Rosado for primary care as well as Dr. Eva Alejo for cardiology. She was recently hospitalized here to [facility] for elective mitral valve repair with Dr. Orellana. She did have paroxysmal atrial fibrillation along with bradycardia and third-degree heart block requiring permanent pacemaker insertion part discharge. She was discharged home April 18 and was recovering at home without incident. She was supposed to be seen yesterday in cardiothoracic surgery office, however her daughter called to report that the patient had fallen around 2:00 morning with positive loss of consciousness. She had decreased mentation and some confusion for several hours afterwards. Family was encouraged to call 911 to bring the patient to the emergency room for evaluation especially given the fact that the patient had been on anticoagulation. Chest x-ray was completed in the emergency room demonstrating cardiomegaly with some small bilateral pleural effusions and interstitial edema, all of which were present on the chest x-ray discharge on April 18. Computed tomography scan of the head demonstrated no acute fracture, no acute intracranial hemorrhage. The patient was admitted for 24- hour observation. HOSPITAL COURSE: The patient was monitored overnight without any further instance of syncope. She did have an echocardiogram completed and reviewed by Dr. Raya and Dr. Stratton demonstrating mild mitral regurgitation and trivial pericardial effusion. Her pacemaker was interrogated with no evidence of lethal arrhythmias. Decision was made to stop Eliquis due to no further incidence of atrial fibrillation and patient's high risk for fall. Lopressor dose was decreased. The patient continued to be stable and was requesting to be sent home. She continued on home dose oxygen, she was tolerating oral diet, her pain was controlled, and she was ready to be discharged to home with [facility] care. She received written and verbal instruction regarding her medications, activity restrictions, signs and symptoms requiring physician notification, and follow-up appointments. Patient Condition at Discharge: Stable Plan - Discharge Summary Discharge Rx Participant: No New Discharge Prescriptions: New Acetaminophen Tab [Tylenol] 650 mg PO Q6HR PRN tab PRN Reason: Mild Pain Or Fever > 100.5 Continue ALPRAZolam [Xanax] 0.5 mg PO Q8H PRN PRN Reason: Anxiety SUMAtriptan SUCCINATE [Imitrex] 100 mg PO DAILY PRN PRN Reason: Migraine Headache Nystatin 100,000 Unit/ml Susp [Mycostatin Oral Susp] 5 - 10 ml PO QID PRN PRN Reason: thrush Ferrous Sulfate [Iron (65 MG Elemental)] 325 mg PO DAILY Budesonide-Formot 160-4.5 Mcg [Symbicort 160-4.5 Mcg Inhaler] 2 puff INHALATION RT-BID Albuterol Sulfate [Ventolin HFA] 1 puff INHALATION RT-Q4H PRN PRN Reason: Shortness Of Breath Dicyclomine [Bentyl] 20 mg PO QID PRN PRN Reason: GI UPSET, WITH MEALS Amiodarone [Cordarone] See Taper PO DIRECTED Omeprazole 40 mg PO DAILY Sennosides-Docusate Sodium [Senokot-S] 2 tab PO HS PRN PRN Reason: Constipation SUMAtriptan succinate 6 mg SQ DAILY PRN PRN Reason: Migraine Headache Diphenoxylate HCl/Atropine [Lomotil 2.5-0.025 mg Tablet] 1 - 2 tab PO QID PRN PRN Reason: Diarrhea Albuterol Nebulized [Ventolin Nebulized] 3 ml INHALATION RT-Q6H PRN PRN Reason: Shortness Of Breath Sucralfate [Carafate] 1 gm PO QID PRN PRN Reason: W/MEALS, GI UPSET Pregabalin [Lyrica] 50 mg PO Q8H oxyCODONE HCL [oxyCODONE HCL (IR)] 20 mg PO Q4-6H PRN MDD 5 TABS PRN Reason: Pain Aspirin 81 mg PO DAILY #30 tab Furosemide [Lasix] 40 mg PO DAILY 10 Days #10 tablet Atorvastatin [Lipitor] 40 mg PO DAILY #30 tab HYDROmorphone HCL [HYDROmorphone HCL ER] 8 mg PO BID PRN PRN Reason: Pain Ondansetron Odt [Zofran ODT] 8 mg PO AC-TID PRN PRN Reason: Nausea Ipratropium-Albuterol Nebulize [Duoneb 0.5 mg-3 mg/3 ml Soln] 3 ml INHALATION RT-Q6H PRN PRN Reason: Shortness Of Breath Changed Metoprolol Tartrate [Lopressor] 25 mg PO BID #90 tab Discontinued Apixaban [Eliquis] 5 mg PO BID #60 tab Discharge Medication List ALPRAZolam [Xanax] 0.5 mg PO Q8H PRN 09/30/14 [History] SUMAtriptan SUCCINATE [Imitrex] 100 mg PO DAILY PRN 09/30/14 [History] Albuterol Nebulized [Ventolin Nebulized] 3 ml INHALATION RT-Q6H PRN 04/06/21 [History] Albuterol Sulfate [Ventolin HFA] 1 puff INHALATION RT-Q4H PRN 04/06/21 [History] Budesonide-Formot 160-4.5 Mcg [Symbicort 160-4.5 Mcg Inhaler] 2 puff INHALATION RT-BID 04/06/21 [History] Dicyclomine [Bentyl] 20 mg PO QID PRN 04/06/21 [History] Diphenoxylate HCl/Atropine [Lomotil 2.5-0.025 mg Tablet] 1 - 2 tab PO QID PRN 04/06/21 [History] Ferrous Sulfate [Iron (65 MG Elemental)] 325 mg PO DAILY 04/06/21 [History] Nystatin 100,000 Unit/ml Susp [Mycostatin Oral Susp] 5 - 10 ml PO QID PRN 04/06/21 [History] Pregabalin [Lyrica] 50 mg PO Q8H 04/06/21 [History] Sucralfate [Carafate] 1 gm PO QID PRN 04/06/21 [History] oxyCODONE HCL [oxyCODONE HCL (IR)] 20 mg PO Q4-6H PRN MDD 5 TABS 04/06/21 [History] Aspirin 81 mg PO DAILY #30 tab 04/18/21 [Rx] Atorvastatin [Lipitor] 40 mg PO DAILY #30 tab 04/18/21 [Rx] Furosemide [Lasix] 40 mg PO DAILY 10 Days #10 tablet 04/18/21 [Rx] Amiodarone [Cordarone] See Taper PO DIRECTED 04/24/21 [History] HYDROmorphone HCL [HYDROmorphone HCL ER] 8 mg PO BID PRN 04/24/21 [History] Ipratropium-Albuterol Nebulize [Duoneb 0.5 mg-3 mg/3 ml Soln] 3 ml INHALATION RT-Q6H PRN 04/24/21 [History] Omeprazole 40 mg PO DAILY 04/24/21 [History] Ondansetron Odt [Zofran ODT] 8 mg PO AC-TID PRN 04/24/21 [History] SUMAtriptan succinate 6 mg SQ DAILY PRN 04/24/21 [History] Sennosides-Docusate Sodium [Senokot-S] 2 tab PO HS PRN 04/24/21 [History] Acetaminophen Tab [Tylenol] 650 mg PO Q6HR PRN tab 04/25/21 [Rx] Metoprolol Tartrate [Lopressor] 25 mg PO BID #90 tab 04/25/21 [Rx] Follow up Appointment(s)/Referral(s): [facility],Cardiac [NON-STAFF] - 4 Weeks (You will be called in approximately 4-6 weeks for evaluation for cardiac rehab) [facility],Equipment [NON-STAFF] - As Needed (Supplier of home oxygen) Delonte Rosado MD [Primary Care Provider] - 1-2 days (Patient had follow up 04/23/21. Follow up again as per Dr. Rosado's wishes) Jose De Jesus Diaz DO [Doctor of Osteopathic Medicine] - 05/03/21 2:15 pm [facility], [NON-STAFF] - 1-2 Days Eva Doty MD [REFERRING] - 04/26/21 2:15 pm (Your also to follow-up with Dr. Doty's office for a pacemaker device check on May 07 at 1:45 PM. ) Bharath Orellana MD [STAFF PHYSICIAN] - 05/09/21 2:15 pm Activity/Diet/Wound Care/Special Instructions: DISCHARGE INSTRUCTIONS: 1. No driving for 4 weeks, or until physician gives their ok. 2. The patient should sleep in their own bed, no medical bed needed. 3. Stairs are not an issue. If the bedroom is upstairs, it is advised that the patient go up at night and down in the morning for the first week. Go slowly, using handrail and take 1 step at a time. 4. HARSHA hose are to be worn for 30 days or until physician discontinues. 5. Heart hugger is to be worn 100% of the time until physician discontinues.(except when showering) 6. No lifting, pushing, or pulling more than 10 pounds for 12 weeks. The physician will advise of any restriction changes. 7. The patient is expected to continue the prescribed walking program. 8. Continue pain control per as needed orders. 9. Continue with incentive spirometry and splinting/heart hugger until otherwise directed by the physician. 10. Must shower daily using liquid antibacterial soap and a separate white washcloth for each individual incision. 11. Routine sternal incision care. No powders, lotions, ointments on incisions. No dressings are necessary on incisions unless they are draining. Dermabond tape is to remain on sternal incision until surgeon follow-up. 12. Please call surgeon/SUSTAINABLE PRODUCTS MARKETING MANAGER for temp greater than 101 F or purulent drainage from incisions. 13. All prescriptions given by surgeon for 30 days. Refills need to be filled through school bus driver/teacher assistant/primary care physician. 14. A Red armband has been placed on the patient. It should be worn for 30 days post surgery and will be removed by the cardiac surgeons. If an ER visit is necessary, please make sure the number on the Red armband is called. 15. You have been referred to and are expected to begin Cardiac Rehab in approximately 4-6 weeks. 16. You have been scheduled to follow-up in the [facility] clinic at Dr. Amanda ackerman's office on May 07 at 1:45 PM. HOME HEALTH SERVICES TO PROVIDE: RN SKILLED HOME CARE SERVICES FOR POST-OP SURGICAL PATIENTS WITH THE FOLLOWING: Coronary Artery Bypass Surgery (CABG), Mitral Valve Replacement/Repair ( MVR), Aortic Valve Replacement/Repair (AVR) RN TO CONTINUE EDUCATION FROM ``ROAD TO A HEALTH HEART PATIENT EDUCATION MANUAL (GIVEN TO PATIENT IN THE HOSPITAL) MEDICATION RECONCILIATION WITH EDUCATION NEEDED ON FIRST HOME VISIT EMPHASIZE IMPORTANCE OF WEARING BREAST SUPPORT/HEART HUGGER ENCOURAGE USE OF INCENTIVE SPIROMETER 10 X EVERY HOUR WHILE AWAKE ENCOURAGE UTILIZATION OF LOWER EXTREMITY COMPRESSION STOCKINGS/HARSHA HOSE and ELEVATE LEGS ABOVE LEVEL OF HEART WHILE AT REST. ENCOURAGE AMBULATION 3-5x/day INCREASING TOLERATES, WHILE AVOIDING EXTREMES IN TEMPERATURE FREQUENCY: RN TO OPEN THE PATIENT WITHIN 24 HOURS OF DISCHARGE FROM THE HOSPITAL WITH TELEHEALTH INSTALLED AT [facility], RN TO VISIT 2-3 X A WEEK FOR 4 WEEKS ESTABLISHED BY PATIENT NEEDS. LABORATORY: CBC, CMP TO BE DRAWN ON THE THIRD DAY HOME, (RAN STAT) FAX RESULTS TO [phone]. TELEHEALTH PARAMETERS: WEIGHT: NOTIFY MD OF WEIGHT GAIN OF 2 LBS IN 24 HOURS OR 5 LBS IN ONE WEEK HR: NOTIFY MD OF HR <55 BPM OR HR>100 BPM BP: NOTIFY MD IF BP <90/55 OR BP>140/100 O2 SAT: NOTIFY MD IF PO2<93% ON ROOM AIR SEND TELEHEALTH REPORT TO FINANCIAL OPERATIONS ANALYST AND CARDIOVASCULAR SURGEON THE FIRST WEEK OF CARE AND THEN BI-WEEKLY. PLEASE ADDITIONALLY COMMUNICATE ANY ABNORMALS AND NEW FINDINGS TO THE SURGEONS OFFICE. Activity Restrictions or Additional Instructions: Instructions following a heart rhythm device implant. 1. Keep dressing dry for 5 days. He may cover the area with surrounding her clean wrap, prior to wrist shower 2. The dressing can be removed in about 5 days in the Device Clinic at Cardiology office. Absorbable sutures were used to close the wound. 3. Avoid raising the left arm above the shoulder level. 4 week restriction. 4. Avoid arm movements such as back scratching, rubbing the head or pulling on a cord. 4 weeks restriction. 5. Gentle range of motion movements of the shoulder, closest to the incision should be performed to avoid a frozen shoulder. (Pendulum exercises of the shoulder) 6. The opposite arm may be used freely. 7. Avoid driving for 7 days. 8. Avoid activities such as golfing, swimming, weed whacking, lifting more than 10 pounds of weight, bowling, and weight training/lifting (6 week restriction) 9. Being close to home induction cooktops and activities such as wood chopping with axe, pull ups, power lifting will always be a problem. 10. Arm sling is only remind her not to raise arm above the head. You do not need to keep the arm completely immobilized. You're free to move the arm and use it in normal activities. Device clinic follow up in 05/07/2021 at 1:[address] Doty's office. Follw up with primary school bus driver/teacher assistant in 2-3 months Discharge Disposition: HOME WITH HOME HEALTH SERVICES
[2021-04-25 12:35] LABS: Glucose,Whole Blood 107 mg/dL (75-99)
[2021-04-25 13:00] VITALS: PULSE 60; TEMP 97.7
[2021-04-25 13:04] VITALS: BP 129/66
--- NOTE | 2021-04-25 15:38 | CONS ---
CONSULTATION Ruby is a 61-year-old lady with history of severe mitral regurgitation status post mitral valve repair with postoperative bradycardia status post permanent pacemaker and was discharged home from the hospital on April 18, was at home, was sitting in one place. She thinks that she fell asleep and then fell down to the ground. It is not really clear whether she had a syncopal event. Did not have bladder or bowel incontinence. Did not have seizure disorder. Did not have any other symptoms. She came to the emergency room where she had a CT scan of the head and cervical spine. She had a chest x-ray and lab workup. Hemoglobin is normal at 13, platelet count is normal. Potassium is normal. Creatinine is 0.9. Troponin is mildly elevated at 0.3 of no clear clinical significance coronavirus test is negative. A chest x-ray showed that there was mild cardiomegaly. EXAM: Heart rate is 66 beats per minute. Blood pressure is 104/67, respiratory rate is 18, O2 saturation is 96%. There is no jugular venous distention. Carotid upstroke is normal. There is no bruit. Chest exam reveals good air entry bilaterally without any crackles or rhonchi. Heart exam reveals first and second heart sounds. No gallop. No murmur. Abdomen: Soft. Exam of extremities reveals trace edema. Peripheral pulses are felt. EKG shows normally functioning pacemaker with an underlying sinus rhythm. ASSESSMENT: 1. Mitral regurgitation status post mitral valve repair. 2. Elevated troponin of no clear clinical significance in a patient who recently had a catheterization and did not have significant obstructive coronary artery disease. 3. Syncope. The exact etiology is unclear. The patient has a pacemaker. We have not documented any tachyarrhythmias. The patient probably just fell asleep and fell off the chair is the more likely event. I will obtain a 2D echo on her. Blood pressure is somewhat on the low side. We will cut back on the dose of the metoprolol that she is on to 25 b.i.d. She is on tapering dose of Cordarone, which she is going to continue. MMODL / IJN: [id number] /
== END 2021-04-25 14:33 | disposition home health service (06) ==
LOC: EC 12:01 → 1SOBS 16:57 → 3SCARD 17:53
PROVIDERS: ADMIT Surgery; ATTEND Surgery
DX: R55 Syncope and collapse (principal); W07.XXXA Fall from chair, initial encounter; Y92.009 Unspecified place in unspecified non-institutional (private) residence as the place of occurrence of the external cause; I11.9 Hypertensive heart disease without heart failure; I34.0 Nonrheumatic mitral (valve) insufficiency; I44.2 Atrioventricular block, complete; Z20.822 Contact with and (suspected) exposure to COVID-19; I25.2 Old myocardial infarction; J44.9 Chronic obstructive pulmonary disease, unspecified; F11.20 Opioid dependence, uncomplicated; M47.819 Spondylosis without myelopathy or radiculopathy, site unspecified; G89.29 Other chronic pain; F41.9 Anxiety disorder, unspecified; I48.0 Paroxysmal atrial fibrillation; I25.10 Atherosclerotic heart disease of native coronary artery without angina pectoris; F17.200 Nicotine dependence, unspecified, uncomplicated; J98.4 Other disorders of lung; J81.1 Chronic pulmonary edema; E78.5 Hyperlipidemia, unspecified; K21.9 Gastro-esophageal reflux disease without esophagitis; I65.22 Occlusion and stenosis of left carotid artery; L98.9 Disorder of the skin and subcutaneous tissue, unspecified; Z79.01 Long term (current) use of anticoagulants; Z79.899 Other long term (current) drug therapy; Z91.048 Other nonmedicinal substance allergy status; Z79.51 Long term (current) use of inhaled steroids; Z79.82 Long term (current) use of aspirin; Z88.4 Allergy status to anesthetic agent; Z86.19 Personal history of other infectious and parasitic diseases; Z95.0 Presence of cardiac pacemaker; Z96.653 Presence of artificial knee joint, bilateral; Z98.61 Coronary angioplasty status; Z95.2 Presence of prosthetic heart valve; Z95.1 Presence of aortocoronary bypass graft; Z90.710 Acquired absence of both cervix and uterus; Z86.73 Personal history of transient ischemic attack (TIA), and cerebral infarction without residual deficits; Z86.14 Personal history of Methicillin resistant Staphylococcus aureus infection; Z86.61 Personal history of infections of the central nervous system; Z90.49 Acquired absence of other specified parts of digestive tract; Z82.5 Family history of asthma and other chronic lower respiratory diseases; Z82.49 Family history of ischemic heart disease and other diseases of the circulatory system
CPT/HCPCS: 99285; 96374; 96375; 36415; 93005; 93306; 80053 ×2; 83735; 84484; 85025 ×2; 85610; 85730; 87635; 71046 ×2; 72125; 70450; G0378 ×2; J1940; J2405

== ENCOUNTER → 2021-05-23 | Outpatient (CLI) | payer MEDICARE ==
--- NOTE | 2021-05-23 14:26 | US ---
EXAMINATION TYPE: US chest DATE OF EXAM: 05/23/2021 COMPARISON: NONE CLINICAL HISTORY: J90 PLEURAL EFFUSION. History of open heart surgery. TECHNIQUE: Targeted ultrasound of the posterior lower bilateral hemithoraces EXAM MEASUREMENTS: Right Pleural Effusion pocket size: Trace amount of fluid in the right chest Left Pleural Effusion pocket size: No fluid seen Pulmonologists are able to review the images in the patient?s EMR. IMPRESSIONS: As above
== END | disposition home or self-care (01) ==
LOC: RADUSWWP 13:44
PROVIDERS: ATTEND Internal Medicine Critical Care Medicine
DX: J90 Pleural effusion, not elsewhere classified (principal)
CPT/HCPCS: 76604